=== PATIENT | female | born 1965 | race Caucasian/White ===

== ENCOUNTER → 2021-05-15 | Outpatient (CLI) | payer MEDICARE ==
[2021-05-15 07:41] LABS: Basophils # (A) 0.1 k/uL (0-0.2); Basophils % (A) 1 %; Eosinophils # (A) 0.2 k/uL (0-0.7); Eosinophils % (A) 2 %; HCT 41.3 % (34.0-46.0); HGB 14.1 gm/dL (11.4-16.0); Lymphocytes # (A) 2.1 k/uL (1.0-4.8); Lymphocytes % (A) 23 %; MCH 28.9 pg (25.0-35.0); MCHC 34.2 g/dL (31.0-37.0); MCV 84.3 fL (80.0-100.0); Mean Platelet Volume 7.5; Monocytes # (A) 0.5 k/uL (0-1.0); Monocytes % (A) 6 %; Neutrophils # (A) 6.2 k/uL (1.3-7.7); Neutrophils % (A) 67 %; Platelet Count 298 k/uL (150-450); RDW 13.7 % (11.5-15.5); WBC 9.3 k/uL (3.8-10.6)
[2021-05-15 08:02] LABS: Potassium 5.2 mmol/L (3.5-5.1)
== END | disposition home or self-care (01) ==
LOC: LABPAT 07:06
PROVIDERS: ATTEND Surgery
DX: Z01.812 Encounter for preprocedural laboratory examination (principal); I74.3 Embolism and thrombosis of arteries of the lower extremities
CPT/HCPCS: 36415; 80051; 82565; 84520; 85025

== ENCOUNTER 2021-05-20 12:28 | Day surgery (SDC) | payer MEDICARE ==
[2021-05-19 09:32] VITALS: BMI 33.8
[~2021-05-20 12:28] MED LIST: ALPRAZolam 0.25 MG TAB PO PRN; ASPIRIN 325 MG TAB PO PRN; SODIUM CHLORIDE 0.9% 1,000 ML in EMPTY BAG 1 BAG IV ONE
[2021-05-20] MEDS ORDERED: SODIUM CHLORIDE 0.9% 1,000 ML IV ONE (12:58)
[2021-05-20 13:20] LABS: Glucose,Whole Blood 224 mg/dL (75-99)
[2021-05-20] MEDS: INSULIN ASPART (NovoLOG) 100 UNIT/ML VIAL SQ SCH ×3 (13:22→21:33)
[2021-05-20 13:56] LABS: Glucose,Whole Blood 246 mg/dL (75-99)
[2021-05-20] MEDS ORDERED: HEPARIN SODIUM,PORCINE 30 ML 30 ML ONE (14:12)
[2021-05-20] MEDS ORDERED: LIDOCAINE 1% INJ 10MG/ML (20 ML MDV) ONE (14:12)
[2021-05-20] MEDS ORDERED: fentaNYL (PF) 50 MCG/ML 2 ML AMP ONE (14:20)
[2021-05-20] MEDS ORDERED: MIDAZOLAM 2 MG/2 ML VIAL IVP ONE (14:21)
[2021-05-20] MEDS ORDERED: fentaNYL (PF) 50 MCG/ML 2 ML AMP IVP ONE (14:22)
[2021-05-20] MEDS ORDERED: LIDOCAINE 1% INJ 10MG/ML (20 ML MDV) SQ ONE (14:28)
[2021-05-20] MEDS ORDERED: IOPAMIDOL-250 100ML BTL INTRAARTER ONE (14:41)
[2021-05-20] MEDS ORDERED: SODIUM CHLORIDE 0.9% 1,000 ML IV SCH (15:15)
--- NOTE | 2021-05-20 15:54 | IR ---
EXAMINATION TYPE: IR angio abdominal w runoff DATE OF EXAM: 05/20/2021 COMPARISON: NONE HISTORY: Fluoroscopy time. Fluoroscopy was provided to the referring clinician.
[2021-05-20 17:29] LABS: Glucose,Whole Blood 189 mg/dL (75-99)
[2021-05-20 17:53] VITALS: PULSE 82
[2021-05-20 20:09] VITALS: BP 158/69; RESP 20; TEMP 98
[2021-05-20 20:56] LABS: Glucose,Whole Blood 316 mg/dL (75-99)
--- NOTE | 2021-06-04 15:33 | P.OP ---
Date of Procedure: 05/20/21 Description of Procedure: Preoperative diagnosis: Dann 3 peripheral arterial disease, previous right lower extremity intervention Postoperative diagnosis: Same Procedure: [#1 ultrasound guided right common femoral artery access #2 aortogram with runoffs #3 20 minutes moderate sedation] Surgeon: Kimberlyn Asif D.O. EBL: []Less than 10 mL IV fluids: [See records] Urine output: [None] Drains: [None] Complications: [None immediately apparent] Condition: [Stable to recovery] Operative indication and findings: [The patient is a 56 field female who has [place] 3 peripheral arterial disease and pain with ambulation after a few blocks. In the past she has undergone a right common femoral endarterectomy with patch angioplasty and was sounds like a right lower extremity atherectomy. She states that she still has occasional pain in her right lower extremity but at this point the pain in her left lower extremity is what is worse. She presents today for an angiogram for lower extremities with runoff.] Procedure in detail: [Patient was taken to the operative suite and placed in supine position. The bilateral groins are prepped and draped in usual sterile fashion. A preprocedure timeout was performed all parties were in agreement the ultrasound was utilized and the right common femoral artery was identified. The skin overlying was anesthetized and using ultrasound guidance artery was cannulated on first attempt. Seldinger technique was used and a 5-Wolof sheath was placed. Catheters and wires were placed up into the aorta and aortogram was performed. The catheter was then brought back down to the level of the bifurcation and bilateral lower extremity runoffs were obtained. Catheters and wires were removed. The sheath was removed and pressure was held until hemostasis was adequate. Angiographic findings the aorta appears normal course and caliber with multiple visualized lumbar arteries. The bilateral renal arteries appear patent without evidence of disease. On the right the common, internal and external iliac arteries appear patent without significant disease. The common femoral artery appears patent with evidence of previous patch angioplasty. The profunda and superficial femoral artery appear patent without significant disease. In the superficial femoral artery at the level of the mid thigh and abductor canal there is some significant calcific disease with high-grade stenosis. At the level of the P2 popliteal artery segment there is calcification with significant disease, possibly an area of total occlusion. The P3 below-knee popliteal artery appears patent without significant disease anterior tibial artery is robust without disease. It is difficult to visualize the peroneal or posterior tibial arteries due to contrast flow. On the left the common internal and external iliac arteries appear patent without evidence of significant disease, the common femoral artery has some degree of calcified disease. The profunda and superficial femoral artery appear patent at the takeoff. At the mid thigh there is a proximally and are approximately a 10 cm occlusion with reconstitution via collateral vessels. There is also some heavy calcific disease in the abductor canal as well as through the popliteal artery. Anterior tibial artery appears widely patent. The tibial peroneal trunk appears patent again there is difficult visualization of the peroneal and posterior tibial arteries to low flow contrast. We will plan to bring the patient back for intervention of the left lower extremity with atherectomy and possible balloon angioplasty.] Plan - Discharge Summary Discharge Rx Participant: No New Discharge Prescriptions: No Action Gabapentin [Neurontin] 600 mg PO TID Atorvastatin [Lipitor] 40 mg PO DAILY Omeprazole [PriLOSEC] 20 mg PO -[facility] Clopidogrel [Plavix] 75 mg PO DAILY Anastrozole [Arimidex] 1 mg PO DAILY Albuterol Inhaler [Ventolin Hfa Inhaler] 2 puff INHALATION RT-QID PRN PRN Reason: Shortness Of Breath metFORMIN HCL [Glucophage] 1,000 mg PO BID INSULIN ASPART (NovoLOG) [NovoLOG (formulary)] 6 unit SQ ACHS lisinopriL [Zestril] 40 mg PO DAILY Insulin Glargine,Hum.rec.anlog [Basaglar Kwikpen U-100] 30 unit SQ BID Discharge Medication List Albuterol Inhaler [Ventolin Hfa Inhaler] 2 puff INHALATION RT-QID PRN 05/19/21 [History] Anastrozole [Arimidex] 1 mg PO DAILY 05/19/21 [History] Atorvastatin [Lipitor] 40 mg PO DAILY 05/19/21 [History] Clopidogrel [Plavix] 75 mg PO DAILY 05/19/21 [History] Gabapentin [Neurontin] 600 mg PO TID 05/19/21 [History] INSULIN ASPART (NovoLOG) [NovoLOG (formulary)] 6 unit SQ ACHS 05/19/21 [History] Insulin Glargine,Hum.rec.anlog [Basaglar Kwikpen U-100] 30 unit SQ BID 05/19/21 [History] Omeprazole [PriLOSEC] 20 mg PO AC-BRKFST 05/19/21 [History] lisinopriL [Zestril] 40 mg PO DAILY 05/19/21 [History] metFORMIN HCL [Glucophage] 1,000 mg PO BID 05/19/21 [History]
== END 2021-05-20 23:02 | disposition home or self-care (01) ==
LOC: CATHCVL 12:28 → 6NMEDSUR 14:43 → CATHCVL 23:02
PROVIDERS: ATTEND Surgery
DX: I70.213 Atherosclerosis of native arteries of extremities with intermittent claudication, bilateral legs (principal); I65.29 Occlusion and stenosis of unspecified carotid artery; Z98.51 Tubal ligation status; Z98.1 Arthrodesis status; Z98.890 Other specified postprocedural states; Z20.822 Contact with and (suspected) exposure to COVID-19; Z89.429 Acquired absence of other toe(s), unspecified side; Z80.9 Family history of malignant neoplasm, unspecified; Z87.891 Personal history of nicotine dependence; Z79.84 Long term (current) use of oral hypoglycemic drugs; Z79.02 Long term (current) use of antithrombotics/antiplatelets; Z79.82 Long term (current) use of aspirin; Z79.899 Other long term (current) drug therapy; Z88.1 Allergy status to other antibiotic agents; Z88.8 Allergy status to other drugs, medicaments and biological substances; I10 Essential (primary) hypertension; E11.9 Type 2 diabetes mellitus without complications
CPT/HCPCS: 36200; 75625; 75716; 76937; 87635; C1769 ×4; C1894; J2250; J2001; J3010; Q9966

== ENCOUNTER → 2021-06-13 | Outpatient (CLI) | payer MEDICARE ==
[2021-06-13 11:26] LABS: Basophils # (A) 0.1 k/uL (0-0.2); Basophils % (A) 1 %; Eosinophils # (A) 0.2 k/uL (0-0.7); Eosinophils % (A) 2 %; HCT 41.6 % (34.0-46.0); HGB 13.8 gm/dL (11.4-16.0); Lymphocytes # (A) 1.7 k/uL (1.0-4.8); Lymphocytes % (A) 24 %; MCH 28.8 pg (25.0-35.0); MCHC 33.1 g/dL (31.0-37.0); MCV 87.1 fL (80.0-100.0); Mean Platelet Volume 7.9; Monocytes # (A) 0.4 k/uL (0-1.0); Monocytes % (A) 5 %; Neutrophils # (A) 4.9 k/uL (1.3-7.7); Neutrophils % (A) 67 %; Platelet Count 271 k/uL (150-450); RBC 4.78 m/uL (3.80-5.40); RDW 13.5 % (11.5-15.5); WBC 7.4 k/uL (3.8-10.6)
[2021-06-13 11:36] LABS: Potassium 5.4 mmol/L (3.5-5.1)
== END | disposition home or self-care (01) ==
LOC: LABPAT 11:00
PROVIDERS: ATTEND Surgery
DX: Z01.812 Encounter for preprocedural laboratory examination (principal); I70.213 Atherosclerosis of native arteries of extremities with intermittent claudication, bilateral legs
CPT/HCPCS: 36415; 80051; 82565; 84520; 85025

== ENCOUNTER 2022-10-08 08:38 | Inpatient (IN) | payer MEDICARE ==
--- NOTE | 2022-10-08 09:25 | ED ---
Extremity Problem HPI - General Source: patient, RN notes reviewed Mode of arrival: ambulatory <Vaishnavi Kelly - Last Filed: 10/08/22 14:07> <Marizol Galicia - Last Filed: 10/10/22 23:01> - General Chief complaint: Extremity Problem,Nontraumatic Stated complaint: left leg pain Time Seen by Provider: 10/08/22 09:04 - History of Present Illness Initial comments: Patient is a 57-year-old female presenting to the emergency room with complaints of pain and numbness in her left lower extremity. She reports that she has pain from the calf to her toes in her left lower extremity and numbness from lower calf to toes. She reports that symptoms began approximately 4 days ago and 3 days ago the foot became cooler to the touch. She states that she stopped all her primary care provider earlier in the week who advised the emergency room however she chose to wait at home. She reports that symptoms are essentially unchanged since onset of symptoms. She is concerned as she has a stent in her left lower extremity. She was previously following with vascular but due to changes of her insurance is not currently following with vascular but does have an appointment scheduled with a provider next month. In addition to peripheral artery disease she has a past medical history significant for COPD, diabetes, hyperlipidemia, hypertension, GERD, breast cancer with surgery, chemo and radiation along with lower extremity neuropathy. (Vaishnavi Kelly) - Related Data Home Medications Medication Instructions Recorded Confirmed Atorvastatin [Lipitor] 40 mg PO QAM 05/19/21 10/08/22 Clopidogrel [Plavix] 75 mg PO DAILY 05/19/21 10/08/22 Gabapentin [Neurontin] 600 mg PO TID 05/19/21 10/08/22 INSULIN ASPART (NovoLOG) [NovoLOG See Protocol SQ AC-TID PRN 05/19/21 10/08/22 (formulary)] Insulin Glargine,Hum.rec.anlog 30 unit SQ BID 05/19/21 10/08/22 [Basaglar Kwikpen U-100] Omeprazole [PriLOSEC] 20 mg PO AC-BRKFST 05/19/21 10/08/22 lisinopriL [Zestril] 40 mg PO QAM 05/19/21 10/08/22 metFORMIN HCL [Glucophage] 1,000 mg PO BID 05/19/21 10/08/22 Anastrozole 1 mg PO DAILY 10/08/22 10/08/22 Cyclobenzaprine [Flexeril] 10 mg PO TID PRN 10/08/22 10/08/22 amLODIPine [Norvasc] 5 mg PO DAILY 10/08/22 10/08/22 Allergies Allergy/AdvReac Type Severity Reaction Status Date / Time protamine Allergy BP Verified 10/08/22 10:55 dropped, heart rate elevated tetracycline [Tetracycline] Allergy Rash/Hives Verified 10/08/22 10:55 Review of Systems ROS Other: All systems not noted in ROS Statement are negative. <Vaishnavi Kelly - Last Filed: 10/08/22 14:07> ROS Other: All systems not noted in ROS Statement are negative. <Marizol Galicia - Last Filed: 10/10/22 23:01> ROS Statement: Those systems with pertinent positive or pertinent negative responses have been documented in the HPI. Past Medical History Past Medical History: Cancer, COPD, Diabetes Mellitus, GERD/Reflux, Hyperlipidemia, Hypertension, Osteoarthritis (OA), Seizure Disorder, Vascular Disorder Additional Past Medical History / Comment(s): hx. heart murmur, breast cancer 5 yrs. ago-had surgery & chemo & radiation, one time seizure 3 yrs ago-testing done & never found anything, lower extremity neuropathy, left charcot foot History of Any Multi-Drug Resistant Organisms: None Reported Past Surgical History: Breast Surgery, Orthopedic Surgery, Tubal Ligation Additional Past Surgical History / Comment(s): right breast lumpectomy & lymph nodes removed, angioplasty, vasc. surg lower extremities, right 2nd toe removed Past Anesthesia/Blood Transfusion Reactions: No Reported Reaction Past Psychological History: No Psychological Hx Reported Smoking Status: Former smoker Past Alcohol Use History: Occasional Past Drug Use History: None Reported <Vaishnavi Kelly - Last Filed: 10/08/22 14:07> General Exam General appearance: alert, in no apparent distress Head exam: Present: atraumatic, normocephalic, normal inspection Eye exam: Present: normal appearance, PERRL, EOMI. Absent: scleral icterus, conjunctival injection, periorbital swelling ENT exam: Present: normal exam, mucous membranes moist Neck exam: Present: normal inspection, full ROM Respiratory exam: Present: normal lung sounds bilaterally. Absent: respiratory distress, wheezes, rales, rhonchi, stridor Cardiovascular Exam: Present: regular rate, normal rhythm, normal heart sounds. Absent: systolic murmur, diastolic murmur, rubs, gallop, clicks GI/Abdominal exam: Present: soft, normal bowel sounds. Absent: distended, tenderness, guarding, rebound, rigid Extremities exam: Present: calf tenderness, other (Varicosities with blanchable erythema units to left toes. Left foot cooler than right foot.) Left Foot/Toe exam: Present: full ROM, tenderness, swelling, ecchymosis (Small area of ecchymosis dorsal aspect of foot proximal to great toe.) Gait: observed and limited by pain Back exam: Present: normal inspection Neurological exam: Present: alert, oriented X3, CN II-XII intact Psychiatric exam: Present: normal affect, normal mood Skin exam: Present: abrasion (Right julien healing), other (Discoloration to left foot as noted above.) <Vaishnavi Kelly - Last Filed: 10/08/22 14:07> Course - Consultations Time: 13:06 Time: 13:22 <Vaishnavi Kelly - Last Filed: 10/08/22 14:07> Vital Signs 10/08/22 10/08/22 10/08/22 08:39 09:44 10:57 Temperature 97.1 F L Pulse Rate 93 89 93 Respiratory 18 18 18 Rate Blood Pressure 196/85 167/84 160/88 O2 Sat by Pulse 98 98 96 Oximetry 10/08/22 10/08/22 10/08/22 12:00 14:25 15:20 Temperature 99.3 F 98.8 F Pulse Rate 91 99 Respiratory 18 18 18 Rate Blood Pressure 160/80 122/74 O2 Sat by Pulse 96 96 Oximetry - Consultations Consultation #1: Dr. Crystal on-call for vascular called regarding CT angiogram findings demonstrating focal occlusion at the level left common femoral artery distally as well as left SFA focally just proximal to patient stent patient's left S after a stent is completely occluded. High-grade stenosis of PSYCHIATRY TEACHER as well greater than 70% proximal SFA limited runoff below the knee. Dr[facility] to contact his PA Mando Reagan, myla placed. (Vaishnavi Kelly) Consultation #2: Case discussed with Romario Reagan with vascular. Dr. Quiles available for evaluation to come to the bedside to evaluate patient. (Vaishnavi Kelly) Medical Decision Making - Lab Data Result diagrams: 10/08/22 09:12 10/08/22 09:12 - Radiology Data Radiology results: report reviewed, image reviewed <Vaishnavi Kelly - Last Filed: 10/08/22 14:07> - Lab Data Result diagrams: 10/10/22 11:26 10/10/22 11:26 <Marizol Galicia - Last Filed: 10/10/22 23:01> - Medical Decision Making 57-year-old female presented to the emergency room with lower extremity pain numbness and cold to the touch. History of PAD and PPD along with diabetes hypertension hyperlipidemia. Will obtain ultrasound Doppler rule out DVT if negative will proceed with CT angiography lower extremity giving symptomatology. Will obtain CBC BMP and PT/INR for baseline labs. Will monitor closely. CBC BMP PT and INR all stable. Ultrasound venous Doppler lower extremity with no evidence of DVT incidental finding of lack of wall to wall color filling within the left femoral artery color defect noted will proceed with CT angiogram of left lower extremity in the absence of DVT and presenting symptomatology. Patient complaining of increased pain will give morphine for pain and monitor. CT reveals arterial occlusive disease. Will keep nothing by mouth and discuss presentations and findings discussed with vascular, patient to be admitted for vascular intervention to medicine with vascular consult. Spoke with Dr. akers reservations agent for patient's primary care provider accepting of admission, orders placed. Patient to go to the OR this afternoon. Case discussed with Dr. Galicia. (Vaishnavi Kelly) - Lab Data Lab Results 10/08/22 10/08/22 10/08/22 Range/Units 09:12 09:12 09:12 WBC 8.0 (3.8-10.6) k/uL RBC 4.81 (3.80-5.40) m/uL Hgb 13.9 (11.4-16.0) gm/dL Hct 40.9 (34.0-46.0) % MCV 84.9 (80.0-100.0) fL MCH 28.8 (25.0-35.0) pg MCHC 33.9 (31.0-37.0) g/dL RDW 13.5 (11.5-15.5) % Plt Count 300 (150-450) k/uL MPV 8.1 Neutrophils % 70 % Lymphocytes % 21 % Monocytes % 5 % Eosinophils % 2 % Basophils % 1 % Neutrophils # 5.6 (1.3-7.7) k/uL Lymphocytes # 1.7 (1.0-4.8) k/uL Monocytes # 0.4 (0-1.0) k/uL Eosinophils # 0.2 (0-0.7) k/uL Basophils # 0.1 (0-0.2) k/uL PT 10.1 (9.0-12.0) sec INR 0.9 (<1.2) Sodium 134 L (137-145) mmol/L Potassium 5.1 (3.5-5.1) mmol/L Chloride 100 (98-107) mmol/L Carbon Dioxide 27 (22-30) mmol/L Anion Gap 7 mmol/L BUN 22 H (7-17) mg/dL Creatinine 0.90 (0.52-1.04) mg/dL Est GFR (CKD-EPI)AfAm 83 (>60 ml/min/1.73 sqM) Est GFR (CKD-EPI)NonAf 72 (>60 ml/min/1.73 sqM) Glucose 185 H (74-99) mg/dL Estimated Ave Glu mg/dL Hemoglobin A1c (0.0-6.0) % Calcium 9.1 (8.4-10.2) mg/dL 10/08/22 Range/Units 09:12 WBC (3.8-10.6) k/uL RBC (3.80-5.40) m/uL Hgb (11.4-16.0) gm/dL Hct (34.0-46.0) % MCV (80.0-100.0) fL MCH (25.0-35.0) pg MCHC (31.0-37.0) g/dL RDW (11.5-15.5) % Plt Count (150-450) k/uL MPV Neutrophils % % Lymphocytes % % Monocytes % % Eosinophils % % Basophils % % Neutrophils # (1.3-7.7) k/uL Lymphocytes # (1.0-4.8) k/uL Monocytes # (0-1.0) k/uL Eosinophils # (0-0.7) k/uL Basophils # (0-0.2) k/uL PT (9.0-12.0) sec INR (<1.2) Sodium (137-145) mmol/L Potassium (3.5-5.1) mmol/L Chloride (98-107) mmol/L Carbon Dioxide (22-30) mmol/L Anion Gap mmol/L BUN (7-17) mg/dL Creatinine (0.52-1.04) mg/dL Est GFR (CKD-EPI)AfAm (>60 ml/min/1.73 sqM) Est GFR (CKD-EPI)NonAf (>60 ml/min/1.73 sqM) Glucose (74-99) mg/dL Estimated Ave Glu mg/dL 197 Hemoglobin A1c 8.5 H (0.0-6.0) % Calcium (8.4-10.2) mg/dL - Radiology Data Ultrasound venous Doppler duplex left lower extremity impression by radiologist no evidence of DVT at this time. Compression deferred due to nearby stent. Incidental finding of lack of [id number] color filling with and left femoral artery, color defect noted. CT and she'll lower left extremity impression by radiologist left lower extremity demonstrates focal occlusion at level of the left common femoral arterial distally as well as the left SFA focally just proximal to the patient stent. The patient's left SFA stent is completely occluded. Suspect disease at the popliteal artery. Limited evaluation below the knees. Conventional angiography recommended. High-grade stenosis of right PSYCHIATRY TEACHER as well as greater than 70% stenosed SFA. Suspect popliteal disease greater than 50%. Limited runoff evaluation below the knees. Conventional angiography recommended. (Vaishnavi Henning) Critical Care Time Critical Care Time: Yes <Marizol Galicia - Last Filed: 10/10/22 23:01> Critical Care Time: 35 minutes (Marizol Galicai) Disposition Is patient prescribed a controlled substance at d/c from ED?: No Time of Disposition: 14:12 <Vaishnavi Kelly - Last Filed: 10/08/22 14:07> <Marizol Galicia - Last Filed: 10/10/22 23:01> Clinical Impression: PAD (peripheral artery disease) Disposition: ADMITTED IP TO THIS HOSP Condition: Stable
[2022-10-08 09:37] LABS: Basophils # (A) 0.1 k/uL (0-0.2); Basophils % (A) 1 %; Eosinophils # (A) 0.2 k/uL (0-0.7); Eosinophils % (A) 2 %; HCT 40.9 % (34.0-46.0); HGB 13.9 gm/dL (11.4-16.0); Lymphocytes # (A) 1.7 k/uL (1.0-4.8); Lymphocytes % (A) 21 %; MCH 28.8 pg (25.0-35.0); MCHC 33.9 g/dL (31.0-37.0); MCV 84.9 fL (80.0-100.0); Mean Platelet Volume 8.1; Monocytes # (A) 0.4 k/uL (0-1.0); Monocytes % (A) 5 %; Neutrophils # (A) 5.6 k/uL (1.3-7.7); Neutrophils % (A) 70 %; Platelet Count 300 k/uL (150-450); RBC 4.81 m/uL (3.80-5.40); RDW 13.5 % (11.5-15.5)
[2022-10-08 09:47] LABS: INR 0.9 (<1.2); Prothrombin Time 10.1 sec (9.0-12.0)
[2022-10-08 09:51] LABS: Calcium 9.1 mg/dL (8.4-10.2); Potassium 5.1 mmol/L (3.5-5.1)
[2022-10-08] MEDS ORDERED: MORPHINE SULFATE 4 MG/ML SYRINGE IVP STA (10:29)
--- NOTE | 2022-10-08 10:39 | US ---
EXAMINATION TYPE: US venous doppler duplex LE LT DATE OF EXAM: 10/08/2022 10:26 AM COMPARISON: NONE CLINICAL HISTORY: pain numbness. Pain and numbness within left leg. Patient has stent in left leg. No hx of DVT. SIDE PERFORMED: Left TECHNIQUE: The lower extremity deep venous system is examined utilizing real time linear array sonog paulino with graded compression, doppler sonography and color-flow sonography. VESSELS IMAGED: Common Femoral Vein Deep Femoral Vein Greater Saphenous Vein * Femoral Vein Popliteal Vein Small Saphenous Vein * Proximal Calf Veins (* superficial vessels) Left Leg: No evidence of DVT at this time. Compressions deferred due to nearby stent. Incidental finding of lack of wall to wall color filling within left femoral artery, color defect not ed. IMPRESSION: No evidence of deep vein thrombosis of the left lower extremity.
[2022-10-08] MEDS ORDERED: RX INFO: IV CONTRAST WAS GIVEN 1 EACH MISC MISCELLANE PRN (10:46)
--- NOTE | 2022-10-08 12:44 | CT ---
EXAMINATION TYPE: CT angio lower extremity LT DATE OF EXAM: 10/08/2022 COMPARISON: None HISTORY: Left leg pain, numbness, and cold feeling CT DLP: 3410.5 mGycm CONTRAST: CTA thoracic and abdominal aorta with 3-D reconstruction is performed and without and with IV Contras t, patient injected with 100 mL of Isovue 370. Contrast CTA of the abdominal aorta with runoff of the lower extremity arterial system was performed from the lung bases through the ankles and feet. 3-D reconstruction imaging obtained at a separate wo rkstation. ABDOMINAL AORTA: No evidence for abdominal aortic aneurysm. The Renal arteries, SMA, celiac artery an d SHANTELL are patent. Renal artery calcifications noted. Iliac vessels: Common iliac arteries are patent bilaterally. There is diffuse plaque formation noted bilaterally of the bilateral common iliac arteries without greater than 50% stenosis. Femoral arteries: Extensive calcific plaque left common femoral artery with occlusion noted distally distal to the inguinal region. There is a high-grade stenosis right common femoral artery estimated a t greater than 85% (see axial image 159). Profunda femoris is patent bilaterally. There is occlusion of the distal left SFA just proximal to the stent. The stent which extends from the mid thigh is enti rely occluded. The right superficial femoral artery demonstrates scattered atheromatous change with p roximal 70% stenosis difficult to exclude. The remainder of the right SFA appears to be free of steno sis greater than 50%. Popliteal arteries: Limited opacification of the bilateral popliteal arteries although I do suspect s tenosis of greater than 70% bilaterally. Below the knee arteries: Limited evaluation below the knees. LIVER/GB- No significant abnormality is seen. PANCREAS- No significant abnormality is seen. SPLEEN- No significant abnormality is seen. ADRENALS- No significant abnormality is seen. KIDNEYS/BLADDER- No significant abnormality is seen. BOWEL- No Significant abnormality GENITAL ORGANS: No gross abnormality seen. LYMPH NODES- No greater than 1cm abdominal or pelvic lymph nodes are appreciated. OSSEOUS STRUCTURES- No significant abnormality is seen. OTHER- No significant abnormality is seen. IMPRESSION- 1. Left lower extremity demonstrates focal occlusion at the level of the left common femoral artery d istally as well as the left SFA focally just proximal to the patient's stent. The patient's left SFA stent is completely occluded. Suspect disease at the popliteal artery. Limited evaluation below the k nees. Conventional angiography recommended. 2. High-grade stenosis right OPERATIONS SUPPORT MANAGER as well as a greater than 70% stenosis proximal SFA. Suspect poplite al disease greater than 50%. Limited runoff evaluation below the knees. Conventional angiography soraida mmended.
[2022-10-08] MEDS ORDERED: NALOXONE 0.4 MG/ML 1 ML VIAL IV PRN (13:54)
[2022-10-08] MEDS: MORPHINE SULFATE 4 MG/ML SYRINGE IV PRN ×3 (14:30→22:14)
--- NOTE | 2022-10-08 14:59 | P.GSCN ---
History of Present Illness Consult date: 10/08/22 Reason for Consult: left lower extremity painmight arterial occlusion Requesting physician: Vaishnavi Kelly History of present illness: This is a 57-year-old pleasant female with a past medical history includingbreast cancer, COPD, diabetes mellitus, GERD, hyperlipidemia, hypertension, seizure disorder and peripheral arterial disorder who is known to Dr. Asif.patient states she started having pain in her left lower extremity with numbness and tingling that began 4 days ago. She has an appointment with Dr. Blue on 10/18/2022 and thought she could wait however the pain worsened. Patient underwent in May 2021 angioplasty of the SFA, popliteal artery and stenting of the SFA. on admission she had nonpalpable pulses and CT angiogram of the lower extremities was obtainedwith occlusion of the left common femoral artery and left SFA proximal to the patient's stent. There is also high-grade stenosis of the right HOSPITAL SCIENTIST as well as greater than 70% stenosis proximal SFA suspect popliteal disease greater than 50%. Patient denies any shortness of breath or chest pain, denies any fevers chills, abdominal pain, nausea or vomiting.she's been afebrile. Review of Systems A 14 point review systems was completed all pertinent positives and negatives as stated in the HPI. Past Medical History Past Medical History: Cancer, COPD, Diabetes Mellitus, GERD/Reflux, Hyperlipidemia, Hypertension, Osteoarthritis (OA), Seizure Disorder, Vascular Disorder Additional Past Medical History / Comment(s): hx. heart murmur, breast cancer 5 yrs. ago-had surgery & chemo & radiation, one time seizure 3 yrs ago-testing done & never found anything, lower extremity neuropathy, left charcot foot History of Any Multi-Drug Resistant Organisms: None Reported Past Surgical History: Breast Surgery, Orthopedic Surgery, Tubal Ligation Additional Past Surgical History / Comment(s): right breast lumpectomy & lymph nodes removed, angioplasty, vasc. surg lower extremities, right 2nd toe removed Past Anesthesia/Blood Transfusion Reactions: No Reported Reaction Past Psychological History: No Psychological Hx Reported Smoking Status: Former smoker Past Alcohol Use History: Occasional Past Drug Use History: None Reported Medications and Allergies Home Medications Medication Instructions Recorded Confirmed Type Atorvastatin [Lipitor] 40 mg PO QAM 05/19/21 10/08/22 History Clopidogrel [Plavix] 75 mg PO DAILY 05/19/21 10/08/22 History Gabapentin [Neurontin] 600 mg PO TID 05/19/21 10/08/22 History INSULIN ASPART (NovoLOG) [NovoLOG See Protocol SQ AC-TID PRN 05/19/21 10/08/22 History (formulary)] Insulin Glargine,Hum.rec.anlog 30 unit SQ BID 05/19/21 10/08/22 History [Basaglar Kwikpen U-100] Omeprazole [PriLOSEC] 20 mg PO AC-BRKFST 05/19/21 10/08/22 History lisinopriL [Zestril] 40 mg PO QAM 05/19/21 10/08/22 History metFORMIN HCL [Glucophage] 1,000 mg PO BID 05/19/21 10/08/22 History Anastrozole 1 mg PO DAILY 10/08/22 10/08/22 History Cyclobenzaprine [Flexeril] 10 mg PO TID PRN 10/08/22 10/08/22 History amLODIPine [Norvasc] 5 mg PO DAILY 10/08/22 10/08/22 History Allergies Allergy/AdvReac Type Severity Reaction Status Date / Time protamine Allergy BP Verified 10/08/22 10:55 dropped, heart rate elevated tetracycline [Tetracycline] Allergy Rash/Hives Verified 10/08/22 10:55 Surgical - Exam Vital Signs Temp Pulse Resp BP Pulse Ox 97.1 F L 93 18 196/85 98 10/08/22 08:39 10/08/22 08:39 10/08/22 08:39 10/08/22 08:39 10/08/22 08:39 General appearance: The patient is alert, oriented, appears in no acute distress. HET: Head is normocephalic and atraumatic. Pupils are equal and reactive. Neck: Supple without lymphadenopathy. Trachea midline. Heart: Regular. Lungs: Equal expansion, normal respiratory effort. Abdomen: Soft, nontender, nondistended. Extremities: Normal skin color and turgor. No cyanosis, rash, ulceration, clubbing, or edema. left foot and leg painful to palpation, toes are cool to the touch. Nonpalpable DP or PT pulses. Patient is able to move her foot and wiggle her toes bilaterally. Neurological: No focal deficits. Strength and sensation are grossly intact. Results - Labs 10/08/22 09:12 10/08/22 09:12 Abnormal Lab Results - Last 24 Hours (Table) 10/08/22 Range/Units 09:12 Sodium 134 L (137-145) mmol/L BUN 22 H (7-17) mg/dL Glucose 185 H (74-99) mg/dL Diabetes panel 10/08/22 Range/Units 09:12 Sodium 134 L (137-145) mmol/L Potassium 5.1 (3.5-5.1) mmol/L Chloride 100 (98-107) mmol/L Carbon Dioxide 27 (22-30) mmol/L BUN 22 H (7-17) mg/dL Creatinine 0.90 (0.52-1.04) mg/dL Glucose 185 H (74-99) mg/dL Calcium 9.1 (8.4-10.2) mg/dL Calcium panel 10/08/22 Range/Units 09:12 Calcium 9.1 (8.4-10.2) mg/dL Pituitary panel 10/08/22 Range/Units 09:12 Sodium 134 L (137-145) mmol/L Potassium 5.1 (3.5-5.1) mmol/L Chloride 100 (98-107) mmol/L Carbon Dioxide 27 (22-30) mmol/L BUN 22 H (7-17) mg/dL Creatinine 0.90 (0.52-1.04) mg/dL Glucose 185 H (74-99) mg/dL Calcium 9.1 (8.4-10.2) mg/dL Adrenal panel 10/08/22 Range/Units 09:12 Sodium 134 L (137-145) mmol/L Potassium 5.1 (3.5-5.1) mmol/L Chloride 100 (98-107) mmol/L Carbon Dioxide 27 (22-30) mmol/L BUN 22 H (7-17) mg/dL Creatinine 0.90 (0.52-1.04) mg/dL Glucose 185 H (74-99) mg/dL Calcium 9.1 (8.4-10.2) mg/dL Assessment and Plan Assessment: 1. left lower extremity SFA occlusion 2. left lower extremity pain 3. History of peripheral arterial occlusive disease with previous SFA occlusion and popliteal artery occlusive disease status post angioplasty and stent 4. Diabetes mellitus Plan: 1. Keep nothing by mouth 2. Patient scheduled to undergo left lower extremity angiogram with possible thrombolytics 3. Further recommendations forthcoming per vascular surgeon Thank you for this consultation, we will continue to follow. The impression and plan of care has been dictated as directed. Dr. Barrett I performed a history and examination of this patient, discussed the same with the dictator. I agree with the dictator's note ,documented as a scribe. Any additional findings or plans will be noted. Reviewed CTA with patient in full detail- occlusion of the left SFA and in stent noted. Discussed options including attempting to get across the thrombosis and placing thrombolytic catheter which patient is in agreement. All risks including bleeding was discussed and she is in agreement. Will take today for a ngiogram and intervention.
[2022-10-08 15:26] LABS: Glucose,Whole Blood 53 mg/dL (70-110)
[2022-10-08] MEDS ORDERED: DEXTROSE 50% SYRINGE 50 ML IVP STA (15:28)
[2022-10-08 15:48] LABS: Glucose,Whole Blood 185 mg/dL (70-110)
[2022-10-08] MEDS ORDERED: CYCLOBENZAPRINE 10 MG TAB PO PRN (16:20)
[2022-10-08] MEDS ORDERED: DEXTROSE 50% SYRINGE 50 ML IVP PRN ×2 (16:21)
[2022-10-08] MEDS ORDERED: fentaNYL (PF) 50 MCG/ML 2 ML AMP ONE (16:23)
--- NOTE | 2022-10-08 16:24 | P.HPIM ---
History of Present Illness this is a pleasant 57 years old female with past medical history of medical problems presents because of left foot pain started yesterday about 9/10 in severity. She denies any other specific complaints no chest pain, no urinary symptoms no vomiting or diarrhea, no headache or weakness or numbness in other places. No dizziness. She denies smoking or illicit drugs, occasional drinking alcohol vitals are stable She has unremarkable CBC, INR, BMP. Lower extremity CTA showing high grade stenosis on the right CIG[employer] HEAD STRINGER as well as greater than 70% stenosis proximal SFA.suspect popliteal disease greater than 50%. Suspect lower extremity focal occlusion of the level of the left camera femoral artery distally as well as the left SFA focally just proximal to the patient stent. The patient left SFA stent is completely occluded Review of Systems Review of systems CONSTITUTIONAL: No fever, no malaise, no fatigue. HEENT: No recent visual problems or hearing problems. Denied any sore throat. CARDIOVASCULAR: No orthopnea, PND, no palpitations, no syncope. PULMONARY: No shortness of breath, no cough, no hemoptysis. GASTROINTESTINAL: No diarrhea, no nausea, no vomiting, no abdominal pain. Normoactive bowel sounds. NEUROLOGICAL: No headaches, no weakness, no numbness. HEMATOLOGICAL: Denies any bleeding or petechiae. GENITOURINARY: Denies any burning micturition, frequency, or urgency. MUSCULOSKELETAL/RHEUMATOLOGICAL: Denies any joint pain, swelling, or any muscle pain. except what is mentioned above ENDOCRINE: Denies any polyuria or polydipsia. Past Medical History Past Medical History: Cancer, COPD, Diabetes Mellitus, GERD/Reflux, Hyperlipidemia, Hypertension, Osteoarthritis (OA), Seizure Disorder, Vascular Disorder Additional Past Medical History / Comment(s): hx. heart murmur, breast cancer 5 yrs. ago-had surgery & chemo & radiation, one time seizure 3 yrs ago-testing done & never found anything, lower extremity neuropathy, left charcot foot History of Any Multi-Drug Resistant Organisms: None Reported Past Surgical History: Breast Surgery, Orthopedic Surgery, Tubal Ligation Additional Past Surgical History / Comment(s): right breast lumpectomy & lymph nodes removed, angioplasty, vasc. surg lower extremities, right 2nd toe removed Past Anesthesia/Blood Transfusion Reactions: No Reported Reaction Past Psychological History: No Psychological Hx Reported Smoking Status: Former smoker Past Alcohol Use History: Occasional Past Drug Use History: None Reported Medications and Allergies Home Medications Medication Instructions Recorded Confirmed Type Atorvastatin [Lipitor] 40 mg PO QAM 05/19/21 10/08/22 History Clopidogrel [Plavix] 75 mg PO DAILY 05/19/21 10/08/22 History Gabapentin [Neurontin] 600 mg PO TID 05/19/21 10/08/22 History INSULIN ASPART (NovoLOG) [NovoLOG See Protocol SQ AC-TID PRN 05/19/21 10/08/22 History (formulary)] Insulin Glargine,Hum.rec.anlog 30 unit SQ BID 05/19/21 10/08/22 History [Basaglar Kwikpen U-100] Omeprazole [PriLOSEC] 20 mg PO AC-BRKFST 05/19/21 10/08/22 History lisinopriL [Zestril] 40 mg PO QAM 05/19/21 10/08/22 History metFORMIN HCL [Glucophage] 1,000 mg PO BID 05/19/21 10/08/22 History Anastrozole 1 mg PO DAILY 10/08/22 10/08/22 History Cyclobenzaprine [Flexeril] 10 mg PO TID PRN 10/08/22 10/08/22 History amLODIPine [Norvasc] 5 mg PO DAILY 10/08/22 10/08/22 History Allergies Allergy/AdvReac Type Severity Reaction Status Date / Time protamine Allergy BP Verified 10/08/22 10:55 dropped, heart rate elevated tetracycline [Tetracycline] Allergy Rash/Hives Verified 10/08/22 10:55 Physical Exam Vitals: Vital Signs Temp Pulse Resp BP Pulse Ox 10/08/22 15:20 18 10/08/22 14:25 98.8 F 99 18 122/74 96 10/08/22 12:00 99.3 F 91 18 160/80 96 10/08/22 10:57 93 18 160/88 96 10/08/22 09:44 89 18 167/84 98 10/08/22 08:39 97.1 F L 93 18 196/85 98 Intake and Output 10/08/22 10/08/22 10/08/22 06:59 14:59 22:59 Other: Weight 102.512 kg GENERAL: The patient is alert and oriented x3, not in any acute distress. Well developed, well nourished. HEENT: Pupils are round and equally reacting to light. EOMI. No scleral icterus. No conjunctival pallor. Normocephalic, atraumatic. No pharyngeal erythema. No thyromegaly. CARDIOVASCULAR: S1 and S2 present. No murmurs, rubs, or gallops. PULMONARY: Chest is clear to auscultation, no wheezing or crackles. ABDOMEN: Soft, nontender, nondistended, normoactive bowel sounds. No palpable organomegaly. MUSCULOSKELETAL: No joint swelling or deformity. -EXTREMITIES: No cyanosis, clubbing, or pedal edema. left forefoot is cold and numb with decreased sensation to touch NEUROLOGICAL: Gross neurological examination did not reveal any focal deficits. SKIN: No rashes. no petechiae. Results CBC & Chem 7: 10/08/22 09:12 10/08/22 09:12 Labs: Abnormal Lab Results - Last 24 Hours (Table) 10/08/22 10/08/22 10/08/22 Range/Units 09:12 15:25 15:47 Sodium 134 L (137-145) mmol/L BUN 22 H (7-17) mg/dL Glucose 185 H (74-99) mg/dL POC Glucose (mg/dL) 53 L 185 H (70-110) mg/dL Assessment and Plan Assessment: -Acute left foot ischemic injury with cta of the left lower exteremity showing left SFA stent is completely occluded and high grade stenosis on the right C[employer]AR HEAD STRINGER as well as greater than 70% stenosis proximal SFA diabetes mellitus Hypertension Hyperlipidemia history of GERD History of osteoarthritis History of seizure disorder Plan: Patient bulb lactic by vascular surgery team and patient is going to be taken to urgent surgical revascularization. Probably patient will be transferred to the ICU after that. Labs and medication were reviewed.. Continue same treatment. Continue with symptomatic treatment. Resume home medication. Monitor labs and vitals. DVT and GI prophylaxis. Further recommendations as per clinical course of the patient DVT prophylaxis:differed to surgery team GI Prophylaxis: Pepcid Prognosis is guarded
[2022-10-08] MEDS: MIDAZOLAM 2 MG/2 ML VIAL IVP ONE ×2 (16:25→16:30)
[2022-10-08] MEDS ORDERED: fentaNYL (PF) 50 MCG/ML 2 ML AMP IVP ONE (16:25)
[2022-10-08] MEDS ORDERED: LIDOCAINE 1% INJ 10MG/ML (30 ML VIAL-PF) SQ ONE (16:26)
[2022-10-08] MEDS ORDERED: SODIUM CHLORIDE 0.9% 1,000 ML IV ONE (16:32)
[2022-10-08] MEDS ORDERED: ALTEPLASE 10 MG in SODIUM CHLORIDE 0.9% 90 ML IV ONE (16:46)
[2022-10-08] MEDS ORDERED: HEPARIN SOD,PORK IN 0.45% NACL 25,000 UNIT in 0.45% NACL 1 250ML.BAG IV SCH (17:00)
[2022-10-08] MEDS: SODIUM CHLORIDE 0.9% 1,000 ML IV SCH (17:06)
--- NOTE | 2022-10-08 17:33 | P.OP ---
Date of Procedure: 10/08/22 Preoperative Diagnosis: Acute left lower extremity critical limb ischemia with left femoral, SFA thrombosis History of left SFA stenting Postoperative Diagnosis: Same Procedure(s) Performed: Ultrasound guided right common femoral artery access Selective left lower extremity Iliofemoral, femoral-tibial angiogram 3rd order Placement of thrombolytic catheter and initiation of thrombolysis Conscious sedation x 27 minutes Anesthesia: local Surgeon: Cecil Barrett Estimated Blood Loss (ml): 5 Pathology: none sent Condition: stable Disposition: ICU Indications for Procedure: 57 year old female with history of left lower extremity SFA atherectomy and stenting presents to the hospital due to acute increase of pain in the left lower extremity and foot. She states unable to walk and had workup in the ER with CTA which demonstrated occlusion of the left SFA and in stents. After discussion patient agreeable to angiogram and attempt at thrombolysis of the lesion to open the stents. Description of Procedure: After written informed consent was obtained the patient all risks benefits competitions were described the patient is brought to the Industrial Ecology Technician and laid in a supine position. The area of the right groin was prepped and draped in the usual sterile fashion. Local anesthesia with moderate sedation was performed with continuous pulse ox monitoring and EKG monitoring. Utilizing ultrasound the right common femoral artery was visualized and shown to be patent without any significant plaque. Utilizing a multipurpose needle under ultrasound guidance the artery was accessed. Guidewire was placed followed by 5-[place]jiboutian sheath. 035 Glidewire was then placed into the aorta followed by a RBI catheter and the left lower extremity was accessed into the common iliac artery. Angiogram was then obtained of the left lower extremity. Calcific disease, occlusion at the common femoral artery extending into the superficial femoral artery was noted. Guidewire was then attempted to be placed across this area which was difficult but utilizing the RBI catheter for support the area was traversed. Angiogram was then obtained in the superficial femoral artery which demonstrated another abrupt occlusion. Utilizing the 035 Glidewire advantage an d a quick cross catheter the lesion was crossed easily likely due to thrombus. Previous angiogram distally demonstrated reconstitution of the popliteal artery below the stents. Guidewire was placed through the stents utilizing the quick cross catheter across into the popliteal artery. Once in the popliteal artery distal selective angiogram was obtained demonstrating good intraluminal access with three-vessel takeoff. 5-[place]ib[place]ian sheath was then replaced with a 6-[place]ib[place]ian 55 cm Up & Over sheath which was placed just above the femoral artery. A 50 cm EKOS catheter was then placed across the lesion and the stents and thrombolytic infusion was initiated. Sheath and catheter were sutured in place. The area was cleansed and dressings were placed. Patient will be treated with thrombolytic therapy overnight with reevaluation tomorrow morning. She tolerated the procedure well and was sent to ICU for recovery.
[2022-10-08 17:45] LABS: Glucose,Whole Blood 75 mg/dL (70-110)
[2022-10-08] MEDS: INSULIN ASPART (NovoLOG) 100 UNIT/ML VIAL SQ SCH ×2 (17:51→23:26)
[2022-10-08 18:16] LABS: Basophils # (A) 0.1 k/uL (0-0.2); Basophils % (A) 1 %; Eosinophils # (A) 0.1 k/uL (0-0.7); Eosinophils % (A) 2 %; HCT 39.1 % (34.0-46.0); HGB 13.3 gm/dL (11.4-16.0); Lymphocytes # (A) 2.2 k/uL (1.0-4.8); Lymphocytes % (A) 25 %; MCH 28.8 pg (25.0-35.0); MCHC 33.9 g/dL (31.0-37.0); Mean Platelet Volume 7.9; Monocytes # (A) 0.4 k/uL (0-1.0); Monocytes % (A) 5 %; Neutrophils # (A) 5.9 k/uL (1.3-7.7); Neutrophils % (A) 67 %; Platelet Count 277 k/uL (150-450); RDW 13.6 % (11.5-15.5); WBC 8.8 k/uL (3.8-10.6)
[2022-10-08 18:25] LABS: INR 0.9 (<1.2); Partial Thromboplastin Time 23.5 sec (22.0-30.0); Prothrombin Time 9.9 sec (9.0-12.0)
[2022-10-08 18:26] LABS: African American GFR (CKD) >90 (>60 ml/min/1.73 sqM); Anion Gap 4 mmol/L; Blood Urea Nitrogen 19 mg/dL (7-17); Carbon Dioxide 28 mmol/L (22-30); Chloride 104 mmol/L (98-107); Glucose 65 mg/dL (74-99); Non-African American GFR(CKD) 81 (>60 ml/min/1.73 sqM); Potassium 4.2 mmol/L (3.5-5.1); Sodium 136 mmol/L (137-145)
[2022-10-08] MEDS: HYDROmorphone 1 MG/ML 1 ML SYRINGE IVP PRN ×2 (18:38→20:38)
[2022-10-08] MEDS: FAMOTIDINE 20 MG/2 ML VIAL IV SCH (20:39)
[2022-10-08] MEDS: HYDROcodone/APAP 5-325MG 1 EACH TAB PO PRN (20:39)
[2022-10-08 21:25] LABS: Glucose,Whole Blood 136 mg/dL (70-110)
[2022-10-09] MEDS: HYDROmorphone 1 MG/ML 1 ML SYRINGE IVP PRN ×5 (00:06→23:51)
[2022-10-09] MEDS: HYDROcodone/APAP 5-325MG 1 EACH TAB PO PRN ×2 (00:30→07:12)
[2022-10-09 00:46] LABS: Basophils % (A) 0 %; Eosinophils # (A) 0.1 k/uL (0-0.7); Eosinophils % (A) 0 %; HCT 37.8 % (34.0-46.0); Lymphocytes # (A) 1.1 k/uL (1.0-4.8); Lymphocytes % (A) 8 %; MCH 29.6 pg (25.0-35.0); MCHC 34.3 g/dL (31.0-37.0); MCV 86.4 fL (80.0-100.0); Mean Platelet Volume 8.3; Monocytes # (A) 0.4 k/uL (0-1.0); Monocytes % (A) 3 %; Neutrophils # (A) 11.1 k/uL (1.3-7.7); Neutrophils % (A) 87 %; Platelet Count 224 k/uL (150-450); RBC 4.37 m/uL (3.80-5.40); RDW 13.7 % (11.5-15.5); WBC 12.8 k/uL (3.8-10.6)
[2022-10-09] MEDS: MORPHINE SULFATE 4 MG/ML SYRINGE IV PRN ×2 (04:16→13:14)
[2022-10-09] MEDS ORDERED: ONDANSETRON 4 MG/2 ML VIAL IVP PRN (05:21)
[2022-10-09 06:54] LABS: Glucose,Whole Blood 316 mg/dL (70-110)
[2022-10-09] MEDS: INSULIN ASPART (NovoLOG) 100 UNIT/ML VIAL SQ SCH ×4 (07:13→20:45)
[2022-10-09 07:16] LABS: Basophils % (A) 0 %; Eosinophils % (A) 0 %; HCT 37.4 % (34.0-46.0); HGB 12.3 gm/dL (11.4-16.0); Lymphocytes # (A) 0.9 k/uL (1.0-4.8); Lymphocytes % (A) 9 %; MCH 29.1 pg (25.0-35.0); MCHC 32.9 g/dL (31.0-37.0); MCV 88.3 fL (80.0-100.0); Mean Platelet Volume 8.6; Monocytes # (A) 0.3 k/uL (0-1.0); Monocytes % (A) 3 %; Neutrophils # (A) 7.9 k/uL (1.3-7.7); Neutrophils % (A) 86 %; Platelet Count 216 k/uL (150-450); RBC 4.24 m/uL (3.80-5.40); RDW 14.2 % (11.5-15.5); WBC 9.2 k/uL (3.8-10.6)
[2022-10-09 07:29] LABS: Calcium 8.1 mg/dL (8.4-10.2); Potassium 5.5 mmol/L (3.5-5.1)
[2022-10-09] MEDS: FAMOTIDINE 20 MG/2 ML VIAL IV SCH (08:11)
[2022-10-09] MEDS: CLOPIDOGREL 75 MG TAB PO SCH (08:12)
[2022-10-09] MEDS: ATORVASTATIN 40 MG TAB PO SCH (08:12)
[2022-10-09] MEDS: ANASTROZOLE 1 MG TAB PO SCH (08:12)
[2022-10-09] MEDS: amLODIPine 5 MG TAB PO SCH (08:12)
[2022-10-09] MEDS: SODIUM CHLORIDE 0.9% 1,000 ML IV SCH (09:37)
[2022-10-09] MEDS ORDERED: MIDAZOLAM 2 MG/2 ML VIAL IV ONE (09:39)
[2022-10-09] MEDS ORDERED: SODIUM CHLORIDE 0.9% 1,000 ML IV ONE (09:45)
[2022-10-09] MEDS ORDERED: IOPAMIDOL-250 100ML BTL INTRAARTER ONE (09:45)
[2022-10-09] MEDS ORDERED: LIDOCAINE 1% INJ 10MG/ML (30 ML VIAL-PF) SQ ONE (09:45)
[2022-10-09] MEDS ORDERED: ONDANSETRON 4 MG/2 ML VIAL ONE (10:04)
--- NOTE | 2022-10-09 10:05 | P.OP ---
Date of Procedure: 10/09/22 Preoperative Diagnosis: Acute left lower extremity limb ischemia s/p EKOS thrombolysis Postoperative Diagnosis: same Procedure(s) Performed: Left lower extremity angiogram via existing sheath Conscious sedation x 11 minutes Anesthesia: local Surgeon: Cecil Barrett Estimated Blood Loss (ml): 2 Pathology: none sent Condition: stable Disposition: ICU Indications for Procedure: 57-year-old female currently being treated for left lower extremity acute limb ischemia with thrombolysis via EKOS catheter presents to the Ruffling Machine Operator for recheck. She states she is doing much better since the treatment and her foot feels warm. She denies any fevers, chills, chest pain, headaches or shortness of breath. Operative Findings: Distal common femoral plaque with 90% stenosis. Stents are patent with one- vessel runoff to the foot Description of Procedure: After written and informed consent was obtained the patient in all risks, benefits and competitions were discussed the patient was brought to the Ruffling Machine Operator and laid in a supine position. The area of the previous existing catheter and sheath were prepped and draped in usual sterile fashion. Timeout was performed in normal fashion with all parties in agreement. 035 Glidewire was then placed into the EKOS catheter and the catheter was removed. Selective angiograms via the existing sheath was then performed demonstrating brisk flow to the common femoral and profundus femoris artery as well as to the SFA with patent stents noted and one-vessel runoff via the anterior tibial artery to the ankle. There was some small areas of stenosis and calcific plaque noted throughout the SFA and popliteal artery but not significant enough for any intervention at this time. There is roughly 90% stenosis due to significant distal common femoral plaque extending into the profundus slightly and SFA. She will require endarterectomy in the future. No further intervention was required and all guidewires and catheters were then removed the sheath was replaced with a short 6-Niuean sheath and closure device with a Vascade device. Patient tolerated the procedure well and had a multiphasic DP signal with good capillary refill.
[2022-10-09] MEDS ORDERED: ONDANSETRON 4 MG/2 ML VIAL IVP ONE (10:06)
[2022-10-09 11:25] LABS: Glucose,Whole Blood 313 mg/dL (70-110)
--- NOTE | 2022-10-09 13:03 | P.CNPUL ---
History of Present Illness Consult date: 10/09/22 Requesting physician: Cecil Barrett Reason for consult: other (Critical care management) Chief complaint: Pain and numbness of the left lower extremity History of present illness: This is a pleasant 57-year-old female patient with a known history of hyperlipidemia, diabetes mellitus, hypertension, seizure disorder, breast cancer with previous surgery and chemoradiation, lower extremity neuropathy and left Charcot foot, former smoker, she also has a history of peripheral arterial disease with prior stenting of the left lower extremity.. She had presented to the emergency room yesterday with complaints of pain and numbness of her left lower extremity. She was having pain from her calf to her toes. Venous Doppler revealed no evidence of DVT. CT angiogram revealed focal occlusion at the level of the left common femoral artery distally as well as a left SFA focally just proximal to the patient's stent. The patient's last SFA stent is completely occluded. Suspect disease at the popliteal artery. 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 She was taking to the CVL and had undergone via the right common femoral artery a marivel ctive left lower extremity iliofemoral, femoral tibial angiogram with placement of thrombolytic catheter and initiation of thrombolysis. She is seen today in consultation in the intensive care unit. She is just returning back from the CVL for recheck and was found to have 90% stenosis due to significant distal common femoral plaque extending into the profunda slightly and SFA. The plan will be for future endarterectomy. Catheters were removed and closure device with a Vascade device. She is somewhat nauseated. She is maintaining good O2 saturations in the 90s on room air. Afebrile. Hemodynamically stable. White count 9.2. Hemoglobin 12.9. Fibrinogen 235. Sodium 134. Potassium 5.5. Bicarb 20. BUN 19. Creatinine 0.85. Glucose 317. She is continued on Plavix. Review of Systems REVIEW OF SYSTEMS: CONSTITUTIONAL: Denies any recent significant weight loss or weight gain. EYES: Denies change in vision. EARS, NOSE, MOUTH, THROAT: Denies headaches, denies sore throat. CARDIOVASCULAR: Denies chest pain, palpitations or syncopal episodes. RESPIRATORY: Denies shortness of breath, cough, congestion or hemoptysis. GASTROINTESTINAL: Denies change in appetite, denies abdominal pain GENITOURINARY: Denies hematuria, denies infections. MUSKULOSKELETAL: Positive for left lower extremity pain. INTEGUMENTARY: Denies rash, denies eczema. NEUROLOGICAL: Denies recent memory loss, no recent seizure activity. PSYCHIATRIC: Denies anxiety, denies depression. HEMATOLOGIC/LYMPHATIC: Denies anemia, denies enlarged lymph nodes. Past Medical History Past Medical History: Cancer, COPD, Diabetes Mellitus, GERD/Reflux, Hy perlipidemia, Hypertension, Osteoarthritis (OA), Seizure Disorder, Vascular Disorder Additional Past Medical History / Comment(s): hx. heart murmur, breast cancer 5 yrs. ago-had surgery & chemo & radiation, one time seizure 3 yrs ago-testing done & never found anything, lower extremity neuropathy, left charcot foot History of Any Multi-Drug Resistant Organisms: None Reported Past Surgical History: Breast Surgery, Orthopedic Surgery, Tubal Ligation Additional Past Surgical History / Comment(s): right breast lumpectomy & lymph nodes removed, angioplasty, vasc. surg lower extremities, right 2nd toe removed Past Anesthesia/Blood Transfusion Reactions: No Reported Reaction Smoking Status: Former smoker Medications and Allergies Home Medications Medication Instructions Recorded Confirmed Type Atorvastatin [Lipitor] 40 mg PO QAM 05/19/21 10/08/22 History Clopidogrel [Plavix] 75 mg PO DAILY 05/19/21 10/08/22 History Gabapentin [Neurontin] 600 mg PO TID 05/19/21 10/08/22 History INSULIN ASPART (NovoLOG) [NovoLOG See Protocol SQ AC-TID PRN 05/19/21 10/08/22 History (formulary)] Insulin Glargine,Hum.rec.anlog 30 unit SQ BID 05/19/21 10/08/22 History [Basaglar Kwikpen U-100] Omeprazole [PriLOSEC] 20 mg PO AC-BRKFST 05/19/21 10/08/22 History lisinopriL [Zestril] 40 mg PO QAM 05/19/21 10/08/22 History metFORMIN HCL [Glucophage] 1,000 mg PO BID 05/19/21 10/08/22 History Anastrozole 1 mg PO DAILY 10/08/22 10/08/22 History Cyclobenzaprine [Flexeril] 10 mg PO TID PRN 10/08/22 10/08/22 History amLODIPine [Norvasc] 5 mg PO DAILY 10/08/22 10/08/22 History Allergies Allergy/AdvReac Type Severity Reaction Status Date / Time protamine Allergy BP Verified 10/08/22 10:55 dropped, heart rate elevated tetracycline [Tetracycline] Allergy Rash/Hives Verified 10/08/22 10:55 Physical Exam Vitals: Vital Signs Temp Pulse Resp BP Pulse Ox 10/09/22 12:00 97.5 F L 101 H 10 L 93/51 97 10/09/22 11:51 11 L 98 10/09/22 11:30 97 10 L 96/50 97 10/09/22 11:00 99 11 L 97/62 98 10/09/22 10:45 101 H 17 113/61 98 10/09/22 10:30 92 5 L 122/63 97 10/09/22 10:15 132/66 10/09/22 09:45 132/66 10/09/22 09:00 90 13 139/65 92 L 10/09/22 08:00 98.5 F 93 27 H 147/70 95 10/09/22 07:00 96 21 129/58 95 10/09/22 06:00 96 14 135/69 86 L 10/09/22 05:00 96 13 125/65 94 L 10/09/22 04:00 98 F 95 12 134/60 95 10/09/22 03:00 93 19 115/60 93 L 10/09/22 02:00 94 12 119/68 95 10/09/22 01:00 90 12 119/60 93 L 10/09/22 00:30 97.7 F 93 12 133/68 87 L 10/09/22 00:21 90 12 133/68 92 L 10/09/22 00:15 93 13 133/68 95 10/09/22 00:00 90 12 121/59 97 10/08/22 23:45 92 13 121/59 91 L 10/08/22 23:30 89 12 117/62 90 L 10/08/22 23:15 88 12 117/62 90 L 10/08/22 23:00 93 12 113/57 92 L 10/08/22 22:45 90 10 L 113/57 91 L 10/08/22 22:30 94 6 L 122/58 91 L 10/08/22 22:15 96 10 L 122/58 93 L 10/08/22 22:00 96 18 113/60 89 L 10/08/22 21:45 92 6 L 113/60 94 L 10/08/22 21:30 96 12 158/66 87 L 10/08/22 21:15 101 H 13 158/66 91 L 10/08/22 21:00 97.7 F 109 H 12 140/81 94 L 10/08/22 20:45 99 12 140/81 94 L 10/08/22 20:30 109 H 12 121/57 94 L 10/08/22 20:15 12 121/57 94 L 10/08/22 20:00 96 126/101 89 L 10/08/22 19:45 105 H 126/101 92 L 10/08/22 19:30 95 27 H 114/70 92 L 10/08/22 19:15 98 16 114/70 93 L 10/08/22 19:00 96 14 147/88 94 L 10/08/22 18:45 97 16 155/87 94 L 10/08/22 18:30 93 16 139/62 93 L 10/08/22 18:15 87 20 131/73 93 L 10/08/22 18:00 82 17 148/82 94 L 10/08/22 17:42 97.8 F 81 16 148/82 93 L 10/08/22 15:20 18 10/08/22 14:25 98.8 F 99 18 122/74 96 Intake and Output 10/08/22 10/09/22 10/09/22 22:59 06:59 14:59 Intake Total 415.25 560 460 Output Total 275 400 475 Balance 140.25 160 -15 Intake: IV 415.25 560 260 .9 NACL 175 280 105 coolant port 175 280 105 Oral 200 Output: Urine 275 400 475 Other: Voiding Method Indwelling Catheter Indwelling Catheter Indwelling Catheter Weight 102.512 kg 108.1 kg GENERAL EXAM: Alert, active, comfortable in no apparent distress. HEAD: Normocephalic. EYES: Normal reaction of pupils, equal size. NOSE: Clear with pink turbinates. THROAT: No erythema or exudates. NECK: No masses, no JVD. CHEST: No chest wall deformity. LUNGS: Equal air entry with no crackles, wheeze, rhonchi or dullness. CVS: S1 and S2 normal with no audible murmur, regular rhythm. ABDOMEN: No hepatosplenomegaly, normal bowel sounds, no guarding or rigidity. SPINE: No scoliosis or deformity SKIN: No rashes CENTRAL NERVOUS SYSTEM: No focal deficits, tone is normal in all 4 extremities. EXTREMITIES: There is no peripheral edema. No clubbing, no cyanosis. Peripheral pulses are intact. Results - Laboratory Findings CBC and BMP: 10/09/22 06:46 10/09/22 06:46 PT/INR, D-dimer PT 9.9 sec (9.0-12.0) 10/08/22 17:46 INR 0.9 (<1.2) 10/08/22 17:46 Abnormal lab findings: Abnormal Labs 10/08/22 10/08/22 10/08/22 09:12 09:12 15:25 WBC Neutrophils # Lymphocytes # Sodium 134 L Potassium Carbon Dioxide BUN 22 H Glucose 185 H POC Glucose (mg/dL) 53 L Hemoglobin A1c 8.5 H Calcium 10/08/22 10/08/22 10/08/22 15:47 17:46 21:24 WBC Neutrophils # Lymphocytes # Sodium 136 L Potassium Carbon Dioxide BUN 19 H Glucose 65 L POC Glucose (mg/dL) 185 H 136 H Hemoglobin A1c Calcium 10/09/22 10/09/22 10/09/22 00:09 06:46 06:46 WBC 12.8 H Neutrophils # 11.1 H 7.9 H Lymphocytes # 0.9 L Sodium 134 L Potassium 5.5 H Carbon Dioxide 20 L BUN 19 H Glucose 317 H POC Glucose (mg/dL) Hemoglobin A1c Calcium 8.1 L 10/09/22 10/09/22 06:53 11:23 WBC Neutrophils # Lymphocytes # Sodium Potassium Carbon Dioxide BUN Glucose POC Glucose (mg/dL) 316 H 313 H Hemoglobin A1c Calcium Assessment and Plan Assessment: Acute left lower extremity pain with tingling and numbness. Status post thrombolytic catheter placement and initiation of thrombolysis on 10/08/2022. Return to the CVL with findings of distal common femoral plaque with 90% stenosis. Stents are patent. Catheters were removed and ask a device placed to the right groin. Will likely require endarterectomy in the future Peripheral arterial occlusive disease with previous stents to the left lower extremity Former smoker History of chronic obstructive pulmonary disease Diabetes mellitus Hypertension Hyperlipidemia Seizure disorder History of breast cancer with previous surgery and chemo/radiation Left Charcot foot History of right second toe amputation Plan: The patient was seen and evaluated Currently stable from the critical care standpoint Catheters have been removed, groin stable Remains on Plavix Transfer out of the ICU once cleared by vascular services We will continue to follow and make further recommendations based on her clinical status I have personally seen and examined the patient, performed the documentation and the assessment and plan as written. Number of minutes spent on the visit: 20.
[2022-10-09] MEDS ORDERED: METOCLOPRAMIDE 5 MG/ML 2 ML VIAL IVP PRN (13:20)
--- NOTE | 2022-10-09 13:52 | P.PN ---
Progress Note - Text Progress Note Date: 10/09/22 discussed with patient results of angiogram which demonstrates significant plaque at the common femoral artery which will require open endarterectomy. If not done then the stents will likely thrombose again. She is agreeable and we will schedule Tuesday afternoon with Dr. Asif.
[2022-10-09 17:19] LABS: Glucose,Whole Blood 417 mg/dL (70-110)
[2022-10-09 20:36] LABS: Glucose,Whole Blood 366 mg/dL (70-110)
[2022-10-09] MEDS: INSULIN DETEMIR (LEVEMIR) 100 UNIT/ML SYR SQ SCH (20:45)
[2022-10-09] MEDS: FAMOTIDINE 20 MG TAB PO SCH (20:46)
[2022-10-10] MEDS: HYDROmorphone 1 MG/ML 1 ML SYRINGE IVP PRN ×5 (03:22→20:46)
--- NOTE | 2022-10-10 03:51 | PN ---
PROGRESS NOTE DATE OF SERVICE: 10/09/2022 SUBJECTIVE: This 57-year-old woman was admitted with acute foot pain and ischemic injury, had left SFA stent completely blocked. The patient was monitored in ICU. Angiogram showed significant plaque which will require an open endarterectomy. The surgery is being planned on Tuesday by Dr. Asif. PAST MEDICAL HISTORY: Reviewed. REVIEW OF SYSTEMS: 14-point review is negative as mentioned earlier. CURRENT MEDICATIONS: Reviewed include Arimidex. Dose and rest of medication noted. PHYSICAL EXAM: VITAL SIGNS: Pulse is 107, blood pressure 130/60, respiration 9. HEENT: Conjunctivae normal. NECK: No carotid. RESPIRATIONS: Diminished at the bases, few scattered rhonchi. ABDOMEN: Soft. LEGS: No edema. No swelling. NERVOUS SYSTEM: No focal deficits. LABORATORY DATA: Reviewed. Potassium 5.5. Glucose noted. ASSESSMENT: 1. Peripheral vascular disease with SFA occlusion with occluded stent possibly. 2. Diabetes mellitus, type 2. 3. Hypertension. 4. Hyperlipidemia. 5. Gastroesophageal reflux disease. 6. Multiple medical issues. RECOMMENDATIONS: Recommend to continue current symptomatic treatment. The patient's blood sugars are fluctuating, initially it was hypoglycemic, but currently the patient is hyperglycemic. I would recommend initiate the patient's regular dose of insulin and continue to monitor otherwise. We will also order repeat labs. Follow closely with multiple consultants. Patient is being followed up in the ICU for continued monitoring at this time. Prognosis guarded. MMODL / SHONAN: [id number] /
[2022-10-10 06:01] LABS: Glucose,Whole Blood 287 mg/dL (70-110)
[2022-10-10] MEDS: PANTOPRAZOLE 40 MG TABLET PO SCH (06:51)
[2022-10-10] MEDS: INSULIN ASPART (NovoLOG) 100 UNIT/ML VIAL SQ SCH ×4 (06:51→20:46)
[2022-10-10] MEDS: INSULIN DETEMIR (LEVEMIR) 100 UNIT/ML SYR SQ SCH ×2 (09:13→21:56)
[2022-10-10] MEDS: ATORVASTATIN 40 MG TAB PO SCH (09:14)
[2022-10-10] MEDS: ANASTROZOLE 1 MG TAB PO SCH (09:14)
[2022-10-10] MEDS: FAMOTIDINE 20 MG TAB PO SCH (09:14)
[2022-10-10] MEDS: amLODIPine 5 MG TAB PO SCH (09:14)
[2022-10-10] MEDS: CLOPIDOGREL 75 MG TAB PO SCH (09:14)
--- NOTE | 2022-10-10 10:42 | P.PN ---
Subjective Progress Note Date: 10/10/22 Patient is without new complaints. I discussed the proposed procedure. All questions were answered to patient's satisfaction. She understands this procedure will be performed by Dr. Asif tomorrow, most likely in the afternoon hours. Orders have been written. Objective - Vital Signs Vital signs: Vital Signs Temp 98.1 F 10/10/22 03:49 Pulse 109 H 10/10/22 03:49 Resp 18 10/10/22 03:49 BP 122/62 10/10/22 03:49 Pulse Ox 96 10/10/22 03:49 FiO2 Intake & Output 10/09/22 10/10/22 10/10/22 18:59 06:59 18:59 Intake Total 640 Output Total 575 Balance 65 Intake: IV 340 .9 NACL 185 coolant port 105 Oral 300 Output: Urine 575 Other: Voiding Method Indwelling Catheter # Voids 1 2 - Labs CBC & Chem 7: 10/09/22 06:46 10/09/22 06:46 Labs: Abnormal Lab Results - Last 24 Hours (Table) 10/09/22 10/09/22 10/09/22 Range/Units 11:23 17:17 20:34 POC Glucose (mg/dL) 313 H 417 H 366 H (70-110) mg/dL 10/10/22 Range/Units 06:00 POC Glucose (mg/dL) 287 H (70-110) mg/dL Assessment and Plan Plan: To or tomorrow for a femoral endarterectomy per Time with Patient: Less than 30
[2022-10-10 11:45] LABS: Basophils % (A) 0 %; Eosinophils % (A) 0 %; HCT 27.2 % (34.0-46.0); Hypochromasia Slight; Lymphocytes # (A) 1.3 k/uL (1.0-4.8); Lymphocytes % (A) 11 %; MCH 28.9 pg (25.0-35.0); MCHC 32.2 g/dL (31.0-37.0); MCV 89.6 fL (80.0-100.0); Mean Platelet Volume 8.6; Monocytes # (A) 0.5 k/uL (0-1.0); Monocytes % (A) 4 %; Neutrophils # (A) 10.4 k/uL (1.3-7.7); Neutrophils % (A) 84 %; Platelet Count 203 k/uL (150-450); RBC 3.04 m/uL (3.80-5.40); RDW 13.8 % (11.5-15.5); WBC 12.4 k/uL (3.8-10.6)
[2022-10-10 11:57] LABS: Glucose,Whole Blood 372 mg/dL (70-110)
[2022-10-10 11:57] LABS: HGB 8.8 gm/dL (11.4-16.0)
[2022-10-10 12:05] LABS: Albumin 3.7 g/dL (3.5-5.0); Calcium 8.5 mg/dL (8.4-10.2); Potassium 4.8 mmol/L (3.5-5.1); Total Bilirubin 0.4 mg/dL (0.2-1.3); Total Protein 5.9 g/dL (6.3-8.2)
[2022-10-10] MEDS: GABAPENTIN 300 MG CAP PO SCH ×3 (12:29→23:15)
--- NOTE | 2022-10-10 13:56 | P.PN ---
Subjective Progress Note Date: 10/10/22 Principal diagnosis: Arterial occlusion. This is a pleasant 57-year-old female patient with a known history of hyperlipidemia, diabetes mellitus, hypertension, seizure disorder, breast cancer with previous surgery and chemoradiation, lower extremity neuropathy and left Charcot foot, former smoker, she also has a history of peripheral arterial disease with prior stenting of the left lower extremity.. She had presented to the emergency room yesterday with complaints of pain and numbness of her left lower extremity. She was having pain from her calf to her toes. Venous Doppler revealed no evidence of DVT. CT angiogram revealed focal occlusion at the level of the left common femoral artery distally as well as a left SFA focally just proximal to the patient's stent. The patient's last SFA stent is completely occluded. Suspect disease at the popliteal artery. Also high-grade stenosis of the right [employer] as well as a greater than 70% stenosis proximal SFA. She was ta [place] to the CV and had undergone via the right common femoral artery a selective left lower extremity iliofemoral, femoral tibial angiogram with placement of thrombolytic catheter and initiation of thrombolysis. She is seen today in consultation in the intensive care unit. She is just returning back from the CVL for recheck and was found to have 90% stenosis due to significant distal common femoral plaque extending into the profunda slightly and SFA. The plan will be for future endarterectomy. Catheters were removed and closure device with a Vascade device. She is somewhat nauseated. She is maintaining good O2 saturations in the 90s on room air. Afebrile. Hemodynamically stable. White count 9.2. Hemoglobin 12.9. Fibrinogen 235. Sodium 134. Potassium 5.5. Bicarb 20. BUN 19. Creatinine 0.85. Glucose 317. She is continued on Plavix. Progress note dated 10/10/2022. The patient is seen in room 352. The patient apparently is going to the operating room tomorrow, for some additional surgery on her left leg. She is currently on room air. She's not receiving any IV fluids. She is not having any pain. She underwent thrombolytic therapy, on 10/08/2022. Current labs include a white count of 12.4, hemoglobin 8.8, hematocrit 27.2, and a platelet count 203,000. Sodium 1:30, potassium 4.8, chlorides 101, CO2 19, BUN 40, creatinine 2.33. Objective - Vital Signs Vital signs: Vital Signs Temp 98.4 F 10/10/22 08:00 Pulse 113 H 10/10/22 12:00 Resp 18 10/10/22 08:00 BP 159/59 10/10/22 12:00 Pulse Ox 95 10/10/22 12:00 FiO2 Intake & Output 10/09/22 10/10/22 10/10/22 18:59 06:59 18:59 Intake Total 640 Output Total 575 Balance 65 Weight 104.2 kg Intake: IV 340 .9 NACL 185 coolant port 105 Oral 300 Output: Urine 575 Other: Voiding Method Indwelling Catheter # Voids 1 2 2 - Exam No acute distress, oriented 3. Currently on room air. HEENT examination is grossly unremarkable. Neck supple. Full range of motion. No adenopathy thyromegaly or neck vein distention. Cardiovascular examination reveals regular rhythm rate. S1-S2 normal. No S3 or S4. No discernible murmur noted. Heart rate 77 bpm. Lungs reveal clear breath sounds. Breath sounds are equal bilaterally. No adventitious lung sounds including wheezes rhonchi or crackles. Abdomen soft bowel sounds are heard. No masses or tenderness. Extremities are intact. No cyanosis clubbing or edema. Skin is without rash or lesion. Neurologic examination is brief but nonfocal. - Labs CBC & Chem 7: 10/10/22 11:26 10/10/22 11:26 Labs: Abnormal Lab Results - Last 24 Hours (Table) 10/09/22 10/09/22 10/10/22 Range/Units 17:17 20:34 06:00 WBC (3.8-10.6) k/uL RBC (3.80-5.40) m/uL Hgb (11.4-16.0) gm/dL Hct (34.0-46.0) % Neutrophils # (1.3-7.7) k/uL Sodium (137-145) mmol/L Carbon Dioxide (22-30) mmol/L BUN (7-17) mg/dL Creatinine (0.52-1.04) mg/dL Glucose (74-99) mg/dL POC Glucose (mg/dL) 417 H 366 H 287 H (70-110) mg/dL Total Protein (6.3-8.2) g/dL 10/10/22 10/10/22 10/10/22 Range/Units 11:26 11:26 11:55 WBC 12.4 H (3.8-10.6) k/uL RBC 3.04 L (3.80-5.40) m/uL Hgb 8.8 L D (11.4-16.0) gm/dL Hct 27.2 L (34.0-46.0) % Neutrophils # 10.4 H (1.3-7.7) k/uL Sodium 130 L (137-145) mmol/L Carbon Dioxide 19 L (22-30) mmol/L BUN 40 H (7-17) mg/dL Creatinine 2.33 H (0.52-1.04) mg/dL Glucose 354 H (74-99) mg/dL POC Glucose (mg/dL) 372 H (70-110) mg/dL Total Protein 5.9 L (6.3-8.2) g/dL Assessment and Plan Assessment: Acute left lower extremity pain with tingling and numbness. Status post thrombolytic catheter placement and initiation of thrombolysis on 10/08/2022. Return to the CVL with findings of distal common femoral plaque with 90% stenosis. Stents are patent. Catheters were removed and ask a device placed to the right groin. Will likely require endarterectomy in the future. Peripheral arterial occlusive disease with previous stents to the left lower extremity. Former smoker. History of chronic obstructive pulmonary disease. Diabetes mellitus. Hypertension. Hyperlipidemia. Seizure disorder. History of breast cancer with previous surgery and chemo/radiation. Left Charcot foot. History of right second toe amputation. Plan: Plan dated 10/10/2022. The patient apparently is going back to the operating room tomorrow, for some additional surgery, on the left lower extremity. Currently, she stable. Labs, x-rays, and medications are reviewed. The patient's on room air. She's not receiving any IV fluids. We will continue to follow, as she may end up back in the intensive care unit, tomorrow, after surgery. Time with Patient: Less than 30
--- NOTE | 2022-10-10 15:56 | XR ---
EXAMINATION TYPE: XR chest 1V portable DATE OF EXAM: 10/10/2022 COMPARISON: NONE HISTORY: Chest pain TECHNIQUE: Single view FINDINGS: There is no heart failure nor confluent pneumonic infiltrate. There is cervical spine fusio n surgery. Thoracic aorta is atheromatous. No pleural effusion. There are chest leads. IMPRESSION: No active cardiopulmonary disease. Normal heart.
[2022-10-10 16:41] LABS: Glucose,Whole Blood 360 mg/dL (70-110)
[2022-10-10] MEDS: MORPHINE SULFATE 4 MG/ML SYRINGE IV PRN (17:43)
[2022-10-10] MEDS: HYDROcodone/APAP 5-325MG 1 EACH TAB PO PRN (17:47)
[2022-10-10 20:25] LABS: Glucose,Whole Blood 162 mg/dL (70-110)
[2022-10-10] MEDS ORDERED: metFORMIN 500 MG TAB PO SCH (21:00)
[2022-10-11] MEDS: HYDROmorphone 1 MG/ML 1 ML SYRINGE IVP PRN ×5 (01:40→23:42)
--- NOTE | 2022-10-11 01:53 | PN ---
PROGRESS NOTE DATE OF SERVICE: 10/10/2022 SUBJECTIVE: This is a 57-year-old woman who was admitted with peripheral vascular disease and possibly SFA occlusion, femoral endarterectomy is planned by Dr. Asif tomorrow after no chest pain, no palpitation. PHYSICAL EXAMINATION: VITAL SIGNS: Pulse is 113, blood pressure 115/59, respiration 18. HEENT: Conjunctivae normal. CARDIOVASCULAR: S1, S2. RESPIRATIONS: Diminished at the bases. No rhonchi, no crackles. ABDOMEN: Soft. NERVOUS SYSTEM: Nonfocal. LABS: Creatinine 2.33. ASSESSMENT: 1. Peripheral vascular disease and SFA occlusion with possible occluded stent for possible endarterectomy. 2. Diabetes mellitus, type 2. 3. Chronic kidney disease. 4. Hypertension. 5. Hyperlipidemia. 6. Gastroesophageal reflux disease. 7. Multiple medical issues. RECOMMENDATIONS: Recommended to continue current medications, symptomatic treatment. Otherwise at this time, I would recommend to follow the patient closely and I would also recommend a nephrology consultation as well. Guarded prognosis. Further recommendations to follow. Repeat labs in the morning. MMODL / IJN: [id number] /
[2022-10-11 06:00] LABS: Glucose,Whole Blood 210 mg/dL (70-110)
[2022-10-11] MEDS: ATORVASTATIN 40 MG TAB PO SCH (06:36)
[2022-10-11] MEDS: FAMOTIDINE 20 MG TAB PO SCH (06:36)
[2022-10-11] MEDS: PANTOPRAZOLE 40 MG TABLET PO SCH (06:36)
[2022-10-11] MEDS: amLODIPine 5 MG TAB PO SCH (06:36)
[2022-10-11] MEDS: GABAPENTIN 300 MG CAP PO SCH ×3 (06:36→22:21)
[2022-10-11] MEDS: CLOPIDOGREL 75 MG TAB PO SCH (06:37)
[2022-10-11] MEDS: INSULIN ASPART (NovoLOG) 100 UNIT/ML VIAL SQ SCH ×3 (06:38→16:38)
[2022-10-11] MEDS: ANASTROZOLE 1 MG TAB PO SCH (06:42)
--- NOTE | 2022-10-11 08:05 | IR ---
EXAMINATION TYPE: IR angio lower extremity LT DATE OF EXAM: 10/09/2022 COMPARISON: NONE HISTORY: Fluoroscopy time. Fluoroscopy was provided to the referring clinician.
--- NOTE | 2022-10-11 08:07 | IR ---
EXAMINATION TYPE: IR transcath embolizat therapy DATE OF EXAM: 10/08/2022 COMPARISON: NONE HISTORY: Fluoroscopy time. Fluoroscopy was provided to the referring clinician.
[2022-10-11 08:33] LABS: Calcium 8.7 mg/dL (8.4-10.2); Potassium 4.8 mmol/L (3.5-5.1)
--- NOTE | 2022-10-11 09:18 | P.NPCON ---
History of Present Illness - Reason for Consult acute renal failure - History of Present Illness Reason for consultation: Acute kidney injury History of present illness: Patient is a 57-year-old female seen in consultation for acute kidney injury. Patient baseline creatinine is near 0.8-0.9 and was high at 2.33 yesterday. It is improved to 1.5 today. Patient presented to the hospital with pain and nu mbness in her left lower external day. Patient states her lower extremity was cool to touch. Patient underwent left lower extremity CT angiogram on 10/08/2022 that showed focal occlusion at the level of left common femoral artery as well as left SFA focally. The left SFA stent was completely occluded. She underwent thrombolysis on October 08 and is scheduled to undergo endarterectomy today. She has been voiding. Denies hematuria or dysuria. No vomiting or diarrhea. No chest pain or shortness of breath. Patient states she was diagnosed with diabetes over 40 years ago. Denies regular use of nonsteroidals. Denies family history of renal disease. No history of coronary artery disease. Vital signs are stable. General: Awake. No acute distress. HEENT: Head exam is unremarkable. LUNGS: Breath sounds decreased. HEART: Rate and Rhythm are regular. ABDOMEN: Soft, no distention. EXTREMITITES: No edema. Past Medical History Past Medical History: Cancer, COPD, Diabetes Mellitus, GERD/Reflux, Hyperlipidemia, Hypertension, Osteoarthritis (OA), Seizure Disorder, Vascular Disorder Additional Past Medical History / Comment(s): hx. heart murmur, breast cancer 5 yrs. ago-had surgery & chemo & radiation, one time seizure 3 yrs ago-testing done & never found anything, lower extremity neuropathy, left charcot foot History of Any Multi-Drug Resistant Organisms: None Reported Past Surgical History: Breast Surgery, Orthopedic Surgery, Tubal Ligation Additional Past Surgical History / Comment(s): right breast lumpectomy & lymph nodes removed, angioplasty, vasc. surg lower extremities, right 2nd toe removed Past Anesthesia/Blood Transfusion Reactions: No Reported Reaction Smoking Status: Former smoker Medications and Allergies Home Medications Medication Instructions Recorded Confirmed Type Atorvastatin [Lipitor] 40 mg PO QAM 05/19/21 10/08/22 History Clopidogrel [Plavix] 75 mg PO DAILY 05/19/21 10/08/22 History Gabapentin [Neurontin] 600 mg PO TID 05/19/21 10/08/22 History INSULIN ASPART (NovoLOG) [NovoLOG See Protocol SQ AC-TID PRN 05/19/21 10/08/22 History (formulary)] Insulin Glargine,Hum.rec.anlog 30 unit SQ BID 05/19/21 10/08/22 History [Basaglar Kwikpen U-100] Omeprazole [PriLOSEC] 20 mg PO AC-BRKFST 05/19/21 10/08/22 History lisinopriL [Zestril] 40 mg PO QAM 05/19/21 10/08/22 History metFORMIN HCL [Glucophage] 1,000 mg PO BID 05/19/21 10/08/22 History Anastrozole 1 mg PO DAILY 10/08/22 10/08/22 History Cyclobenzaprine [Flexeril] 10 mg PO TID PRN 10/08/22 10/08/22 History amLODIPine [Norvasc] 5 mg PO DAILY 10/08/22 10/08/22 History Allergies Allergy/AdvReac Type Severity Reaction Status Date / Time protamine Allergy BP Verified 10/08/22 10:55 dropped, heart rate elevated tetracycline [Tetracycline] Allergy Rash/Hives Verified 10/08/22 10:55 Physical Exam Vitals: Vital Signs Temp Pulse Resp BP Pulse Ox 10/11/22 06:35 111 H 18 137/63 93 L 10/11/22 04:52 99.0 F 103 H 18 121/68 94 L 10/10/22 23:13 97.9 F 108 H 20 143/75 95 10/10/22 19:47 98.3 F 111 H 18 148/75 97 10/10/22 16:00 106 H 135/64 94 L 10/10/22 14:00 113 H 18 10/10/22 12:00 113 H 159/59 95 Intake and Output 10/10/22 10/11/22 10/11/22 22:59 06:59 14:59 Other: # Voids 2 2 Results - Lab Results Most recent lab results Calcium 8.7 mg/dL (8.4-10.2) 10/11/22 06:53 10/10/22 11:26 10/11/22 06:53 Assessment and Plan Plan: Assessment: 1. Acute kidney injury secondary to ATN secondary to contrast-induced acute kidney injury. Baseline creatinine near 0.8 and peaked at 2.3 yesterday. It is down to 1.5 today. Patient received IV contrast for angiogram on October 08 as well as October 09. No evidence of renal artery stenosis was noted on the angiogram. 2. Peripheral arterial disease with left lower extremity acute limb ischemia status post thrombin lysis and scheduled for endarterectomy today. 3. Diabetes mellitus. 4. Hyponatremia secondary to acute kidney injury. 5. Acute blood loss anemia. 6. Metabolic acidosis secondary to acute kidney injury. 7. Benign hypertension. Stable. Plan: Start normal saline at 75 mL an hour. Check UA. Check renal artery duplex ultrasound. Add oral bicarb. Check iron studies. Avoid nephrotoxins. Continue to monitor renal function and urine output. Thank you for the consultation. I will continue to follow the patient with you during her hospital stay.
[2022-10-11 09:47] LABS: Basophils # (A) 0.1 k/uL (0-0.2); Basophils % (A) 1 %; Eosinophils # (A) 0.2 k/uL (0-0.7); Eosinophils % (A) 2 %; HCT 25.4 % (34.0-46.0); HGB 8.3 gm/dL (11.4-16.0); Hypochromasia Slight; Lymphocytes # (A) 1.4 k/uL (1.0-4.8); Lymphocytes % (A) 13 %; MCH 29.5 pg (25.0-35.0); MCHC 32.6 g/dL (31.0-37.0); MCV 90.6 fL (80.0-100.0); Mean Platelet Volume 9.1; Monocytes # (A) 0.6 k/uL (0-1.0); Monocytes % (A) 5 %; Neutrophils # (A) 8.2 k/uL (1.3-7.7); Neutrophils % (A) 78 %; Platelet Count 199 k/uL (150-450); RBC 2.81 m/uL (3.80-5.40); RDW 13.9 % (11.5-15.5); WBC 10.6 k/uL (3.8-10.6)
[2022-10-11] MEDS: SODIUM CHLORIDE 0.9% 1,000 ML IV SCH ×2 (10:09→23:59)
[2022-10-11] MEDS: SODIUM BICARBONATE TAB 650 MG TAB PO SCH ×2 (10:09→22:22)
[2022-10-11] MEDS ORDERED: bisacodyL 5 MG TABLET.DR PO STA (10:26)
--- NOTE | 2022-10-11 10:30 | US ---
EXAMINATION TYPE: US kidneys/renal and bladder DATE OF EXAM: 10/11/2022 COMPARISON: NONE CLINICAL HISTORY: gold. EXAM MEASUREMENTS: Right Kidney: 10.1 x 5.0 x 4.3 cm Left Kidney: 9.3 x 4.4 x 4.9 cm Patient of large body habitus with extensive overlying bowel gas. Technically difficult, limited stud y. Right Kidney: No hydronephrosis or masses seen, however limited views obtained Left Kidney: No hydronephrosis or masses seen, however limited views obtained Bladder: not seen There is no evidence for hydronephrosis at this point in time. No nephrolithiasis is seen. No maryann s are identified. IMPRESSION: No evidence of obstructive uropathy.
[2022-10-11] MEDS: INSULIN DETEMIR (LEVEMIR) 100 UNIT/ML SYR SQ SCH ×2 (11:19→22:22)
[2022-10-11 11:42] LABS: Glucose,Whole Blood 225 mg/dL (70-110)
--- NOTE | 2022-10-11 12:03 | P.PN ---
Progress Note - Text Progress Note Date: 10/11/22 (late entry, seen 0900) Patient was seen and examined. She is scheduled to undergo left lower extremity femoral endarterectomy in this afternoon with Dr. Asif. Patient states she is having still significant amount of pain in the left lower extremity. Not much improvement from when she came in. Patient also had a drop in her hemoglobin to 8.3 status post thromboliysis. Patient with positive popliteal and femoral Doppler signal. Patient has not had any heparin running. She is nothing by mouth for surgery. No IV fluids were running, IV fluids initiated per nephrology who are following patient for acute kidney injury. Patient discussed with Dr. Asif. Will transfuse 1 unit PRBC. Keep nothing by mouth. The impression and plan of care has been dictated as directed. Dr. Asif I performed a history and examination of this patient, discussed the same with the dictator. I agree with the dictator's note ,documented as a scribe. Any additional findings or plans will be noted.
[2022-10-11 14:33] LABS: Appearance,Urine Clear (Clear); Bilirubin,Urine Negative (Negative); Blood,Urine Negative (Negative); Color,Urine Light Yellow; Glucose,Urine (UA) 3+ (Negative); Ketones,Urine 1+ (Negative); Leukocyte Esterase,Urine Negative (Negative); Nitrite,Urine Negative (Negative); PH, Urine 5.5 (5.0-8.0); Protein,Urine Negative (Negative); Urobilinogen,Urine <2.0 mg/dL (<2.0)
[2022-10-11] MEDS: HYDROcodone/APAP 5-325MG 1 EACH TAB PO PRN (16:01)
[2022-10-11 16:22] LABS: Glucose,Whole Blood 203 mg/dL (70-110)
[2022-10-11] MEDS ORDERED: LACTATED RINGERS 1,000 ML IV ONE ×4 (16:38→19:01)
[2022-10-11] MEDS ORDERED: ONDANSETRON 4 MG/2 ML VIAL IVP ONE (16:43)
[2022-10-11] MEDS ORDERED: DEXAMETHASONE SOD PHOSPHATE 4 MG/ML 1 ML VIAL IVP ONE (16:43)
[2022-10-11 17:17] LABS: % Iron Saturation 9.59 (12.00-45.00); Ferritin 93.7 ng/mL (10.0-291.0)
[2022-10-11] MEDS ORDERED: GLYCOPYRROLATE 0.2 MG/ML 2 ML VIAL ONE (17:37)
[2022-10-11] MEDS ORDERED: HEPARIN SODIUM,PORCINE 10,000 UNIT/ML 1 ML VIAL ONE (17:37)
[2022-10-11] MEDS ORDERED: LIDOCAINE 2% INJ 20 MG/ML (2 ML VIAL) ONE (17:37)
[2022-10-11] MEDS ORDERED: fentaNYL (PF) 50 MCG/ML 2 ML AMP ONE (17:37)
[2022-10-11] MEDS ORDERED: PROPOFOL 10 MG/ML 20 ML VIAL IV ONE (17:37)
[2022-10-11] MEDS ORDERED: NEOSTIGMINE 1 MG/ML 10 ML VIAL ONE (17:37)
[2022-10-11] MEDS ORDERED: SUCCINYLCHOLINE CHLORIDE 200 MG/10 ML VIAL IV ONE (17:37)
[2022-10-11] MEDS ORDERED: ROCURONIUM 10 MG/ML (5 ML VIAL) IV ONE (17:37)
[2022-10-11] MEDS ORDERED: ceFAZolin 2,000 MG in SODIUM CHLORIDE 0.9% 500 ML IRRIGATION ONE (18:13)
[2022-10-11] MEDS ORDERED: HEPARIN SODIUM,PORCINE 10,000 UNIT in SODIUM CHLORIDE 0.9% 1,000 ML IRRIGATION ONE (18:13)
--- NOTE | 2022-10-11 18:17 | P.PN ---
Subjective Progress Note Date: 10/11/22 On 10/11/2022, condition is stable. The patient is scheduled to undergo a left lower extremity femoral endarterectomy and this was done by vascular surgery. The patient's hemoglobin dropped down to 8.3 following thrombolytics. The patient is currently nothing by mouth. No new complaints otherwise for now. The rest of the blood work shows a WBC count of 10.6, BUN of 41 and a creatinine of 1.5. The patient sustained an acute kidney injury and the renal function continues to improve. This could've been an underlying contrast nephropathy. Objective - Vital Signs Vital signs: Vital Signs Temp 98.6 F 10/11/22 12:15 Pulse 98 10/11/22 12:15 Resp 16 10/11/22 12:15 BP 117/63 10/11/22 12:15 Pulse Ox 94 L 10/11/22 12:15 FiO2 Intake & Output 10/10/22 10/11/22 10/11/22 18:59 06:59 18:59 Intake Total 0 Balance 0 Weight 104.2 kg Intake: Blood Product 0 Rc As-1 Unit 0 [id number] Other: Voiding Method Toilet # Voids 2 2 - Exam No acute distress, oriented 3. Currently on room air. The patient is resting comfortably in bed HEENT examination is grossly unremarkable. Neck supple. Full range of motion. No adenopathy thyromegaly or neck vein distention. Cardiovascular examination reveals regular rhythm rate. S1-S2 normal. No S3 or S4. No discernible murmur noted. Lungs reveal clear breath sounds. Breath sounds are equal bilaterally. No adventitious lung sounds including wheezes rhonchi or crackles. Abdomen soft bowel sounds are heard. No masses or tenderness. Extremities are intact. No cyanosis clubbing or edema. Skin is without rash or lesion. Neurologic examination is brief but nonfocal. - Labs CBC & Chem 7: 10/11/22 06:53 10/11/22 06:53 Labs: Abnormal Lab Results - Last 24 Hours (Table) 10/10/22 10/10/22 10/10/22 Range/Units 11:26 16:39 20:24 RBC (3.80-5.40) m/uL Hgb (11.4-16.0) gm/dL Hct (34.0-46.0) % Neutrophils # (1.3-7.7) k/uL Sodium (137-145) mmol/L Carbon Dioxide (22-30) mmol/L BUN (7-17) mg/dL Creatinine (0.52-1.04) mg/dL Glucose (74-99) mg/dL POC Glucose (mg/dL) 360 H 162 H (70-110) mg/dL Crossmatch See Detail 10/11/22 10/11/22 10/11/22 Range/Units 05:59 06:53 06:53 RBC 2.81 L (3.80-5.40) m/uL Hgb 8.3 L (11.4-16.0) gm/dL Hct 25.4 L (34.0-46.0) % Neutrophils # 8.2 H (1.3-7.7) k/uL Sodium 132 L (137-145) mmol/L Carbon Dioxide 19 L (22-30) mmol/L BUN 41 H (7-17) mg/dL Creatinine 1.50 H (0.52-1.04) mg/dL Glucose 190 H (74-99) mg/dL POC Glucose (mg/dL) 210 H (70-110) mg/dL Crossmatch 10/11/22 Range/Units 11:41 RBC (3.80-5.40) m/uL Hgb (11.4-16.0) gm/dL Hct (34.0-46.0) % Neutrophils # (1.3-7.7) k/uL Sodium (137-145) mmol/L Carbon Dioxide (22-30) mmol/L BUN (7-17) mg/dL Creatinine (0.52-1.04) mg/dL Glucose (74-99) mg/dL POC Glucose (mg/dL) 225 H (70-110) mg/dL Crossmatch Assessment and Plan Plan: Acute left lower extremity pain with tingling and numbness. Status post thrombolytic catheter placement and initiation of thrombolysis on 10/08/2022. Return to the CVL with findings of distal common femoral plaque with 90% stenosis. Stents are patent. Catheters were removed and ask a device placed to the right groin. Will likely require endarterectomy in the future. Acute on chronic anemia, receiving activity transfusion 1 Acute kidney injury, improving Peripheral arterial occlusive disease with previous stents to the left lower extremity. Former smoker. History of chronic obstructive pulmonary disease. Diabetes mellitus. Hypertension. Hyperlipidemia. Seizure disorder. History of breast cancer with previous surgery and chemo/radiation. Left Charcot foot. History of right second toe amputation. Plan Monitor renal function Monitor hemoglobin Proceed with left lower extremity femoral endarterectomy Possible ICU transfer following the procedure Patient was transiently units of packed RBC We'll function is improving
[2022-10-11] MEDS ORDERED: THROMBIN (BOVINE) 5,000 UNIT VIAL TOPICAL ONE ×2 (18:18)
[2022-10-11] MEDS ORDERED: GELATIN SPONGE,ABSORB (LARGE) 1 EACH SPONGE TOPICAL ONE (18:19)
--- NOTE | 2022-10-11 19:49 | P.PN ---
Progress Note - Text Progress Note Date: 10/11/22 Presenting complaint: Left leg pain Hospital course: I assumed the care of patient today from [facility] hospitalists. Patient presented with severe left foot pain of one-day duration. Lower extremity CTA showing high grade stenosis on the right [employer] as well as greater than 70% stenosis proximal SFA.suspect popliteal disease greater than 50%. Suspect lower extremity focal occlusion of the level of the left camera femoral artery distally as well as the left SFA focally just proximal to the patient stent. The patient left SFA stent is completely occluded. Left leg venous Doppler was negative. For DVT. On October 08 Dr. Barrett because of acute left lower extremity critical limb ischemia noted localized thrombolysis. On October 09 repeat angiogram was carried out.:Selective angiograms via the existing sheath was then performed demonstrating brisk flow to the common femoral and profundus femoris artery as well as to the SFA with patent stents noted and one-vessel runoff via the anterior tibial artery to the ankle. There was some small areas of stenosis and calcific plaque noted throughout the SFA and popliteal artery but not significant enough for any intervention at this time. There is roughly 90% stenosis due to significant distal common femoral plaque extending into the profundus slightly and SFA. She will require endarterectomy in the future. October 11: Resting in bed. Nothing by mouth. Awaiting intervention this afternoon by vascular. Left lower leg-Pain present. Active Medications Hydrocodone Bitart/Acetaminophen (Hydrocodone/Apap 5-325mg 1 Each Tab) 1 each PO Q4HR PRN PRN Reason: Mild Breakthrough Pain (1-3) Last Admin: 10/10/22 17:47 Dose: 1 each Amlodipine Besylate (Amlodipine 5 Mg Tab) 5 mg PO DAILY [facility] Last Admin: 10/11/22 06:36 Dose: 5 mg Anastrozole (Anastrozole 1 Mg Tab) 1 mg PO DAILY [facility] Last Admin: 10/11/22 06:42 Dose: 1 mg Atorvastatin Calcium (Atorvastatin 40 Mg Tab) 40 mg PO QAM [facility] Last Admin: 10/11/22 06:36 Dose: 40 mg Clopidogrel Bisulfate (Clopidogrel 75 Mg Tab) 75 mg PO DAILY [facility] Last Admin: 10/11/22 06:37 Dose: 75 mg Cyclobenzaprine HCl (Cyclobenzaprine 10 Mg Tab) 10 mg PO TID PRN PRN Reason: Muscle Spasm Last Admin: 10/08/22 21:20 Dose: 10 mg Dextrose/Water (Dextrose 50% Syringe 50 Ml) 25 ml IVP PER PROTOCOL PRN; Protocol PRN Reason: Hypoglycemia Dextrose/Water (Dextrose 50% Syringe 50 Ml) 50 ml IVP PER PROTOCOL PRN; Protocol PRN Reason: Hypoglycemia Famotidine (Famotidine 20 Mg Tab) 20 mg PO DAILY [facility] Last Admin: 10/11/22 06:36 Dose: 20 mg Gabapentin (Gabapentin 300 Mg Cap) 600 mg PO TID [facility] Last Admin: 10/11/22 06:36 Dose: 600 mg Hydromorphone HCl (Hydromorphone 1 Mg/Ml 1 Ml Syringe) 1 mg IVP Q2HR PRN PRN Reason: Moderate Pain (Scale 4 to 6) Last Admin: 10/11/22 10:21 Dose: 1 mg Sodium Chloride (Saline 0.9%) 1,000 mls @ 75 mls/hr IV .[id number] [facility] Last Admin: 10/11/22 10:09 Dose: 75 mls/hr Insulin Aspart (Insulin Aspart (Novolog) 100 Unit/Ml Vial) 0 unit SQ ACHS [facility]; Protocol Last Admin: 10/11/22 06:38 Dose: 8 unit Insulin Detemir (Insulin Detemir (Levemir) 100 Unit/Ml Syr) 30 unit SQ BID [facility] Last Admin: 10/10/22 21:56 Dose: Not Given Metoclopramide HCl (Metoclopramide 5 Mg/Ml 2 Ml Vial) 10 mg IVP Q6HR PRN PRN Reason: Constipation Last Admin: 10/09/22 13:32 Dose: 10 mg Morphine Sulfate (Morphine Sulfate 4 Mg/Ml Syringe) 4 mg IV Q4HR PRN PRN Reason: Severe Pain (Scale 7 to 10) Last Admin: 10/10/22 17:43 Dose: 4 mg Naloxone HCl (Naloxone 0.4 Mg/Ml 1 Ml Vial) 0.2 mg IV Q2M PRN PRN Reason: Opioid Reversal Ondansetron HCl (Ondansetron 4 Mg/2 Ml Vial) 4 mg IVP Q6HR PRN PRN Reason: Nausea And Vomiting Last Admin: 10/09/22 05:28 Dose: 4 mg Pantoprazole Sodium (Pantoprazole 40 Mg Tablet) 40 mg PO AC-BRKFST [facility] Last Admin: 10/11/22 06:36 Dose: 40 mg Sodium Bicarbonate (Sodium Bicarbonate Tab 650 Mg Tab) 650 mg PO BID [facility] Last Admin: 10/11/22 10:09 Dose: 650 mg On examination: VITAL SIGNS: [98.7, 100, 16, 143/74, 95% room air] GENERAL APPEARANCE: Laying in bed, awake, not in distress. HEENT: Normal external appearance of nose and ear. Oral cavity normal EYES: Pupils equal. Conjunctiva normal. NECK: JVD not raised. Mass not palpable. RESPIRATORY: Respiratory effort normal. Lungs clear to auscultation. CARDIOVASCULAR: First and second sounds normal. No edema. ABDOMEN: Soft. Liver and spleen not palpable. No tenderness. No mass palpable. PSYCHIATRY: Alert and oriented x3. Mood and affect normal. Extremities: Some tenderness in the left lower foot. INVESTIGATIONS, reviewed in the clinical context: 10/11/2022: White count 10.6 hemoglobin 8.3 platelets 199 potassium 4.8 BUN 41 crit and 1.50 Admission labs: Creatinine 0.90 Assessment and plan -Acute on chronic PAD,roughly 90% stenosis due to significant distal common femoral plaque extending into the profundus slightly and SFA.: Pain present Status post thrombolysis. Persistent pain. Pending intervention today -Acute kidney injury, possibly ATN, could be contrast nephropathy IV fluids. Hold TIFFANI inhibitor. Follow labs -COPD, an ex-smoker Albuterol when necessary -Diabetes mellitus type 2, chronically on insulin Follow Accu-Cheks and sliding scale -Metabolic acidosis from acute kidney injury Sodium bicarbonate -GERD PPI -Hyperlipidemia Lipitor -Essential hypertension Norvasc -Obesity BMI 33.0 Weight loss measures Follow renal function. Pending intervention today. By vascular surgery. Discussed with patient. Follow Accu-Cheks. In view of renal function cutback dose of Neurontin.
--- NOTE | 2022-10-11 20:36 | P.OP ---
Date of Procedure: 10/11/22 Description of Procedure: Preoperative diagnosis: Left femoral artery occlusive disease Postoperative diagnosis: Same Procedure: Left iliofemoral endarterectomy with patch angioplasty Surgeon: Kimberlyn Asif D.O. Anesthesia: GET EBL: 150cc IV fluids: see records Urine output: see records Drains: None Complications: None Condition: Stable Operative indication and findings: Pt is a 57 year old female who has gisela stents for PAD. She came in emergently after 4-5 days of numb and cold left lower extremity. On presentation she was found to have thrombosis of the femoral artery stents. She underwent TPA thrombolysis with improvement of the out flow. She was found to have signifcant plaquing in her common femoral artery therefore she was offered a femoral endarterectomy. Risks and benefits were discussed, she seemingly understood and was willing to proceed. She still had motor and sensory function of her foot. Procedure in detail: The patient was taken to the operative suite and placed in supine position. Bilateral groins prepped and draped in usual sterile fashion. A preprocedure timeout was performed and all parties are in agreement. A vertical incision was made in the [left] groin with the scalpel. It was deepened through subcutaneous tissues with electrocautery. The encountered lymphatics were ligated and divided. The femoral sheath was opened sharply. The common femoral artery was dissected free circumferentially. The dissection was extended proximally to the level of the inguinal ligament the inguinal ligiment was divided to get to the portion of pulsation. and distally to include the superficial femoral and profunda femoris arteries. They were encircled w ith vessel loops. ACTs were monitored and the patient was heparinized. Once heparinization was adequate, flow was occluded through the vessel. An 11 blade was utilized and arteriotomy is made the Barragan-Peterson scissors was utilized to enlarge the arteriotomy. An endarterectomy was performed with an eversion endarterectomy at the profunda femoris. The endarterectomized surface was cleared of all debris. Posterior wall plaque was tacked down with 6-0 prolene. A bovine pericardial patch was utilized and anastomosis was created utilizing 5-0 Prolene. The anastomosis was flushed and flow was reinstituted. Hemostasis was achieved with interrupted sutures of 6-0 Prolene and thrombin and Gelfoam. A Doppler was used and revealed multiphasic flow distal to the anastomosis. At that point, the wound was copiously irrigated with antibiotic solution. The inguinal ligament was reapproximated with 2-0 vicryl. The femoral sheath was reapproximated with sutures of 3-0 Vicryl. The subcuticular tissue was reapproximated with 3-0 Vicryl. The skin was reprepped with running sutures of 4-0 Monocryl. Dressing was placed. The patient was awakened from surgery, extubated and transferred to PACU in stable condition and tolerated the procedure well.
[2022-10-11] MEDS ORDERED: HYDROmorphone 0.5 MG/0.5 ML SYRINGE IVP ONE ×2 (21:17→21:33)
[2022-10-11 22:01] LABS: Glucose,Whole Blood 315 mg/dL (70-110)
[2022-10-11 22:47] LABS: HCT 28.6 % (34.0-46.0); HGB 9.5 gm/dL (11.4-16.0); MCH 29.3 pg (25.0-35.0); MCHC 33.3 g/dL (31.0-37.0); Mean Platelet Volume 8.3; Platelet Count 200 k/uL (150-450); RBC 3.25 m/uL (3.80-5.40); RDW 14.1 % (11.5-15.5); WBC 9.9 k/uL (3.8-10.6)
[2022-10-11] MEDS ORDERED: HEPARIN SOD,PORK IN 0.45% NACL 25,000 UNIT in 0.45% NACL 1 250ML.BAG IV SCH (23:00)
[2022-10-12] MEDS: INSULIN ASPART (NovoLOG) 100 UNIT/ML VIAL SQ SCH ×4 (02:03→11:47)
[2022-10-12] MEDS: HYDROmorphone 1 MG/ML 1 ML SYRINGE IVP PRN ×3 (02:04→06:13)
[2022-10-12 03:08] LABS: Glucose,Whole Blood 353 mg/dL (70-110)
[2022-10-12 05:55] LABS: Glucose,Whole Blood 329 mg/dL (70-110)
[2022-10-12] MEDS: PANTOPRAZOLE 40 MG TABLET PO SCH (06:09)
[2022-10-12 07:57] LABS: HCT 26.8 % (34.0-46.0); MCH 29.2 pg (25.0-35.0); MCHC 33.7 g/dL (31.0-37.0); MCV 86.7 fL (80.0-100.0); Mean Platelet Volume 8.5; Platelet Count 223 k/uL (150-450); RBC 3.09 m/uL (3.80-5.40); RDW 14.2 % (11.5-15.5); WBC 10.9 k/uL (3.8-10.6)
[2022-10-12 08:12] LABS: Calcium 8.6 mg/dL (8.4-10.2); Magnesium 1.6 mg/dL (1.6-2.3); Potassium 4.7 mmol/L (3.5-5.1)
[2022-10-12] MEDS: FAMOTIDINE 20 MG TAB PO SCH (08:25)
[2022-10-12] MEDS: GABAPENTIN 300 MG CAP PO SCH (08:25)
[2022-10-12] MEDS: amLODIPine 5 MG TAB PO SCH (08:25)
[2022-10-12] MEDS: CLOPIDOGREL 75 MG TAB PO SCH (08:25)
[2022-10-12] MEDS: SODIUM BICARBONATE TAB 650 MG TAB PO SCH (08:25)
[2022-10-12] MEDS: ATORVASTATIN 40 MG TAB PO SCH (08:25)
[2022-10-12] MEDS: HYDROcodone/APAP 5-325MG 1 EACH TAB PO PRN ×2 (08:26→12:32)
[2022-10-12] MEDS: ANASTROZOLE 1 MG TAB PO SCH (08:26)
[2022-10-12] MEDS: INSULIN DETEMIR (LEVEMIR) 100 UNIT/ML SYR SQ SCH (08:27)
[2022-10-12] MEDS ORDERED: APIXABAN 5 MG TAB PO SCH (09:00)
--- NOTE | 2022-10-12 09:47 | P.PN ---
Subjective Progress Note Date: 10/12/22 Principal diagnosis: Left leg pain, SFA thrombosis The patient is seen and examined today as a follow-up. Yesterday she underwent left femoral endarterectomy. States pain in her leg has improved some. Still has pain with moving and flexing at her ankle and a little numbness and tingling however she states it is improved from prior to procedure. She currently has a heparin drip running. Repeat hemoglobin yesterday evening was 9.5, this morning is 9.0. She has prevena dressing in place at the left groin. Objective - Vital Signs Vital signs: Vital Signs Temp 98.4 F 10/12/22 03:08 Pulse 110 H 10/12/22 03:08 Resp 16 10/12/22 03:08 BP 163/72 10/12/22 03:08 Pulse Ox 95 10/12/22 03:08 FiO2 Intake & Output 10/11/22 10/12/22 10/12/22 18:59 06:59 18:59 Intake Total 1362 2050 Output Total 200 1250 Balance 1162 800 Intake: IV 1052 150 Intake, IV Titration 900 Amount Sodium Chloride 0.9% 1, 900 000 ml @ 75 mls/hr IV . [id number] [facility] Rx#:[id number] Oral 1000 Blood Product 310 Rc As-1 Unit 310 [id number] Output: Urine 200 1150 Estimated Blood Loss 100 Other: Voiding Method Toilet Indwelling Catheter # Voids 3 - Exam General appearance: The patient is alert, oriented, appears in no acute distress. HET: Head is normocephalic and atraumatic. Pupils are equal and reactive. Neck: Supple. Heart: Regular. Lungs: Equal expansion, normal respiratory effort. Abdomen: Soft, nontender, nondistended. Extremities: Normal skin color and turgor. Left lower extremity warm to the touch, multiphasic DP and popliteal Doppler signals. Patient is able to move left lower extremity including flexing at the ankle and wiggling her toes. Left groin with Prevena dressing intact. Right lower extremity with PT and DP multiphasic signals. Neurological: No focal deficits. Strength and sensation are grossly intact. - Labs CBC & Chem 7: 10/12/22 07:16 10/12/22 07:16 Labs: Abnormal Lab Results - Last 24 Hours (Table) 10/10/22 10/11/22 10/11/22 Range/Units 11:26 06:53 06:53 WBC (3.8-10.6) k/uL RBC 2.81 L (3.80-5.40) m/uL Hgb 8.3 L (11.4-16.0) gm/dL Hct 25.4 L (34.0-46.0) % Neutrophils # 8.2 H (1.3-7.7) k/uL Sodium 132 L (137-145) mmol/L Carbon Dioxide 19 L (22-30) mmol/L BUN 41 H (7-17) mg/dL Creatinine 1.50 H (0.52-1.04) mg/dL Glucose 190 H (74-99) mg/dL POC Glucose (mg/dL) (70-110) mg/dL Iron (50-170) ug/dL % Saturation (12.00-45.00) Urine Glucose (UA) (Negative) Urine Ketones (Negative) Crossmatch See Detail 10/11/22 10/11/22 10/11/22 Range/Units 06:53 11:41 12:40 WBC (3.8-10.6) k/uL RBC (3.80-5.40) m/uL Hgb (11.4-16.0) gm/dL Hct (34.0-46.0) % Neutrophils # (1.3-7.7) k/uL Sodium (137-145) mmol/L Carbon Dioxide (22-30) mmol/L BUN (7-17) mg/dL Creatinine (0.52-1.04) mg/dL Glucose (74-99) mg/dL POC Glucose (mg/dL) 225 H (70-110) mg/dL Iron 33 L (50-170) ug/dL % Saturation 9.59 L (12.00-45.00) Urine Glucose (UA) 3+ H (Negative) Urine Ketones 1+ H (Negative) Crossmatch 10/11/22 10/11/22 10/11/22 Range/Units 16:20 22:00 22:31 WBC (3.8-10.6) k/uL RBC 3.25 L (3.80-5.40) m/uL Hgb 9.5 L (11.4-16.0) gm/dL Hct 28.6 L (34.0-46.0) % Neutrophils # (1.3-7.7) k/uL Sodium (137-145) mmol/L Carbon Dioxide (22-30) mmol/L BUN (7-17) mg/dL Creatinine (0.52-1.04) mg/dL Glucose (74-99) mg/dL POC Glucose (mg/dL) 203 H 315 H (70-110) mg/dL Iron (50-170) ug/dL % Saturation (12.00-45.00) Urine Glucose (UA) (Negative) Urine Ketones (Negative) Crossmatch 10/12/22 10/12/22 10/12/22 Range/Units 03:07 05:53 07:16 WBC (3.8-10.6) k/uL RBC (3.80-5.40) m/uL Hgb (11.4-16.0) gm/dL Hct (34.0-46.0) % Neutrophils # (1.3-7.7) k/uL Sodium 132 L (137-145) mmol/L Carbon Dioxide 20 L (22-30) mmol/L BUN 28 H (7-17) mg/dL Creatinine (0.52-1.04) mg/dL Glucose 193 H (74-99) mg/dL POC Glucose (mg/dL) 353 H 329 H (70-110) mg/dL Iron (50-170) ug/dL % Saturation (12.00-45.00) Urine Glucose (UA) (Negative) Urine Ketones (Negative) Crossmatch 10/12/22 Range/Units 07:16 WBC 10.9 H (3.8-10.6) k/uL RBC 3.09 L (3.80-5.40) m/uL Hgb 9.0 L (11.4-16.0) gm/dL Hct 26.8 L (34.0-46.0) % Neutrophils # (1.3-7.7) k/uL Sodium (137-145) mmol/L Carbon Dioxide (22-30) mmol/L BUN (7-17) mg/dL Creatinine (0.52-1.04) mg/dL Glucose (74-99) mg/dL POC Glucose (mg/dL) (70-110) mg/dL Iron (50-170) ug/dL % Saturation (12.00-45.00) Urine Glucose (UA) (Negative) Urine Ketones (Negative) Crossmatch Assessment and Plan Assessment: 1. Acute left lower extremity critical limb ischemia with left femoral and left lower extremity SFA occlusion status post thrombolysis, left ileal femoral endarterectomy with patch angioplasty 2. left lower extremity pain 3. History of peripheral arterial occlusive disease with previous SFA occlusion and popliteal artery occlusive disease status post angioplasty and stent 4. Diabetes mellitus Plan: 1. Consistent carbohydrate diet 2. Stop heparin drip and start Eliquis 10 mg twice a day 3. Eliquis starter pack sent to pharmacy 4. Encourage ambulation 5. Encourage by mouth pain medication 6. Patient is clear from vascular surgery for discharge 7. Outpatient follow-up with Dr. Asif Thank you for this consultation, we will continue to follow. The impression and plan of care has been dictated as directed. Dr. Barrett I performed a history and examination of this patient, discussed the same with the dictator. I agree with the dictator's note ,documented as a scribe. Any additional findings or plans will be noted.
[2022-10-12 10:15] VITALS: PULSE 105; TEMP 98.7
--- NOTE | 2022-10-12 10:26 | P.PN ---
Subjective Patient is seen in follow for acute kidney injury. Renal function improved. Oral intake is good. Urine output also improved. No active complaints. Vital signs are stable. General: Awake. No acute distress. HEENT: Head exam is unremarkable. LUNGS: Breath sounds decreased. HEART: Rate and Rhythm are regular. ABDOMEN: Soft, no distention. EXTREMITITES: No edema. Objective - Vital Signs Vital signs: Vital Signs Temp 98.7 F 10/12/22 08:00 Pulse 105 H 10/12/22 08:00 Resp 16 10/12/22 08:00 BP 132/73 10/12/22 08:00 Pulse Ox 94 L 10/12/22 08:00 FiO2 Intake & Output 10/11/22 10/12/22 10/12/22 18:59 06:59 18:59 Intake Total 1362 2050 0 Output Total 200 1250 Balance 1162 800 0 Intake: IV 1052 150 Intake, IV Titration 900 Amount Sodium Chloride 0.9% 1, 900 000 ml @ 75 mls/hr IV . [id number] [facility] Rx#:[id number] Oral 1000 0 Blood Product 310 Rc As-1 Unit 310 [id number] Output: Urine 200 1150 Estimated Blood Loss 100 Other: Voiding Method Toilet Indwelling Catheter Toilet # Voids 3 - Labs CBC & Chem 7: 10/12/22 07:16 10/12/22 07:16 Labs: Abnormal Lab Results - Last 24 Hours (Table) 10/10/22 10/11/22 10/11/22 Range/Units 11:26 06:53 11:41 WBC (3.8-10.6) k/uL RBC (3.80-5.40) m/uL Hgb (11.4-16.0) gm/dL Hct (34.0-46.0) % Sodium (137-145) mmol/L Carbon Dioxide (22-30) mmol/L BUN (7-17) mg/dL Glucose (74-99) mg/dL POC Glucose (mg/dL) 225 H (70-110) mg/dL Iron 33 L (50-170) ug/dL % Saturation 9.59 L (12.00-45.00) Urine Glucose (UA) (Negative) Urine Ketones (Negative) Crossmatch See Detail 10/11/22 10/11/22 10/11/22 Range/Units 12:40 16:20 22:00 WBC (3.8-10.6) k/uL RBC (3.80-5.40) m/uL Hgb (11.4-16.0) gm/dL Hct (34.0-46.0) % Sodium (137-145) mmol/L Carbon Dioxide (22-30) mmol/L BUN (7-17) mg/dL Glucose (74-99) mg/dL POC Glucose (mg/dL) 203 H 315 H (70-110) mg/dL Iron (50-170) ug/dL % Saturation (12.00-45.00) Urine Glucose (UA) 3+ H (Negative) Urine Ketones 1+ H (Negative) Crossmatch 10/11/22 10/12/22 10/12/22 Range/Units 22:31 03:07 05:53 WBC (3.8-10.6) k/uL RBC 3.25 L (3.80-5.40) m/uL Hgb 9.5 L (11.4-16.0) gm/dL Hct 28.6 L (34.0-46.0) % Sodium (137-145) mmol/L Carbon Dioxide (22-30) mmol/L BUN (7-17) mg/dL Glucose (74-99) mg/dL POC Glucose (mg/dL) 353 H 329 H (70-110) mg/dL Iron (50-170) ug/dL % Saturation (12.00-45.00) Urine Glucose (UA) (Negative) Urine Ketones (Negative) Crossmatch 10/12/22 10/12/22 Range/Units 07:16 07:16 WBC 10.9 H (3.8-10.6) k/uL RBC 3.09 L (3.80-5.40) m/uL Hgb 9.0 L (11.4-16.0) gm/dL Hct 26.8 L (34.0-46.0) % Sodium 132 L (137-145) mmol/L Carbon Dioxide 20 L (22-30) mmol/L BUN 28 H (7-17) mg/dL Glucose 193 H (74-99) mg/dL POC Glucose (mg/dL) (70-110) mg/dL Iron (50-170) ug/dL % Saturation (12.00-45.00) Urine Glucose (UA) (Negative) Urine Ketones (Negative) Crossmatch Assessment and Plan Plan: Assessment: 1. Acute kidney injury secondary to ATN secondary to contrast-induced acute kidney injury. Baseline creatinine near 0.8 and peaked at 2.3 this admission - 0.89 today. Patient received IV contrast for angiogram on October 08 as well as October 09. No evidence of renal artery stenosis was noted on the angiogram. No hydronephrosis noted. No proteinuria on UA. 2. Peripheral arterial disease with left lower extremity acute limb ischemia status post thrombolysis and endarterectomy this admission. 3. Diabetes mellitus. 4. Hyponatremia secondary to hypertonicity from hyperglycemia. 5. Acute blood loss anemia. Iron deficiency noted. 6. Metabolic acidosis secondary to acute kidney injury and IV fluids. On oral bicarb. Better. 7. Benign hypertension. Stable. Plan: Decrease rate of normal saline to 50 mL an hour - Hep-Lock this evening. Add IV iron. Replace magnesium. Avoid nephrotoxins. Continue to monitor renal function and urine output.
[2022-10-12] MEDS ORDERED: SODIUM FERRIC GLUCONAT-SUCROSE 125 MG in SODIUM CHLORIDE 0.9% 100 ML IVPB SCH (10:30)
--- NOTE | 2022-10-12 10:46 | CDI ---
Documentation Clarification Form Date: 10/12/2022 10:18:43 AM From: Manuela Swann RN, CCDS Admit Date: 10/08/2022 02:19:00 PM Patient Name: Kendal Villeda Visit Number: [id number] Discharge Date: ATTENTION: The Clinical Documentation Specialists (CDI) and [facility] Coding Staff appreciate your assistance in clarifying documentation. Please respond to the clarification below the line at the bottom and electronically sign. The CDI & [facility] Coding staff will review the response and follow-up if needed. Please note: Queries are made part of the Legal Health Record. If you have any questions, please contact the author of this message via ITS. Dr. Cecil Barrett Acute blood loss anemia is documented in the Nephrology progress notes on 10/11/2022. Patient had placement of thrombolytic catheter and initiation of thrombolysis on 10/08/22. Additional clarification is requested regarding the relationship, if any, that exists between the diagnosis and the procedure. Patients Admitting Diagnosis: Acute left lower extremity critical arcos ischemia with left femoral, SFA thrombosis Post-Operative Diagnosis: Same Procedure performed: Ultrasound guided right common femoral artery access Selective left lower extremity Iliofemoral, femoral-tibial angiogram 3rd order Placement of thrombolytic catheter and initiation of thrombolysis History/Risk Factors: Clinical Indicators: 57-year-old female with history o left lower extremity SFA atherectomy and stenting present to hospital due to acute increase of pain in the left lower extremity and foot. ER with CT demonstrated occlusion of the left SFA and in stents. 10/08 HGB 13.9, HCT 40.9 10/09 HGB 12.3 HCT 37.4 10/10 HGB 8.7 HCT 27.2 10/11 HGB 8.3 HCT 25.4 Treatment: ICU/Telemetry monitoring 10/11 Transfuse 1-unit PRBC Monitor CBC Daily Consults: What relationship, if any, exists between the diagnosis of acute blood loss anemia and the procedure? [ ] Acute blood loss anemia is a complication of surgical procedure [ ] Acute blood loss anemia is an expected outcome of the surgical procedure [ ] Acute blood loss anemia is related to patients co-morbid condition(s) of [insert co-morbid dxs] & not a complication of the procedure [ ] Other please specify ____ [ x] Unable to determine (Template Last Revised: January 2021) MTDD
[2022-10-12] MEDS: MAGNESIUM SULFATE-D5W PMX 1 GM in DEXTROSE/WATER 1 100ML.BAG IVPB SCH ×3 (11:26→15:28)
[2022-10-12 11:38] LABS: Glucose,Whole Blood 188 mg/dL (70-110)
[2022-10-12 12:24] VITALS: BP 155/60; RESP 18
[2022-10-12] MEDS: SODIUM CHLORIDE 0.9% 1,000 ML IV SCH (15:19)
--- NOTE | 2022-10-12 15:30 | P.PN ---
Subjective Progress Note Date: 10/12/22 On 10/12/2022, the patient is doing well. The patient is no specific complaints. The patient underwent a left femoral artery endarterectomy with patch angioplasty. Estimated blood loss was 150s. Postop, the patient was sent back to her telemetry unit. She is doing well for now. No specific complaints. No leg pain. Blood work from today shows a hemoglobin of 9 with a white cell count of 10.9 and a platelet count of 223. Electrodes are stable with a BUN of 28 and a creatinine of 0.8. The patient has no other complaints otherwise for now. She is doing well. She has a Prevena applied to her surgical wound site over the left groin and there is no hematoma formation. Objective - Vital Signs Vital signs: Vital Signs Temp 98.7 F 10/12/22 08:00 Pulse 105 H 10/12/22 08:00 Resp 16 10/12/22 08:00 BP 132/73 10/12/22 08:00 Pulse Ox 94 L 10/12/22 08:00 FiO2 Intake & Output 10/11/22 10/12/22 10/12/22 18:59 06:59 18:59 Intake Total 1362 2050 0 Output Total 200 1250 Balance 1162 800 0 Intake: IV 1052 150 Intake, IV Titration 900 Amount Sodium Chloride 0.9% 1, 900 000 ml @ 75 mls/hr IV . [id number] [facility] Rx#:[id number] Oral 1000 0 Blood Product 310 Rc As-1 Unit 310 [id number] Output: Urine 200 1150 Estimated Blood Loss 100 Other: Voiding Method Toilet Indwelling Catheter Toilet # Voids 3 - Exam No acute distress, oriented 3. Currently on room air. The patient is resting comfortably in bed HEENT examination is grossly unremarkable. Neck supple. Full range of motion. No adenopathy thyromegaly or neck vein distention. Cardiovascular examination reveals regular rhythm rate. S1-S2 normal. No S3 or S4. No discernible murmur noted. Lungs reveal clear breath sounds. Breath sounds are equal bilaterally. No adventitious lung sounds including wheezes rhonchi or crackles. Abdomen soft bowel sounds are heard. No masses or tenderness. Extremities are intact. No cyanosis clubbing or edema. The patient has a clear surgical one-sided over the left groin area. The patient is able to move the left lower extremity without any major difficulties. No active soaking of the dressing. Pulses are diminished at the present. Right lower oximetry is within normal limits. Skin is without rash or lesion. Neurologic examination is brief but nonfocal. - Labs CBC & Chem 7: 10/12/22 07:16 10/12/22 07:16 Labs: Abnormal Lab Results - Last 24 Hours (Table) 10/10/22 10/11/22 10/11/22 Range/Units 11:26 06:53 11:41 WBC (3.8-10.6) k/uL RBC (3.80-5.40) m/uL Hgb (11.4-16.0) gm/dL Hct (34.0-46.0) % Sodium (137-145) mmol/L Carbon Dioxide (22-30) mmol/L BUN (7-17) mg/dL Glucose (74-99) mg/dL POC Glucose (mg/dL) 225 H (70-110) mg/dL Iron 33 L (50-170) ug/dL % Saturation 9.59 L (12.00-45.00) Urine Glucose (UA) (Negative) Urine Ketones (Negative) Crossmatch See Detail 10/11/22 10/11/22 10/11/22 Range/Units 12:40 16:20 22:00 WBC (3.8-10.6) k/uL RBC (3.80-5.40) m/uL Hgb (11.4-16.0) gm/dL Hct (34.0-46.0) % Sodium (137-145) mmol/L Carbon Dioxide (22-30) mmol/L BUN (7-17) mg/dL Glucose (74-99) mg/dL POC Glucose (mg/dL) 203 H 315 H (70-110) mg/dL Iron (50-170) ug/dL % Saturation (12.00-45.00) Urine Glucose (UA) 3+ H (Negative) Urine Ketones 1+ H (Negative) Crossmatch 10/11/22 10/12/22 10/12/22 Range/Units 22:31 03:07 05:53 WBC (3.8-10.6) k/uL RBC 3.25 L (3.80-5.40) m/uL Hgb 9.5 L (11.4-16.0) gm/dL Hct 28.6 L (34.0-46.0) % Sodium (137-145) mmol/L Carbon Dioxide (22-30) mmol/L BUN (7-17) mg/dL Glucose (74-99) mg/dL POC Glucose (mg/dL) 353 H 329 H (70-110) mg/dL Iron (50-170) ug/dL % Saturation (12.00-45.00) Urine Glucose (UA) (Negative) Urine Ketones (Negative) Crossmatch 10/12/22 10/12/22 Range/Units 07:16 07:16 WBC 10.9 H (3.8-10.6) k/uL RBC 3.09 L (3.80-5.40) m/uL Hgb 9.0 L (11.4-16.0) gm/dL Hct 26.8 L (34.0-46.0) % Sodium 132 L (137-145) mmol/L Carbon Dioxide 20 L (22-30) mmol/L BUN 28 H (7-17) mg/dL Glucose 193 H (74-99) mg/dL POC Glucose (mg/dL) (70-110) mg/dL Iron (50-170) ug/dL % Saturation (12.00-45.00) Urine Glucose (UA) (Negative) Urine Ketones (Negative) Crossmatch Assessment and Plan Plan: Acute left lower extremity pain with tingling and numbness. Status post thrombolytic catheter placement and initiation of thrombolysis on 10/08/2022. Return to the CVL with findings of distal common femoral plaque with 90% stenosis. Stents are patent. Catheters were removed and ask a device placed to the right groin. The patient is also post endarterectomy with patch angioplasty. The patient underwent the procedure on 10/11/2022 and the patient is postop day #1. Clinically improved and the patient not having any major symptoms at this point in time. Acute on chronic anemia, receiving activity transfusion 1, hemoglobin is stable Acute kidney injury, improving, recovered and the creatinine is normalized down to 0.89 Peripheral arterial occlusive disease with previous stents to the left lower extremity. Former smoker. History of chronic obstructive pulmonary disease. Diabetes mellitus. Hypertension. Hyperlipidemia. Seizure disorder. History of breast cancer with previous surgery and chemo/radiation. Left Charcot foot. History of right second toe amputation. Plan Monitor renal function, the levels have normalized Monitor hemoglobin, hemoglobin is stable Successful left femoral endarterectomy Clinically stable and the pulmonary and critical care services will sign off the case
--- NOTE | 2022-10-12 16:59 | P.DS ---
Providers Date of admission: 10/08/22 14:19 Expected date of discharge: 10/12/22 Attending physician: Bertin Baum Consults: 10/08/22 13:54 Consult Physician Stat Consulting Provider: Cecil Barrett Consult Reason/Comments: arterial occlusion Do you want consulting provider notified?: Already Contacted 10/08/22 17:35 Consult Physician Routine Consulting Provider: Osorio Cannon Consult Reason/Comments: icu care Do you want consulting provider notified?: Yes 10/10/22 15:25 Consult Physician Routine Consulting Provider: Dennis Murcia Consult Reason/Comments: crf Do you want consulting provider notified?: Yes Primary care physician: Tatianna Mason [facility] Hospital Course: Presenting complaint: Left leg pain Hospital course: I assumed the care of patient today from [facility]. Patient presented with severe left foot pain of one-day duration. Lower extremity CTA showing high grade stenosis on the right SPUD GRADER as well as greater than 70% stenosis proximal SFA.suspect popliteal disease greater than 50%. Suspect lower extremity focal occlusion of the level of the left camera femoral artery distally as well as the left SFA focally just proximal to the patient stent. The patient left SFA stent is completely occluded. Left leg venous Doppler was negative. For DVT. On October 08 Dr. Barrett because of acute left lower extremity critical limb ischemia noted localized thrombolysis. On October 09 repeat angiogram was carried out.:Selective angiograms via the existing sheath was then performed demonstrating brisk flow to the common femoral and profundus femoris artery as well as to the SFA with patent stents noted and one-vessel runoff via the anterior tibial artery to the ankle. There was some small areas of stenosis and calcific plaque noted throughout the SFA and popliteal artery but not significant enough for any intervention at this time. There is roughly 90% stenosis due to significant distal common femoral plaque extending into the profundus slightly and SFA. She will require endarterectomy in the future. October 11: Resting in bed. Nothing by mouth. Awaiting intervention this afternoon by vascular. Left lower leg-Pain present. 10/12/2022: Left leg pain much better. Underwent yesterday left iliofemoral endarterectomy, with patch angioplasty. Started on eliquis. IV heparin is being discontinued. Cleared by vascular. Renal function improved. Discussed with the patient. Discussion and discharge planning more than 35 minutes On examination: VITAL SIGNS: 98.7, 105, 18, 155/60, 94% room air GENERAL APPEARANCE: Laying in bed, comfortable HEENT: Normal external appearance of nose and ear. Oral cavity normal EYES: Pupils equal. Conjunctiva normal. NECK: JVD not raised. Mass not palpable. RESPIRATORY: Respiratory effort normal. Lungs clear to auscultation. CARDIOVASCULAR: First and second sounds normal. No edema. ABDOMEN: Soft. Liver and spleen not palpable. No tenderness. No mass palpable. PSYCHIATRY: Alert and oriented x3. Mood and affect normal. Extremities: Left foot warm. INVESTIGATIONS, reviewed in the clinical context: 10/12/2022: WBC 10.9 hemoglobin 9 potassium 4.7 creatinine 0.89 10/11/2022: White count 10.6 hemoglobin 8.3 platelets 199 potassium 4.8 BUN 41 crit and 1.50 Admission labs: Creatinine 0.90 Assessment and plan -Acute on chronic PAD,roughly 90% stenosis due to significant distal common femoral plaque extending into the profundus slightly and SFA.: Pain present Status post thrombolysis. left iliofemoral endarterectomy, with patch angioplasty-by Dr. So Asif. Eliquis. Plavix.. -Acute kidney injury, possibly ATN, could be contrast nephropathy: Corrected IV fluids. Resume TIFFANI inhibitor. Follow labs -COPD, an ex-smoker Albuterol when necessary -Diabetes mellitus type 2, chronically on insulin Follow Accu-Cheks and sliding scale -Metabolic acidosis from acute kidney injury Sodium bicarbonate -GERD PPI -Hyperlipidemia Lipitor -Essential hypertension Norvasc -Obesity BMI 33.0 Weight loss measures Disposition: Home Patient Condition at Discharge: Stable Plan - Discharge Summary Discharge Rx Participant: Yes New Discharge Prescriptions: New HYDROcodone/APAP 5-325MG [Kerman 5-325] 1 each PO Q4HR PRN 3 Days #18 tab PRN Reason: Mild Breakthrough Pain (1-3) Sodium Bicarbonate Tab 650 mg PO BID #30 tab Apixaban [Eliquis Starter Pack (for VTE)] 5 - 10 mg PO DIRECTED 30 Days #1 each Famotidine [Pepcid] 20 mg PO DAILY #30 tab Continue Gabapentin [Neurontin] 600 mg PO TID Atorvastatin [Lipitor] 40 mg PO QAM Omeprazole [PriLOSEC] 20 mg PO AC-BRKFST Clopidogrel [Plavix] 75 mg PO DAILY Anastrozole 1 mg PO DAILY Cyclobenzaprine [Flexeril] 10 mg PO TID PRN PRN Reason: Muscle Spasm metFORMIN HCL [Glucophage] 1,000 mg PO BID INSULIN ASPART (NovoLOG) [NovoLOG (formulary)] See Protocol SQ AC-TID PRN PRN Reason: Blood Sugar - High Insulin Glargine,Hum.rec.anlog [Basaglar Kwikpen U-100] 30 unit SQ BID amLODIPine [Norvasc] 5 mg PO DAILY Changed lisinopriL [Zestril] 40 mg PO HS #0 Discharge Medication List Atorvastatin [Lipitor] 40 mg PO QAM 05/19/21 [History] Clopidogrel [Plavix] 75 mg PO DAILY 05/19/21 [History] Gabapentin [Neurontin] 600 mg PO TID 05/19/21 [History] INSULIN ASPART (NovoLOG) [NovoLOG (formulary)] See Protocol SQ AC-TID PRN 05/19/21 [History] Insulin Glargine,Hum.rec.anlog [Basaglar Kwikpen U-100] 30 unit SQ BID 05/19/21 [History] Omeprazole [PriLOSEC] 20 mg PO AC-BRKFST 05/19/21 [History] metFORMIN HCL [Glucophage] 1,000 mg PO BID 05/19/21 [History] Anastrozole 1 mg PO DAILY 10/08/22 [History] Cyclobenzaprine [Flexeril] 10 mg PO TID PRN 10/08/22 [History] amLODIPine [Norvasc] 5 mg PO DAILY 10/08/22 [History] Apixaban [Eliquis Starter Pack (for VTE)] 5 - 10 mg PO DIRECTED 30 Days #1 each 10/12/22 [Rx] Famotidine [Pepcid] 20 mg PO DAILY #30 tab 10/12/22 [Rx] HYDROcodone/APAP 5-325MG [Kerman 5-325] 1 each PO Q4HR PRN 3 Days #18 tab 10/12/22 [Rx] Sodium Bicarbonate Tab 650 mg PO BID #30 tab 10/12/22 [Rx] lisinopriL [Zestril] 40 mg PO HS #0 10/12/22 [Rx] Follow up Appointment(s)/Referral(s): Kimberlyn Asif DO [STAFF PHYSICIAN] - 10 Days (Office closed) Tatianna Mason MD [Primary Care Provider] - 1-2 days (Office will call patient to schedule) Patient Instructions/Handouts: Apixaban (By mouth) Activity/Diet/Wound Care/Special Instructions: No driving for two days. Avoid heavy lifting greater than 10 lbs , pushing, pulling, straining, flights of stairs for three days. Sponge bath only until dressing removed, then shower no tub baths or soaking, no pools, soaking in tubs for three days to avoid risk of infection. signs of infection ie: fever, rash, drainage from puncture site, swelling contact doctor or return to ER immediately. Heavy bleeding from incision site apply firm direct pressure and return to ER. Do not attempt to drive self. Consistent carbohydrate, heart healthy diet Keep Prevena dressing in place for 6 days, then remove and discard. Zestril is a home medication not a new medication. Discharge Disposition: HOME SELF-CARE
== END 2022-10-12 16:27 | disposition home or self-care (01) | DRG 270 ==
LOC: EC 08:38 → 2SICU 14:19 → 3SCARD 10-09 15:12
PROVIDERS: ADMIT Hospitalist; ATTEND Hospitalist
PROC: B41G1ZZ Fluoroscopy of Left Lower Extremity Arteries using Low Osmolar Contrast (ICD-10-PCS; 2022-10-08)
PROC: 3E05317 Introduction of Other Thrombolytic into Peripheral Artery, Percutaneous Approach (ICD-10-PCS; 2022-10-08)
PROC: 04HN33Z Insertion of Infusion Device into Left Popliteal Artery, Percutaneous Approach (ICD-10-PCS; 2022-10-08)
PROC: 04FL3Z0 Fragmentation of Left Femoral Artery, Percutaneous Approach, Ultrasonic (ICD-10-PCS; 2022-10-08 15:00)
PROC: 04F Lower Arteries, Fragmentation (ICD-10-PCS; 2022-10-08 15:00)
PROC: 04FD3Z0 Fragmentation of Left Common Iliac Artery, Percutaneous Approach, Ultrasonic (ICD-10-PCS; 2022-10-08 15:00)
PROC: 06PY33Z Removal of Infusion Device from Lower Vein, Percutaneous Approach (ICD-10-PCS; 2022-10-09)
PROC: 30233N1 Transfusion of Nonautologous Red Blood Cells into Peripheral Vein, Percutaneous Approach (ICD-10-PCS; 2022-10-11)
PROC: 04CL3ZZ Extirpation of Matter from Left Femoral Artery, Percutaneous Approach (ICD-10-PCS; principal; 2022-10-11 10:30)
DX: T82.868A Thrombosis due to vascular prosthetic devices, implants and grafts, initial encounter (principal); N17.0 Acute kidney failure with tubular necrosis; I74.3 Embolism and thrombosis of arteries of the lower extremities; E87.20 Acidosis, unspecified; D62 Acute posthemorrhagic anemia; E87.1 Hypo-osmolality and hyponatremia; E11.610 Type 2 diabetes mellitus with diabetic neuropathic arthropathy; E11.649 Type 2 diabetes mellitus with hypoglycemia without coma; E11.42 Type 2 diabetes mellitus with diabetic polyneuropathy; E11.51 Type 2 diabetes mellitus with diabetic peripheral angiopathy without gangrene; I70.222 Atherosclerosis of native arteries of extremities with rest pain, left leg; E11.22 Type 2 diabetes mellitus with diabetic chronic kidney disease; I12.9 Hypertensive chronic kidney disease with stage 1 through stage 4 chronic kidney disease, or unspecified chronic kidney disease; N18.9 Chronic kidney disease, unspecified; J44.9 Chronic obstructive pulmonary disease, unspecified; G40.909 Epilepsy, unspecified, not intractable, without status epilepticus; E66.9 Obesity, unspecified; Z95.820 Peripheral vascular angioplasty status with implants and grafts; Z68.33 Body mass index [BMI] 33.0-33.9, adult; E11.65 Type 2 diabetes mellitus with hyperglycemia; I70.201 Unspecified atherosclerosis of native arteries of extremities, right leg; N14.11 Contrast-induced nephropathy; E61.1 Iron deficiency; D53.9 Nutritional anemia, unspecified; M19.90 Unspecified osteoarthritis, unspecified site; E78.5 Hyperlipidemia, unspecified; Y71.1 Therapeutic (nonsurgical) and rehabilitative cardiovascular devices associated with adverse incidents; K21.9 Gastro-esophageal reflux disease without esophagitis; T50.8X5A Adverse effect of diagnostic agents, initial encounter; Z89.421 Acquired absence of other right toe(s); Z87.891 Personal history of nicotine dependence; Z86.79 Personal history of other diseases of the circulatory system; Z85.3 Personal history of malignant neoplasm of breast; Z92.21 Personal history of antineoplastic chemotherapy; Z92.3 Personal history of irradiation; Z79.899 Other long term (current) drug therapy; Z79.84 Long term (current) use of oral hypoglycemic drugs; Z79.811 Long term (current) use of aromatase inhibitors; Z79.4 Long term (current) use of insulin; Z79.02 Long term (current) use of antithrombotics/antiplatelets; Z88.1 Allergy status to other antibiotic agents; Z88.8 Allergy status to other drugs, medicaments and biological substances
CPT/HCPCS: 36246; 36415; 37211; 37214; 71045; 75710; 76770; 76937; 80048; 80053; 81003; 82728; 83036; 83540; 83550; 83735; 85025; 85027; 85384; 85610; 85730; 86850; 86900; 86901; 86920; 88304; 88311; 96374; 96375; 96376; 99291

== ENCOUNTER 2023-02-03 08:28 | Emergency (ER) | payer MEDICARE ==
--- NOTE | 2023-02-03 09:43 | XR ---
EXAMINATION TYPE: XR foot complete LT DATE OF EXAM: 02/03/2023 CLINICAL HISTORY: Pain and swelling after recent fall injury. TECHNIQUE: Frontal, lateral, and oblique images of the left foot are obtained. COMPARISON: Left foot x-ray December 28, 2022 FINDINGS: There is acute oblique slightly displaced intra-articular fracture through the medial base of the fourth proximal phalanx. Persistent moderate to severe narrowing and spurring at mid foot lev el involving the cuneiforms and navicular bone. Persistent pes planus. Overlying soft tissue is unrem arkable. IMPRESSION: There is acute oblique minimally displaced intra-articular fracture through the medial base of the fourth proximal phalanx.
--- NOTE | 2023-02-03 10:17 | ED ---
Lower Extremity Injury HPI - General Chief Complaint: Extremity Injury, Lower Stated Complaint: left broken foot Time Seen by Provider: 02/03/23 08:45 Source: patient, RN notes reviewed Mode of arrival: ambulatory Limitations: no limitations - History of Present Illness Initial Comments: 57-year-old female presents emergency Department with chief complaint left foot injury. Patient states she tripped over a baby gait. Patient states that she has bruising by her fourth and fifth digit she has pain over this area. She has had a chronic wound of her foot and which she is followed by wound center. She states with the swelling she feels as though more red than usual. Denies any pain over her first digit. Patient denies any other associated symptoms. - Related Data Home Medications Medication Instructions Recorded Confirmed Atorvastatin [Lipitor] 40 mg PO QAM 05/19/21 12/22/22 Clopidogrel [Plavix] 75 mg PO DAILY 05/19/21 12/22/22 Gabapentin [Neurontin] 800 mg PO TID 05/19/21 12/22/22 INSULIN ASPART (NovoLOG) [NovoLOG See Protocol SQ AC-TID PRN 05/19/21 12/22/22 (formulary)] Insulin Glargine,Hum.rec.anlog 30 unit SQ BID 05/19/21 12/22/22 [Basaglar Kwikpen U-100] Omeprazole [PriLOSEC] 20 mg PO AC-BRKFST 05/19/21 12/22/22 metFORMIN HCL [Glucophage] 1,000 mg PO BID 05/19/21 12/22/22 Anastrozole 1 mg PO DAILY 10/08/22 12/22/22 Cyclobenzaprine [Flexeril] 10 mg PO TID PRN 10/08/22 12/22/22 amLODIPine [Norvasc] 5 mg PO DAILY 10/08/22 12/22/22 atenoloL 25 mg PO DAILY 12/17/22 12/22/22 Previous Rx's Medication Instructions Recorded Famotidine [Pepcid] 20 mg PO DAILY #30 tab 10/12/22 lisinopriL [Zestril] 40 mg PO HS #0 10/12/22 Cephalexin [Keflex] 500 mg PO Q6HR #40 cap 02/03/23 Allergies Allergy/AdvReac Type Severity Reaction Status Date / Time protamine Allergy BP Verified 02/03/23 08:42 dropped, heart rate elevated tetracycline [Tetracycline] Allergy Rash/Hives Verified 02/03/23 08:42 Review of Systems ROS Statement: Those systems with pertinent positive or pertinent negative responses have been documented in the HPI. ROS Other: All systems not noted in ROS Statement are negative. Past Medical History Past Medical History: Cancer, COPD, Diabetes Mellitus, Deep Vein Thrombosis (DVT), GERD/Reflux, Hyperlipidemia, Hypertension, Osteoarthritis (OA), Seizure Disorder, Vascular Disorder Additional Past Medical History / Comment(s): hx. heart murmur, breast cancer 5 yrs. ago-had surgery & chemo & radiation, one time seizure 3 yrs ago-testing done & never found anything, lower extremity neuropathy, left charcot foot History of Any Multi-Drug Resistant Organisms: None Reported Past Surgical History: Breast Surgery, Orthopedic Surgery, Tubal Ligation Additional Past Surgical History / Comment(s): right breast lumpectomy & lymph nodes removed, angioplasty, vasc. surg lower extremities, right 2nd toe removed Past Anesthesia/Blood Transfusion Reactions: No Reported Reaction Past Psychological History: No Psychological Hx Reported Smoking Status: Former smoker Past Alcohol Use History: None Reported Past Drug Use History: None Reported General Exam Limitations: no limitations General appearance: alert, in no apparent distress Head exam: Present: atraumatic, normocephalic, normal inspection Eye exam: Present: normal appearance, PERRL, EOMI. Absent: scleral icterus, conjunctival injection, periorbital swelling Neck exam: Present: normal inspection, full ROM. Absent: tenderness, meningismus, lymphadenopathy Respiratory exam: Present: normal lung sounds bilaterally. Absent: respiratory distress, wheezes, rales, rhonchi, stridor Cardiovascular Exam: Present: regular rate, normal rhythm, normal heart sounds. Absent: systolic murmur, diastolic murmur, rubs, gallop, clicks Extremities exam: Present: other (Left foot there is ecchymosis of the fourth and fifth digit there is tenderness at the eighth of the fourth digit neurovascular intact there is a chronic sore noted on the first digit there is some edema in the foot) Course Vital Signs 02/03/23 08:39 Temperature 99.2 F Pulse Rate 84 Respiratory 18 Rate Blood Pressure 186/84 O2 Sat by Pulse 95 Oximetry Medical Decision Making - Medical Decision Making Was pt. sent in by a medical professional or institution ([facility], STRANDING SUPERVISOR, urgent care, hospital, or residential...) When possible be specific @ -No Did you speak to anyone other than the patient for history (EMS, parent, family, police, friend...)? What history was obtained from this source @ -No Did you review nursing and triage notes (agree or disagree)? Why? @ -I reviewed and agree with nursing and triage notes Were old charts reviewed (outside hosp., previous admission, EMS record, old EKG, old radiological studies, urgent care reports/EKG's, residential records)? Report findings @ -No old charts were reviewed Differential Diagnosis (chest pain, altered mental status, abdominal pain women, abdominal pain men, vaginal bleeding, weakness, fever, dyspnea, syncope, headache, dizziness, GI bleed, back pain, seizure, CVA, palpatations, mental health, musculoskeletal)? @ -No fracture, foot fracture, foot infection EKG interpreted by me (3pts min.). @ -None X-rays interpreted by me (1pt min.). @ -[X-rays of the left foot shows fracture at the base of the fourth digit no other acute abnormality. CT interpreted by me (1pt min.). @ -None done U/S interpreted by me (1pt. min.). @ -None done What testing was considered but not performed or refused? (CT, X-rays, U/S, labs)? Why? @ -None What meds were considered but not given or refused? Why? @ -None Did you discuss the management of the patient with other professionals (professionals i.e. [facility] Tabor, STRANDING SUPERVISOR, lab, RT, psych nurse, social work lecturer, gas appliance installer, teacher, fiscal officer, counter caser)? Give summary @ -No Was smoking cessation discussed for >3mins.? @ -No Was critical care preformed (if so, how long)? @ -No Were there social determinants of health that impacted care today? How? (Homelessness, low income, unemployed, alcoholism, drug addiction, transportation, low edu. Level, literacy, decrease access to med. care, correction, rehab)? @ -No Was there de-escalation of care discussed even if they declined (Discuss DNR or withdrawal of care, Hospice)? DNR status @ -No What co-morbidities impacted this encounter? (DM, HTN, Smoking, COPD, CAD, Cancer, CVA, ARF, Chemo, Hep., AIDS, mental health diagnosis, sleep apnea, morbid obesity)? @ -[Chronic wounds, peripheral vascular disease Was patient admitted / discharged? Hospital course, mention meds given and route, prescriptions, significant lab abnormalities, going to OR and other pertinent info. @ -Discharge patient has a fracture of her fourth toe there is no metatarsal fracture she does have chronic wound on her first digit there is some erythema associated with the swelling a leave most likely causing the swelling though patient's concerned about early infection with her history she was placed on antibiotics she will have recheck in 24-48 hours return parameters discussed. Undiagnosed new problem with uncertain prognosis? @ -No Drug Therapy requiring intensive monitoring for toxicity (Heparin, Nitro, Insulin, Cardizem)? @ -No Were any procedures done? @ -No Diagnosis/symptom? @ -Left foot toe fracture Acute, or Chronic, or Acute on Chronic? @ -Acute Uncomplicated (without systemic symptoms) or Complicated (systemic symptoms)? @ -Uncomplicated Side effects of treatment? @ -No Exacerbation, Progression, or Severe Exacerbation? @ -No Poses a threat to life or bodily function? How? (Chest pain, [place], [place], pneumonia, PE, COPD, DKA, ARF, appy, cholecystitis, CVA, Diverticulitis, Homicidal, Suicidal, threat to staff... and all critical care pts) @ -No Disposition Clinical Impression: Toe fracture, left, Foot ulcer Disposition: HOME SELF-CARE Condition: Stable Instructions (If sedation given, give patient instructions): Toe Fracture (ED) Additional Instructions: Please return to the Emergency Department if symptoms worsen or any other concerns. Prescriptions: Cephalexin [Keflex] 500 mg PO Q6HR #40 cap Is patient prescribed a controlled substance at d/c from ED?: No Referrals: Tatianna Mason MD [Primary Care Provider] - 1-2 days Time of Disposition: 10:16
[2023-02-03 10:46] VITALS: BP 157/94; PULSE 82; RESP 16; TEMP 97.6
== END 2023-02-03 10:46 | disposition home or self-care (01) ==
LOC: EC 08:28
DX: S92.912A Unspecified fracture of left toe(s), initial encounter for closed fracture (principal); J44.9 Chronic obstructive pulmonary disease, unspecified; E11.9 Type 2 diabetes mellitus without complications; K21.9 Gastro-esophageal reflux disease without esophagitis; E78.5 Hyperlipidemia, unspecified; I10 Essential (primary) hypertension; Z87.891 Personal history of nicotine dependence; Z79.4 Long term (current) use of insulin; Z79.84 Long term (current) use of oral hypoglycemic drugs; Z79.899 Other long term (current) drug therapy; Z88.1 Allergy status to other antibiotic agents; W18.40XA Slipping, tripping and stumbling without falling, unspecified, initial encounter
CPT/HCPCS: 99283

== ENCOUNTER 2023-03-03 08:45 | Day surgery (SDC) | payer MEDICARE, OTHER ==
[2023-03-03 09:24] VITALS: RESP 16; TEMP 98.6
[2023-03-03 09:29] LABS: Glucose,Whole Blood 163 mg/dL (70-110)
[2023-03-03] MEDS ORDERED: fentaNYL (PF) 50 MCG/ML 2 ML AMP ONE ×2 (09:42→10:45)
[2023-03-03] MEDS ORDERED: LIDOCAINE 1% INJ 10MG/ML (20 ML MDV) ONE (09:43)
[2023-03-03 09:45] LABS: Calcium 9.3 mg/dL (8.4-10.2); Potassium 5.2 mmol/L (3.5-5.1)
[2023-03-03] MEDS: MIDAZOLAM 2 MG/2 ML VIAL IV ONE ×2 (09:55→10:31)
[2023-03-03] MEDS: fentaNYL (PF) 50 MCG/ML 2 ML AMP IV ONE ×2 (09:55→10:31)
[2023-03-03 09:58] LABS: Basophils % (A) 1 %; Eosinophils # (A) 0.2 k/uL (0-0.7); Eosinophils % (A) 2 %; HCT 40.8 % (34.0-46.0); Lymphocytes % (A) 25 %; MCH 27.6 pg (25.0-35.0); MCHC 34.2 g/dL (31.0-37.0); MCV 80.7 fL (80.0-100.0); Mean Platelet Volume 7.8; Monocytes # (A) 0.4 k/uL (0-1.0); Monocytes % (A) 5 %; Neutrophils # (A) 5.1 k/uL (1.3-7.7); Neutrophils % (A) 66 %; Platelet Count 297 k/uL (150-450); RBC 5.06 m/uL (3.80-5.40); RDW 14.9 % (11.5-15.5); WBC 7.8 k/uL (3.8-10.6)
[2023-03-03] MEDS ORDERED: LIDOCAINE 1% INJ 10MG/ML (20 ML MDV) SQ ONE (09:58)
[2023-03-03] MEDS: HEPARIN SODIUM 1,000 UN/ML (10ML VL) IV ONE ×2 (10:07→10:31)
[2023-03-03] MEDS: fentaNYL (PF) 50 MCG/1 ML VIAL IV ONE ×2 (10:46→10:56)
[2023-03-03] MEDS ORDERED: IOPAMIDOL-250 100ML BTL INTRAARTER ONE (11:21)
--- NOTE | 2023-03-03 11:55 | IR ---
EXAMINATION TYPE: IR stent intravas non coronary DATE OF EXAM: 03/03/2023 COMPARISON: NONE HISTORY: Fluoroscopy time. Fluoroscopy was provided to the referring clinician.
[2023-03-03] MEDS ORDERED: CLOPIDOGREL 75 MG TAB PO STA (12:21)
[2023-03-03] MEDS ORDERED: HYDROcodone/APAP 5-325MG 1 EACH TAB PO STA (12:21)
[2023-03-03] MEDS ORDERED: CLOPIDOGREL 75 MG TAB ONE (12:23)
[2023-03-03] MEDS ORDERED: HYDROcodone/APAP 5-325MG 1 EACH TAB ONE (12:24)
[2023-03-03] MEDS ORDERED: INSULIN DETEMIR (LEVEMIR) 100 UNIT/ML SYR SQ ONE (13:30)
[2023-03-03 14:22] VITALS: PULSE 78
[2023-03-03 15:59] VITALS: BP 144/65
--- NOTE | 2023-03-04 22:30 | P.OP ---
Date of Procedure: 03/03/23 Description of Procedure: Preoperative diagnosis: Dann 5 left lower extremity peripheral arterial disease, left superficial femoral artery occlusion, previously placed stent Postoperative diagnosis: Same Procedure: #1 ultrasound-guided right common femoral artery access #2 left lower extremity angiogram third order to below-knee popliteal artery #3 intravascular ultrasound left common femoral artery #4 intravascular ultrasound left superficial femoral artery #5 intravascular ultrasound left popliteal artery #6 percutaneous transluminal balloon angioplasty 4 x 40 of the superficial femoral artery #7 mechanical thrombectomy and atherectomy with Rotorex of the left superficial femoral artery #8 percutaneous transluminal balloon angioplastied drug-coated balloon left superficial femoral artery, 6 x 300 #9 percutaneous transluminal balloon expandable noncovered stent placement of the proximal superficial femoral artery, 6x 27 #10 moderate conscious sedation 81 minutes, personally monitored certified RN administration with personal monitoring of hemodynamics Surgeon: Kimberlyn Asif D.O. EBL: Less than 20 mL IV fluids: See records Urine output: Not measured Drains: None Complications: None immediately apparent Condition: Stable to recovery Operative indication and findings: Patient is a 57-year-old female with previous multiple interventions on her lower extremities, most recently she had occlusive disease that was felt to be more acute therefore she went through TPA thrombolysis of her left lower extremity with improvement of the thrombus burden. She also at that time underwent a iliofemoral endarterectomy and patch angioplasty. She was doing well upon discharge but subsequently had worsening lower extremity pain and gangrene of her great toe at the distal tip. Given this repeat imaging an angiogram was performed revealing patent common femoral, profundus and a portion of the proximal superficial femoral artery with an abrupt occlusion and subsequent occlusion to the previously placed stents with reconstitution of the popliteal artery. Plan to go forward with an endovascular intervention was discussed. She seemingly understood and was willing to proceed. Procedure in detail: Patient was taken to the special suite and placed in supine position. The bilateral groins are prepped and draped in usual sterile fashion. A preprocedure timeout was performed, all parties were in agreement. Using ultrasound, the right common femoral artery was identified. It was found be patent without evidence of significant calcific disease. Permanent images stored. Using a micro-puncture needle, access was gained with ultrasound guidance. Seldinger technique was used to place a 6-English sheath. The patient was heparinized. A right iliofemoral angiogram was performed and catheters and wires then used to access the left femoral system. Wire was exchanged for a gu idewire advantage and a long 6 Aguilar was placed up and over. Catheters and wires were then used to traverse the area of occlusion. A confirmatory angiogram was performed via the distal popliteal artery to prove luminal gain. The wire was then exchanged for an 014 wire and intravascular ultrasound was performed in order to assure no evidence of dissection. The wire and catheters remain luminal the hallway without any evidence of dissection or perforation therefore at that time the wire was exchanged via catheter for an 018 wire. The proximal inflow segment of [place] vessel was balloon angioplastied with a 4 x 40 and the rotorex device was utilized for multiple passes. Repeat imaging showed a patent vessel and stents. A drug-coated balloon, 6 x 300 was then applied into the area. The previous area of more proximal disease was significantly improved. There was no evidence of flow limitation. Anterior tibial and peroneal arteries appear patent. At that point the attention was turned towards the far proximal superficial femoral artery. Repeat images were performed and there was felt to be significant narrowing as confirmed previously with AQUILINO therefore a balloon expandable 6 x 27 stent was placed at the takeoff of the superficial femoral artery. Repeat angiogram was performed with excellent results and no evidence of further stenosis. The contrast washed quickly with brisk flow. Catheters and wires were then withdrawn, the sheath was withdrawn back over the bifurcation and exchanged for a short 6-English sheath. The sheath was dressed in place and the patient was transferred to recovery for removal of the sheath under appropriate parameters. Plan - Discharge Summary Discharge Rx Participant: No New Discharge Prescriptions: No Action Gabapentin [Neurontin] 800 mg PO TID Atorvastatin [Lipitor] 40 mg PO QAM Omeprazole [PriLOSEC] 20 mg PO AC-BRKFST Clopidogrel [Plavix] 75 mg PO QAM Anastrozole 1 mg PO QAM Cyclobenzaprine [Flexeril] 10 mg PO TID PRN PRN Reason: Muscle Spasm lisinopriL [Zestril] 40 mg PO QAM Metoprolol Succinate [Toprol XL] 50 mg PO QAM Aspirin [Adult Low Dose Aspirin EC] 81 mg PO QAM metFORMIN HCL [Glucophage] 1,000 mg PO BID INSULIN ASPART (NovoLOG) [NovoLOG (formulary)] See Protocol SQ AC-TID PRN PRN Reason: Blood Sugar - High Insulin Glargine,Hum.rec.anlog [Basaglar Kwikpen U-100] 30 unit SQ BID amLODIPine [Norvasc] 5 mg PO QAM Discharge Medication List Atorvastatin [Lipitor] 40 mg PO QAM 05/19/21 [History] Clopidogrel [Plavix] 75 mg PO QAM 05/19/21 [History] Gabapentin [Neurontin] 800 mg PO TID 05/19/21 [History] INSULIN ASPART (NovoLOG) [NovoLOG (formulary)] See Protocol SQ AC-TID PRN 05/19/21 [History] Insulin Glargine,Hum.rec.anlog [Basaglar Kwikpen U-100] 30 unit SQ BID 05/19/21 [History] Omeprazole [PriLOSEC] 20 mg PO AC-BRKFST 05/19/21 [History] metFORMIN HCL [Glucophage] 1,000 mg PO BID 05/19/21 [History] Anastrozole 1 mg PO QAM 10/08/22 [History] Cyclobenzaprine [Flexeril] 10 mg PO TID PRN 10/08/22 [History] amLODIPine [Norvasc] 5 mg PO QAM 10/08/22 [History] Aspirin [Adult Low Dose Aspirin EC] 81 mg PO QAM 02/25/23 [History] Metoprolol Succinate [Toprol XL] 50 mg PO QAM 02/25/23 [History] lisinopriL [Zestril] 40 mg PO QAM 02/25/23 [History] Follow up Appointment(s)/Referral(s): Kimberlyn Asif DO [STAFF PHYSICIAN] - 1 Week Patient Instructions/Handouts: Peripheral Artery Disease (ED), Moderate Sedation (DC), Peripheral Vascular Stent Placement (DC) Activity/Diet/Wound Care/Special Instructions: *NO LIFTING, PUSHING, OR PULLING ANYTHING OVER 5 POUNDS FOR 5 DAYS *NO DRIVING FOR 3 DAYS *YOU CAN REMOVE YOUR DRESSING TOMORROW AND SHOWER BUT DO NOT SUBMERSE YOUR PUNCTURE SITE IN WATER FOR A FEW DAYS TO PREVENT INFECTION - SO NO TUB BATHS, POOLS, HOT TUBS, DISHES...ETC *ANY SIGNS OF BLEEDING (HARDNESS, SWELLING, OR EXCESSIVE BRUISING) HOLD DIRECT PRESSURE ON YOUR PUNCTURE SITE AND COME TO THE NEAREST EMERGENCY ROOM TO GET YOUR PUNCTURE SITE LOOKED AT - DO NOT DRIVE YOURSELF! EITHER CALL EMS OR HAVE SOMEONE DRIVE YOU! HOLD METFORMIN FOR 48 HRS. RESTART PLAVIX TOMORROW. Discharge Disposition: HOME SELF-CARE
== END 2023-03-03 16:36 | disposition home or self-care (01) ==
LOC: CATHCVL 08:45
PROVIDERS: ATTEND Surgery
DX: I70.263 Atherosclerosis of native arteries of extremities with gangrene, bilateral legs (principal); I65.29 Occlusion and stenosis of unspecified carotid artery; I10 Essential (primary) hypertension; E11.52 Type 2 diabetes mellitus with diabetic peripheral angiopathy with gangrene; Z95.820 Peripheral vascular angioplasty status with implants and grafts; Z79.4 Long term (current) use of insulin; Z79.84 Long term (current) use of oral hypoglycemic drugs; Z79.82 Long term (current) use of aspirin; Z79.899 Other long term (current) drug therapy; Z79.01 Long term (current) use of anticoagulants; Z79.52 Long term (current) use of systemic steroids; Z88.1 Allergy status to other antibiotic agents; Z88.8 Allergy status to other drugs, medicaments and biological substances; Z98.890 Other specified postprocedural states; Z98.1 Arthrodesis status; Z87.891 Personal history of nicotine dependence
CPT/HCPCS: 37227; 37252; 80048; 85025; 99152; 99153 ×4; C1769 ×6; C1894 ×2; C1725; C1753; C2628; C2623; J2250; J2001; J3010 ×2; J1644; Q9966

== ENCOUNTER 2024-08-02 10:11 | Day surgery (SDC) | payer OTHER ==
[~2024-08-02 10:11] MED LIST changes: +HEPARIN SODIUM,PORCINE (1 ML) 2,500 UNIT in SODIUM CHLORIDE 0.9% 250 ML IRRIGATION PRN; +HEPARIN SODIUM,PORCINE 10,000 UNIT in SODIUM CHLORIDE 0.9% 1,000 ML IRRIGATION PRN; -SODIUM CHLORIDE 0.9% 1,000 ML in EMPTY BAG 1 BAG IV ONE; +ZOLPIDEM 5 MG TAB PO PRN
[2024-08-02 10:30] VITALS: RESP 18; TEMP 98
[2024-08-02 10:31] LABS: Glucose,Whole Blood 124 mg/dL (70-110)
[2024-08-02] MEDS: EMPTY BAG 1 BAG with SODIUM CHLORIDE 0.9% 1,000 ML IV SCH (10:31)
[2024-08-02] MEDS: IV FLUID CONTINUATION 1,000 ML IV ONE ×2 (10:31→13:00)
[2024-08-02 10:35] LABS: Basophils # (A) 0.1 k/uL (0-0.2); Basophils % (A) 1 %; Eosinophils # (A) 0.2 k/uL (0-0.7); Eosinophils % (A) 3 %; HCT 43.4 % (34.0-46.0); Lymphocytes # (A) 2.3 k/uL (1.0-4.8); Lymphocytes % (A) 28 %; MCH 29.2 pg (25.0-35.0); MCHC 32.2 g/dL (31.0-37.0); MCV 90.8 fL (80.0-100.0); Mean Platelet Volume 7.8; Monocytes # (A) 0.6 k/uL (0-1.0); Monocytes % (A) 7 %; Neutrophils # (A) 5.1 k/uL (1.3-7.7); Neutrophils % (A) 60 %; Platelet Count 300 k/uL (150-450); RBC 4.78 m/uL (3.80-5.40); WBC 8.5 k/uL (3.8-10.6)
[2024-08-02 10:43] LABS: African American GFR (CKD) 75 (>60 ml/min/1.73 sqM); Anion Gap 8 mmol/L; Blood Urea Nitrogen 25 mg/dL (7-17); Calcium 9.6 mg/dL (8.4-10.2); Carbon Dioxide 27 mmol/L (22-30); Chloride 102 mmol/L (98-107); Glucose 128 mg/dL (74-99); Non-African American GFR(CKD) 65 (>60 ml/min/1.73 sqM); Potassium 4.9 mmol/L (3.5-5.1); Sodium 137 mmol/L (137-145)
[2024-08-02] MEDS: MIDAZOLAM 2 MG/2 ML VIAL IVP ONE (12:30)
[2024-08-02] MEDS: fentaNYL (PF) 50 MCG/ML 2 ML AMP IVP ONE (12:31)
[2024-08-02] MEDS: LIDOCAINE 1% INJ 10MG/ML (20 ML MDV) SQ ONE (12:32)
[2024-08-02] MEDS: VERAPAMIL SYRINGE (5 MG/10 ML) INTRAARTER ONE (12:33)
--- NOTE | 2024-08-02 13:16 | P.OP ---
Date of Procedure: 08/02/24 Description of Procedure: preoperative diagnosis: Dann 3 peripheral arterial disease right lower extremity, previous femoral endarterectomy and patch angioplasty Postoperative diagnosis: Same Procedure: Ultrasound-guided left radial artery access Placement of catheter in infrarenal abdominal aorta, selective second order, from radial approach Aortogram with bilateral lower extremity runoffs Moderate conscious sedation with personal monitoring certified RN administration and personal hemodynamic monitoring for 19 minutes Surgeon: Kimberlyn Asif D.O. EBL: Less than 5 cc IV fluids: See records Urine output: Not measured Drains: None Complications: None immediately apparent Condition: Stable to recovery Operative indication and findings: Patient is 59 a-year-old with peripheral vascular disease. On workup and evaluation was found to have abnormal ABIs prompting recommendations for an angiogram. Risks and benefits including but not limited to bleeding, infection, injury to the vessel, cardiopulmonary risks and ischemic changes to the extremities were discussed. They seemingly understood this willing to proceed. Procedure in detail: Patient was taken to the special suite and placed in supine position. The left upper extremity was prepped and draped in usual sterile fashion. A preprocedural timeout was performed, all parties were in agreement. Using the ultrasound, the radial artery was identified. The skin overlying was anesthetized with 1% lidocaine plain. The artery was patent without significant calcific disease and a permanent image was stored. Under direct visualization, the artery was accessed and Seldinger technique was used to place a 5 slender sheath. Catheters and wires were then used to selectively place a catheter across the subclavian, into the aortic arch and then selectively in the descending thoracic aorta and down into the abdominal aorta. Aortogram was performed. Catheter was then advanced to the level of the iliac bifurcation. A bilateral lower extremity step-off was performed. After satisfactory images, catheters and wires were removed. The sheath was removed and a TR band was placed. Angiographic interpretation: The aorta appeared normal in course and caliber. Visualized portions of the renal, superior mesenteric and celiac arteries appeared normal without significant disease. Multiple visualized lumbar arteries. The common iliac arteries bilaterally appeared patent without significant disease. The internal and external iliac arteries appeared patent with relatively minimal disease. Evidence of bilateral femoral endarterectomies. On the right, the profound appears patent without significant disease. At the takeoff of the superficial femoral artery there is a short segment high-grade stenosis versus short occlusion with quick reconstitution. The abductor canal has significant severe disease for a moderate segment with reconstitution. Below the knee the anterior tibial artery appears patent without significant disease. The tibioperoneal trunk is patent. There is difficult visualization of the posterior tibial vessel as it is diminutive. The peroneal vessel is patent. Anterior tibial artery is patent at the ankle on the right. On the left, previously placed stents appear patent without significant disease in the superficial femoral artery. The profunda appears patent without significant disease. Multiple stents again through the superficial femoral artery appearing patent. The popliteal artery appears patent with mild stenosis proximally. The anterior tibial artery is robust and patent to the foot. Tibioperoneal trunk is patent without significant disease. The posterior tibial artery is patent but shortly occludes after takeoff. The peroneal artery is patent at the mid calf. Plan - Discharge Summary Discharge Rx Participant: No New Discharge Prescriptions: No Action Gabapentin [Neurontin] 800 mg PO TID Atorvastatin [Lipitor] 40 mg PO QAM Omeprazole [PriLOSEC] 20 mg PO AC-BRKFST Clopidogrel [Plavix] 75 mg PO QAM Anastrozole 1 mg PO QAM Cyclobenzaprine [Flexeril] 10 mg PO TID PRN PRN Reason: Muscle Spasm lisinopriL [Zestril] 40 mg PO QAM Metoprolol Succinate [Toprol XL] 50 mg PO QAM Aspirin [Adult Low Dose Aspirin EC] 81 mg PO QAM metFORMIN HCL [Glucophage] 1,000 mg PO BID INSULIN ASPART (NovoLOG) [NovoLOG (formulary)] See Protocol SQ AC-TID PRN PRN Reason: Blood Sugar - High Insulin Glargine,Hum.rec.anlog [Basaglar Kwikpen U-100] 30 unit SQ BID amLODIPine [Norvasc] 5 mg PO QAM Discharge Medication List Atorvastatin [Lipitor] 40 mg PO QAM 05/19/21 [History] Clopidogrel [Plavix] 75 mg PO QAM 05/19/21 [History] Gabapentin [Neurontin] 800 mg PO TID 05/19/21 [History] INSULIN ASPART (NovoLOG) [NovoLOG (formulary)] See Protocol SQ AC-TID PRN 05/19/21 [History] Insulin Glargine,Hum.rec.anlog [Basaglar Kwikpen U-100] 30 unit SQ BID 05/19/21 [History] Omeprazole [PriLOSEC] 20 mg PO AC-BRKFST 05/19/21 [History] metFORMIN HCL [Glucophage] 1,000 mg PO BID 05/19/21 [History] Anastrozole 1 mg PO QAM 10/08/22 [History] Cyclobenzaprine [Flexeril] 10 mg PO TID PRN 10/08/22 [History] amLODIPine [Norvasc] 5 mg PO QAM 10/08/22 [History] Aspirin [Adult Low Dose Aspirin EC] 81 mg PO QAM 02/25/23 [History] Metoprolol Succinate [Toprol XL] 50 mg PO QAM 02/25/23 [History] lisinopriL [Zestril] 40 mg PO QAM 02/25/23 [History] Follow up Appointment(s)/Referral(s): Kimberlyn Asif DO [STAFF PHYSICIAN] - 08/15/24 10:00 am Patient Instructions/Handouts: Peripheral Artery Disease (ED), Moderate Sedation (DC), After Radial Heart Catheterization (GEN) Activity/Diet/Wound Care/Special Instructions: *NO LIFTING, PUSHING, OR PULLING ANYTHING OVER 5 POUNDS FOR 5 DAYS *NO DRIVING FOR 24 HOURS *YOU CAN REMOVE YOUR DRESSING TOMORROW BUT DO NOT SUBMERSE YOUR PUNCTURE SITE IN WATER FOR A FEW DAYS TO PREVENT INFECTION - SO NO TUB BATHS, POOLS, HOT TUBS, DISHES...ETC *ANY SIGNS OF BLEEDING (HARDNESS, SWELLING, OR EXCESSIVE BRUISING) HOLD DIRECT PRESSURE ON YOUR PUNCTURE SITE AND COME TO THE NEAREST EMERGENCY ROOM TO GET YOUR PUNCTURE SITE LOOKED AT - DO NOT DRIVE YOURSELF! EITHER CALL EMS OR HAVE SOMEONE DRIVE YOU! Discharge Disposition: HOME SELF-CARE
[2024-08-02 15:03] VITALS: BP 108/46; PULSE 74
--- NOTE | 2024-08-22 22:39 | IR ---
EXAMINATION TYPE: IR angio abdominal w runoff DATE OF EXAM: 08/02/2024 1:11 PM COMPARISON: Pre Operative Images if available both CT/MRI or plain film CLINICAL INDICATION: Female, 59 years old with history of right leg pain, 1.8min fluoro, 34.4Gycm2; TECHNIQUE: IR angio abdominal w runoff, multiple fluoroscopic images provided for procedure. Total fluoroscopy time: 1.7 min Total submitted images to PACS: [id number] DAP: 2.4 mGym2 Gycm2 uGym2 cGycm2 or equivalent. IMPRESSION: 1. No evidence for intraoperative complication. 2. Please see the operative/procedural note for further details. [facility], , 08/22/2024 10:37 PM
== END 2024-08-02 16:05 | disposition home or self-care (01) ==
LOC: CATHCVL 10:11
PROVIDERS: ATTEND Surgery
DX: I70.713 Atherosclerosis of other type of bypass graft(s) of the extremities with intermittent claudication, bilateral legs (principal); Z79.02 Long term (current) use of antithrombotics/antiplatelets; Z79.811 Long term (current) use of aromatase inhibitors; Z79.82 Long term (current) use of aspirin; Z79.84 Long term (current) use of oral hypoglycemic drugs
CPT/HCPCS: 36200; 75625; 75716; 80048; 85025; C1769 ×2; C1894; J2250; J2001; J3010

== ENCOUNTER 2024-08-23 11:10 | Day surgery (SDC) | payer MEDICARE, OTHER ==
[2024-08-23] MEDS: IV FLUID CONTINUATION 1,000 ML IV ONE (11:21)
[2024-08-23 12:30] LABS: Basophils % (A) 0 %; Eosinophils # (A) 0.2 k/uL (0-0.7); Eosinophils % (A) 2 %; HCT 41.4 % (34.0-46.0); Lymphocytes % (A) 25 %; MCH 29.9 pg (25.0-35.0); MCHC 33.8 g/dL (31.0-37.0); MCV 88.3 fL (80.0-100.0); Mean Platelet Volume 8.2; Monocytes # (A) 0.5 k/uL (0-1.0); Monocytes % (A) 6 %; Neutrophils # (A) 5.3 k/uL (1.3-7.7); Neutrophils % (A) 65 %; Platelet Count 298 k/uL (150-450); RBC 4.69 m/uL (3.80-5.40); RDW 14.6 % (11.5-15.5); WBC 8.2 k/uL (3.8-10.6)
[2024-08-23 12:32] LABS: African American GFR (CKD) 79 (>60 ml/min/1.73 sqM); Anion Gap 4 mmol/L; Blood Urea Nitrogen 20 mg/dL (7-17); Carbon Dioxide 27 mmol/L (22-30); Chloride 104 mmol/L (98-107); Glucose 165 mg/dL (74-99); Non-African American GFR(CKD) 69 (>60 ml/min/1.73 sqM); Potassium 4.9 mmol/L (3.5-5.1); Sodium 135 mmol/L (137-145)
[2024-08-23] MEDS: fentaNYL (PF) 50 MCG/ML 2 ML AMP IVP ONE (12:55)
[2024-08-23] MEDS: MIDAZOLAM 2 MG/2 ML VIAL IVP ONE (12:56)
[2024-08-23] MEDS: LIDOCAINE 1% INJ 10MG/ML (20 ML MDV) SQ ONE (13:00)
[2024-08-23] MEDS: HEPARIN SODIUM 1,000 UN/ML (10ML VL) IVP ONE (13:25)
[2024-08-23] MEDS: IOPAMIDOL-250 100ML BTL INTRAARTER ONE (14:28)
[2024-08-23] MEDS ORDERED: NALOXONE 0.4 MG/ML 1 ML VIAL IVP PRN (15:21)
[2024-08-23] MEDS: HYDROcodone/APAP 5-325MG 1 EACH TAB PO PRN (15:30)
--- NOTE | 2024-08-23 15:43 | IR ---
EXAMINATION TYPE: IR angio lower extremity RT DATE OF EXAM: 08/23/2024 2:53 PM COMPARISON: Pre Operative Images if available both CT/MRI or plain film CLINICAL INDICATION: Female, 59 years old with history of RLE ANGIOGRAM, 24.7 MINS FLT, 0.339GY; TECHNIQUE: IR angio lower extremity RT, multiple fluoroscopic images provided for procedure. Total fluoroscopy time: 24.7 minutes Total submitted images to PACS: [id number] DAP: 101 mGym2 Gycm2 uGym2 cGycm2 or equivalent. IMPRESSION: 1. Report was generated for administrative purposes only. 2. Please see the operative/procedural note for further details. [facility], , 08/23/2024 3:40 PM
--- NOTE | 2024-08-23 15:58 | P.OP ---
Date of Procedure: 08/23/24 Description of Procedure: Preoperative diagnosis: [place] 3 peripheral arterial disease right lower extremity, SFA occlusive disease, previous femoral endarterectomy Postoperative diagnosis: Same Procedure: #1 ultrasound-guided left common femoral artery access 2. Left iliofemoral angiogram 3. Selective right lower extremity angiogram to the distal popliteal artery 4. Percutaneous transluminal balloon angioplasty right superficial femoral artery, 5 x 100, 6 x 60; DCB 6 x 250 5. Percutaneous transluminal atherectomy with Hawk M right SFA 6. Percutaneous transluminal stenting noncovered self-expanding 6 x 120, 6 x 80 distal SFA; noncovered balloon expandable proximal SFA 6 x 27 7. Moderate conscious sedation x 97 minutes with personal monitoring certified RN administration and hemodynamic monitoring Surgeon: Kimberlyn Asif D.O. EBL: Less than 10 cc IV fluids: See records Urine output: Not measured Drains: None Complications: None immediately apparent Condition: Stable to recovery Operative indication and findings: Patient is a 59-year-old female with significant and increasing right lower extremity pain. She is found to have abnormal ABIs and a previous diagnostic angiogram was performed showing evidence of short segment occlusion of the proximal SFA as well as a moderate segment occlusion of the distal SFA with reconstitution. For this she was offered angiogram with atherectomy and potential angioplasty versus stenting. Risks and benefits have previously been discussed. She was willing to proceed and presents here today for this. Procedure in detail: Patient was taken the operative suite and placed in supine position. The bilateral groins were prepped and draped in usual sterile fashion. A preprocedural timeout was performed, all parties were in agreement. Using the ultrasound, the left common femoral artery was identified. The skin overlying was anesthetized with 1% lidocaine plain. The vessel was found to be patent and compressible free of visualized significant calcific disease. Using a micro access the artery was accessed and Seldinger technique was used to place a 6 Kazakh sheath. A left iliofemoral angiogram was performed showing no significant iliac pathology. Catheters and wires were then used to access the contralateral iliac. The angiogram was performed showing a widely patent common, external and internal iliac artery. The common femoral artery appeared patent with evidence of previous revascularization. The deep femoral artery appeared patent without significant disease. There is a short segment of occlusion of the proximal superficial femoral artery with immediate reconstitution. Further down there was an area at the adductor canal of large exophytic appearing calcific disease with occlusion of the superficial femoral artery, short segment of reconstitution followed by recurrent occlusion and disease of the proximal popliteal artery. The popliteal artery appeared patent without significant disease. The anterior tibial, tibioperoneal trunk, posterior tibial and peroneal appear patent to the level of the mid calf, the posterior tibial is diminutive at this level. At that point the sheath was exchanged for an up and over 6 Rabi sheath. Then catheters and wires were then used to traverse these areas of the lesions. An angiogram was performed in the distal popliteal artery confirming luminal gain. The wire was then exchanged for a 6 spider distal embolic protection device. Due to the difficulty in passa ge, a 5 x 100 balloon was used to predilate the distal vessel. This was performed without significant issue. The atherectomy device was then passed multiple times with return of modest calcific disease. The patient had been previously heparinized. After adequate passing of the atherectomy device, a repeat image was taken and a balloon angioplasty with drug-coated balloon, 6 x 250 was utilized and held for 3 minutes. Repeat images did show areas of continued narrowing that potentially are flow-limiting with some haziness therefore the decision was made to place stents. First a 6 x 120 stent was placed followed by a 6 x 80 noncovered self-expanding stent. Balloon angioplasty was performed with significant improvement of the area of stenosis. Attention was then turned towards the proximal superficial femoral artery. Appropriate angiograph he was performed and a 6 x 27 balloon expanding noncovered stent was placed in standard fashion. Repeat angiogram showed brisk flow through the superficial femoral artery with washing of contrast. Flow through the distal outflow was brisk. Catheters and wires were then removed. The sheath was drawn back and repeat image was performed showing again no evidence of significant iliac disease. The sheath was exchanged for a 6 Kazakh short sheath and the patient was transported to [facility] for pulling of manual sheath once appropriate ACT's. At the conclusion of the procedure, DP signal is multiphasic, PT is present and improved from previous but still more monophasic in nature. Not currently palpable at this time.
[2024-08-23] MEDS: hydrALAZINE HCL 25 MG TAB PO STA (16:32)
[2024-08-23] MEDS: GABAPENTIN 400 MG CAP PO SCH (16:38)
[2024-08-23] MEDS: SODIUM CHLORIDE 0.9% 500 ML 500 ML IV ONE (17:33)
[2024-08-23 17:50] LABS: Glucose,Whole Blood 59 mg/dL (70-110)
[2024-08-23 18:19] LABS: Glucose,Whole Blood 100 mg/dL (70-110)
[2024-08-23] MEDS: EMPTY BAG 1 BAG with SODIUM CHLORIDE 0.9% 1,000 ML IV SCH (18:21)
[2024-08-23] MEDS: PRAVASTATIN SODIUM 40 MG TAB PO SCH (19:49)
[2024-08-23 19:58] LABS: Glucose,Whole Blood 308 mg/dL (70-110)
[2024-08-24 05:25] LABS: Glucose,Whole Blood 182 mg/dL (70-110)
[2024-08-24 06:59] LABS: Glucose,Whole Blood 163 mg/dL (70-110)
[2024-08-24 07:26] LABS: African American GFR (CKD) >90 (>60 ml/min/1.73 sqM); Non-African American GFR(CKD) >90 (>60 ml/min/1.73 sqM)
[2024-08-24 07:41] VITALS: BP 134/65; RESP 16; TEMP 98.3
[2024-08-24] MEDS: ASPIRIN 81 MG PO SCH (08:10)
[2024-08-24] MEDS: amLODIPine 5 MG TAB PO SCH (08:10)
[2024-08-24] MEDS: METOPROLOL SUCCINATE (ER) 50 MG TAB.ER.24H PO SCH (08:10)
[2024-08-24] MEDS: CLOPIDOGREL 75 MG TAB PO SCH (08:11)
[2024-08-24] MEDS: lisinopriL 20 MG TAB PO SCH (08:11)
[2024-08-24] MEDS ORDERED: DEXTROSE 50% SYRINGE 50 ML IVP PRN ×2 (08:25)
[2024-08-24] MEDS ORDERED: INSULIN ASPART (NovoLOG) 100 UNIT/ML VIAL SQ SCH (08:25)
[2024-08-24] MEDS ORDERED: INSULIN DETEMIR (LEVEMIR) 100 UNIT/ML SYR SQ SCH (09:00)
[2024-08-24] MEDS ORDERED: metFORMIN 500 MG TAB PO SCH (09:00)
[2024-08-24 09:25] VITALS: PULSE 78
--- NOTE | 2024-08-24 09:59 | P.DS ---
Providers Expected date of discharge: 08/24/24 Attending physician: Kimberlyn Asif DO Primary care physician: [facility] Course: 59-year-old female with right lower extremity peripheral arterial disease with SFA occlusive disease with previous femoral endarterectomy who had presented for scheduled outpatient angiogram with percutaneous revascularization of the right lower extremity. Was kept overnight for observation, she is postop day #1. Today she states pain prior to revascularization improved. She does have some discomfort down the leg likely secondary to the revascularization and increased blood flow. She has been up and ambulating. Tolerating a regular diet and voiding without difficulty. Pain has been well-controlled. Sensorimotor intact. No complaints of bleeding or hematoma at left groin access site. Exam General appearance: The patient is alert, oriented, appears in no acute distress. HET: Head is normocephalic and atraumatic. Neck: Supple. Heart: Regular. Lungs: Equal expansion, normal respiratory effort. Abdomen: Soft, nontender, nondistended. Extremities: Normal skin color and turgor. Bilateral palpable femoral pulses. Left groin access site with minimal ecchymosis, no hematoma or bleeding noted. Right foot with monophasic PT signal and multiphasic DP signal. Foot is warm to the touch, sensorimotor intact. Neurological: No focal deficits. Strength and sensation are grossly intact. Assessment [place] 3 peripheral arterial disease right lower extremity, SFA occlusive disease, previous femoral endarterectomy Postop day #1 percutaneous revascularization of right lower extremity Plan 1. Resume home medications 2. Encourage ambulation 3. Discharge instructions reviewed with patient 4. Plan for discharge today with follow-up in [address] Asif The impression and plan of care has been dictated as directed. Dr. Asif I performed a history and examination of this patient, discussed the same with the dictator. I agree with the dictator's note ,documented as a scribe. Any a dditional findings or plans will be noted. Procedures: Procedure: #1 ultrasound-guided left common femoral artery access 2. Left iliofemoral angiogram 3. Selective right lower extremity angiogram to the distal popliteal artery 4. Percutaneous transluminal balloon angioplasty right superficial femoral artery, 5 x 100, 6 x 60; DCB 6 x 250 5. Percutaneous transluminal atherectomy with Hawk M right SFA 6. Percutaneous transluminal stenting noncovered self-expanding 6 x 120, 6 x 80 distal SFA; noncovered balloon expandable proximal SFA 6 x 27 7. Moderate conscious sedation x 97 minutes with personal monitoring certified RN administration and hemodynamic monitoring Patient Condition at Discharge: Stable Plan - Discharge Summary Discharge Rx Participant: No New Discharge Prescriptions: Continue Gabapentin [Neurontin] 800 mg PO TID Atorvastatin [Lipitor] 40 mg PO QAM Omeprazole [PriLOSEC] 20 mg PO AC-BRKFST Clopidogrel [Plavix] 75 mg PO QAM Anastrozole 1 mg PO QAM Cyclobenzaprine [Flexeril] 10 mg PO TID PRN PRN Reason: Muscle Spasm lisinopriL [Zestril] 40 mg PO QAM Metoprolol Succinate [Toprol XL] 50 mg PO QAM Aspirin [Adult Low Dose Aspirin EC] 81 mg PO QAM metFORMIN HCL [Glucophage] 1,000 mg PO BID INSULIN ASPART (NovoLOG) [NovoLOG (formulary)] See Protocol SQ AC-TID PRN PRN Reason: Blood Sugar - High Insulin Glargine,Hum.rec.anlog [Basaglar Kwikpen U-100] 30 unit SQ BID amLODIPine [Norvasc] 5 mg PO QAM Discharge Medication List Atorvastatin [Lipitor] 40 mg PO QAM 05/19/21 [History] Clopidogrel [Plavix] 75 mg PO QAM 05/19/21 [History] Gabapentin [Neurontin] 800 mg PO TID 05/19/21 [History] INSULIN ASPART (NovoLOG) [NovoLOG (formulary)] See Protocol SQ AC-TID PRN 05/19/21 [History] Insulin Glargine,Hum.rec.anlog [Basaglar Kwikpen U-100] 30 unit SQ BID 05/19/21 [History] Omeprazole [PriLOSEC] 20 mg PO AC-BRKFST 05/19/21 [History] metFORMIN HCL [Glucophage] 1,000 mg PO BID 05/19/21 [History] Anastrozole 1 mg PO QAM 10/08/22 [History] Cyclobenzaprine [Flexeril] 10 mg PO TID PRN 10/08/22 [History] amLODIPine [Norvasc] 5 mg PO QAM 10/08/22 [History] Aspirin [Adult Low Dose Aspirin EC] 81 mg PO QAM 02/25/23 [History] Metoprolol Succinate [Toprol XL] 50 mg PO QAM 02/25/23 [History] lisinopriL [Zestril] 40 mg PO QAM 02/25/23 [History] Follow up Appointment(s)/Referral(s): Kimberlyn Asif DO [STAFF PHYSICIAN] - 09/05/24 1:00 pm (FOLLOW UP APPOINTMENT IS MADE. ) Patient Instructions/Handouts: Peripheral Artery Disease (DC), Peripheral Vascular Angioplasty (GEN), Peripheral Vascular Stent Placement (DC) Activity/Diet/Wound Care/Special Instructions: No driving for two days. Avoid heavy lifting greater than 10 lbs , pushing, pulling, straining, flights of stairs for three days. ok to shower tomorrow but no baths, pools, soaking in tubs for three days to avoid risk of infection. signs of infection ie: fever, rash, drainage from puncture site, swelling contact doctor or return to ER immediately. Heavy bleeding from puncture site apply firm direct pressure and return to ER. Do not attempt to drive self. low sodium/low fat diet Discharge Disposition: HOME SELF-CARE
== END 2024-08-24 09:38 | disposition home or self-care (01) ==
LOC: CATHCVL 11:10 → 6NMEDSUR 16:12 → CATHCVL 08-24 09:38
PROVIDERS: ATTEND Surgery
DX: I70.213 Atherosclerosis of native arteries of extremities with intermittent claudication, bilateral legs
CPT/HCPCS: 37227; 76937; 80048; 82565; 85025

== ENCOUNTER 2024-08-30 09:23 | Inpatient (IN) | payer MEDICARE ==
[2024-08-30] MEDS ORDERED: RX INFO: IV CONTRAST WAS GIVEN 1 EACH MISC MISCELLANE PRN (10:07)
[2024-08-30 10:28] LABS: Basophils % (A) 0 %; Eosinophils # (A) 0.2 k/uL (0-0.7); Eosinophils % (A) 2 %; HCT 43.1 % (34.0-46.0); HGB 13.8 gm/dL (11.4-16.0); Lymphocytes # (A) 1.4 k/uL (1.0-4.8); Lymphocytes % (A) 19 %; MCH 28.9 pg (25.0-35.0); MCV 90.3 fL (80.0-100.0); Mean Platelet Volume 7.7; Monocytes # (A) 0.4 k/uL (0-1.0); Monocytes % (A) 5 %; Neutrophils # (A) 5.3 k/uL (1.3-7.7); Neutrophils % (A) 71 %; Platelet Count 274 k/uL (150-450); RBC 4.77 m/uL (3.80-5.40); RDW 14.2 % (11.5-15.5); WBC 7.4 k/uL (3.8-10.6)
[2024-08-30 10:35] LABS: INR 0.9 (<1.2); Partial Thromboplastin Time 23.9 sec (22.0-30.0); Prothrombin Time 10.1 sec (10.0-12.5)
[2024-08-30 10:36] LABS: ALT 19 U/L (4-34); AST 30 U/L (14-36); African American GFR (CKD) 77 (>60 ml/min/1.73 sqM); Albumin 4.4 g/dL (3.5-5.0); Alkaline Phosphatase 98 U/L (38-126); Anion Gap 6 mmol/L; Blood Urea Nitrogen 17 mg/dL (7-17); Calcium 9.7 mg/dL (8.4-10.2); Carbon Dioxide 24 mmol/L (22-30); Chloride 102 mmol/L (98-107); Glucose 177 mg/dL (74-99); Non-African American GFR(CKD) 67 (>60 ml/min/1.73 sqM); Potassium 5.3 mmol/L (3.5-5.1); Sodium 132 mmol/L (137-145); Total Bilirubin 1.1 mg/dL (0.2-1.3); Total Protein 7.2 g/dL (6.3-8.2)
--- NOTE | 2024-08-30 11:12 | P.GSHP ---
History of Present Illness H&P Date: 08/30/24 Chief Complaint: Right lower extremity pain This is a pleasant 59-year-old female presenting to the emergency department with complaints of right lower extremity pain. She is well-known to vascular surgery and just recently underwent angiogram of the right lower extremity on 08/23/[address] Asif. Past medical history includes peripheral arterial disease, peripheral neuropathy, diabetes mellitus, carotid stenosis, and previous right toe amputation. She states starting this past Tuesday she started getting cramping in her calf and has progressively gotten worse and her foot was starting to feel cool so she came in for further evaluation. She had abnormal ABIs and evidence of short segment occlusion of the proximal SFA with moderate segment occlusion of the distal SFA occlusion with reconstitution she was scheduled for outpatient angiogram with atherectomy with possible intervention. On 08/23/2024 she underwent left iliofemoral angiogram with right lower extremity angiogram with percutaneous transluminal balloon angioplasty of the right SFA, atherectomy and percutaneous transluminal stenting of the distal SFA and proximal SFA. She has been on aspirin 81 mg and Plavix 75 mg daily and states she has been taking it as ordered. She denies any other symptoms such as shortness of breath, chest pain, abdominal pain, nausea or vomiting. No bleeding from her access sites. - Review of Systems Comment: A 14 point review systems was completed all pertinent positives and negatives as stated in the HPI. Past Medical History Past Medical History: Cancer, COPD, Diabetes Mellitus, Deep Vein Thrombosis (DVT), GERD/Reflux, Hyperlipidemia, Hypertension, Osteoarthritis (OA), Seizure Disorder, Skin Disorder, Vascular Disorder Additional Past Medical History / Comment(s): healed L great toe ulcer/nonhealing, current L foot fracture/boot worn, heart murmur, 2016 R breast cancer -had surgery & chemo & radiation, IDDM type II, neuropathy L charcot foot, bilateral legs/feet, 09/2022 DVT L leg, one time seizure 5 or more years ago-testing done & never found anything, chronic pain mostly in feet and neck/back. 3 stents to right lower extremity on 08/23/24. History of Any Multi-Drug Resistant Organisms: None Reported Past Surgical History: Breast Surgery, Orthopedic Surgery, Tubal Ligation Additional Past Surgical History / Comment(s): right breast lumpectomy & lymph nodes removed, port for chemo/since removed, peripheral angioplasties/atherectomies, and removed blood clot from L leg, stents, right 2nd toe amputation d/t diabetic ulcer, bilateral carpal tunnel releases, cervical fusion, aortogram 08/02/24 Past Anesthesia/Blood Transfusion Reactions: No Reported Reaction Additional Past Anesthesia/Blood Transfusion Reaction / Comment(s): Pt received blood transfusion r/t blood loss with surgery. Past Psychological History: Anxiety, Depression Smoking Status: Former smoker Past Alcohol Use History: Rare Past Drug Use History: None Reported - Past Family History Mother Family Medical History: Cancer Additional Family Medical History / Comment(s): Lung cancer, former smoker. Medications and Allergies Home Medications Medication Instructions Recorded Confirmed Type Atorvastatin [Lipitor] 40 mg PO DAILY 05/19/21 08/30/24 History Clopidogrel [Plavix] 75 mg PO DAILY 05/19/21 08/30/24 History INSULIN ASPART (NovoLOG) [NovoLOG 5 unit SQ AC-BID PRN 05/19/21 08/30/24 History (formulary)] Insulin Glargine,Hum.rec.anlog 30 unit SQ DAILY 05/19/21 08/30/24 History [Basaglar Kwikpen U-100] Omeprazole [PriLOSEC] 20 mg PO DAILY 05/19/21 08/30/24 History metFORMIN HCL [Glucophage] 1,000 mg PO BID 05/19/21 08/30/24 History Anastrozole 1 mg PO DAILY 10/08/22 08/30/24 History lisinopriL [Zestril] 40 mg PO DAILY 02/25/23 08/30/24 History Gabapentin [Neurontin] 800 mg PO TID 08/30/24 08/30/24 History Insulin Glargine,Hum.rec.anlog 20 unit SQ HS 08/30/24 08/30/24 History [Basaglar Kwikpen U-100] Metoprolol Succinate (ER) [Toprol 25 mg PO DAILY 08/30/24 08/30/24 History Xl] amLODIPine [Norvasc] 10 mg PO DAILY 08/30/24 08/30/24 History busPIRone HCL 5 mg PO BID PRN 08/30/24 08/30/24 History Allergies Allergy/AdvReac Type Severity Reaction Status Date / Time protamine Allergy BP Verified 08/30/24 12:03 dropped, heart rate elevated tetracycline [Tetracycline] Allergy Rash/Hives Verified 08/30/24 12:03 Surgical - Exam Vital Signs Temp Pulse Resp BP Pulse Ox 99.1 F 97 18 172/89 96 08/30/24 09:32 08/30/24 09:32 08/30/24 09:32 08/30/24 09:32 08/30/24 09:32 General appearance: The patient is alert, oriented, appears in no acute distress. HET: Head is normocephalic and atraumatic. Pupils are equal and reactive. Neck: Supple. Heart: Regular. Lungs: Equal expansion, normal respiratory effort. Abdomen: Soft, nontender, nondistended. Extremities: Normal skin color and turgor. Right foot cool to the touch. Third toe amputation, sensorimotor intact. Patient has movement of her ankle and toes. Palpable femoral pulses, right lower extremity with multiphasic popliteal DP signal, nonpalpable PT and DP pulse, no Doppler signal present PT or DP. Neurological: No focal deficits. Strength and sensation are grossly intact. Results - Labs 08/30/24 10:15 08/30/24 10:15 Abnormal Lab Results - Last 24 Hours (Table) 08/30/24 Range/Units 10:15 Sodium 132 L (137-145) mmol/L Potassium 5.3 H (3.5-5.1) mmol/L Glucose 177 H (74-99) mg/dL Diabetes panel 08/30/24 Range/Units 10:15 Sodium 132 L (137-145) mmol/L Potassium 5.3 H (3.5-5.1) mmol/L Chloride 102 (98-107) mmol/L Carbon Dioxide 24 (22-30) mmol/L BUN 17 (7-17) mg/dL Creatinine 0.94 (0.52-1.04) mg/dL Glucose 177 H (74-99) mg/dL Calcium 9.7 (8.4-10.2) mg/dL AST 30 (14-36) U/L ALT 19 (4-34) U/L Alkaline Phosphatase 98 (38-126) U/L Total Protein 7.2 (6.3-8.2) g/dL Albumin 4.4 (3.5-5.0) g/dL Calcium panel 08/30/24 Range/Units 10:15 Calcium 9.7 (8.4-10.2) mg/dL Albumin 4.4 (3.5-5.0) g/dL Pituitary panel 08/30/24 Range/Units 10:15 Sodium 132 L (137-145) mmol/L Potassium 5.3 H (3.5-5.1) mmol/L Chloride 102 (98-107) mmol/L Carbon Dioxide 24 (22-30) mmol/L BUN 17 (7-17) mg/dL Creatinine 0.94 (0.52-1.04) mg/dL Glucose 177 H (74-99) mg/dL Calcium 9.7 (8.4-10.2) mg/dL Adrenal panel 08/30/24 Range/Units 10:15 Sodium 132 L (137-145) mmol/L Potassium 5.3 H (3.5-5.1) mmol/L Chloride 102 (98-107) mmol/L Carbon Dioxide 24 (22-30) mmol/L BUN 17 (7-17) mg/dL Creatinine 0.94 (0.52-1.04) mg/dL Glucose 177 H (74-99) mg/dL Calcium 9.7 (8.4-10.2) mg/dL Total Bilirubin 1.1 (0.2-1.3) mg/dL AST 30 (14-36) U/L ALT 19 (4-34) U/L Alkaline Phosphatase 98 (38-126) U/L Total Protein 7.2 (6.3-8.2) g/dL Albumin 4.4 (3.5-5.0) g/dL Assessment and Plan Assessment: 1. Right lower extremity critical ischemia 2. Peripheral arterial disease with recent right lower extremity SFA revascularization 3. Diabetes mellitus 4. Peripheral neuropathy 5. Hyperkalemia, labs reviewed patient has history of elevated potassium 6. Hyponatremia Plan: 1. Stat CTA aorta abdomen pelvis with runoff ordered 2. Will admit patient for lower extremity angiogram with possible intervention 3. Type and screen 4. NPO 5. Consult to medicine for medical management 6. EKG ordered 7. Further recommendations forthcoming based on clinical course The impression and plan of care has been dictated as directed. I performed a history and examination of this patient, discussed the same with the dictator. I agree with the dictator's note ,documented as a scribe. Any additional findings or plans will be noted.
--- NOTE | 2024-08-30 11:27 | CT ---
CTA abdomen with runoff. HISTORY: Cold right leg COMPARISON: 10/08/2022 and IR angiogram with runoff dated 08/02/2024. TECHNIQUE: Multiple axial images were obtained through the abdomen pelvis and lower extremities follo wing the uneventful administration nonionic IV contrast material. The exam was performed according to the CTA department protocol. FINDINGS: The visualized lung bases are clear. Inflow CTA: There is scattered calcification of the distal aorta and common iliac arteries but no significant inf low stenosis or aneurysm. Outflow CTA: On the right, there is a stent within the proximal right superficial femoral artery which is markedly stenotic. There are scattered calcifications in the mid and distal right superficial femoral artery but no significant stenosis. There our stents in the distal right superficial artery and popliteal ar millicent which appear nearly occluded with thrombus. On the left, there are stents in the proximal left superficial femoral artery and distal femoral odalis ry and popliteal artery. The left proximal superficial femoral artery is markedly stenotic. The remai nder of the superficial femoral artery including the distal stents and popliteal artery are patent. Runoff CTA: On the right, there is diminished flow in the runoff vessels due to the significant outflow disease. There appears to be two-vessel runoff via the anterior and posterior tibial arteries at the posterior tibial artery being dominant into the foot. The peroneal artery occludes in the distal third of the calf. On the left, there is two-vessel runoff via the anterior and posterior tibial arteries and the scarf and anneal operator ior tibial artery is dominant. The peroneal artery occludes in the distal third of the calf. Nonvascular findings: Malleable solid visceral organs within the upper abdomen. The gallbladder is unremarkable. There is no renal calcification or hydronephrosis. The bowel loops are normal in caliber and there is no acute inflammation within the abdomen or pelvis . There is no pelvic mass or adenopathy. The osseous structures are intact. IMPRESSION: 1. No significant inflow disease. 2. Severe outflow disease in the right with a severely stenotic proximal right superficial femoral ar millicent stent in what appears to be near occlusive clot in the distal right superficial femoral artery s tents and popliteal artery stents. 3. Moderate to severe left outflow secondary to severe stenosis of the proximal left superficial femo ral artery stent. 4. Two-vessel runoff bilaterally with diminished flow secondary to the significant outflow disease. T he posterior tibial arteries are the dominant runoff vessel bilaterally. [facility]: BRET, 08/30/2024 11:25 AM
[2024-08-30] MEDS ORDERED: HEPARIN SODIUM 1,000 UN/ML (10ML VL) IV PRN (11:39)
[2024-08-30] MEDS ORDERED: NALOXONE 0.4 MG/ML 1 ML VIAL IV PRN (11:39)
[2024-08-30] MEDS ORDERED: Potassium Replacement Protocol 1 EACH MISC MISCELLANE PRN (11:39)
[2024-08-30] MEDS ORDERED: Magnesium Replacement Protocol 1 EACH MISC MISCELLANE PRN (11:39)
--- NOTE | 2024-08-30 11:39 | ED ---
Extremity Problem HPI - General Chief complaint: Extremity Problem,Nontraumatic Stated complaint: R Leg Pain Time Seen by Provider: 08/30/24 09:35 Source: EMS Mode of arrival: ambulatory Limitations: no limitations - History of Present Illness Initial comments: 59-year-old female with past medical history of peripheral arterial disease who presents emergency department reporting coldness and pain in the right leg. Patient had surgery by Dr. Asif on the third for this. Afterwards the patient was reportedly having marked improvement in her symptoms. She states on Tuesday she was cleaning her house when she felt a pop in her leg and began having pain. She states the pain feels similar to when she had previous occlusions. She is on Plavix and has been taking it as directed. No missed doses. She denies any fevers. No other alleviating, precipitating or modifying factors - Related Data Home Medications Medication Instructions Recorded Confirmed Atorvastatin [Lipitor] 40 mg PO DAILY 05/19/21 08/30/24 Clopidogrel [Plavix] 75 mg PO DAILY 05/19/21 08/30/24 INSULIN ASPART (NovoLOG) [NovoLOG 5 unit SQ AC-BID PRN 05/19/21 08/30/24 (formulary)] Insulin Glargine,Hum.rec.anlog 30 unit SQ DAILY 05/19/21 08/30/24 [Basaglar Kwikpen U-100] Omeprazole [PriLOSEC] 20 mg PO DAILY 05/19/21 08/30/24 metFORMIN HCL [Glucophage] 1,000 mg PO BID 05/19/21 08/30/24 Anastrozole 1 mg PO DAILY 10/08/22 08/30/24 lisinopriL [Zestril] 40 mg PO DAILY 02/25/23 08/30/24 Gabapentin [Neurontin] 800 mg PO TID 08/30/24 08/30/24 Insulin Glargine,Hum.rec.anlog 20 unit SQ HS 08/30/24 08/30/24 [Basaglar Kwikpen U-100] Metoprolol Succinate (ER) [Toprol 25 mg PO DAILY 08/30/24 08/30/24 XL] amLODIPine [Norvasc] 10 mg PO DAILY 08/30/24 08/30/24 busPIRone HCL 5 mg PO BID PRN 08/30/24 08/30/24 Previous Rx's Medication Instructions Recorded Rivaroxaban [Xarelto] 2.5 mg PO BID #60 tab 08/31/24 Allergies Allergy/AdvReac Type Severity Reaction Status Date / Time protamine Allergy BP Verified 08/30/24 12:03 dropped, heart rate elevated tetracycline [Tetracycline] Allergy Rash/Hives Verified 08/30/24 12:03 Review of Systems ROS Statement: Those systems with pertinent positive or pertinent negative responses have been documented in the HPI. ROS Other: All systems not noted in ROS Statement are negative. Past Medical History Past Medical History: Cancer, COPD, Diabetes Mellitus, Deep Vein Thrombosis (DVT), GERD/Reflux, Hyperlipidemia, Hypertension, Osteoarthritis (OA), Seizure Disorder, Skin Disorder, Vascular Disorder Additional Past Medical History / Comment(s): healed L great toe ulcer/nonhealing, current L foot fracture/boot worn, heart murmur, 2015 R breast cancer -had surgery & chemo & radiation, IDDM type II, neuropathy L jewell cot foot, bilateral legs/feet, 09/2022 DVT L leg, one time seizure 5 or more years ago-testing done & never found anything, chronic pain mostly in feet and neck/back. 3 stents to right lower extremity on 08/23/24. History of Any Multi-Drug Resistant Organisms: None Reported Past Surgical History: Breast Surgery, Orthopedic Surgery, Tubal Ligation Additional Past Surgical History / Comment(s): right breast lumpectomy & lymph nodes removed, port for chemo/since removed, peripheral angioplasties/atherectomies, and removed blood clot from L leg, stents, right 2nd toe amputation d/t diabetic ulcer, bilateral carpal tunnel releases, cervical fusion, aortogram 08/02/24 Past Anesthesia/Blood Transfusion Reactions: No Reported Reaction Additional Past Anesthesia/Blood Transfusion Reaction / Comment(s): Pt received blood transfusion r/t blood loss with surgery. Past Psychological History: Anxiety, Depression Smoking Status: Former smoker Past Alcohol Use History: Rare Past Drug Use History: None Reported - Past Family History Mother Family Medical History: Cancer Additional Family Medical History / Comment(s): Lung cancer, former smoker. General Exam Limitations: no limitations General appearance: alert, in no apparent distress Head exam: Present: atraumatic, normocephalic, normal inspection Eye exam: Present: normal appearance, PERRL, EOMI. Absent: scleral icterus, conjunctival injection, periorbital swelling ENT exam: Present: normal exam, mucous membranes moist Neck exam: Present: normal inspection. Absent: tenderness, meningismus, lymphadenopathy Respiratory exam: Present: normal lung sounds bilaterally. Absent: respiratory distress, wheezes, rales, rhonchi, stridor Cardiovascular Exam: Present: regular rate, normal rhythm, normal heart sounds. Absent: systolic murmur, diastolic murmur, rubs, gallop, clicks GI/Abdominal exam: Present: soft, normal bowel sounds. Absent: distended, tenderness, guarding, rebound, rigid Extremities exam: Present: full ROM, other (No palpable pulses in the right ankle. No Doppler pulses in the right ankle.). Absent: tenderness, pedal edema, joint swelling, calf tenderness Back exam: Present: normal inspection Neurological exam: Present: alert, oriented X3, CN II-XII intact Psychiatric exam: Present: normal affect, normal mood Skin exam: Present: warm, dry, intact, normal color. Absent: rash Course Vital Signs 08/30/24 08/30/24 09:32 10:53 Temperature 99.1 F Pulse Rate 97 87 Respiratory 18 16 Rate Blood Pressure 172/89 145/72 O2 Sat by Pulse 96 97 Oximetry Medical Decision Making - Medical Decision Making Was pt. sent in by a medical professional or institution (, PA, SERVICE VEHICLE OPERATOR, urgent care, hospital, or group home...) When possible be specific @ -No Did you speak to anyone other than the patient for history (EMS, parent, family, police, friend...)? What history was obtained from this source @ -No Did you review nursing and triage notes (agree or disagree)? Why? @ -I reviewed and agree with nursing and triage notes Were old charts reviewed (outside hosp., previous admission, EMS record, old EKG, old radiological studies, urgent care reports/EKG's, group home records)? Report findings @ -I reviewed the patient's recent operative report from Dr. Asif from August 23 Differential Diagnosis (chest pain, altered mental status, abdominal pain women, abdominal pain men, vaginal bleeding, weakness, fever, dyspnea, syncope, headache, dizziness, GI bleed, back pain, seizure, CVA, palpatations, mental health, musculoskeletal)? @ -Arterial occlusion, DVT, dissection EKG interpreted by me (3pts min.). @ -Not done X-rays interpreted by me (1pt min.). @ -None done CT interpreted by me (1pt min.). @ -Yes and demonstrates arterial occlusion U/S interpreted by me (1pt. min.). @ -None done What testing was considered but not performed or refused? (CT, X-rays, U/S, labs)? Why? @ -None What meds were considered but not given or refused? Why? @ -None Did you discuss the management of the patient with other professionals (professionals i.e. Dr., PA, SERVICE VEHICLE OPERATOR, lab, RT, psych nurse, delinquency prevention social worker, supervisor tumblers, teacher, human resources officer, hospice case manager)? Give summary @ -Spoke with Dr. Asif who does request CTA. She will have someone from her team come evaluate the patient. Also spoke with Dr. Awad and ICU dianeticist Was smoking cessation discussed for >3mins.? @ -No Was critical care preformed (if so, how long)? @ -Yes, 35 minutes for critical limb ischemia Were there social determinants of health that impacted care today? How? (Homelessness, low income, unemployed, alcoholism, drug addiction, transportation, low edu. Level, literacy, decrease access to med. care, alf, rehab)? @ -No Was there de-escalation of care discussed even if they declined (Discuss DNR or withdrawal of care, Hospice)? DNR status @ -No What co-morbidities impacted this encounter? (DM, HTN, Smoking, COPD, CAD, Cancer, CVA, ARF, Chemo, Hep., AIDS, mental health diagnosis, sleep apnea, morbid obesity)? @ -Peripheral vascular disease, nicotine abuse Was patient admitted / discharged? Hospital course, mention meds given and rou te, prescriptions, significant lab abnormalities, going to OR and other pertinent info. @ -Upon arrival patient seen and evaluated in room 25. Thorough history and physical exam was performed. I do not feel palpable pulses on physical exam. I called and spoke with Dr. Asif. Requested CTA. Patient will be placed on heparin and remain NPO. CT does return and demonstrates occlusion. Patient does require intervention at this time. Patient admitted to Dr. awad. Undiagnosed new problem with uncertain prognosis? @ -No Drug Therapy requiring intensive monitoring for toxicity (Heparin, Nitro, Insulin, Cardizem)? @ -Heparin Were any procedures done? @ -No Diagnosis/symptom? @ -Acute arterial occlusion right leg, history of peripheral vascular disease, nicotine abuse Acute, or Chronic, or Acute on Chronic? @ -Acute, recurrent Uncomplicated (without systemic symptoms) or Complicated (systemic symptoms)? @ -Complicated Side effects of treatment? @ -No Exacerbation, Progression, or Severe Exacerbation? @ -No Poses a threat to life or bodily function? How? (Chest pain, [place], [place], pneumonia, PE, COPD, DKA, ARF, appy, cholecystitis, CVA, Diverticulitis, Homicidal, Suicidal, threat to staff... and all critical care pts) @ -Yes as patient has critical limb ischemia - Lab Data Result diagrams: 08/31/24 08:29 08/31/24 04:09 Lab Results 08/30/24 08/30/24 08/30/24 Range/Units 10:15 10:15 10:15 WBC 7.4 (3.8-10.6) k/uL RBC 4.77 (3.80-5.40) m/uL Hgb 13.8 (11.4-16.0) gm/dL Hct 43.1 (34.0-46.0) % MCV 90.3 (80.0-100.0) fL MCH 28.9 (25.0-35.0) pg MCHC 32.0 (31.0-37.0) g/dL RDW 14.2 (11.5-15.5) % Plt Count 274 (150-450) k/uL MPV 7.7 Neutrophils % 71 % Lymphocytes % 19 % Monocytes % 5 % Eosinophils % 2 % Basophils % 0 % Neutrophils # 5.3 (1.3-7.7) k/uL Lymphocytes # 1.4 (1.0-4.8) k/uL Monocytes # 0.4 (0-1.0) k/uL Eosinophils # 0.2 (0-0.7) k/uL Basophils # 0.0 (0-0.2) k/uL PT 10.1 (10.0-12.5) sec INR 0.9 (<1.2) APTT 23.9 (22.0-30.0) sec Sodium 132 L (137-145) mmol/L Potassium 5.3 H (3.5-5.1) mmol/L Chloride 102 (98-107) mmol/L Carbon Dioxide 24 (22-30) mmol/L Anion Gap 6 mmol/L BUN 17 (7-17) mg/dL Creatinine 0.94 (0.52-1.04) mg/dL Est GFR (CKD-EPI)AfAm 77 (>60 ml/min/1.73 sqM) Est GFR (CKD-EPI)NonAf 67 (>60 ml/min/1.73 sqM) Glucose 177 H (74-99) mg/dL Plasma Lactic Acid Harvey (0.7-2.0) mmol/L Calcium 9.7 (8.4-10.2) mg/dL Total Bilirubin 1.1 (0.2-1.3) mg/dL AST 30 (14-36) U/L ALT 19 (4-34) U/L Alkaline Phosphatase 98 (38-126) U/L Total Protein 7.2 (6.3-8.2) g/dL Albumin 4.4 (3.5-5.0) g/dL 08/30/24 Range/Units 10:15 WBC (3.8-10.6) k/uL RBC (3.80-5.40) m/uL Hgb (11.4-16.0) gm/dL Hct (34.0-46.0) % MCV (80.0-100.0) fL MCH (25.0-35.0) pg MCHC (31.0-37.0) g/dL RDW (11.5-15.5) % Plt Count (150-450) k/uL MPV Neutrophils % % Lymphocytes % % Monocytes % % Eosinophils % % Basophils % % Neutrophils # (1.3-7.7) k/uL Lymphocytes # (1.0-4.8) k/uL Monocytes # (0-1.0) k/uL Eosinophils # (0-0.7) k/uL Basophils # (0-0.2) k/uL PT (10.0-12.5) sec INR (<1.2) APTT (22.0-30.0) sec Sodium (137-145) mmol/L Potassium (3.5-5.1) mmol/L Chloride (98-107) mmol/L Carbon Dioxide (22-30) mmol/L Anion Gap mmol/L BUN (7-17) mg/dL Creatinine (0.52-1.04) mg/dL Est GFR (CKD-EPI)AfAm (>60 ml/min/1.73 sqM) Est GFR (CKD-EPI)NonAf (>60 ml/min/1.73 sqM) Glucose (74-99) mg/dL Plasma Lactic Acid Harvey 1.0 (0.7-2.0) mmol/L Calcium (8.4-10.2) mg/dL Total Bilirubin (0.2-1.3) mg/dL AST (14-36) U/L ALT (4-34) U/L Alkaline Phosphatase (38-126) U/L Total Protein (6.3-8.2) g/dL Albumin (3.5-5.0) g/dL Disposition Clinical Impression: PAD (peripheral artery disease), Acute occlusion of artery of lower extremity Disposition[facility] Condition: Serious Is patient prescribed a controlled substance at d/c from ED?: No Time of Disposition: 11:38 Decision to Admit Reason: Admit from EC Decision Date: 08/30/24 Decision Time: 11:38
[2024-08-30] MEDS: HEPARIN SOD,PORK IN 0.45% NACL 25,000 UNIT in 0.45% NACL 1 250ML.BAG IV SCH ×2 (12:13→14:47)
[2024-08-30] MEDS: LIDOCAINE 1% INJ 10MG/ML (20 ML MDV) SQ ONE (13:24)
[2024-08-30] MEDS: fentaNYL (PF) 50 MCG/ML 2 ML AMP IVP ONE (13:24)
[2024-08-30] MEDS: MIDAZOLAM 2 MG/2 ML VIAL IVP ONE (13:24)
[2024-08-30] MEDS: SODIUM CHLORIDE 0.9% 1,000 ML IV ONE (13:30)
[2024-08-30] MEDS: HEPARIN SODIUM,PORCINE 10,000 UNIT in SODIUM CHLORIDE 0.9% 1,000 ML IRRIGATION ONE (13:30)
[2024-08-30] MEDS: IOPAMIDOL-370 100ML BTL INJ ONE (14:18)
[2024-08-30] MEDS: ALTEPLASE 10 MG in SODIUM CHLORIDE 0.9% 90 ML IA ONE (14:46)
[2024-08-30 14:47] LABS: Glucose,Whole Blood 71 mg/dL (70-110)
--- NOTE | 2024-08-30 14:50 | P.OP ---
Date of Procedure: 08/30/24 Preoperative Diagnosis: 1: Right femoral occlusion with secondary decreased arterial perfusion of the right lower extremity. 2: Recent atherectomy and balloon dilation and stenting of the right superficial femoral artery. Postoperative Diagnosis: 1: Same plus high-grade stenosis of the distal superficial femoral artery just distal to the stented segment. 2: Thrombosis of the distal two thirds of the right superficial femoral artery. 3: Stenosis of the right superficial femoral artery located between the first and second stented segments of the right superficial femoral artery. Procedure(s) Performed: 1: Ultrasound-guided cannulation left femoral artery. 2: Selective catheterization right common femoral artery. 3: Right femoral angiogram. 4: Balloon dilation distal segment of the nondistended superficial femoral artery with drug-eluting balloon. 5: Balloon dilation and stent placement upper third of the right superficial femoral artery. 6: Placement of tPA infusion catheter with initiation of alteplase infusion. Anesthesia: local (1% Xylocaine with 1 mg of Versed and 50 mcg of fentanyl administered intravenously.) Surgeon: Gregorio Nelson Estimated Blood Loss (ml): 5 Pathology: none sent Condition: stable Disposition: no change Indications for Procedure: Patient is a 59-year-old female who recently underwent a right superficial femoral artery atherectomy and balloon dilation with stent placement. She was placed on dual anticoagulant therapy however presented earlier today with complaints of decree sensation and movement of her right foot. Physical examination revealed a femoral pulse to be intact with a popliteal and pedal pulses were absent. Patient did have essentially all motor function although there was some decrease sensation at the foot level. She did undergo CT angiogram which demonstrated occlusion of the right superficial femoral artery. Patient is now offered catheter directed angiogram with anticipation of initiation of alteplase thrombolytic therapy. The procedure, risk and benefits were discussed with the patient. All questions were answered to patient's satisfaction. Consent form was signed. Description of Procedure: Patient was brought to the cardiac catheterization laboratory. Both the left and right groins were sterilely prepped and draped in usual manner. The patient did receive 50 mcg of fentanyl and 1 mg of Versed administered intravenously for moderate conscious sedation purposes. Utilizing ultrasound the left femoral artery was identified. 1% Xylocaine was utilized for local anesthesia of the tissue overlying this area. Through this anesthetized area with the aid of ult rasound a multipurpose needle was utilized to cannulate the artery. Once cannulated soft tipped guidewire was advanced without resistance. The needle was withdrawn and a 5 Albanian sheath was placed. Pigtail catheter and guidewire advanced from the left and utilized to select the right common iliac artery. Guidewire and catheter were advanced down to the level of the common femoral artery. The guidewire was exchanged for a glide advantage guidewire which was easily advanced into the superficial femoral artery. The pigtail catheter was withdrawn and a 6 Albanian up and over catheter was advanced over the guidewire. Via the sideport of the catheter right femoral angiogram was performed. This demonstrated the proximal segment of the superficial femoral artery to be patent. The most proximal stented segment was widely patent. The mid and distal superficial femoral arterial segments were occluded including the entire length of the previously stented segment as well as just proximal to the stented segment. This demonstrated a high-grade distal femoral artery stenosis just past the distal end of the stented segment. Guidewire was advanced past the stenosis into the popliteal artery. Angiography of the popliteal and tibial vessels demonstrated the popliteal artery to be patent. The anterior tibial artery was patent. Tibioperoneal trunk demonstrated delayed fill. The peroneal and proximal visualized portion of the posterior tibial artery segments were patent. A 4 mm x 40 mm drug-eluting balloon catheter was then utilized to balloon dilate the stenotic distal SFA/proximal popliteal arterial segment. The proximal segment of the SFA was quite narrowed on angiogram and the 4 mm balloon angioplasty catheter was utilized to balloon dilate this segment. Completion angiogram demonstrated complete thrombosis of this area and it was felt due to arterial vasospasm although most likely some degree of dissection. To treat this area a 6 mm x 80 mm drug-eluting stent was selected and deployed in this area. Post stent balloon dilation was performed which allowed for increased diameter of the tejon vessel. Completion angiogram demonstrated the segment to be patent and residual thrombus within the previously stented SFA. To address the residual thrombus a tPA catheter with 20 cm of infusion length was selected and advanced into the thrombosed segment. 2 mg of tPA were directly instilled and this is to be followed by a continuous infusion of 1 mg of tPA per hour via the tPA infusion catheter. The sheath was secured to the skin with permanent suture. Plan is for continuous overnight infusion of both tPA and 500 units of heparin per hour. Patient is scheduled to return to the [facility] on August 31 for follow-up imaging. Patient tolerated procedure well.
--- NOTE | 2024-08-30 14:54 | P.OP ---
Date of Procedure: 08/30/24 Description of Procedure: Please add to procedure: Moderate conscious sedation time of 53 minutes. Total fluoroscopy time 8.3 minutes. Total contrast volume utilized 30 mL of Isovue.
[2024-08-30 15:08] LABS: Basophils % (A) 0 %; Eosinophils # (A) 0.1 k/uL (0-0.7); Eosinophils % (A) 1 %; HCT 41.2 % (34.0-46.0); HGB 13.5 gm/dL (11.4-16.0); Lymphocytes # (A) 1.7 k/uL (1.0-4.8); Lymphocytes % (A) 20 %; MCH 29.1 pg (25.0-35.0); MCHC 32.7 g/dL (31.0-37.0); MCV 88.9 fL (80.0-100.0); Mean Platelet Volume 7.6; Monocytes # (A) 0.3 k/uL (0-1.0); Monocytes % (A) 4 %; Neutrophils # (A) 6.3 k/uL (1.3-7.7); Neutrophils % (A) 72 %; Platelet Count 266 k/uL (150-450); RBC 4.63 m/uL (3.80-5.40); RDW 14.2 % (11.5-15.5); WBC 8.6 k/uL (3.8-10.6)
[2024-08-30 15:17] LABS: INR 0.9 (<1.2); Prothrombin Time 10.4 sec (10.0-12.5)
[2024-08-30 15:30] LABS: African American GFR (CKD) 86 (>60 ml/min/1.73 sqM); Blood Urea Nitrogen 15 mg/dL (7-17); Non-African American GFR(CKD) 75 (>60 ml/min/1.73 sqM)
[2024-08-30] MEDS: HYDROmorphone 1 MG/ML 1 ML SYRINGE IVP PRN (15:34)
[2024-08-30 16:35] LABS: Glucose,Whole Blood 110 mg/dL (70-110)
--- NOTE | 2024-08-30 16:44 | IR ---
EXAMINATION TYPE: IR stent intravas non coronary DATE OF EXAM: 08/30/2024 FLUOROSCOPY RLE ANGIOGRAM, 8.3 MIN FLT, 0.038GY. 134 images submitted. [facility], , 08/30/2024 4:42 PM
[2024-08-30] MEDS: GABAPENTIN 400 MG CAP PO SCH (17:24)
[2024-08-30] MEDS: HYDROcodone/APAP 5-325MG 1 EACH TAB PO PRN (17:24)
[2024-08-30] MEDS ORDERED: busPIRone HCl 5 MG TAB PO PRN (18:06)
[2024-08-30] MEDS ORDERED: DEXTROSE 50% SYRINGE 50 ML IVP PRN ×2 (18:08)
[2024-08-30] MEDS: INSULIN ASPART (NovoLOG) 100 UNIT/ML VIAL SQ SCH (18:55)
[2024-08-30 20:00] LABS: Glucose,Whole Blood 213 mg/dL (70-110)
[2024-08-30] MEDS: INSULIN DETEMIR (LEVEMIR) 100 UNIT/ML SYR SQ SCH (20:04)
[2024-08-30 20:33] LABS: Basophils % (A) 0 %; Eosinophils # (A) 0.1 k/uL (0-0.7); Eosinophils % (A) 2 %; HCT 38.4 % (34.0-46.0); HGB 12.5 gm/dL (11.4-16.0); Lymphocytes # (A) 1.7 k/uL (1.0-4.8); Lymphocytes % (A) 20 %; MCH 29.4 pg (25.0-35.0); MCHC 32.6 g/dL (31.0-37.0); MCV 90.1 fL (80.0-100.0); Monocytes # (A) 0.4 k/uL (0-1.0); Monocytes % (A) 5 %; Neutrophils # (A) 5.9 k/uL (1.3-7.7); Neutrophils % (A) 71 %; Platelet Count 224 k/uL (150-450); RBC 4.26 m/uL (3.80-5.40); RDW 14.4 % (11.5-15.5); WBC 8.3 k/uL (3.8-10.6)
[2024-08-30 20:50] LABS: Prothrombin Time 10.6 sec (10.0-12.5)
[2024-08-31 00:24] LABS: Glucose,Whole Blood 246 mg/dL (70-110)
[2024-08-31 00:26] LABS: Basophils % (A) 0 %; Eosinophils # (A) 0.1 k/uL (0-0.7); Eosinophils % (A) 1 %; HCT 38.2 % (34.0-46.0); HGB 12.6 gm/dL (11.4-16.0); Lymphocytes # (A) 0.8 k/uL (1.0-4.8); Lymphocytes % (A) 8 %; MCH 29.8 pg (25.0-35.0); MCV 90.5 fL (80.0-100.0); Mean Platelet Volume 7.7; Monocytes # (A) 0.3 k/uL (0-1.0); Monocytes % (A) 3 %; Neutrophils # (A) 8.3 k/uL (1.3-7.7); Neutrophils % (A) 86 %; Platelet Count 212 k/uL (150-450); RBC 4.22 m/uL (3.80-5.40); RDW 14.2 % (11.5-15.5); WBC 9.7 k/uL (3.8-10.6)
[2024-08-31 01:03] LABS: INR 0.9 (<1.2); Prothrombin Time 10.4 sec (10.0-12.5)
[2024-08-31 04:34] LABS: Basophils % (A) 0 %; Eosinophils # (A) 0.1 k/uL (0-0.7); Eosinophils % (A) 1 %; HCT 37.5 % (34.0-46.0); HGB 12.2 gm/dL (11.4-16.0); Lymphocytes # (A) 1.3 k/uL (1.0-4.8); Lymphocytes % (A) 16 %; MCH 29.6 pg (25.0-35.0); MCHC 32.4 g/dL (31.0-37.0); MCV 91.2 fL (80.0-100.0); Mean Platelet Volume 7.8; Monocytes # (A) 0.4 k/uL (0-1.0); Monocytes % (A) 5 %; Neutrophils % (A) 76 %; Platelet Count 215 k/uL (150-450); RBC 4.12 m/uL (3.80-5.40); RDW 14.3 % (11.5-15.5); WBC 7.9 k/uL (3.8-10.6)
[2024-08-31 04:41] LABS: INR 0.9 (<1.2); Prothrombin Time 10.4 sec (10.0-12.5)
[2024-08-31 05:56] LABS: Glucose,Whole Blood 247 mg/dL (70-110)
[2024-08-31] MEDS: ALTEPLASE 10 MG in SODIUM CHLORIDE 0.9% 90 ML IV ONE (06:12)
[2024-08-31 06:34] LABS: ALT 17 U/L (4-34); AST 26 U/L (14-36); African American GFR (CKD) 70 (>60 ml/min/1.73 sqM); Albumin 3.4 g/dL (3.5-5.0); Alkaline Phosphatase 80 U/L (38-126); Anion Gap 2 mmol/L; Blood Urea Nitrogen 15 mg/dL (7-17); Calcium 8.9 mg/dL (8.4-10.2); Carbon Dioxide 26 mmol/L (22-30); Chloride 103 mmol/L (98-107); Glucose 238 mg/dL (74-99); Non-African American GFR(CKD) 61 (>60 ml/min/1.73 sqM); Potassium 5.1 mmol/L (3.5-5.1); Sodium 131 mmol/L (137-145); Total Bilirubin 0.7 mg/dL (0.2-1.3); Total Protein 5.9 g/dL (6.3-8.2)
[2024-08-31] MEDS: IV FLUID CONTINUATION 150 ML IV ONE (07:25)
[2024-08-31] MEDS: LIDOCAINE 1% INJ 10MG/ML (20 ML MDV) SQ ONE (07:42)
[2024-08-31] MEDS: IOPAMIDOL-370 100ML BTL INJ ONE (07:45)
--- NOTE | 2024-08-31 08:06 | P.OP ---
Date of Procedure: 08/31/24 Preoperative Diagnosis: 1: Right femoral occlusion with current thrombolysis 2: Recent atherectomy and balloon dilation and stenting of the right superficial femoral artery. 3: High-grade stenosis of the distal superficial femoral artery just distal to the stented segment. Postoperative Diagnosis: Same Resolved thrombosis of the right lower extremity Procedure(s) Performed: Selective right lower extremity angiogram via existing catheter Left Iliac and femoral angiogram Percutaneous closure of the left femoral artery access with Vascade device Anesthesia: local Surgeon: Cecil Barrett Estimated Blood Loss (ml): 5 Pathology: none sent Condition: stable Disposition: ICU Indications for Procedure: 59 year old female with history of right lower extremity atherectomy who is currently being treated with thrombolysis after acute occlusion presents back to the wheelabrator operator for re-imaging. She states she is feeling better and her foot pain is resolved. Description of Procedure: After written informed consent was obtained the patient all risks benefits competitions were described the patient is brought to the [facility] and laid in a supine position. The area of the existing sheath on the left was prepped and draped in the usual sterile fashion. Using existing catheter angiogram was performed with improved flow and complete resolution of thrombus noted within the popliteal artery, SFA and in stents. Three vessel takeoff noted with AT and peroneal runoff to the foot. Sheath was then removed and replaced with a short sheath, iliac and femoral angiogram of the left was performed without any issues at the access site noted. All guidewires and catheters were then removed and a Vascade closure device was used for hemostasis. Patient tolerated procedure well, had a palpable DP pulse on the right and was sent to ICU for recovery
[2024-08-31 08:14] LABS: Glucose,Whole Blood 227 mg/dL (70-110)
[2024-08-31 08:58] LABS: Basophils % (A) 1 %; Eosinophils # (A) 0.2 k/uL (0-0.7); Eosinophils % (A) 2 %; HCT 39.7 % (34.0-46.0); HGB 12.8 gm/dL (11.4-16.0); Lymphocytes # (A) 1.5 k/uL (1.0-4.8); Lymphocytes % (A) 19 %; MCH 29.6 pg (25.0-35.0); MCHC 32.2 g/dL (31.0-37.0); MCV 92.1 fL (80.0-100.0); Mean Platelet Volume 7.5; Monocytes # (A) 0.4 k/uL (0-1.0); Monocytes % (A) 5 %; Neutrophils # (A) 5.8 k/uL (1.3-7.7); Neutrophils % (A) 72 %; Platelet Count 231 k/uL (150-450); RBC 4.31 m/uL (3.80-5.40); RDW 14.2 % (11.5-15.5)
--- NOTE | 2024-08-31 09:04 | IR ---
EXAMINATION TYPE: IR angio lower extremity RT DATE OF EXAM: 08/31/2024 FLUOROSCOPY TPA re-check, 1.7min fluoro, 20.6Gycm2. 145 images provided. [facility], , 08/31/2024 9:02 AM
[2024-08-31 09:08] LABS: INR 0.9 (<1.2); Prothrombin Time 10.3 sec (10.0-12.5)
[2024-08-31] MEDS: CLOPIDOGREL 75 MG TAB PO SCH (10:00)
[2024-08-31] MEDS: lisinopriL 20 MG TAB PO SCH (10:01)
[2024-08-31] MEDS: METOPROLOL SUCCINATE (ER) 25 MG TAB.ER.24H PO SCH (10:01)
[2024-08-31] MEDS: PANTOPRAZOLE 40 MG TABLET PO SCH (10:01)
[2024-08-31] MEDS: amLODIPine 10 MG TAB PO SCH (10:01)
[2024-08-31] MEDS: RIVAROXABAN 2.5 MG TABLET PO SCH (10:02)
[2024-08-31] MEDS: ATORVASTATIN 40 MG TAB PO SCH (10:02)
[2024-08-31] MEDS: ANASTROZOLE 1 MG TAB PO SCH (10:02)
[2024-08-31 11:30] LABS: Glucose,Whole Blood 303 mg/dL (70-110)
[2024-08-31] MEDS: INSULIN DETEMIR (LEVEMIR) 100 UNIT/ML SYR SQ SCH (11:30)
--- NOTE | 2024-08-31 12:54 | P.PN ---
Progress Note - Text Progress Note Date: 08/31/24 Patient was seen and examined post thrombolysis recheck. She states pain in her right lower extremity is improved. She is eating a regular diet. Heparin drip has been discontinued and she is started on Xarelto 2.5 mg twice daily. Discussed with patient she will continue her Plavix however will not take aspirin. She may get up and ambulate at 2 PM and if she has no signs of bleeding and no pain she may be discharged home. This was discussed with her nurse as well as medical team. Discharge instructions reviewed with patient and . She verbalized understanding. Exam General appearance: The patient is alert, oriented, appears in no acute distress. HET: Head is normocephalic and atraumatic. Pupils are equal and reactive. Neck: Supple. Heart: Regular. Lungs: Equal expansion, normal respiratory effort. Abdomen: Soft, nontender, nondistended. Extremities: Normal skin color and turgor. Left groin access site with dressing clean dry and intact. No bleeding or hematoma noted. No ecchymosis. Right lower extremity warm to the touch, sensorimotor intact. Multiphasic DP signal, PT monophasic signal. Neurological: No focal deficits. Strength and sensation are grossly intact. The impression and plan of care has been dictated as directed. Dr. Barrett I performed a history and examination of this patient, discussed the same with the dictator. I agree with the dictator's note ,documented as a scribe. Any additional findings or plans will be noted.
[2024-08-31 12:57] VITALS: TEMP 97.4
--- NOTE | 2024-08-31 13:38 | P.HPIM ---
History of Present Illness H&P Date: 08/31/24 Chief Complaint: Right lower extremity 59-year-old female, history of hypertension, hyperlipidemia, diabetes mellitus, COPD, peripheral vascular disease, seizure disorder, presenting to the emergency department with complaints of right lower extremity pain. She is well-known to vascular surgery and just recently underwent angiogram of the right lower extremity on 08/23/[address] Asif. Past medical history includes peripheral arterial disease, peripheral neuropathy, diabetes mellitus, carotid stenosis, and previous right toe amputation. She states starting this past Tuesday she started getting cramping in her calf and has progressively gotten worse and her foot was starting to feel cool so she came in for further evaluation. She had abnormal ABIs and evidence of short segment occlusion of the proximal SFA with moderate segment occlusion of the distal SFA occlusion with reconstitution she was scheduled for outpatient angiogram with atherectomy with possible intervention. On 08/23/2024 she underwent left iliofemoral angiogram with right lower extremity angiogram with percutaneous transluminal balloon angioplasty of the right SFA, atherectomy and percutaneous transluminal stenting of the distal SFA and proximal SFA. She has been on aspirin 81 mg and Plavix 75 mg daily and states she has been taking it as ordered. She denies any other symptoms such as shortness of breath, chest pain, abdominal pain, nausea or vomiting. Review of Systems REVIEW OF SYSTEMS: CONSTITUTIONAL: No fever, no malaise, no fatigue. HEENT: No recent visual problems or hearing problems. Denied any sore throat. CARDIOVASCULAR: No chest pain, orthopnea, PND, no palpitations, no syncope. PULMONARY: No shortness of breath, no cough, no hemoptysis. GASTROINTESTINAL: No diarrhea, no nausea, no vomiting, no abdominal pain. NEUROLOGICAL: No headaches, no weakness, no numbness. HEMATOLOGICAL: Denies any bleeding or petechiae. GENITOURINARY: Denies any burning micturition, frequency, or urgency. MUSCULOSKELETAL/RHEUMATOLOGICAL: Denies any joint pain, swelling, or any muscle pain. ENDOCRINE: Denies any polyuria or polydipsia. The rest of the 14-point review of systems is negative. Past Medical History Past Medical History: Cancer, COPD, Diabetes Mellitus, Deep Vein Thrombosis (DVT), GERD/Reflux, Hyperlipidemia, Hypertension, Osteoarthritis (OA), Seizure Disorder, Skin Disorder, Vascular Disorder Additional Past Medical History / Comment(s): healed L great toe ulcer/nonhealing, current L foot fracture/boot worn, heart murmur, 2016 R breast cancer -had surgery & chemo & radiation, IDDM type II, neuropathy L charcot foot, bilateral legs/feet, 09/2022 DVT L leg, one time seizure 5 or more years ago-testing done & never found anything, chronic pain mostly in feet and neck/back. 3 stents to right lower extremity on 08/23/24. History of Any Multi-Drug Resistant Organisms: None Reported Past Surgical History: Breast Surgery, Orthopedic Surgery, Tubal Ligation Additional Past Surgical History / Comment(s): right breast lumpectomy & lymph nodes removed, port for chemo/since removed, peripheral angioplasties/atherectomies, and removed blood clot from L leg, stents, right 2nd toe amputation d/t diabetic ulcer, bilateral carpal tunnel releases, cervical fusion, aortogram 08/02/24 Past Anesthesia/Blood Transfusion Reactions: No Reported Reaction Additional Past Anesthesia/Blood Transfusion Reaction / Comment(s): Pt received blood transfusion r/t blood loss with surgery. Past Psychological History: Anxiety, Depression Smoking Status: Former smoker Past Alcohol Use History: Rare Past Drug Use History: None Reported - Past Family History Mother Family Medical History: Cancer Additional Family Medical History / Comment(s): Lung cancer, former smoker. Medications and Allergies Home Medications Medication Instructions Recorded Confirmed Type Atorvastatin [Lipitor] 40 mg PO DAILY 05/19/21 08/30/24 History Clopidogrel [Plavix] 75 mg PO DAILY 05/19/21 08/30/24 History INSULIN ASPART (NovoLOG) [NovoLOG 5 unit SQ AC-BID PRN 05/19/21 08/30/24 History (formulary)] Insulin Glargine,Hum.rec.anlog 30 unit SQ DAILY 05/19/21 08/30/24 History [Basaglar Kwikpen U-100] Omeprazole [PriLOSEC] 20 mg PO DAILY 05/19/21 08/30/24 History metFORMIN HCL [Glucophage] 1,000 mg PO BID 05/19/21 08/30/24 History Anastrozole 1 mg PO DAILY 10/08/22 08/30/24 History lisinopriL [Zestril] 40 mg PO DAILY 02/25/23 08/30/24 History Gabapentin [Neurontin] 800 mg PO TID 08/30/24 08/30/24 History Insulin Glargine,Hum.rec.anlog 20 unit SQ HS 08/30/24 08/30/24 History [Basaglar Yanelyikpen U-100] Metoprolol Succinate (ER) [Toprol 25 mg PO DAILY 08/30/24 08/30/24 History Xl] amLODIPine [Norvasc] 10 mg PO DAILY 08/30/24 08/30/24 History busPIRone HCL 5 mg PO BID PRN 08/30/24 08/30/24 History Rivaroxaban [Xarelto] 2.5 mg PO BID #60 tab 08/31/24 Rx Allergies Allergy/AdvReac Type Severity Reaction Status Date / Time protamine Allergy BP Verified 08/30/24 12:03 dropped, heart rate elevated tetracycline [Tetracycline] Allergy Rash/Hives Verified 08/30/24 12:03 Physical Exam Vitals: Vital Signs Temp Pulse Pulse Resp BP BP Pulse Ox 08/31/24 10:00 109 H 12 125/63 94 L 08/31/24 09:00 97.5 F L 112 H 12 153/87 94 L 08/31/24 07:00 91 16 144/64 98 08/31/24 06:00 98.4 F 92 20 122/54 98 08/31/24 05:00 88 11 L 120/67 95 08/31/24 04:00 85 18 129/65 96 08/31/24 03:00 89 16 126/61 95 08/31/24 02:00 91 22 111/78 92 L 08/31/24 01:00 98.6 F 92 24 118/63 94 L 08/31/24 00:00 92 16 143/65 95 08/30/24 23:00 92 16 145/71 97 08/30/24 22:00 85 19 142/70 95 08/30/24 21:00 85 24 151/69 92 L 08/30/24 20:00 98.5 F 88 18 137/76 95 08/30/24 19:00 87 16 121/92 94 L 08/30/24 18:00 88 16 150/72 92 L 08/30/24 17:00 101 H 16 150/72 93 L 08/30/24 16:30 96 16 145/100 93 L 08/30/24 16:00 98.3 F 93 16 144/71 93 L 08/30/24 15:30 94 16 151/80 93 L 08/30/24 15:15 89 16 156/81 93 L 08/30/24 15:00 86 16 174/82 94 L 08/30/24 14:45 88 16 175/87 94 L 08/30/24 14:41 98.3 F 89 16 160/99 93 L Intake and Output 08/30/24 08/31/24 08/31/24 22:59 06:59 14:59 Intake Total 380 140 490.833 Output Total 890 410 180 Balance -510 -270 310.833 Intake: IV 140 140 35 Alteplase 10 mg In Sodium 80 80 10 Chloride 0.9% 90 ml @ 1 MG/HR 10 mls/hr IA .Q10H [facility] Rx#:[id number] Heparin Sod,Pork in 0.45% 40 40 15 NaCl 25,000 unit In 0.45 % NaCl 1 250ml.bag @ 5 mls/hr IV .Q24H [facility] Rx#: [id number] Invasive Line 2 20 20 10 Intake, IV Titration 215.833 Amount Alteplase 10 mg In Sodium 100 Chloride 0.9% 90 ml @ 1 MG/HR 10 mls/hr IA .Q10H [facility] Rx#:[id number] Alteplase 10 mg In Sodium 18.833 Chloride 0.9% 90 ml @ 1 MG/HR 10 mls/hr IV .Q10H [facility] Rx#:[id number] Heparin Sod,Pork in 0.45% 97 NaCl 25,000 unit In 0.45 % NaCl 1 250ml.bag @ 5 mls/hr IV .Q24H [facility] Rx#: [id number] Oral 240 240 Output: Urine 890 410 180 Other: Voiding Method Indwelling Catheter Indwelling Catheter Indwelling Catheter # Bowel Movements 0 Weight 101.3 kg 102 kg Results CBC & Chem 7: 08/31/24 08:29 08/31/24 04:09 Labs: Abnormal Lab Results - Last 24 Hours (Table) 08/30/24 08/30/24 08/31/24 Range/Units 19:58 23:49 00:23 Neutrophils # 8.3 H (1.3-7.7) k/uL Lymphocytes # 0.8 L (1.0-4.8) k/uL Sodium (137-145) mmol/L Glucose (74-99) mg/dL POC Glucose (mg/dL) 213 H 246 H (70-110) mg/dL Total Protein (6.3-8.2) g/dL Albumin (3.5-5.0) g/dL 08/31/24 08/31/24 08/31/24 Range/Units 04:09 05:56 08:11 Neutrophils # (1.3-7.7) k/uL Lymphocytes # (1.0-4.8) k/uL Sodium 131 L (137-145) mmol/L Glucose 238 H (74-99) mg/dL POC Glucose (mg/dL) 247 H 227 H (70-110) mg/dL Total Protein 5.9 L (6.3-8.2) g/dL Albumin 3.4 L (3.5-5.0) g/dL Thrombosis Risk Factor Assmnt - Choose All That Apply Any of the Below Risk Factors Present?: Yes Each Factor Represents 1 point: Age 41-60 years, Medical pt on bed rest, Obesity (BMI >25) Other Risk Factors: Yes Each Risk Factor Represents 2 Points: Patient confined to bed Each Risk Factor Represents 3 Points: History of DVT/PE Other congenital or acquired thrombophilia - If yes, enter type in comment: No Thrombosis Risk Factor Assessment Total Risk Factor Score: 8 Thrombosis Risk Factor Assessment Level: High Risk Assessment and Plan Assessment: 1. Right lower extremity critical ischemia --Stat CTA aorta abdomen pelvis with runoff ordered which revealed severe outflow disease in right with severely stenosed proximal right superficial femoral artery stent appearing near occlusion with clot in the distal right superficial femoral artery stents and popliteal artery stents. Moderate to severe outflow secondary to severe stenosis of proximal left superficial femoral artery stent -- Patient was evaluated by vascular surgery and underwent thrombolysis and was maintained on IV heparin infusion -Patient is currently POD # 1; heparin has been transitioned to Xarelto 2. Peripheral arterial disease with recent right lower extremity SFA revascularization 3. Diabetes mellitus; patient takes insulin glargine along with sliding scale 4. Peripheral neuropathy 5. Hyperkalemia, labs reviewed patient has history of elevated potassium 6. Hyponatremia; sodium slightly lower at 132; will recommend monitoring of sodium levels post discharge 7. Hypertension; amlodipine 10 mg daily 8. Hyperlipidemia; Lipitor 40 mg daily DVT prophylaxis; SCDs/systemic anticoagulation CODE STATUS; full code
--- NOTE | 2024-08-31 13:43 | P.DS ---
Providers Date of admission: 08/30/24 10:29 Expected date of discharge: 08/31/24 Attending physician: Bertin Baum Consults: 08/30/24 11:43 Consult Physician Urgent Consulting Provider: Kimberlyn Asif Consult Reason/Comments: arterial occlusion right leg Do you want consulting provider notified?: Already Contacted Primary care physician: Tatianna Mason Hospital Course: 59-year-old female, history of hypertension, hyperlipidemia, diabetes mellitus, COPD, peripheral vascular disease, seizure disorder, presenting to the emergency department with complaints of right lower extremity pain. She is well-known to vascular surgery and just recently underwent angiogram of the right lower extremity on 08/23/[address] Asif. Past medical history includes peripheral arterial disease, peripheral neuropathy, diabetes mellitus, carotid stenosis, and previous right toe amputation. She states starting this past Tuesday she started getting cramping in her calf and has progressively gotten worse and her foot was starting to feel cool so she came in for further evaluation. She had abnormal ABIs and evidence of short segment occlusion of the proximal SFA with moderate segment occlusion of the distal SFA occlusion with reconstitution she was scheduled for outpatient angiogram with atherectomy with possible intervention. On 08/23/2024 she underwent left iliofemoral angiogram with right lower extremity angiogram with percutaneous transluminal balloon angioplasty of the right SFA, atherectomy and percutaneous transluminal stenting of the distal SFA and proximal SFA. She has been on aspirin 81 mg and Plavix 75 mg daily and states she has been taking it as ordered. She denies any other symptoms such as shortness of breath, chest pain, abdominal pain, nausea or vomiting. 1. Right lower extremity critical ischemia --Stat CTA aorta abdomen pelvis with runoff ordered which revealed severe outflow disease in right with severely stenosed proximal right superficial femoral artery stent appearing near occlusion with clot in the distal right superficial femoral artery stents and popliteal artery stents. Moderate to severe outflow secondary to severe stenosis of proximal left superficial femoral artery stent -- Patient was evaluated by vascular surgery and underwent thrombolysis and was maintained on IV heparin infusion -Patient is currently POD # 1; heparin has been transitioned to Xarelto 2. Peripheral arterial disease with recent right lower extremity SFA revascularization 3. Diabetes mellitus; patient takes insulin glargine along with sliding scale 4. Peripheral neuropathy 5. Hyperkalemia, labs reviewed patient has history of elevated potassium 6. Hyponatremia; sodium slightly lower at 132; will recommend monitoring of sodium levels post discharge 7. Hypertension; amlodipine 10 mg daily 8. Hyperlipidemia; Lipitor 40 mg daily DVT prophylaxis; SCDs/systemic anticoagulation CODE STATUS; full code Patient is status post thrombectomy and has been ambulating; cleared by vascular surgery for discharge Patient Condition at Discharge: Serious Plan - Discharge Summary Discharge Rx Participant: No New Discharge Prescriptions: New Rivaroxaban [Xarelto] 2.5 mg PO BID #60 tab Continue Atorvastatin [Lipitor] 40 mg PO DAILY Omeprazole [PriLOSEC] 20 mg PO DAILY Clopidogrel [Plavix] 75 mg PO DAILY Anastrozole 1 mg PO DAILY lisinopriL [Zestril] 40 mg PO DAILY amLODIPine [Norvasc] 10 mg PO DAILY metFORMIN HCL [Glucophage] 1,000 mg PO BID INSULIN ASPART (NovoLOG) [NovoLOG (formulary)] 5 unit SQ AC-BID PRN PRN Reason: Blood Sugar - High Insulin Glargine,Hum.rec.anlog [Basaglar Kwikpen U-100] 30 unit SQ DAILY Metoprolol Succinate (ER) [Toprol XL] 25 mg PO DAILY Gabapentin [Neurontin] 800 mg PO TID busPIRone HCL 5 mg PO BID PRN PRN Reason: Anxiety Insulin Glargine,Hum.rec.anlog [Basaglar Kwikpen U-100] 20 unit SQ HS Discharge Medication List Atorvastatin [Lipitor] 40 mg PO DAILY 05/19/21 [History] Clopidogrel [Plavix] 75 mg PO DAILY 05/19/21 [History] INSULIN ASPART (NovoLOG) [NovoLOG (formulary)] 5 unit SQ AC-BID PRN 05/19/21 [History] Insulin Glargine,Hum.rec.anlog [Basaglar Kwikpen U-100] 30 unit SQ DAILY 05/19/21 [History] Omeprazole [PriLOSEC] 20 mg PO DAILY 05/19/21 [History] metFORMIN HCL [Glucophage] 1,000 mg PO BID 05/19/21 [History] Anastrozole 1 mg PO DAILY 10/08/22 [History] lisinopriL [Zestril] 40 mg PO DAILY 02/25/23 [History] Gabapentin [Neurontin] 800 mg PO TID 08/30/24 [History] Insulin Glargine,Hum.rec.anlog [Basaglar Yanelyikpen U-100] 20 unit SQ HS 08/30/24 [History] Metoprolol Succinate (ER) [Toprol XL] 25 mg PO DAILY 08/30/24 [History] amLODIPine [Norvasc] 10 mg PO DAILY 08/30/24 [History] busPIRone HCL 5 mg PO BID PRN 08/30/24 [History] Rivaroxaban [Xarelto] 2.5 mg PO BID #60 tab 08/31/24 [Rx] Follow up Appointment(s)/Referral(s): Kimberlyn Asif DO [STAFF PHYSICIAN] - 1 Week (called: [id number]. was finally able to leave a 1332 with pt info and reqest for follow up appt.) Tatianna Mason MD [Primary Care Provider] - 1-2 days (spoke w/jeannie at dr office. info taken. office will call pt directly to set up the appt.) Patient Instructions/Handouts: Rivaroxaban (By mouth), Deep Vein Thrombosis (ED), Peripheral Artery Disease (ED), Blood Thinners (GEN) Activity/Diet/Wound Care/Special Instructions: No driving for three days. Avoid heavy lifting greater than 10 lbs , pushing, pulling, straining, flights of stairs for three days. ok to shower tomorrow but no baths, pools, soaking in tubs for three days to avoid risk of infection. signs of infection ie: fever, rash, drainage from puncture site, swelling contact doctor or return to ER immediately. Heavy bleeding from puncture site apply firm direct pressure and return to ER. Do not attempt to drive self. low sodium/low fat diet Discharge Disposition: HOME SELF-CARE
[2024-08-31 14:48] VITALS: BP 104/58; PULSE 96; RESP 10
== END 2024-08-31 16:21 | disposition home or self-care (01) | DRG 253 ==
LOC: EC 09:23 → 2SICU 10:29
PROVIDERS: ADMIT Hospitalist; ATTEND Hospitalist
PROC: 047K3DZ Dilation of Right Femoral Artery with Intraluminal Device, Percutaneous Approach (ICD-10-PCS; principal; 2024-08-30 08:30)
PROC: 3E04317 Introduction of Other Thrombolytic into Central Vein, Percutaneous Approach (ICD-10-PCS; 2024-08-30 08:30)
PROC: B41G1ZZ Fluoroscopy of Left Lower Extremity Arteries using Low Osmolar Contrast (ICD-10-PCS; 2024-08-31)
DX: E11.51 Type 2 diabetes mellitus with diabetic peripheral angiopathy without gangrene (principal); E87.1 Hypo-osmolality and hyponatremia; I70.221 Atherosclerosis of native arteries of extremities with rest pain, right leg; I74.3 Embolism and thrombosis of arteries of the lower extremities; J44.9 Chronic obstructive pulmonary disease, unspecified; I10 Essential (primary) hypertension; G40.909 Epilepsy, unspecified, not intractable, without status epilepticus; F41.9 Anxiety disorder, unspecified; F32.A Depression, unspecified; E11.42 Type 2 diabetes mellitus with diabetic polyneuropathy; E78.5 Hyperlipidemia, unspecified; E87.5 Hyperkalemia; Z79.01 Long term (current) use of anticoagulants; Z79.02 Long term (current) use of antithrombotics/antiplatelets; Z79.4 Long term (current) use of insulin; Z79.811 Long term (current) use of aromatase inhibitors; Z79.84 Long term (current) use of oral hypoglycemic drugs; Z79.899 Other long term (current) drug therapy; Z87.891 Personal history of nicotine dependence; Z89.421 Acquired absence of other right toe(s)
CPT/HCPCS: 36415; 37211; 37214; 37226; 75635; 75710; 76937; 80053; 82565; 83605; 84520; 85025; 85384; 85610; 85730; 86850; 86900; 86901; 93005; 96365; 99285

== ENCOUNTER 2024-12-25 05:48 | Day surgery (SDC) | payer MEDICARE ==
[~2024-12-25 05:48] MED LIST changes: +ALPRAZolam 0.5 MG TAB PO PRN
[2024-12-25 06:29] VITALS: RESP 16; TEMP 98.3
[2024-12-25] MEDS: IV FLUID CONTINUATION 1,000 ML IV ONE (06:30)
[2024-12-25] MEDS: SODIUM CHLORIDE 0.9% 1,000 ML in EMPTY BAG 1 BAG IV ONE (06:30)
[2024-12-25 07:08] LABS: Glucose,Whole Blood 174 mg/dL (70-110)
[2024-12-25 07:10] LABS: Basophils # (A) 0.1 k/uL (0-0.2); Basophils % (A) 1 %; Eosinophils # (A) 0.3 k/uL (0-0.7); Eosinophils % (A) 4 %; HCT 41.2 % (34.0-46.0); HGB 13.7 gm/dL (11.4-16.0); Lymphocytes # (A) 1.8 k/uL (1.0-4.8); Lymphocytes % (A) 24 %; MCH 29.6 pg (25.0-35.0); MCHC 33.2 g/dL (31.0-37.0); MCV 89.3 fL (80.0-100.0); Mean Platelet Volume 8.2; Monocytes # (A) 0.4 k/uL (0-1.0); Monocytes % (A) 5 %; Neutrophils # (A) 4.6 k/uL (1.3-7.7); Neutrophils % (A) 63 %; Platelet Count 318 k/uL (150-450); RBC 4.62 m/uL (3.80-5.40); RDW 13.7 % (11.5-15.5); WBC 7.3 k/uL (3.8-10.6)
[2024-12-25] MEDS: LIDOCAINE 1% INJ 10MG/ML (20 ML MDV) SQ ONE (07:38)
[2024-12-25] MEDS: MIDAZOLAM 2 MG/2 ML VIAL IVP ONE (07:38)
[2024-12-25] MEDS: fentaNYL (PF) 50 MCG/1 ML VIAL IVP ONE (07:38)
[2024-12-25 07:42] LABS: African American GFR (CKD) 86 (>60 ml/min/1.73 sqM); Anion Gap 7 mmol/L; Blood Urea Nitrogen 17 mg/dL (7-17); Carbon Dioxide 28 mmol/L (22-30); Chloride 100 mmol/L (98-107); Glucose 158 mg/dL (74-99); Non-African American GFR(CKD) 75 (>60 ml/min/1.73 sqM); Potassium 4.9 mmol/L (3.5-5.1); Sodium 135 mmol/L (137-145)
[2024-12-25] MEDS: IOPAMIDOL-370 100ML BTL INJ ONE (08:12)
[2024-12-25] MEDS: CLOPIDOGREL 75 MG TAB PO ONE (08:13)
--- NOTE | 2024-12-25 08:24 | P.OP ---
Date of Procedure: 12/25/24 Description of Procedure: Preoperative diagnosis: Lifestyle-limiting [place] 3 right lower extremity claudication, recurrent stenosis Postoperative diagnosis: Same, distal in-stent stenosis Procedure: #1 ultrasound-guided left common femoral artery access 2. Left iliofemoral angiogram 2. Selective third order angiogram right popliteal artery 3. Percutaneous transluminal balloon angioplasty and stent, 6 x 59 Vi[place]ahn with 7 x 40 post dilation of the distal superficial femoral/proximal popliteal artery above-knee 4. Moderate conscious sedation with certified RN administration and personal hemodynamic monitoring x 34 minutes Surgeon: Kimberlyn Asif D.O. EBL: Less than 5 cc IV fluids: See records Urine output: Not measured Drains: None Complications: None immediately apparent Condition: Stable to recovery Operative indication and findings: Patient is a 59-year-old female with multiple previous stents placed in her lower extremities. On recent imaging she was found to have worsening of her outflow with high-grade stenosis. Due to this she was recommended to undergo angiogram with intervention. Risks and benefits were previously discussed. She seemingly understood and was willing to proceed. Procedure in detail: Patient was taken to the special suite and placed in supine position. The bilateral groins were prepped and draped in usual sterile fashion. A preprocedural timeout was performed, all parties were in agreement. Using the ultrasound, the left common femoral artery was identified. The skin overlying was anesthetized 1% lidocaine plain. Using the ultrasound, the artery was accessed. Seldinger technique was used to place a 6 Austrian sheath. There was significant scar tissue and the vessel did need to be dilated with the inner cannula first. Catheters and wires were then used to access the right lower extremity. Serial angiograms were performed of the right lower extremity. The visualized portions of the common, external iliac appeared widely patent without significant disease. The common femoral, profunda and superficial femoral artery proximally appeared patent without significant disease. Previously placed superficial femoral artery stents appeared patent. At the very distal superficial femoral/proximal popliteal artery there was approximately a greater than 90% stenosis focally. This was in-stent. Catheters and wires were then positioned beyond this into the distal popliteal artery and an angiogram was performed showing three-vessel runoff to the ankle. At that point the decision was made to place an up and over Rabie sheath. Decision was ultimately made to place a stent in this location. A 6 x 59 balloon expandable covered stent was placed and postdilated to 7 mm. With a 740 balloon. Repeat angiogram of the lower extremity appeared continually patent vessels with improvement of flow and resolution of stenosis. Catheters and wires were then removed, the sheath was withdrawn to the left side and iliofemoral angiogram was performed revealing patent flow through the common femoral, profunda and superficial femoral artery with a proximal SFA stent. The sheath was removed and manual pressure was held till hemostasis adequate. The patient tolerated procedure well. Plan - Discharge Summary Discharge Rx Participant: No New Discharge Prescriptions: No Action Atorvastatin [Lipitor] 40 mg PO DAILY Omeprazole [PriLOSEC] 20 mg PO DAILY Clopidogrel [Plavix] 75 mg PO DAILY Anastrozole 1 mg PO DAILY lisinopriL [Zestril] 40 mg PO DAILY amLODIPine [Norvasc] 10 mg PO DAILY Aspirin EC [Ecotrin Low Dose] 81 mg PO DAILY Acetaminophen [Tylenol Extra Strength] 500 mg PO DIRECTED PRN PRN Reason: Pain metFORMIN HCL [Glucophage] 1,000 mg PO BID INSULIN ASPART (NovoLOG) [NovoLOG (formulary)] 5 unit SQ AC-BID PRN PRN Reason: Blood Sugar - High Insulin Glargine,Hum.rec.anlog [Basaglar Kwikpen U-100] 30 unit SQ DAILY Metoprolol Succinate (ER) [Toprol XL] 25 mg PO DAILY Gabapentin [Neurontin] 800 mg PO TID busPIRone HCL 5 mg PO BID PRN PRN Reason: Anxiety Insulin Glargine,Hum.rec.anlog [Basaglar Kwikpen U-100] 20 unit SQ HS Discharge Medication List Atorvastatin [Lipitor] 40 mg PO DAILY 05/19/21 [History] Clopidogrel [Plavix] 75 mg PO DAILY 05/19/21 [History] INSULIN ASPART (NovoLOG) [NovoLOG (formulary)] 5 unit SQ AC-BID PRN 05/19/21 [History] Insulin Glargine,Hum.rec.anlog [Basaglar Kwikpen U-100] 30 unit SQ DAILY 05/19/21 [History] Omeprazole [PriLOSEC] 20 mg PO DAILY 05/19/21 [History] metFORMIN HCL [Glucophage] 1,000 mg PO BID 05/19/21 [History] Anastrozole 1 mg PO DAILY 10/08/22 [History] lisinopriL [Zestril] 40 mg PO DAILY 02/25/23 [History] Gabapentin [Neurontin] 800 mg PO TID 08/30/24 [History] Insulin Glargine,Hum.rec.anlog [Basaglar Kwikpen U-100] 20 unit SQ HS 08/30/24 [History] Metoprolol Succinate (ER) [Toprol XL] 25 mg PO DAILY 08/30/24 [History] amLODIPine [Norvasc] 10 mg PO DAILY 08/30/24 [History] busPIRone HCL 5 mg PO BID PRN 08/30/24 [History] Acetaminophen [Tylenol Extra Strength] 500 mg PO DIRECTED PRN 12/03/24 [History] Aspirin EC [Ecotrin Low Dose] 81 mg PO DAILY 12/03/24 [History] Follow up Appointment(s)/Referral(s): Kimberlyn Jurado DO [STAFF PHYSICIAN] - 1 Week Activity/Diet/Wound Care/Special Instructions: May resume home medications, Plavix given today, continue home doses tomorrow. Continue aspirin, may resume essentially regular activity. No heavy lifting. May shower tomorrow Discharge Disposition: HOME SELF-CARE
[2024-12-25] MEDS: ACETAMINOPHEN TAB 500 MG TAB PO STA (11:04)
[2024-12-26 10:05] VITALS: BP 146/76; PULSE 95
== END 2024-12-25 15:40 | disposition home or self-care (01) ==
LOC: CATHCVL 05:48
PROVIDERS: ATTEND Surgery
DX: I70.213 Atherosclerosis of native arteries of extremities with intermittent claudication, bilateral legs (principal); T82.858A Stenosis of other vascular prosthetic devices, implants and grafts, initial encounter; E11.9 Type 2 diabetes mellitus without complications; I10 Essential (primary) hypertension; Z79.82 Long term (current) use of aspirin; Z79.84 Long term (current) use of oral hypoglycemic drugs; Z79.4 Long term (current) use of insulin; Z79.02 Long term (current) use of antithrombotics/antiplatelets
CPT/HCPCS: 36247; 37226; 80048; 85025; C1769 ×3; C1894 ×2; C1887; C1725; J2250; J2003; Q9967; J3010

== ENCOUNTER 2025-01-15 09:14 | Inpatient (IN) | payer MEDICARE ==
[2025-01-15] MEDS ORDERED: HEPARIN SODIUM 1,000 UN/ML (10ML VL) IV PRN (09:52)
[2025-01-15 09:55] LABS: Basophils % (A) 0 %; Eosinophils # (A) 0.2 k/uL (0-0.7); Eosinophils % (A) 2 %; HCT 38.2 % (34.0-46.0); HGB 12.1 gm/dL (11.4-16.0); Lymphocytes # (A) 1.5 k/uL (1.0-4.8); Lymphocytes % (A) 15 %; MCH 28.7 pg (25.0-35.0); MCHC 31.6 g/dL (31.0-37.0); MCV 90.8 fL (80.0-100.0); Mean Platelet Volume 7.5; Monocytes # (A) 0.5 k/uL (0-1.0); Monocytes % (A) 5 %; Neutrophils # (A) 7.6 k/uL (1.3-7.7); Neutrophils % (A) 76 %; Platelet Count 396 k/uL (150-450); RDW 13.5 % (11.5-15.5)
[2025-01-15 10:08] LABS: Partial Thromboplastin Time 40.8 sec (22.0-30.0); Prothrombin Time 30.2 sec (10.0-12.5)
[2025-01-15] MEDS: HEPARIN SODIUM 1,000 UN/ML (10ML VL) IV ONE (10:16)
[2025-01-15] MEDS: HEPARIN SOD,PORK IN 0.45% NACL 25,000 UNIT in 0.45% NACL 1 250ML.BAG IV SCH (10:24)
[2025-01-15 10:28] LABS: ALT 33 U/L (4-34); AST 29 U/L (14-36); African American GFR (CKD) 76 (>60 ml/min/1.73 sqM); Alkaline Phosphatase 91 U/L (38-126); Anion Gap 11 mmol/L; Blood Urea Nitrogen 31 mg/dL (7-17); Calcium 9.5 mg/dL (8.4-10.2); Carbon Dioxide 24 mmol/L (22-30); Chloride 97 mmol/L (98-107); Glucose 239 mg/dL (74-99); Non-African American GFR(CKD) 66 (>60 ml/min/1.73 sqM); Sodium 132 mmol/L (137-145); Total Bilirubin 0.7 mg/dL (0.2-1.3); Total Protein 6.9 g/dL (6.3-8.2)
[2025-01-15 10:32] LABS: Potassium 6.7 mmol/L (3.5-5.1)
--- NOTE | 2025-01-15 11:05 | US ---
EXAMINATION TYPE: US venous doppler duplex LE LT DATE OF EXAM: 01/15/2025 10:59 AM COMPARISON: NONE CLINICAL INDICATION: Female, 59 years old with history of LLE swelling and injury; Pt fell 10 days ag o, landing on left leg, pt having redness and pain to left leg, Pain TECHNIQUE: The lower extremity deep venous system is examined utilizing real time linear array sonog paulino with graded compression, color doppler sonography, and spectral doppler. SIDE PERFORMED: Left FINDINGS: VESSELS IMAGED: Common Femoral Vein Deep Femoral Vein Greater Saphenous Vein * Femoral Vein Popliteal Vein Small Saphenous Vein * Proximal Calf Veins (* superficial vessels) . Left Leg: Negative for DVT, Color Doppler imaging shows patency of the vessels. Spectral waveforms a re within normal limits. Compressions not obtained at Left distal femoral vein due to pain IMPRESSION: 1. Left lower extremity ultrasound negative for deep venous thrombosis. 2. Some limitation due to patient tolerance of compression. [facility], , 01/15/2025 11:03 AM
[2025-01-15] MEDS: HYDROmorphone 0.5 MG/0.5 ML SYRINGE IVP STA (11:33)
--- NOTE | 2025-01-15 11:34 | ED ---
Lower Extremity Injury HPI - General Chief Complaint: Extremity Injury, Lower Stated Complaint: poss DVT Time Seen by Provider: 01/15/25 09:21 Source: patient, RN notes reviewed Mode of arrival: ambulatory Limitations: no limitations - History of Present Illness Initial Comments: 59-year-old female presents emergency department chief complaint of right leg pain. Patient states that she has had multiple stents with reocclusions in the past she states she started developing pain noticed that her foot felt cold. She also complains of left leg pain after a fall she reports she had x-rays which were negative but is scheduled to see orthopedics. Patient states that she did contact her vascular surgeon Dr. Yefri cleveland come the emergency department. Patient is currently on Coumadin. - Related Data Home Medications Medication Instructions Recorded Confirmed Atorvastatin [Lipitor] 40 mg PO DAILY 05/19/21 12/26/24 INSULIN ASPART (NovoLOG) [NovoLOG 5 unit SQ AC-BID PRN 05/19/21 12/26/24 (formulary)] Insulin Glargine,Hum.rec.anlog 30 unit SQ DAILY 05/19/21 12/26/24 [Basaglar Kwikpen U-100] Omeprazole [PriLOSEC] 20 mg PO DAILY 05/19/21 12/26/24 metFORMIN HCL [Glucophage] 1,000 mg PO BID 05/19/21 12/26/24 Anastrozole 1 mg PO DAILY 10/08/22 12/26/24 Gabapentin [Neurontin] 800 mg PO TID 08/30/24 12/26/24 Insulin Glargine,Hum.rec.anlog 20 unit SQ HS 08/30/24 12/26/24 [Basaglar Kwikpen U-100] amLODIPine [Norvasc] 10 mg PO DAILY 08/30/24 12/26/24 Previous Rx's Medication Instructions Recorded Aspirin 81 mg PO DAILY #30 tab 12/28/24 Enoxaparin [Lovenox] 100 mg SQ Q12HR #14 each 12/28/24 Metoprolol Succinate (ER) [Toprol 50 mg PO Q12HR #60 tab 12/28/24 XL] Warfarin [Coumadin] 5 mg PO DAILY #120 tab 12/28/24 lisinopriL [Zestril] 20 mg PO DAILY #30 tab 12/28/24 Allergies Allergy/AdvReac Type Severity Reaction Status Date / Time protamine Allergy BP Verified 01/15/25 09:18 dropped, heart rate elevated tetracycline [Tetracycline] Allergy Rash/Hives Verified 01/15/25 09:18 Review of Systems ROS Statement: Those systems with pertinent positive or pertinent negative responses have been documented in the HPI. ROS Other: All systems not noted in ROS Statement are negative. Past Medical History Past Medical History: Cancer, COPD, Diabetes Mellitus, Deep Vein Thrombosis (DVT), GERD/Reflux, Hyperlipidemia, Hypertension, Osteoarthritis (OA), Seizure Disorder, Skin Disorder, Vascular Disorder Additional Past Medical History / Comment(s): heart murmur, 2016 R breast cancer -had surgery & chemo & radiation 7 yrs ago, IDDM type I, ? clarita. ft charcot neuropathy bilateral legs/feet, 09/2022 DVT L leg, one time seizure 10 or more years ago-testing done & never found anything, chronic pain mostly in feet and neck/back. 3 stents to right lower extremity on 08/23/24. History of Any Multi-Drug Resistant Organisms: None Reported Past Surgical History: Breast Surgery, Orthopedic Surgery, Tubal Ligation Additional Past Surgical History / Comment(s): right breast lumpectomy & lymph nodes removed, port for chemo/since removed, peripheral angioplasties/atherectomies, and removed blood clot from L leg, stents, right 2nd toe amputation d/t diabetic ulcer, bilateral carpal tunnel releases, cervical fusion, aortogram 08/02/24 Past Anesthesia/Blood Transfusion Reactions: No Reported Reaction Additional Past Anesthesia/Blood Transfusion Reaction / Comment(s): Pt received blood transfusion r/t blood loss with surgery. no issues Past Psychological History: Anxiety, Depression Smoking Status: Former smoker Past Alcohol Use History: Rare Past Drug Use History: None Reported - Past Family History Mother Family Medical History: Cancer Additional Family Medical History / Comment(s): Lung cancer, former smoker. General Exam Limitations: no limitations General appearance: alert, in no apparent distress Head exam: Present: atraumatic, normocephalic, normal inspection Eye exam: Present: normal appearance, PERRL, EOMI. Absent: scleral icterus, conjunctival injection, periorbital swelling ENT exam: Present: normal exam, mucous membranes moist Neck exam: Present: normal inspection, full ROM. Absent: tenderness, meningismus, lymphadenopathy Respiratory exam: Present: normal lung sounds bilaterally. Absent: respiratory distress, wheezes, rales, rhonchi, stridor Cardiovascular Exam: Present: regular rate, normal rhythm, normal heart sounds. Absent: systolic murmur, diastolic murmur, rubs, gallop, clicks Course Vital Signs 01/15/25 09:15 Temperature 98.3 F Pulse Rate 88 Respiratory 20 Rate Blood Pressure 168/73 O2 Sat by Pulse 97 Oximetry Medical Decision Making - Medical Decision Making Was pt. sent in by a medical professional or institution (KODY Tabor, AMMUNITION OFFICER, urgent care, hospital, or prison...) When possible be specific @ -Vascular surgery Did you speak to anyone other than the patient for history (EMS, parent, family, police, friend...)? What history was obtained from this source @ -No Did you review nursing and triage notes (agree or disagree)? Why? @ -I reviewed and agree with nursing and triage notes Were old charts reviewed (outside hosp., previous admission, EMS record, old EKG, old radiological studies, urgent care reports/EKG's, prison records)? Report findings @ -No old charts were reviewed Differential Diagnosis (chest pain, altered mental status, abdominal pain women, abdominal pain men, vaginal bleeding, weakness, fever, dyspnea, syncope, headache, dizziness, GI bleed, back pain, seizure, CVA, palpatations, mental health, musculoskeletal)? @ -Arterial occlusion, stent occlusion, DVT, leg pain EKG interpreted by me (3pts min.). @ -As above X-rays interpreted by me (1pt min.). @ -X-ray left knee showing soft tissue swelling CT interpreted by me (1pt min.). @ -None done U/S interpreted by me (1pt. min.). @ - venous Doppler leg negative for DVT What testing was considered but not performed or refused? (CT, X-rays, U/S, labs)? Why? @ -None What meds were considered but not given or refused? Why? @ -None Did you discuss the management of the patient with other professionals (professionals i.e. KODY Tabor, AMMUNITION OFFICER, lab, RT, psych nurse, elementary school social worker, chocolate maker, teacher, founder and chief technical officer, rn case manager hospice)? Give summary @ -Vascular surgery for evaluation, Dr. Bautista for admission Was smoking cessation discussed for >3mins.? @ -No Was critical care preformed (if so, how long)? @ -35 Were there social determinants of health that impacted care today? How? (Home lessness, low income, unemployed, alcoholism, drug addiction, transportation, low edu. Level, literacy, decrease access to med. care, fci, rehab)? @ -No Was there de-escalation of care discussed even if they declined (Discuss DNR or withdrawal of care, Hospice)? DNR status @ -No What co-morbidities impacted this encounter? (DM, HTN, Smoking, COPD, CAD, Cancer, CVA, ARF, Chemo, Hep., AIDS, mental health diagnosis, sleep apnea, morbid obesity)? @ -None Was patient admitted / discharged? Hospital course, mention meds given and route, prescriptions, significant lab abnormalities, going to OR and other pertinent info. @ -Admitted patient has reocclusion prior stent. Patient was placed on heparin as recommended by vascular surgery. Patient will be admitted to medicine with consult to orthopedics for her left knee patient will undergo procedure with vascular surgery. Undiagnosed new problem with uncertain prognosis? @ -No Drug Therapy requiring intensive monitoring for toxicity (Heparin, Nitro, Insulin, Cardizem)? @ -heparin Were any procedures done? @ -No Diagnosis/symptom? @ -Arterial stent occlusion, hyperkalemia, left knee effusion Acute, or Chronic, or Acute on Chronic? @ -Acute Uncomplicated (without systemic symptoms) or Complicated (systemic symptoms)? @ -Complicated Side effects of treatment? @ -No Exacerbation, Progression, or Severe Exacerbation? @ -No Poses a threat to life or bodily function? How? (Chest pain, USA, DC, pneumonia, PE, COPD, DKA, ARF, appy, cholecystitis, CVA, Diverticulitis, Homicidal, Suicidal, threat to staff... and all critical care pts) @ -Yes arterial occlusion - Lab Data Result diagrams: 01/15/25 09:38 01/15/25 10:45 Lab Results 01/15/25 01/15/25 01/15/25 Range/Units 09:38 09:38 09:38 WBC 10.0 (3.8-10.6) k/uL RBC 4.20 (3.80-5.40) m/uL Hgb 12.1 (11.4-16.0) gm/dL Hct 38.2 (34.0-46.0) % MCV 90.8 (80.0-100.0) fL MCH 28.7 (25.0-35.0) pg MCHC 31.6 (31.0-37.0) g/dL RDW 13.5 (11.5-15.5) % Plt Count 396 (150-450) k/uL MPV 7.5 Neutrophils % 76 % Lymphocytes % 15 % Monocytes % 5 % Eosinophils % 2 % Basophils % 0 % Neutrophils # 7.6 (1.3-7.7) k/uL Lymphocytes # 1.5 (1.0-4.8) k/uL Monocytes # 0.5 (0-1.0) k/uL Eosinophils # 0.2 (0-0.7) k/uL Basophils # 0.0 (0-0.2) k/uL PT 30.2 H (10.0-12.5) sec INR 3.0 H (<1.2) APTT 40.8 H (22.0-30.0) sec Sodium 132 L (137-145) mmol/L Potassium 6.7 H* (3.5-5.1) mmol/L Chloride 97 L (98-107) mmol/L Carbon Dioxide 24 (22-30) mmol/L Anion Gap 11 mmol/L BUN 31 H (7-17) mg/dL Creatinine 0.95 (0.52-1.04) mg/dL Est GFR (CKD-EPI)AfAm 76 (>60 ml/min/1.73 sqM) Est GFR (CKD-EPI)NonAf 66 (>60 ml/min/1.73 sqM) Glucose 239 H (74-99) mg/dL Calcium 9.5 (8.4-10.2) mg/dL Total Bilirubin 0.7 (0.2-1.3) mg/dL AST 29 (14-36) U/L ALT 33 (4-34) U/L Alkaline Phosphatase 91 (38-126) U/L Total Protein 6.9 (6.3-8.2) g/dL Albumin 4.0 (3.5-5.0) g/dL 01/15/25 Range/Units 10:45 WBC (3.8-10.6) k/uL RBC (3.80-5.40) m/uL Hgb (11.4-16.0) gm/dL Hct (34.0-46.0) % MCV (80.0-100.0) fL MCH (25.0-35.0) pg MCHC (31.0-37.0) g/dL RDW (11.5-15.5) % Plt Count (150-450) k/uL MPV Neutrophils % % Lymphocytes % % Monocytes % % Eosinophils % % Basophils % % Neutrophils # (1.3-7.7) k/uL Lymphocytes # (1.0-4.8) k/uL Monocytes # (0-1.0) k/uL Eosinophils # (0-0.7) k/uL Basophils # (0-0.2) k/uL PT (10.0-12.5) sec INR (<1.2) APTT (22.0-30.0) sec Sodium (137-145) mmol/L Potassium 6.0 H (3.5-5.1) mmol/L Chloride (98-107) mmol/L Carbon Dioxide (22-30) mmol/L Anion Gap mmol/L BUN (7-17) mg/dL Creatinine (0.52-1.04) mg/dL Est GFR (CKD-EPI)AfAm (>60 ml/min/1.73 sqM) Est GFR (CKD-EPI)NonAf (>60 ml/min/1.73 sqM) Glucose (74-99) mg/dL Calcium (8.4-10.2) mg/dL Total Bilirubin (0.2-1.3) mg/dL AST (14-36) U/L ALT (4-34) U/L Alkaline Phosphatase (38-126) U/L Total Protein (6.3-8.2) g/dL Albumin (3.5-5.0) g/dL Critical Care Time Critical Care Time: Yes Total Critical Care Time: 35 Disposition Clinical Impression: Acute occlusion of artery of lower extremity, Effusion, left knee, Hyperkalemia Disposition: ADMITTED IP TO THIS [facility] Condition: Fair Referrals: Tatianna Mason MD [Primary Care Provider] - 1-2 days Time of Disposition: 11:34
[2025-01-15] MEDS ORDERED: NALOXONE 0.4 MG/ML 1 ML VIAL IV PRN (12:01)
[2025-01-15] MEDS ORDERED: ONDANSETRON 4 MG/2 ML VIAL IVP PRN (12:01)
--- NOTE | 2025-01-15 12:06 | XR ---
EXAMINATION TYPE: XR knee 4V LT DATE OF EXAM: 01/15/2025 11:54 AM COMPARISON: None. CLINICAL INDICATION: Female, 59 years old with history of pain, pain TECHNIQUE: 4 view(s) obtained. FINDINGS: Soft tissue swelling is over the patella. No joint effusion is evident. No acute fracture or dislocat ion evident. Stent is within the distal superficial femoral artery vascular calcification is noted. No acute fractures or dislocations evident. Follow up exams can be performed as clinically indicated IMPRESSION: 1. Superficial soft tissue swelling over the patella [facility], , 01/15/2025 12:03 PM
[2025-01-15] MEDS: SODIUM CHLORIDE 0.9% 1,000 ML IV ONE (12:16)
[2025-01-15] MEDS: SODIUM ZIRCONIUM CYCLOSILICATE 10 GM PACKET PO ONE (12:16)
[2025-01-15] MEDS: SODIUM CHLORIDE 0.9% 1,000 ML IV SCH (12:16)
--- NOTE | 2025-01-15 12:32 | P.GSCN ---
History of Present Illness Consult date: 01/15/25 Reason for Consult: Right lower extremity pain, SFA occlusion Requesting physician: Favian Copeland History of present illness: 59-year-old female with a history of peripheral arterial disease well-known to vascular surgery and Dr. Aisf. Patient has lifestyle limiting Dann 3 right lower extremity claudication with recurrent stenosis. She had initially undergone percutaneous transluminal balloon angioplasty with stent placement of the distal SFA and proximal popliteal artery above the knee. She had returned back to the emergency department on 12/26/2024 with complaints of acute onset of pain and cold foot. She had undergone angiogram at that time with tPA which was successful. She states yesterday evening she started getting pain in her right foot again and it was cold. She was concern for occlusion came into the emergency department. Patient also recently had a fall and hit her left leg. She was seen at [facility] emergency room on 01/05/2025 and discharged home to follow-up with orthopedics. Patient had not followed up with orthopedics as they had to reschedule appointment. She has continued pain in her left lower extremity unable to walk on it with swelling in her knee and calf. She is currently on Coumadin 5 mg daily, she usually follows with Dr. Mason for her INR however she has not been in to see her recently secondary to her leg injury. She is able to move her right foot. She denies any shortness of breath or chest pain. Review of Systems A 14 point review systems was completed all pertinent positives and negatives as stated in the HPI. Past Medical History Past Medical History: Cancer, COPD, Diabetes Mellitus, Deep Vein Thrombosis (DVT), GERD/Reflux, Hyperlipidemia, Hypertension, Osteoarthritis (OA), Seizure Disorder, Skin Disorder, Vascular Disorder Additional Past Medical History / Comment(s): heart murmur, 2016 R breast cancer -had surgery & chemo & radiation 7 yrs ago, IDDM type I, ? clarita. ft charcot neuropathy bilateral legs/feet, 09/2022 DVT L leg, one time seizure 10 or more years ago-testing done & never found anything, chronic pain mostly in feet and neck/back. 3 stents to right lower extremity on 08/23/24. History of Any Multi-Drug Resistant Organisms: None Reported Past Surgical History: Breast Surgery, Orthopedic Surgery, Tubal Ligation Additional Past Surgical History / Comment(s): right breast lumpectomy & lymph nodes removed, port for chemo/since removed, peripheral angioplasties/atherectomies, and removed blood clot from L leg, stents, right 2nd toe amputation d/t diabetic ulcer, bilateral carpal tunnel releases, cervical fusion, aortogram 08/02/24 Past Anesthesia/Blood Transfusion Reactions: No Reported Reaction Additional Past Anesthesia/Blood Transfusion Reaction / Comm: Pt received blood transfusion r/t blood loss with surgery. no issues Past Psychological History: Anxiety, Depression Smoking Status: Former smoker Past Alcohol Use History: Rare Past Drug Use History: None Reported - Past Family History Mother Family Medical History: Cancer Additional Family Medical History / Comment(s): Lung cancer, former smoker. Medications and Allergies Home Medications Medication Instructions Recorded Confirmed Type Atorvastatin [Lipitor] 40 mg PO DAILY 05/19/21 12/26/24 History INSULIN ASPART (NovoLOG) [NovoLOG 5 unit SQ AC-BID PRN 05/19/21 12/26/24 History (formulary)] Insulin Glargine,Hum.rec.anlog 30 unit SQ DAILY 05/19/21 12/26/24 History [Basaglar Kwikpen U-100] Omeprazole [PriLOSEC] 20 mg PO DAILY 05/19/21 12/26/24 History metFORMIN HCL [Glucophage] 1,000 mg PO BID 05/19/21 12/26/24 History Anastrozole 1 mg PO DAILY 10/08/22 12/26/24 History Gabapentin [Neurontin] 800 mg PO TID 08/30/24 12/26/24 History Insulin Glargine,Hum.rec.anlog 20 unit SQ HS 08/30/24 12/26/24 History [Basaglar Kwikpen U-100] amLODIPine [Norvasc] 10 mg PO DAILY 08/30/24 12/26/24 History Aspirin 81 mg PO DAILY #30 tab 12/28/24 Rx Enoxaparin [Lovenox] 100 mg SQ Q12HR #14 each 12/28/24 Rx Metoprolol Succinate (ER) [Toprol 50 mg PO Q12HR #60 tab 12/28/24 Rx XL] Warfarin [Coumadin] 5 mg PO DAILY #120 tab 12/28/24 Rx lisinopriL [Zestril] 20 mg PO DAILY #30 tab 12/28/24 Rx Allergies Allergy/AdvReac Type Severity Reaction Status Date / Time protamine Allergy BP Verified 01/15/25 09:18 dropped, heart rate elevated tetracycline [Tetracycline] Allergy Rash/Hives Verified 01/15/25 09:18 Surgical - Exam Vital Signs Temp Pulse Resp BP Pulse Ox 98.3 F 88 20 168/73 97 01/15/25 09:15 01/15/25 09:15 01/15/25 09:15 01/15/25 09:15 01/15/25 09:15 General appearance: The patient is alert, oriented, appears in no acute distress. HET: Head is normocephalic and atraumatic. Pupils are equal and reactive. Neck: Supple. Heart: Regular. Lungs: Equal expansion, normal respiratory effort. Abdomen: Soft, nontender, nondistended. Extremities: Right lower extremity warm to the touch up to the ankle, foot is cool to the touch. Sensorimotor intact with full range of motion. Nonpalpable PT or DP pulse. Palpable bilateral radial pulses. Left knee swollen, red left calf and julien with swelling and bruising. Tender to palpation. Neurological: No focal deficits. Strength and sensation are grossly intact. Results - Labs 01/15/25 09:38 01/15/25 10:45 Abnormal Lab Results - Last 24 Hours (Table) 01/15/25 Range/Units 09:38 PT 30.2 H (10.0-12.5) sec INR 3.0 H (<1.2) APTT 40.8 H (22.0-30.0) sec - Imaging Comments: Left lower extremity venous duplex negative for DVT Assessment and Plan Assessment: 1. Acute limb ishemia, right lower extremity 2. Peripheral arterial disease with SFA occlusion status post recent joseph oplasty and stent as well as tPA infusion 3. Recurrent in stent stenosis 4. Clark 3 right lower extremity claudication 5. Hyperkalemia 6. Atrial fibrillation 7. Left lower extremity injury with swelling and ecchymosis secondary to recent fall Plan: 1. Keep n.p.o. 2. Will hold off on heparin infusion secondary to therapeutic INR 3. Pain meds as needed 4. Recommend consultation to orthopedics for left knee pain and swelling secondary to fall 5. Venous duplex of left lower extremity ordered 6. Medical management per primary medical team, treat hyperkalemia 7. Cardiology consult for cardiac clearance for possible right lower extremity femoral-pop bypass 8. Type and screen ordered 9. Further recommendations forthcoming based on clinical course Thank you for this consultation, we will continue to follow. The impression and plan of care has been dictated as directed. Dr. Barrett I performed a history and examination of this patient, discussed the same with the dictator. I agree with the dictator's note ,documented as a scribe. Any additional findings or plans will be noted.
--- NOTE | 2025-01-15 13:34 | P.HPIM ---
History of Present Illness This is a pleasant 59 years old female Who presents because of left knee swelling. Patient states that she tripped and fell about 2 weeks ago when her pajama get caught in the thing After that she started having experiencing pain in her left leg. She was referred to orthopedic team and she is supposed to have an appointment today but that was canceled because her orthopedic surgeon is sick so she decided to come to emergency room She denies chest pain or dyspnea or coughing. No specific GI/ symptoms. No headache dizziness weakness numbness She denies smoking alcohol or illicit drugs Patient states that she takes Coumadin because she has a history of 3 blood clots in her leg also she had a stent in her leg. Usually she follow-up with Dr. Araujo team for to check her INR, last week it was 2.3. Patient was recently discharged from the hospital about 2 weeks ago for her occlusion of the right leg vessel s/p angioplasty and stent placement to the right popliteal artery Review of Systems Review of systems CONSTITUTIONAL: No fever, no malaise, no fatigue. HEENT: No recent visual problems or hearing problems. Denied any sore throat. CARDIOVASCULAR: No orthopnea, PND, no palpitations, no syncope. PULMONARY: No shortness of breath, no cough, no hemoptysis. GASTROINTESTINAL: No diarrhea, no nausea, no vomiting, no abdominal pain. Normoactive bowel sounds. NEUROLOGICAL: No headaches, no weakness, no numbness. HEMATOLOGICAL: Denies any bleeding or petechiae. GENITOURINARY: Denies any burning micturition, frequency, or urgency. -MUSCULOSKELETAL/RHEUMATOLOGICAL: As above ENDOCRINE: Denies any polyuria or polydipsia. Past Medical History Past Medical History: Cancer, COPD, Diabetes Mellitus, Deep Vein Thrombosis (DVT), GERD/Reflux, Hyperlipidemia, Hypertension, Osteoarthritis (OA), Seizure Disorder, Skin Disorder, Vascular Disorder Additional Past Medical History / Comment(s): heart murmur, 2016 R breast cancer -had surgery & chemo & radiation 7 yrs ago, IDDM type I, ? clarita. ft charcot neuropathy bilateral legs/feet, 09/2022 DVT L leg, one time seizure 10 or more years ago-testing done & never found anything, chronic pain mostly in feet and neck/back. 3 stents to right lower extremity on 08/23/24. 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 no issues Past Psychological History: Anxiety, Depression Smoking Status: Former smoker Past Alcohol Use History: Rare Past Drug Use History: None Reported - Past Family History Mother Family Medical History: Cancer Additional Family Medical History / Comment(s): Lung cancer, former smoker. Medications and Allergies Home Medications Medication Instructions Recorded Confirmed Type Atorvastatin [Lipitor] 40 mg PO DAILY 05/19/21 12/26/24 History INSULIN ASPART (NovoLOG) [NovoLOG 5 unit SQ AC-BID PRN 05/19/21 12/26/24 History (formulary)] Insulin Glargine,Hum.rec.anlog 30 unit SQ DAILY 05/19/21 12/26/24 History [Basaglar Kwikpen U-100] Omeprazole [PriLOSEC] 20 mg PO DAILY 05/19/21 12/26/24 History metFORMIN HCL [Glucophage] 1,000 mg PO BID 05/19/21 12/26/24 History Anastrozole 1 mg PO DAILY 10/08/22 12/26/24 History Gabapentin [Neurontin] 800 mg PO TID 08/30/24 12/26/24 History Insulin Glargine,Hum.rec.anlog 20 unit SQ HS 08/30/24 12/26/24 History [Basaglar Kwikpen U-100] amLODIPine [Norvasc] 10 mg PO DAILY 08/30/24 12/26/24 History Aspirin 81 mg PO DAILY #30 tab 12/28/24 Rx Enoxaparin [Lovenox] 100 mg SQ Q12HR #14 each 12/28/24 Rx Metoprolol Succinate (ER) [Toprol 50 mg PO Q12HR #60 tab 12/28/24 Rx XL] Warfarin [Coumadin] 5 mg PO DAILY #120 tab 12/28/24 Rx lisinopriL [Zestril] 20 mg PO DAILY #30 tab 12/28/24 Rx Allergies Allergy/AdvReac Type Severity Reaction Status Date / Time protamine Allergy BP Verified 01/15/25 09:18 dropped, heart rate elevated tetracycline [Tetracycline] Allergy Rash/Hives Verified 01/15/25 09:18 Physical Exam Vitals: Vital Signs Temp Pulse Resp BP Pulse Ox 01/15/25 09:15 98.3 F 88 20 168/73 97 Intake and Output 01/14/25 01/15/25 01/15/25 22:59 06:59 14:59 Other: Weight 107.048 kg GENERAL: The patient is alert and oriented x3, not in any acute distress. Well developed, well nourished. HEENT: Pupils are round and equally reacting to light. EOMI. No scleral icterus. No conjunctival pallor. Normocephalic, atraumatic. No pharyngeal erythema. No thyromegaly. CARDIOVASCULAR: S1 and S2 present. No murmurs, rubs, or gallops. PULMONARY: Chest is clear to auscultation, no wheezing , no crackles. ABDOMEN: Soft, nontender, nondistended, normoactive bowel sounds. No palpable organomegaly. MUSCULOSKELETAL: No joint swelling or deformity. -EXTREMITIES: No cyanosis, clubbing, or pedal edema. Left lower extremity is swollen little warm and tender, there is tender, red and fluctuating cystic mass on the top of the patella of the left knee NEUROLOGICAL: Gross neurological examination did not reveal any focal deficits. SKIN: No rashes. no petechiae. Results CBC & Chem 7: 01/15/25 09:38 01/15/25 10:45 Labs: Abnormal Lab Results - Last 24 Hours (Table) 01/15/25 01/15/25 01/15/25 Range/Units 09:38 09:38 10:45 PT 30.2 H (10.0-12.5) sec INR 3.0 H (<1.2) APTT 40.8 H (22.0-30.0) sec Sodium 132 L (137-145) mmol/L Potassium 6.7 H* 6.0 H (3.5-5.1) mmol/L Chloride 97 L (98-107) mmol/L BUN 31 H (7-17) mg/dL Glucose 239 H (74-99) mg/dL Assessment and Plan Assessment: Remote falling more than 2 weeks earlier associated with left knee swelling on the top of the patella, highly suspicious for hematoma. Cellulitis cannot be excluded as there is associated with left lower extremity swelling and tenderness Preop evaluation Recent acute occlusion of the right leg SFA. S/p angioplasty and stent to the right popliteal artery Paroxysmal atrial fibrillation on Coumadin Hyperkalemia COPD with no acute exacerbation Diabetes mellitus Hypertension Hyperlipidemia History of GERD Obesity with BMI of 34.9. Plan: Check pro- Calcitonin. Check blood culture Start the patient empirically on cefazolin for possible cellulitis Continue with normal saline 75 mL/h Pain management Patient on some risk to proceed with surgery but there is no absolute contraindication Vascular surgery team consult plan to take the patient to the OR Hold Coumadin and monitor INR. Labs and medication were reviewed.. Continue same treatment. Continue with symptomatic treatment. Resume home medication. Monitor labs and vitals. DVT and GI prophylaxis. Further recommendations as per clinical course of the patient DVT prophylaxis: AC on hold GI Prophylaxis: Pepcid PT/OT: Pending Prognosis is guarded
[2025-01-15 16:13] LABS: Glucose,Whole Blood 172 mg/dL (70-110)
[2025-01-15] MEDS: HYDROmorphone 0.5 MG/0.5 ML SYRINGE IVP PRN (16:34)
[2025-01-15] MEDS: HYDROcodone/APAP 5-325MG 1 EACH TAB PO PRN (16:35)
[2025-01-15] MEDS ORDERED: DEXTROSE 50% SYRINGE 50 ML IVP PRN ×2 (18:53)
[2025-01-15] MEDS: FAMOTIDINE 20 MG/2 ML VIAL IV SCH (20:09)
[2025-01-15] MEDS: METOPROLOL SUCCINATE (ER) 50 MG TAB.ER.24H PO SCH (20:09)
[2025-01-15] MEDS: GABAPENTIN 400 MG CAP PO SCH (20:09)
[2025-01-15 20:27] LABS: Glucose,Whole Blood 288 mg/dL (70-110)
[2025-01-15] MEDS: INSULIN GLARGINE (LANTUS) 100 UNIT/ML SYR SQ SCH (20:52)
[2025-01-15] MEDS: INSULIN LISPRO (HumaLOG) 100 UNIT/ML 10 mL VL SQ SCH (20:52)
[2025-01-16 06:18] LABS: Glucose,Whole Blood 140 mg/dL (70-110)
[2025-01-16] MEDS: INSULIN GLARGINE (LANTUS) 100 UNIT/ML SYR SQ SCH (06:29)
[2025-01-16 07:59] LABS: Basophils % (A) 0 %; Eosinophils # (A) 0.2 k/uL (0-0.7); Eosinophils % (A) 4 %; HCT 32.4 % (34.0-46.0); HGB 10.1 gm/dL (11.4-16.0); Hypochromasia Slight; INR 2.8 (<1.2); Lymphocytes # (A) 1.4 k/uL (1.0-4.8); Lymphocytes % (A) 25 %; MCH 28.7 pg (25.0-35.0); MCHC 31.1 g/dL (31.0-37.0); MCV 92.4 fL (80.0-100.0); Mean Platelet Volume 7.5; Monocytes # (A) 0.5 k/uL (0-1.0); Monocytes % (A) 8 %; Neutrophils # (A) 3.4 k/uL (1.3-7.7); Neutrophils % (A) 61 %; Platelet Count 330 k/uL (150-450); Prothrombin Time 28.3 sec (10.0-12.5); RDW 13.5 % (11.5-15.5); WBC 5.5 k/uL (3.8-10.6)
[2025-01-16] MEDS: ATORVASTATIN 40 MG TAB PO SCH (08:03)
[2025-01-16] MEDS: ASPIRIN 81 MG PO SCH (08:03)
[2025-01-16] MEDS: ANASTROZOLE 1 MG TAB PO SCH (08:03)
[2025-01-16 08:12] LABS: African American GFR (CKD) >90 (>60 ml/min/1.73 sqM); Anion Gap 5 mmol/L; Blood Urea Nitrogen 15 mg/dL (7-17); Calcium 7.4 mg/dL (8.4-10.2); Carbon Dioxide 24 mmol/L (22-30); Chloride 106 mmol/L (98-107); Glucose 119 mg/dL (74-99); Non-African American GFR(CKD) >90 (>60 ml/min/1.73 sqM); Potassium 4.5 mmol/L (3.5-5.1); Sodium 135 mmol/L (137-145)
--- NOTE | 2025-01-16 10:11 | P.PN ---
Subjective This is a pleasant 59 years old female Who presents because of left knee swelling. Patient states that she tripped and fell about 2 weeks ago when her pajama get caught in the thing After that she started having experiencing pain in her left leg. She was referred to orthopedic team and she is supposed to have an appointment today but that was canceled because her orthopedic surgeon is sick so she decided to come to emergency room She denies chest pain or dyspnea or coughing. No specific GI/ symptoms. No headache dizziness weakness numbness She denies smoking alcohol or illicit drugs Patient states that she takes Coumadin because she has a history of 3 blood clots in her leg also she had a stent in her leg. Usually she follow-up with Dr. Araujo team for to check her INR, last week it was 2.3. Patient was recently discharged from the hospital about 2 weeks ago for her occlusion of the right leg vessel s/p angioplasty and stent placement to the right popliteal artery 01/16 Patient left leg swelling redness significantly improved compared to yesterday, however her left leg still pretty swollen. Even the fluid collection on the top of her left patella looks less tense and slightly less red. Patient feels improvement as well. Patient INR is 2.8, will going to put Coumadin pharmacy to dose. Vascular surgery and orthopedic team are following. As well as certified alcohol and drug counselor. Because of there is still suspicion of infection and patient showed improvement with antibiotics also there is no fever no leukocytosis and pro- Calcitonin is normal at 0.08. Will going to consult infectious disease team. Patient denies any other new complaints She might go for angiogram of the lower extremity Active Medications Generic Name Dose Route Start Last Admin Trade Name Freq PRN Reason Stop Dose Admin Hydrocodone Bitart/Acetaminophen 1 each 01/15/25 12:01 01/16/25 08:02 Hydrocodone/Apap 5-325mg 1 Each Tab PO 1 each Q4HR PRN Administration Moderate Pain (Scale 4 to 6) Hydrocodone Bitart/Acetaminophen 1 each 01/15/25 19:00 Hydrocodone/Apap 5-325mg 1 Each Tab PO Q6HR PRN Pain Anastrozole 1 mg 01/16/25 09:00 01/16/25 08:03 Anastrozole 1 Mg Tab PO 1 mg DAILY LINDA Administration Aspirin 81 mg 01/16/25 09:00 01/16/25 08:03 Aspirin 81 Mg PO 81 mg DAILY LINDA Administration Atorvastatin Calcium 40 mg 01/16/25 09:00 01/16/25 08:03 Atorvastatin 40 Mg Tab PO 40 mg DAILY LINDA Administration Dextrose/Water 25 ml 01/15/25 18:53 Dextrose 50% Syringe 50 Ml IVP PER PROTOCOL PRN Hypoglycemia Protocol Dextrose/Water 50 ml 01/15/25 18:53 Dextrose 50% Syringe 50 Ml IVP PER PROTOCOL PRN Hypoglycemia Protocol Famotidine 20 mg 01/15/25 21:00 01/16/25 08:04 Famotidine 20 Mg/2 Ml Vial IV 20 mg Q12HR LINDA Administration Gabapentin 800 mg 01/15/25 22:00 01/16/25 08:02 Gabapentin 400 Mg Cap PO 800 mg TID LINDA Administration Heparin Sodium (Porcine) 0 unit 01/15/25 09:52 Heparin Sodium 1,000 Un/Ml (10ml Vl) IV PER PROTOCOL PRN Low PTT Protocol Hydromorphone HCl 0.5 mg 01/15/25 12:01 01/16/25 01:31 Hydromorphone 0.5 Mg/0.5 Ml Syringe IVP 0.5 mg Q3HR PRN Administration Moderate Pain (Scale 4 to 6) Sodium Chloride 1,000 mls @ 75 mls/hr 01/15/25 12:15 01/16/25 01:31 Saline 0.9% IV 75 mls/hr .[id number] LINDA Administration Cefazolin Sodium 2 gm/ Sodium 50 mls @ 100 mls/hr 01/15/25 16:00 01/16/25 08:02 Chloride IVPB 100 mls/hr Q8HR LINDA Administration Protocol Insulin Glargine 15 unit 01/16/25 07:00 01/16/25 06:29 Insulin Glargine (Lantus) 100 Unit/Ml Syr SQ Not Given DAILY@0700 [facility] Insulin Glargine 10 unit 01/15/25 21:00 01/15/25 20:52 Insulin Glargine (Lantus) 100 Unit/Ml Syr SQ 10 unit HS LINDA Administration Insulin Human Lispro 0 unit 01/15/25 21:00 01/16/25 06:29 Insulin Lispro (Humalog) 100 Unit/Ml 10 Ml Vl SQ Not Given ACHS [facility] Protocol Metoprolol Succinate 50 mg 01/15/25 21:00 01/16/25 08:02 Metoprolol Succinate (Er) 50 Mg Tab.Er.24h PO 50 mg Q12HR LINDA Administration Miscellaneous Information 1 each 01/16/25 10:06 Warfarin Per Pharmacy MISCELLANE DIRECTED PRN Per Protocol Protocol Naloxone HCl 0.2 mg 01/15/25 12:01 Naloxone 0.4 Mg/Ml 1 Ml Vial IV Q2M PRN Opioid Reversal Ondansetron HCl 4 mg 01/15/25 12:01 Ondansetron 4 Mg/2 Ml Vial IVP Q8HR PRN Nausea And Vomiting Objective - Vital Signs Vital signs: Vital Signs Temp 98.8 F 01/16/25 07:58 Pulse 74 01/16/25 07:59 Resp 16 01/16/25 07:59 BP 128/70 01/16/25 07:58 Pulse Ox 96 01/16/25 07:58 FiO2 Intake & Output 01/15/25 01/16/25 01/16/25 18:59 06:59 18:59 Intake Total 180 Balance 180 Weight 107.048 kg 104.1 kg Intake: Oral 180 Other: Voiding Method Toilet Toilet # Voids 0 1 - Exam GENERAL: The patient is alert and oriented x3, not in any acute distress. Well developed, well nourished. HEENT: Pupils are round and equally reacting to light. EOMI. No scleral icterus. No conjunctival pallor. Normocephalic, atraumatic. No pharyngeal erythema. No thyromegaly. CARDIOVASCULAR: S1 and S2 present. No murmurs, rubs, or gallops. PULMONARY: Chest is clear to auscultation, no wheezing , no crackles. ABDOMEN: Soft, nontender, nondistended, normoactive bowel sounds. No palpable organomegaly. MUSCULOSKELETAL: No joint swelling or deformity. -EXTREMITIES: No cyanosis, clubbing, or pedal edema. Left lower extremity is swollen little warm and tender, there is tender, red and fluctuating cystic mass on the top of the patella of the left knee, improving NEUROLOGICAL: Gross neurological examination did not reveal any focal deficits. SKIN: No rashes. no petechiae. - Labs CBC & Chem 7: 01/16/25 07:05 01/16/25 07:05 Labs: Abnormal Lab Results - Last 24 Hours (Table) 01/15/25 01/15/25 01/15/25 Range/Units 09:38 09:38 10:45 RBC (3.80-5.40) m/uL Hgb (11.4-16.0) gm/dL Hct (34.0-46.0) % PT 30.2 H (10.0-12.5) sec INR 3.0 H (<1.2) APTT 40.8 H (22.0-30.0) sec Sodium 132 L (137-145) mmol/L Potassium 6.7 H* 6.0 H (3.5-5.1) mmol/L Chloride 97 L (98-107) mmol/L BUN 31 H (7-17) mg/dL Glucose 239 H (74-99) mg/dL POC Glucose (mg/dL) (70-110) mg/dL Calcium (8.4-10.2) mg/dL 01/15/25 01/15/25 01/16/25 Range/Units 16:12 20:25 06:16 RBC (3.80-5.40) m/uL Hgb (11.4-16.0) gm/dL Hct (34.0-46.0) % PT (10.0-12.5) sec INR (<1.2) APTT (22.0-30.0) sec Sodium (137-145) mmol/L Potassium (3.5-5.1) mmol/L Chloride (98-107) mmol/L BUN (7-17) mg/dL Glucose (74-99) mg/dL POC Glucose (mg/dL) 172 H 288 H 140 H (70-110) mg/dL Calcium (8.4-10.2) mg/dL 01/16/25 01/16/25 01/16/25 Range/Units 07:05 07:05 07:05 RBC 3.50 L (3.80-5.40) m/uL Hgb 10.1 L (11.4-16.0) gm/dL Hct 32.4 L (34.0-46.0) % PT 28.3 H (10.0-12.5) sec INR 2.8 H (<1.2) APTT (22.0-30.0) sec Sodium 135 L (137-145) mmol/L Potassium (3.5-5.1) mmol/L Chloride (98-107) mmol/L BUN (7-17) mg/dL Glucose 119 H (74-99) mg/dL POC Glucose (mg/dL) (70-110) mg/dL Calcium 7.4 L (8.4-10.2) mg/dL Assessment and Plan Assessment: Remote falling more than 2 weeks earlier associated with left knee swelling on the top of the patella, highly suspicious for hematoma. Cellulitis cannot be excluded as there is associated with left lower extremity swelling and tenderness Preop evaluation Recent acute occlusion of the right leg SFA. S/p angioplasty and stent to the right popliteal artery Paroxysmal atrial fibrillation on Coumadin Hyperkalemia COPD with no acute exacerbation Diabetes mellitus Hypertension Hyperlipidemia History of GERD Obesity with BMI of 34.9. Plan: Follow-up blood culture Start the patient empirically on cefazolin for possible cellulitis. Infection disease consult Continue with normal saline 75 mL/h Pain management Patient on some risk to proceed with surgery but there is no absolute contraindication Vascular surgery team consult plan to take the patient to the OR Cardiology consult Resume Coumadin and monitor INR. Labs and medication were reviewed.. Continue same treatment. Continue with symptomatic treatment. Resume home medication. Monitor labs and vitals. DVT and GI prophylaxis. Further recommendations as per clinical course of the patient DVT prophylaxis: AC on hold GI Prophylaxis: Pepcid PT/OT: Pending Prognosis is guarded
[2025-01-16 11:41] LABS: Glucose,Whole Blood 200 mg/dL (70-110)
--- NOTE | 2025-01-16 11:49 | P.CRDCN ---
History of Present Illness Consult date: 01/16/25 Reason for Consult (text): Cardiac clearance for right lower extremity femoropopliteal bypass surgery History of present illness: This is a 59-year-old female with diabetes mellitus type 2 for 40 years, peripheral artery disease with chronic right lower extremity claudication and recurrent stenosis with previous percutaneous transluminal balloon angioplasty and stent placement the distal SFA and proximal popliteal artery above the knee, history of DVTs, hypertension, hyperlipidemia, paroxysmal atrial fibrillation, obesity, GERD, history of breast cancer. We have been asked to evaluate patient for cardiac clearance for right lower extremity femoropopliteal bypass surgery. Patient is scheduled for angiogram this afternoon and tentatively scheduled for femoropopliteal bypass on Tuesday. Patient states she does not follow with a geodetic advisor. Patient was recently hospitalized in December at that time was seen by cardiology for new diagnosis of paroxysmal atrial fibrillation was continued on Coumadin. Patient states the only time she had chest pain was when she had the atrial fibrillation several weeks ago. She states she does not usually walk very much. She does have shortness of breath occasionally. Blood pressure 128/74, heart rate 75, pulse ox 95% on room air. -Left lower extremity ultrasound duplex revealed negative for DVT. -Laboratory studies: WBC 5.5, hemoglobin 10.1, INR 2.8. Sodium 135, potassium 4.5, BUN 15 creatinine 0.72. A1c 9.1. -Home cardiac medications: Amlodipine 10 mg daily, aspirin 81 mg daily, atorvastatin 40 mg daily, lisinopril 40 mg daily, metoprolol succinate 50 mg every 12 hours, Coumadin 5 mg daily. -Echocardiogram from 12/27/2024 reveals normal LV function. Review Of Systems: At the time of my exam: CONSTITUTIONAL: Denies fever or chills. HEENT: Denies blurred vision, vision changes, or eye pain. Denies hemoptysis CARDIOVASCULAR: Denies chest pain. Denies orthopnea. Denies PND. Denies palpitations RESPIRATORY: Denies shortness of breath. GASTROINTESTINAL: Denies abdominal pain. Denies nausea or vomiting. HEMATOLOGIC: Denies bleeding disorders. GENITOURINARY: Denies any blood in urine. SKIN: Denies puritis. Denies rash. Physical examination: Gen: This is a 59-year-old female in no acute distress VS: reviewed HEENT: Head is atraumatic, normocephalic. Pupils equal, round. Sclerae is anicteric. NECK: Supple. No JVD. LUNGS: Clear to auscultation. No wheezes or rhonchi. No intercostal retractions. HEART: Regular rate and rhythm. ABDOMEN: Soft No tenderness. EXTREMITIES: No pedal edema. No calf tenderness. NEUROLOGICAL: Patient is awake, alert and oriented x3. Assessment: Acute right lower extremity limb ischemia Peripheral arterial disease with SFA occlusion status post recent angioplasty and stent as well as tPA infusion Diabetes mellitus type 1, uncontrolled with A1c of 9.1 Paroxysmal atrial fibrillation currently in a sinus rhythm Hypertension Hyperlipidemia Obesity with BMI of 33 GERD Plan: Continue patient's home cardiac medications Schedule patient for Lexiscan stress test tomorrow N.p.o. after midnight No need to repeat echocardiogram Further recommendations to follow based upon clinical course Thank you kindly for this consultation. Nurse practitioner note has been reviewed, I agree with documented findings and plan of care. Patient was seen and examined. Past Medical History Past Medical History: Cancer, COPD, Diabetes Mellitus, Deep Vein Thrombosis (DVT), GERD/Reflux, Hyperlipidemia, Hypertension, Osteoarthritis (OA), Seizure Disorder, Skin Disorder, Vascular Disorder Additional Past Medical History / Comment(s): heart murmur, 2016 R breast cancer -had surgery & chemo & radiation 7 yrs ago, IDDM type I, ? clarita. ft charcot neuropathy bilateral legs/feet, 09/2022 DVT L leg, one time seizure 10 or more years ago-testing done & never found anything, chronic pain mostly in feet and neck/back. 3 stents to right lower extremity on 08/23/24. History of Any Multi-Drug Resistant Organisms: None Reported Past Surgical History: Breast Surgery, Orthopedic Surgery, Tubal Ligation Additional Past Surgical History / Comment(s): right breast lumpectomy & lymph nodes removed, port for chemo/since removed, peripheral angioplasties/atherectomies, and removed blood clot from L leg, stents, right 2nd toe amputation d/t diabetic ulcer, bilateral carpal tunnel releases, cervical fusion, aortogram 08/02/24 Past Anesthesia/Blood Transfusion Reactions: No Reported Reaction Additional Past Anesthesia/Blood Transfusion Reaction / Comment(s): Pt received blood transfusion r/t blood loss with surgery. no issues Past Psychological History: Anxiety, Depression Additional Psychological History / Comment(s): Pt resides with spouse. Smoking Status: Former smoker Past Alcohol Use History: Rare Additional Past Alcohol Use History / Comment(s): Started smoking 1980 and quit in 2019. Past Drug Use History: None Reported - Past Family History Mother Family Medical History: Cancer Additional Family Medical History / Comment(s): Lung cancer, former smoker. Medications and Allergies Home Medications Medication Instructions Recorded Confirmed Type Atorvastatin [Lipitor] 40 mg PO DAILY 05/19/21 01/15/25 History INSULIN ASPART (NovoLOG) [NovoLOG 5 unit SQ AC-BID PRN 05/19/21 01/15/25 History (formulary)] Insulin Glargine,Hum.rec.anlog 30 unit SQ DAILY 05/19/21 01/15/25 History [Basaglar Kwikpen U-100] Omeprazole [PriLOSEC] 20 mg PO DAILY 05/19/21 01/15/25 History metFORMIN HCL [Glucophage] 1,000 mg PO BID 05/19/21 01/15/25 History Anastrozole 1 mg PO DAILY 10/08/22 01/15/25 History Gabapentin [Neurontin] 800 mg PO TID 08/30/24 01/15/25 History Insulin Glargine,Hum.rec.anlog 20 unit SQ HS 08/30/24 01/15/25 History [Basaglar Kwikpen U-100] amLODIPine [Norvasc] 10 mg PO DAILY 08/30/24 01/15/25 History Aspirin 81 mg PO DAILY #30 tab 12/28/24 01/15/25 Rx Metoprolol Succinate (ER) [Toprol 50 mg PO Q12HR #60 tab 12/28/24 01/15/25 Rx XL] HYDROcodone/APAP 5-325MG [[place] 1 tab PO Q6HR PRN 01/15/25 01/15/25 History 5-325] Warfarin [Coumadin] 5 mg PO DAILY 01/15/25 01/15/25 History lisinopriL [Zestril] 40 mg PO DAILY 01/15/25 01/15/25 History Allergies Allergy/AdvReac Type Severity Reaction Status Date / Time protamine Allergy BP Verified 01/15/25 13:33 dropped, heart rate elevated tetracycline [Tetracycline] Allergy Rash/Hives Verified 01/15/25 13:33 Physical Exam Vitals: Vital Signs Temp Pulse Pulse Resp BP BP Pulse Ox 01/16/25 11:00 99.4 F 75 16 128/74 95 01/16/25 07:59 74 16 01/16/25 07:58 98.8 F 74 16 128/70 96 01/16/25 04:00 98.5 F 77 16 123/69 95 01/16/25 02:00 82 16 01/16/25 00:00 98.7 F 85 16 139/68 98 01/15/25 20:00 98.4 F 86 16 137/70 97 01/15/25 15:19 98.6 F 77 16 128/73 97 01/15/25 15:00 98.6 F 77 16 128/73 97 01/15/25 14:36 98.4 F 83 18 140/85 96 01/15/25 13:00 98.4 F 80 22 137/66 95 Intake and Output 01/15/25 01/16/25 01/16/25 22:59 06:59 14:59 Intake Total 180 Balance 180 Intake: Oral 180 Other: Voiding Method Toilet Toilet Toilet # Voids 1 6 Weight 107.048 kg 104.1 kg Results 01/16/25 07:05 01/16/25 07:05 Cardiac Enzymes 01/15/25 01/15/25 01/15/25 Range/Units 09:38 09:38 09:38 WBC 10.0 (3.8-10.6) k/uL RBC 4.20 (3.80-5.40) m/uL Hgb 12.1 (11.4-16.0) gm/dL Hct 38.2 (34.0-46.0) % MCV 90.8 (80.0-100.0) fL MCH 28.7 (25.0-35.0) pg MCHC 31.6 (31.0-37.0) g/dL RDW 13.5 (11.5-15.5) % Plt Count 396 (150-450) k/uL MPV 7.5 Neutrophils % 76 % Lymphocytes % 15 % Monocytes % 5 % Eosinophils % 2 % Basophils % 0 % Neutrophils # 7.6 (1.3-7.7) k/uL Lymphocytes # 1.5 (1.0-4.8) k/uL Monocytes # 0.5 (0-1.0) k/uL Eosinophils # 0.2 (0-0.7) k/uL Basophils # 0.0 (0-0.2) k/uL Hypochromasia PT 30.2 H (10.0-12.5) sec INR 3.0 H (<1.2) APTT 40.8 H (22.0-30.0) sec Sodium 132 L (137-145) mmol/L Potassium 6.7 H* (3.5-5.1) mmol/L Chloride 97 L (98-107) mmol/L Carbon Dioxide 24 (22-30) mmol/L Anion Gap 11 mmol/L BUN 31 H (7-17) mg/dL Creatinine 0.95 (0.52-1.04) mg/dL Est GFR (CKD-EPI)AfAm 76 (>60 ml/min/1.73 sqM) Est GFR (CKD-EPI)NonAf 66 (>60 ml/min/1.73 sqM) Glucose 239 H (74-99) mg/dL POC Glucose (mg/dL) (70-110) mg/dL POC Glu Commercial Director ID Estimated Ave Glu mg/dL mg/dL Hemoglobin A1c (<=6.0) % Calcium 9.5 (8.4-10.2) mg/dL Total Bilirubin 0.7 (0.2-1.3) mg/dL ALT 33 (4-34) U/L Alkaline Phosphatase 91 (38-126) U/L Total Protein 6.9 (6.3-8.2) g/dL Albumin 4.0 (3.5-5.0) g/dL Procalcitonin (0.02-0.50) ng/mL 01/15/25 01/15/25 01/15/25 Range/Units 10:45 10:45 15:56 WBC (3.8-10.6) k/uL RBC (3.80-5.40) m/uL Hgb (11.4-16.0) gm/dL Hct (34.0-46.0) % MCV (80.0-100.0) fL MCH (25.0-35.0) pg MCHC (31.0-37.0) g/dL RDW (11.5-15.5) % Plt Count (150-450) k/uL MPV Neutrophils % % Lymphocytes % % Monocytes % % Eosinophils % % Basophils % % Neutrophils # (1.3-7.7) k/uL Lymphocytes # (1.0-4.8) k/uL Monocytes # (0-1.0) k/uL Eosinophils # (0-0.7) k/uL Basophils # (0-0.2) k/uL Hypochromasia PT (10.0-12.5) sec INR (<1.2) APTT (22.0-30.0) sec Sodium (137-145) mmol/L Potassium 6.0 H 5.1 (3.5-5.1) mmol/L Chloride (98-107) mmol/L Carbon Dioxide (22-30) mmol/L Anion Gap mmol/L BUN (7-17) mg/dL Creatinine (0.52-1.04) mg/dL Est GFR (CKD-EPI)AfAm (>60 ml/min/1.73 sqM) Est GFR (CKD-EPI)NonAf (>60 ml/min/1.73 sqM) Glucose (74-99) mg/dL POC Glucose (mg/dL) (70-110) mg/dL POC Glu Commercial Director ID Estimated Ave Glu mg/dL mg/dL Hemoglobin A1c (<=6.0) % Calcium (8.4-10.2) mg/dL Total Bilirubin (0.2-1.3) mg/dL ALT (4-34) U/L Alkaline Phosphatase (38-126) U/L Total Protein (6.3-8.2) g/dL Albumin (3.5-5.0) g/dL Procalcitonin 0.08 (0.02-0.50) ng/mL 01/15/25 01/15/25 01/16/25 Range/Units 16:12 20:25 06:16 WBC (3.8-10.6) k/uL RBC (3.80-5.40) m/uL Hgb (11.4-16.0) gm/dL Hct (34.0-46.0) % MCV (80.0-100.0) fL MCH (25.0-35.0) pg MCHC (31.0-37.0) g/dL RDW (11.5-15.5) % Plt Count (150-450) k/uL MPV Neutrophils % % Lymphocytes % % Monocytes % % Eosinophils % % Basophils % % Neutrophils # (1.3-7.7) k/uL Lymphocytes # (1.0-4.8) k/uL Monocytes # (0-1.0) k/uL Eosinophils # (0-0.7) k/uL Basophils # (0-0.2) k/uL Hypochromasia PT (10.0-12.5) sec INR (<1.2) APTT (22.0-30.0) sec Sodium (137-145) mmol/L Potassium (3.5-5.1) mmol/L Chloride (98-107) mmol/L Carbon Dioxide (22-30) mmol/L Anion Gap mmol/L BUN (7-17) mg/dL Creatinine (0.52-1.04) mg/dL Est GFR (CKD-EPI)AfAm (>60 ml/min/1.73 sqM) Est GFR (CKD-EPI)NonAf (>60 ml/min/1.73 sqM) Glucose (74-99) mg/dL POC Glucose (mg/dL) 172 H 288 H 140 H (70-110) mg/dL POC Glu Commercial Director ID Denis Hernandez Estimated [address] Glu mg/dL mg/dL Hemoglobin A1c (<=6.0) % Calcium (8.4-10.2) mg/dL Total Bilirubin (0.2-1.3) mg/dL ALT (4-34) U/L Alkaline Phosphatase (38-126) U/L Total Protein (6.3-8.2) g/dL Albumin (3.5-5.0) g/dL Procalcitonin (0.02-0.50) ng/mL 01/16/25 01/16/25 01/16/25 Range/Units 07:05 07:05 07:05 WBC 5.5 (3.8-10.6) k/uL RBC 3.50 L (3.80-5.40) m/uL Hgb 10.1 L (11.4-16.0) gm/dL Hct 32.4 L (34.0-46.0) % MCV 92.4 (80.0-100.0) fL MCH 28.7 (25.0-35.0) pg MCHC 31.1 (31.0-37.0) g/dL RDW 13.5 (11.5-15.5) % Plt Count 330 (150-450) k/uL MPV 7.5 Neutrophils % 61 % Lymphocytes % 25 % Monocytes % 8 % Eosinophils % 4 % Basophils % 0 % Neutrophils # 3.4 (1.3-7.7) k/uL Lymphocytes # 1.4 (1.0-4.8) k/uL Monocytes # 0.5 (0-1.0) k/uL Eosinophils # 0.2 (0-0.7) k/uL Basophils # 0.0 (0-0.2) k/uL Hypochromasia Slight PT 28.3 H (10.0-12.5) sec INR 2.8 H (<1.2) APTT (22.0-30.0) sec Sodium (137-145) mmol/L Potassium (3.5-5.1) mmol/L Chloride (98-107) mmol/L Carbon Dioxide (22-30) mmol/L Anion Gap mmol/L BUN (7-17) mg/dL Creatinine (0.52-1.04) mg/dL Est GFR (CKD-EPI)AfAm (>60 ml/min/1.73 sqM) Est GFR (CKD-EPI)NonAf (>60 ml/min/1.73 sqM) Glucose (74-99) mg/dL POC Glucose (mg/dL) (70-110) mg/dL POC Glu Commercial Director ID Estimated Ave Glu mg/dL 214 mg/dL Hemoglobin A1c 9.1 H (<=6.0) % Calcium (8.4-10.2) mg/dL Total Bilirubin (0.2-1.3) mg/dL ALT (4-34) U/L Alkaline Phosphatase (38-126) U/L Total Protein (6.3-8.2) g/dL Albumin (3.5-5.0) g/dL Procalcitonin (0.02-0.50) ng/mL 01/16/25 Range/Units 07:05 WBC (3.8-10.6) k/uL RBC (3.80-5.40) m/uL Hgb (11.4-16.0) gm/dL Hct (34.0-46.0) % MCV (80.0-100.0) fL MCH (25.0-35.0) pg MCHC (31.0-37.0) g/dL RDW (11.5-15.5) % Plt Count (150-450) k/uL MPV Neutrophils % % Lymphocytes % % Monocytes % % Eosinophils % % Basophils % % Neutrophils # (1.3-7.7) k/uL Lymphocytes # (1.0-4.8) k/uL Monocytes # (0-1.0) k/uL Eosinophils # (0-0.7) k/uL Basophils # (0-0.2) k/uL Hypochromasia PT (10.0-12.5) sec INR (<1.2) APTT (22.0-30.0) sec Sodium 135 L (137-145) mmol/L Potassium 4.5 (3.5-5.1) mmol/L Chloride 106 (98-107) mmol/L Carbon Dioxide 24 (22-30) mmol/L Anion Gap 5 mmol/L BUN 15 (7-17) mg/dL Creatinine 0.72 (0.52-1.04) mg/dL Est GFR (CKD-EPI)AfAm >90 (>60 ml/min/1.73 sqM) Est GFR (CKD-EPI)NonAf >90 (>60 ml/min/1.73 sqM) Glucose 119 H (74-99) mg/dL POC Glucose (mg/dL) (70-110) mg/dL POC Glu Commercial Director ID Estimated Ave Glu mg/dL mg/dL Hemoglobin A1c (<=6.0) % Calcium 7.4 L (8.4-10.2) mg/dL Total Bilirubin (0.2-1.3) mg/dL ALT (4-34) U/L Alkaline Phosphatase (38-126) U/L Total Protein (6.3-8.2) g/dL Albumin (3.5-5.0) g/dL Procalcitonin (0.02-0.50) ng/mL Coagulation 01/16/25 Range/Units 07:05 PT 28.3 H (10.0-12.5) sec CBC 01/16/25 Range/Units 07:05 WBC 5.5 (3.8-10.6) k/uL RBC 3.50 L (3.80-5.40) m/uL Hgb 10.1 L (11.4-16.0) gm/dL Hct 32.4 L (34.0-46.0) % Plt Count 330 (150-450) k/uL Comprehensive Metabolic Panel 01/15/25 01/15/25 01/16/25 Range/Units 10:45 15:56 07:05 Sodium 135 L (137-145) mmol/L Potassium 6.0 H 5.1 4.5 (3.5-5.1) mmol/L Chloride 106 (98-107) mmol/L Carbon Dioxide 24 (22-30) mmol/L BUN 15 (7-17) mg/dL Creatinine 0.72 (0.52-1.04) mg/dL Glucose 119 H (74-99) mg/dL Calcium 7.4 L (8.4-10.2) mg/dL Current Medications Generic Name Dose Route Start Last Admin Trade Name Freq PRN Reason Stop Dose Admin Hydrocodone Bitart/Acetaminophen 1 each 01/15/25 12:01 01/16/25 08:02 Hydrocodone/Apap 5-325mg 1 Each Tab PO 1 each Q4HR PRN Administration Moderate Pain (Scale 4 to 6) Hydrocodone Bitart/Acetaminophen 1 each 01/15/25 19:00 Hydrocodone/Apap 5-325mg 1 Each Tab PO Q6HR PRN Pain Anastrozole 1 mg 01/16/25 09:00 01/16/25 08:03 Anastrozole 1 Mg Tab PO 1 mg DAILY LINDA Administration Aspirin 81 mg 01/16/25 09:00 01/16/25 08:03 Aspirin 81 Mg PO 81 mg DAILY LINDA Administration Atorvastatin Calcium 40 mg 01/16/25 09:00 01/16/25 08:03 Atorvastatin 40 Mg Tab PO 40 mg DAILY LINDA Administration Dextrose/Water 25 ml 01/15/25 18:53 Dextrose 50% Syringe 50 Ml IVP PER PROTOCOL PRN Hypoglycemia Protocol Dextrose/Water 50 ml 01/15/25 18:53 Dextrose 50% Syringe 50 Ml IVP PER PROTOCOL PRN Hypoglycemia Protocol Famotidine 20 mg 01/15/25 21:00 01/16/25 08:04 Famotidine 20 Mg/2 Ml Vial IV 20 mg Q12HR LINDA Administration Gabapentin 800 mg 01/15/25 22:00 01/16/25 08:02 Gabapentin 400 Mg Cap PO 800 mg TID LINDA Administration Hydromorphone HCl 0.5 mg 01/15/25 12:01 01/16/25 01:31 Hydromorphone 0.5 Mg/0.5 Ml Syringe IVP 0.5 mg Q3HR PRN Administration Moderate Pain (Scale 4 to 6) Sodium Chloride 1,000 mls @ 75 mls/hr 01/15/25 12:15 01/16/25 11:01 Saline 0.9% IV 75 mls/hr .[id number] LINDA Administration Cefazolin Sodium 2 gm/ Sodium 50 mls @ 100 mls/hr 01/15/25 16:00 01/16/25 08:02 Chloride IVPB 100 mls/hr Q8HR [facility] Administration Protocol Insulin Glargine 15 unit 01/16/25 07:00 01/16/25 06:29 Insulin Glargine (Lantus) 100 Unit/Ml Syr SQ Not Given DAILY@0700 [facility] Insulin Glargine 10 unit 01/15/25 21:00 01/15/25 20:52 Insulin Glargine (Lantus) 100 Unit/Ml Syr SQ 10 unit HS [facility] Administration Insulin Human Lispro 0 unit 01/15/25 21:00 01/16/25 06:29 Insulin Lispro (Humalog) 100 Unit/Ml 10 Ml Vl SQ Not Given ACHS [facility] Protocol Metoprolol Succinate 50 mg 01/15/25 21:00 01/16/25 08:02 Metoprolol Succinate (Er) 50 Mg Tab.Er.24h PO 50 mg Q12HR LINDA Administration Miscellaneous Information 1 each 01/16/25 10:06 Warfarin Per Pharmacy MISCELLANE DIRECTED PRN Per Protocol Protocol Naloxone HCl 0.2 mg 01/15/25 12:01 Naloxone 0.4 Mg/Ml 1 Ml Vial IV Q2M PRN Opioid Reversal Ondansetron HCl 4 mg 01/15/25 12:01 Ondansetron 4 Mg/2 Ml Vial IVP Q8HR PRN Nausea And Vomiting Warfarin Sodium 5 mg 01/16/25 18:00 Warfarin 5 Mg Tab PO 01/16/25 18:01 ONCE@1800 ONE Intake and Output 01/15/25 01/16/25 01/16/25 22:59 06:59 14:59 Intake Total 180 Balance 180 Intake: Oral 180 Other: Voiding Method Toilet Toilet Toilet # Voids 1 6 Weight 107.048 kg 104.1 kg 01/16/25 07:05 01/16/25 07:05
[2025-01-16 13:10] LABS: Glucose,Whole Blood 163 mg/dL (70-110)
[2025-01-16] MEDS: IV FLUID CONTINUATION 1,000 ML IV ONE (15:15)
[2025-01-16] MEDS: HEPARIN SODIUM,PORCINE 10,000 UNIT in SODIUM CHLORIDE 0.9% 1,000 ML IRRIGATION ONE (15:15)
[2025-01-16] MEDS: LIDOCAINE 1% INJ 10MG/ML (20 ML MDV) SQ ONE (15:18)
--- NOTE | 2025-01-16 15:19 | P.CNOR ---
History of Present Illness - [facility] Consult date: 01/16/25 Consult reason: joint pain History of present illness: Patient seen at bedside today in consultation for left knee pain/swelling. She states she fell a week or so ago on her left knee after tripping over a baby gat e. She developed pain and swelling. She states her leg felt warm for a week. It is improved today. She is on an anticoagulant for arterial occlusions. She is pending a procedure for her right lower extremity. She denies numbness, calf pain, fever or chills. Review of Systems All systems: negative Constitutional: Denies chills, Denies fever Eyes: denies blurred vision, denies pain Ears, nose, mouth and throat: Denies headache, Denies sore throat Cardiovascular: Denies chest pain, Denies shortness of breath Respiratory: Denies cough Gastrointestinal: Denies abdominal pain, Denies diarrhea, Denies nausea, Denies vomiting Genitourinary: Denies dysuria, Denies hematuria Musculoskeletal: Denies myalgias Integumentary: Denies pruritus, Denies rash Neurological: Denies numbness, Denies weakness Psychiatric: Denies anxiety, Denies depression Endocrine: Denies fatigue, Denies weight change Past Medical History Past Medical History: Cancer, COPD, Diabetes Mellitus, Deep Vein Thrombosis (DVT), GERD/Reflux, Hyperlipidemia, Hypertension, Osteoarthritis (OA), Seizure Disorder, Skin Disorder, Vascular Disorder Additional Past Medical History / Comment(s): heart murmur, 2016 R breast cancer -had surgery & chemo & radiation 7 yrs ago, IDDM type I, ? clarita. ft charcot neuropathy bilateral legs/feet, 09/2022 DVT L leg, one time seizure 10 or more years ago-testing done & never found anything, chronic pain mostly in feet and neck/back. 3 stents to right lower extremity on 08/23/24. History of Any Multi-Drug Resistant Organisms: None Reported Past Surgical History: Breast Surgery, Orthopedic Surgery, Tubal Ligation Additional Past Surgical History / Comment(s): right breast lumpectomy & lymph nodes removed, port for chemo/since removed, peripheral angioplasties/atherectomies, and removed blood clot from L leg, stents, right 2nd toe amputation d/t diabetic ulcer, bilateral carpal tunnel releases, cervical fusion, aortogram 08/02/24 Past Anesthesia/Blood Transfusion Reactions: No Reported Reaction Additional Past Anesthesia/Blood Transfusion Reaction / Comm: Pt received blood transfusion r/t blood loss with surgery. no issues Past Psychological History: Anxiety, Depression Additional Psychological History / Comment(s): Pt resides with spouse. Smoking Status: Former smoker Past Alcohol Use History: Rare Additional Past Alcohol Use History / Comment(s): Started smoking 1980 and quit in 2019. Past Drug Use History: None Reported - Past Family History Mother Family Medical History: Cancer Additional Family Medical History / Comment(s): Lung cancer, former smoker. Medications and Allergies Home Medications Medication Instructions Recorded Confirmed Type Atorvastatin [Lipitor] 40 mg PO DAILY 05/19/21 01/15/25 History INSULIN ASPART (NovoLOG) [NovoLOG 5 unit SQ AC-BID PRN 05/19/21 01/15/25 History (formulary)] Insulin Glargine,Hum.rec.anlog 30 unit SQ DAILY 05/19/21 01/15/25 History [Basaglar Kwikpen U-100] Omeprazole [PriLOSEC] 20 mg PO DAILY 05/19/21 01/15/25 History metFORMIN HCL [Glucophage] 1,000 mg PO BID 05/19/21 01/15/25 History Anastrozole 1 mg PO DAILY 10/08/22 01/15/25 History Gabapentin [Neurontin] 800 mg PO TID 08/30/24 01/15/25 History Insulin Glargine,Hum.rec.anlog 20 unit SQ HS 08/30/24 01/15/25 History [Basaglar Kwikpen U-100] amLODIPine [Norvasc] 10 mg PO DAILY 08/30/24 01/15/25 History Aspirin 81 mg PO DAILY #30 tab 12/28/24 01/15/25 Rx Metoprolol Succinate (ER) [Toprol 50 mg PO Q12HR #60 tab 12/28/24 01/15/25 Rx XL] HYDROcodone/APAP 5-325MG [[place] 1 tab PO Q6HR PRN 01/15/25 01/15/25 History 5-325] Warfarin [Coumadin] 5 mg PO DAILY 01/15/25 01/15/25 History lisinopriL [Zestril] 40 mg PO DAILY 01/15/25 01/15/25 History Allergies Allergy/AdvReac Type Severity Reaction Status Date / Time protamine Allergy BP Verified 01/15/25 13:33 dropped, heart rate elevated tetracycline [Tetracycline] Allergy Rash/Hives Verified 01/15/25 13:33 Physical Examination Inspection of left lower extremity shows swelling at left prepatellar and suprapatella bursa. There is edema and echymoses at left distal lower extremity. No erythema.There is tenderness at the patella. It is not overly hot. Pain at the left patella with flexion and extension of the knee. Quad is intact. Calf is SNT. NVI with motor and sensation throughout left lower extremity. 1+ DP and PT pulse. less than 2 sec cap refill present Results - Labs Labs: Abnormal Lab Results - Last 24 Hours (Table) 01/15/25 01/15/25 01/16/25 Range/Units 16:12 20:25 06:16 RBC (3.80-5.40) m/uL Hgb (11.4-16.0) gm/dL Hct (34.0-46.0) % PT (10.0-12.5) sec INR (<1.2) Sodium (137-145) mmol/L Glucose (74-99) mg/dL POC Glucose (mg/dL) 172 H 288 H 140 H (70-110) mg/dL Hemoglobin A1c (<=6.0) % Calcium (8.4-10.2) mg/dL 01/16/25 01/16/25 01/16/25 Range/Units 07:05 07:05 07:05 RBC 3.50 L (3.80-5.40) m/uL Hgb 10.1 L (11.4-16.0) gm/dL Hct 32.4 L (34.0-46.0) % PT 28.3 H (10.0-12.5) sec INR 2.8 H (<1.2) Sodium (137-145) mmol/L Glucose (74-99) mg/dL POC Glucose (mg/dL) (70-110) mg/dL Hemoglobin A1c 9.1 H (<=6.0) % Calcium (8.4-10.2) mg/dL 01/16/25 01/16/25 01/16/25 Range/Units 07:05 11:39 13:09 RBC (3.80-5.40) m/uL Hgb (11.4-16.0) gm/dL Hct (34.0-46.0) % PT (10.0-12.5) sec INR (<1.2) Sodium 135 L (137-145) mmol/L Glucose 119 H (74-99) mg/dL POC Glucose (mg/dL) 200 H 163 H (70-110) mg/dL Hemoglobin A1c (<=6.0) % Calcium 7.4 L (8.4-10.2) mg/dL H & H 01/15/25 01/16/25 Range/Units 09:38 07:05 Hgb 12.1 10.1 L (11.4-16.0) gm/dL Hct 38.2 32.4 L (34.0-46.0) % Coagulation 01/15/25 01/16/25 Range/Units 09:38 07:05 INR 3.0 H 2.8 H (<1.2) Result Diagrams: 01/16/25 07:05 01/16/25 07:05 - Diagnostic results Knee x-ray: report reviewed, image reviewed (Negative for fracture) Assessment and Plan (1) Prepatellar bursitis Narrative/Plan: Recommend continue IV antibiotics, ice, elevation, compression to left knee. Will monitor closely. May consider further testing including MRI if does not show continued improvement. Patient discussed with Dr. Corey. Current Visit: Yes Status: Acute Priority: Medium Code(s): M70.40 - PREPATELLAR BURSITIS, UNSPECIFIED KNEE SNOMED Code(s): 20879772 (2) Contusion of left knee Current Visit: Yes Status: Acute Priority: Medium Code(s): S80.02XA - CONTUSION OF LEFT KNEE, INITIAL ENCOUNTER SNOMED Code(s): [id number]
[2025-01-16] MEDS: fentaNYL (PF) 50 MCG/ML 2 ML AMP IVP ONE (15:21)
[2025-01-16] MEDS: MIDAZOLAM 2 MG/2 ML VIAL IVP ONE (15:21)
[2025-01-16] MEDS: VERAPAMIL SYRINGE (5 MG/10 ML) INTRAARTER ONE (15:23)
[2025-01-16] MEDS: IOPAMIDOL-250 100ML BTL INTRAARTER ONE (15:38)
[2025-01-16 16:12] LABS: Glucose,Whole Blood 116 mg/dL (70-110)
--- NOTE | 2025-01-16 16:12 | P.OP ---
Date of Procedure: 01/16/25 Description of Procedure: Preoperative diagnosis: Right lower extremity occlusive disease, acute on chronic Postoperative diagnosis: Same Procedure: Ultrasound-guided right radial artery access Placement of catheter in infrarenal abdominal aorta to the right iliac artery, selective third order, from radial approach Selective right lower extremity angiogram Moderate conscious sedation with personal monitoring certified RN administration and personal hemodynamic monitoring for 20 minutes Surgeon: Kimberlyn Asif D.O. EBL: Less than 5 cc IV fluids: See records Urine output: Not measured Drains: None Complications: None immediately apparent Condition: Stable to recovery Operative indication and findings: Patient is 59 a-year-old with peripheral vascular disease. She has had previous multiple concerns of her right lower extremity with previous denting. She has had multiple issues with acute arterial occlusion of this area. Given the fact that this is her third acute occlusion and just over 2 months, the plan set forth is likely to go forward with bypass as the current maneuvers are not lasting. Today she is brought to the suite for a angiogram to evaluate distal outflow options for bypass target. Risks and benefits including but not limited to bleeding, infection, injury to the vessel, stroke, cardiopulmonary risks and ischemic changes to the extremities were discussed. They seemingly understood this willing to proceed. Procedure in detail: Patient was taken to the special suite and placed in supine position. The left upper extremity was prepped and draped in usual sterile fashion. A preprocedural timeout was performed, all parties were in agreement. Using the ultrasound, the radial artery was identified. The skin overlying was anesthetized with 1% lidocaine plain. The artery was patent without significant calcific disease and a permanent image was stored. Under direct visualization, the artery was accessed and Seldinger technique was used to place a 5 slender sheath. Catheters and wires were then used to selectively place a catheter across the subclavian, into the aortic arch and then selectively in the descending thoracic aorta and down into the abdominal aorta and subsequently into the external iliac artery. An angiogram was performed showing a widely patent external artery. The common femoral artery appears patent without significant disease. Evidence of previous thromboendarterectomy and patch angioplasty. Upon appeared patent without significant disease. The superficial femoral artery and stents at the proximal level appeared patent. At the level of the mid thigh there is full occlusion at the area of a placed stent. There is a collateral vessel and reconstitution of the popliteal artery distally just below the knee. The anterior tibial, peroneal and posterior tibial arteries are visualized. There are diminutive and difficult to visualize the on the mid calf due to lack of inline flow. After satisfactory images, catheters and wires were removed. The sheath was removed and a TR band was placed.
[2025-01-16] MEDS: WARFARIN 5 MG TAB PO ONE (16:53)
[2025-01-16 19:46] LABS: Glucose,Whole Blood 313 mg/dL (70-110)
--- NOTE | 2025-01-16 21:43 | P.CONS ---
History of Present Illness - Reason for Consult Consult date: 01/16/25 Left leg cellulitis Requesting physician: Corey E Sheet - Chief Complaint Pain and swelling to left knee area x few days - History of Present Illness Patient is a 59-year-old female with a past medical history significant for diabetes mellitus DVT hyperlipidemia hypertension seizure disorder COPD has been brought into the hospital for evaluation of right foot pain in this patient who did have history of PAD and has multiple stent to the right lower extremity was concerned about her foot felt "patient also have recent fall falling on her left knee area with the patient has developed bruising and has swelling some redness and complaining of pain to the left knee area which was described as moderate intensity without any radiation and limitation of the movement of the left knee area patient on presentation the hospital was afebrile and no fever have been recorded subsequently patient was not tachycardic hypotensive or hypoxic patient did have a white count of 5.5 INR is 2.8 creatinine 0.72 electrolytes has been normal liver enzymes are normal did have blood cultures obtained also have x-ray of the knee superficial soft tissue swelling over the patella patient has been treated with cefazolin infectious disease was consulted today concerning for left leg cellulitis possible patient did mention improvement in the pain after she had been started on antibiotics Review of Systems Positive point and negatives has been mentioned in the HPI, complete review of systems was performed and all other systems are negative Past Medical History Past Medical History: Cancer, COPD, Diabetes Mellitus, Deep Vein Thrombosis (DVT), GERD/Reflux, Hyperlipidemia, Hypertension, Osteoarthritis (OA), Seizure Disorder, Skin Disorder, Vascular Disorder Additional Past Medical History / Comment(s): heart murmur, 2016 R breast cancer -had surgery & chemo & radiation 7 yrs ago, IDDM type I, ? clarita. ft charcot neuropathy bilateral legs/feet, 09/2022 DVT L leg, one time seizure 10 or more years ago-testing done & never found anything, chronic pain mostly in feet and neck/back. 3 stents to right lower extremity on 08/23/24. History of Any Multi-Drug Resistant Organisms: None Reported Past Surgical History: Breast Surgery, Orthopedic Surgery, Tubal Ligation Additional Past Surgical History / Comment(s): right breast lumpectomy & lymph nodes removed, port for chemo/since removed, peripheral ang ioplasties/atherectomies, and removed blood clot from L leg, stents, right 2nd toe amputation d/t diabetic ulcer, bilateral carpal tunnel releases, cervical fusion, aortogram 08/02/24 Past Anesthesia/Blood Transfusion Reactions: No Reported Reaction Additional Past Anesthesia/Blood Transfusion Reaction / Comm: Pt received blood transfusion r/t blood loss with surgery. no issues Past Psychological History: Anxiety, Depression Additional Psychological History / Comment(s): Pt resides with spouse. Smoking Status: Former smoker Past Alcohol Use History: Rare Additional Past Alcohol Use History / Comment(s): Started smoking 1980 and quit in 2019. Past Drug Use History: None Reported - Past Family History Mother Family Medical History: Cancer Additional Family Medical History / Comment(s): Lung cancer, former smoker. Medications and Allergies Home Medications Medication Instructions Recorded Confirmed Type Atorvastatin [Lipitor] 40 mg PO DAILY 05/19/21 01/15/25 History INSULIN ASPART (NovoLOG) [NovoLOG 5 unit SQ AC-BID PRN 05/19/21 01/15/25 History (formulary)] Insulin Glargine,Hum.rec.anlog 30 unit SQ DAILY 05/19/21 01/15/25 History [Basaglar Kwikpen U-100] Omeprazole [PriLOSEC] 20 mg PO DAILY 05/19/21 01/15/25 History metFORMIN HCL [Glucophage] 1,000 mg PO BID 05/19/21 01/15/25 History Anastrozole 1 mg PO DAILY 10/08/22 01/15/25 History Gabapentin [Neurontin] 800 mg PO TID 08/30/24 01/15/25 History Insulin Glargine,Hum.rec.anlog 20 unit SQ HS 08/30/24 01/15/25 History [Basaglar Kwikpen U-100] amLODIPine [Norvasc] 10 mg PO DAILY 08/30/24 01/15/25 History Aspirin 81 mg PO DAILY #30 tab 12/28/24 01/15/25 Rx Metoprolol Succinate (ER) [Toprol 50 mg PO Q12HR #60 tab 12/28/24 01/15/25 Rx XL] HYDROcodone/APAP 5-325MG [Alexis 1 tab PO Q6HR PRN 01/15/25 01/15/25 History 5-325] Warfarin [Coumadin] 5 mg PO DAILY 01/15/25 01/15/25 History lisinopriL [Zestril] 40 mg PO DAILY 01/15/25 01/15/25 History Allergies Allergy/AdvReac Type Severity Reaction Status Date / Time protamine Allergy BP Verified 01/15/25 13:33 dropped, heart rate elevated tetracycline [Tetracycline] Allergy Rash/Hives Verified 01/15/25 13:33 Physical Exam Vitals: Vital Signs Temp Pulse Pulse Resp BP BP Pulse Ox 01/16/25 07:59 74 16 01/16/25 07:58 98.8 F 74 16 128/70 96 01/16/25 04:00 98.5 F 77 16 123/69 95 01/16/25 02:00 82 16 01/16/25 00:00 98.7 F 85 16 139/68 98 01/15/25 20:00 98.4 F 86 16 137/70 97 01/15/25 15:19 98.6 F 77 16 128/73 97 01/15/25 15:00 98.6 F 77 16 128/73 97 01/15/25 14:36 98.4 F 83 18 140/85 96 01/15/25 13:00 98.4 F 80 22 137/66 95 01/15/25 11:00 83 20 172/82 98 Intake and Output 01/15/25 01/16/25 01/16/25 22:59 06:59 14:59 Intake Total 180 Balance 180 Intake: Oral 180 Other: Voiding Method Toilet Toilet Toilet # Voids 1 Weight 107.048 kg 104.1 kg GENERAL DESCRIPTION: Middle-aged female lying in bed, no distress. No tachypnea or accessory muscle of respiration use. HEENT: Shows Pallor , no scleral icterus. Oral mucous membrane is dry. No pharyngeal erythema or thrush NECK: Trachea central, no thyromegaly. LUNGS: Unlabored breathing. Clear to auscultation anteriorly. No wheeze or crackle. HEART: S1, S2, regular rate and rhythm. No loud murmur ABDOMEN: Soft, no tenderness , guarding or rigidity, no organomegaly EXTREMITIES: Left knee did have some bruising swelling minimal redness no drainage SKIN: No rash, no masses palpable. NEUROLOGICAL: The patient is awake, alert, oriented x3, mood and affect normal. Results CBC & Chem 7: 01/18/25 07:23 01/18/25 07:23 Labs: Abnormal Lab Results - Last 24 Hours (Table) 01/15/25 01/15/25 01/15/25 Range/Units 10:45 16:12 20:25 RBC (3.80-5.40) m/uL Hgb (11.4-16.0) gm/dL Hct (34.0-46.0) % PT (10.0-12.5) sec INR (<1.2) Sodium (137-145) mmol/L Potassium 6.0 H (3.5-5.1) mmol/L Glucose (74-99) mg/dL POC Glucose (mg/dL) 172 H 288 H (70-110) mg/dL Hemoglobin A1c (<=6.0) % Calcium (8.4-10.2) mg/dL 01/16/25 01/16/25 01/16/25 Range/Units 06:16 07:05 07:05 RBC 3.50 L (3.80-5.40) m/uL Hgb 10.1 L (11.4-16.0) gm/dL Hct 32.4 L (34.0-46.0) % PT (10.0-12.5) sec INR (<1.2) Sodium (137-145) mmol/L Potassium (3.5-5.1) mmol/L Glucose (74-99) mg/dL POC Glucose (mg/dL) 140 H (70-110) mg/dL Hemoglobin A1c 9.1 H (<=6.0) % Calcium (8.4-10.2) mg/dL 01/16/25 01/16/25 Range/Units 07:05 07:05 RBC (3.80-5.40) m/uL Hgb (11.4-16.0) gm/dL Hct (34.0-46.0) % PT 28.3 H (10.0-12.5) sec INR 2.8 H (<1.2) Sodium 135 L (137-145) mmol/L Potassium (3.5-5.1) mmol/L Glucose 119 H (74-99) mg/dL POC Glucose (mg/dL) (70-110) mg/dL Hemoglobin A1c (<=6.0) % Calcium 7.4 L (8.4-10.2) mg/dL Assessment and Plan (1) Cellulitis of left knee Current Visit: Yes Status: Acute Code(s): L03.116 - CELLULITIS OF LEFT LOWER LIMB SNOMED Code(s): 89539482063983280 (2) Prepatellar bursitis Current Visit: Yes Status: Acute Priority: Medium Code(s): M70.40 - PREPATELLAR BURSITIS, UNSPECIFIED KNEE SNOMED Code(s): 28056952 Plan: 1patient with syndrome of left knee swelling some redness and pain in this patient noted to have recently fall with concern for possible left knee septic prepatellar bursitis and likely from gram-positive skin sherley with the patient mentions some improvement in her symptoms with the cefazolin 2we will camilo the area of the redness and swelling. 3cefazolin 2 g every 8 hours while waiting for the workup to be completed We will follow on clinical condition and cultures to further adjust medication if needed Thank you for this consultation we will follow the patient along with you Dictation was produced using [employer] dictation software. please excuse any grammatical, word or spelling errors. Time with Patient: Greater than 30
--- NOTE | 2025-01-16 23:43 | IR ---
Fluoroscopy INDICATION: Pain FINDINGS: Fluoroscopy time: 4 minutes 36 seconds. Total dose area product (DAP) in uGy*m?, mGy*cm? (or similar): 6.03 Images obtained: 382. IMPRESSION: 1. Documentation of fluoroscopy. [facility], , 01/16/2025 11:40 PM
[2025-01-17 05:38] LABS: Glucose,Whole Blood 126 mg/dL (70-110)
[2025-01-17] MEDS ORDERED: CAFFEINE CITRATE 60 MG/3 ML VIAL IV PRN (06:00)
[2025-01-17] MEDS ORDERED: AMINOPHYLLINE 500 MG/20 ML VIAL IV PRN (06:00)
[2025-01-17] MEDS ORDERED: REGADENOSON 0.4 MG/5 ML SYRINGE IV PRN (06:00)
[2025-01-17 07:32] LABS: INR 2.2 (<1.2); Prothrombin Time 22.2 sec (10.0-12.5)
[2025-01-17 07:39] LABS: Glucose,Whole Blood 185 mg/dL (70-110)
[2025-01-17] MEDS ORDERED: REGADENOSON 0.4 MG/5 ML SYRINGE IV ONE (08:00)
[2025-01-17 11:30] LABS: Glucose,Whole Blood 251 mg/dL (70-110)
--- NOTE | 2025-01-17 11:58 | NM ---
EXAMINATION TYPE: NM stress lexiscan cardiolite DATE OF EXAM: 01/17/2025 COMPARISON: NONE CLINICAL INDICATION: Female, 59 years old with history of preop clearance, TECHNIQUE: After the intravenous administration of 10 mCi Tc 99m Sestamibi - Cardiolite resting SPEC T images acquired 50 minutes post injection. At peak stress 26.7 mCi Tc 99m Sestamibi - Stress images obtained 35 minutes post injection The patient was stressed with 0.4mg Lexiscan. FINDINGS: There is diminished radiotracer accumulation along the inferior wall adjacent to the cardiac apex. Th is area has a more normal radiotracer distribution on the resting images. Pole or maps correlate with the SPECT imaging. Findings suspicious for stress-induced ischemic changes distal inferior wall at t he cardiac apex. Wall motion is normal. Ejection fraction is calculated to be 63 %. IMPRESSION: 1. Stress-induced ischemic change at the distal inferior wall extending into the cardiac apex. A Archer level critical message alert has been initiated for Corey E Sheet via the [employer] Critical Results System on 01/17/2025 11:55 AM. This message alert has been sent to Corey E Sheet via the preferences provided by the clinician for the receipt of Radiology Critical Findings. Message ID [id number]. [facility], , 01/17/2025 11:55 AM
--- NOTE | 2025-01-17 12:24 | CA ---
Lexiscan Nuclear Stress Test Report Name: Kendal Villeda Exam Date: 01/17/2025 10:07 Exam Location: [facility] Ht (in): 69 Wt (lb): 229 BSA: 2.19 Ordering Phys: Loli Cheung Referring Phys: Sheet,, Technologist: HESHAM,, Age: 59 Gender: F : 1965 Procedure CPT: Indications: Reflex order-Stress test ICD-10 Codes: Patient History: Short of breath, hypertension, diabetes, hyperlipidemai and pre op. Medications: SEE CHART,,,,, Meds past 24 hrs: Pretest Chest Pain: STRESS TEST Lexiscan Protocol Exercise Duration (min:sec): 01:[address] Depressions (mm): Angina Score: Saldivar Score: Resting HR (bpm): 79 Peak HR (bpm): 92 Resting BP (mmHg): 146 / 58 Peak BP (mmHg): 146 / 50 MPHR: 161 Target HR: 137 % MPHR: 57 METS: 1.0 Total Dose: Peak Dose: Atropine: Double Product: 96773 BP Response: Stress Termination: INFUSION COMPLETE Stress Symptoms: NO SYMPTOMS Stress Summary: ECG ANALYSIS Resting ECG: Stress ECG: CONCLUSIONS RESTING EKG: [Normal sinus rhythm, normal EKG] Patient recieved IV infusion of Lexiscan 0.4mg and at peak infusion STRESS EKG showed: [No significant ST-T wave changes diagnostic for ischemia by ST segment analysis] ARRYTHMIAS: [No ectopic rhythms or sustained arrythmias] CONCLUSION: 1. Normal hemodynamic and clinical response to Lexiscan infusion. 2. Non-ischemic EKG response to lexiscan infusion Please refer to the nuclear imaging portion of this stress test for complete interpretation of the study. Dr Valdo Castañeda (Electronically Signed) Final Date: 17 January 2025 12:23
[2025-01-17 12:32] VITALS: BMI 33.9
--- NOTE | 2025-01-17 12:56 | P.PN ---
Subjective This is a pleasant 59 years old female Who presents because of left knee swelling. Patient states that she tripped and fell about 2 weeks ago when her pajama get caught in the thing After that she started having experiencing pain in her left leg. She was referred to orthopedic team and she is supposed to have an appointment today but that was canceled because her orthopedic surgeon is sick so she decided to come to emergency room She denies chest pain or dyspnea or coughing. No specific GI/ symptoms. No headache dizziness weakness numbness She denies smoking alcohol or illicit drugs Patient states that she takes Coumadin because she has a history of 3 blood clots in her leg also she had a stent in her leg. Usually she follow-up with Dr. Araujo team for to check her INR, last week it was 2.3. Patient was recently discharged from the hospital about 2 weeks ago for her occlusion of the right leg vessel s/p angioplasty and stent placement to the right popliteal artery 01/16 Patient left leg swelling redness significantly improved compared to yesterday, however her left leg still pretty swollen. Even the fluid collection on the top of her left patella looks less tense and slightly less red. Patient feels improvement as well. Patient INR is 2.8, will going to put Coumadin pharmacy to dose. Vascular surgery and orthopedic team are following. As well as milling machine operator gear. Because of there is still suspicion of infection and patient showed improvement with antibiotics also there is no fever no leukocytosis and pro- Calcitonin is normal at 0.08. Will going to consult infectious disease team. Patient denies any other new complaints She might go for angiogram of the lower extremity 01/17 Patient fully awake and oriented and looks comfortable with no pain or distress She still has left lower extremity and prepatellar bursitis infection. Infection is suspected rather than hematoma. Patient responding well to antibiotics. Also patient is evidence with occluded SFA in the middle of the thigh per angiogram done yesterday with vascular surgery team. Patient may require femoral-popliteal bypass as such she required preop evaluation. However stress test came back positive today. I called the radiology department for the stress test. Will going to inform milling machine operator gear. Patient already on aspirin and she denies any cardiac symptoms like chest pain or dyspnea for now. Patient informed with the results and other management plan and she agrees. Review of systems CONSTITUTIONAL: No fever, no malaise, no fatigue. HEENT: No recent visual problems or hearing problems. Denied any sore throat. CARDIOVASCULAR: No orthopnea, PND, no palpitations, no syncope. PULMONARY: No shortness of breath, no cough, no hemoptysis. GASTROINTESTINAL: No diarrhea, no nausea, no vomiting, no abdominal pain. Normoactive bowel sounds. NEUROLOGICAL: No headaches, no weakness, no numbness. Active Medications Generic Name Dose Route Start Last Admin Trade Name Freq PRN Reason Stop Dose Admin Hydrocodone Bitart/Acetaminophen 1 each 01/15/25 12:01 01/17/25 11:47 Hydrocodone/Apap 5-325mg 1 Each Tab PO 1 each Q4HR PRN Administration Moderate Pain (Scale 4 to 6) Hydrocodone Bitart/Acetaminophen 1 each 01/15/25 19:00 Hydrocodone/Apap 5-325mg 1 Each Tab PO Q6HR PRN Pain Aminophylline 100 mg 01/17/25 06:00 Aminophylline 500 Mg/20 Ml Vial IV 01/17/25 23:00 ONCE PRN Patient Response Anastrozole 1 mg 01/16/25 09:00 01/17/25 07:45 Anastrozole 1 Mg Tab PO 1 mg DAILY LINDA Administration Aspirin 81 mg 01/16/25 09:00 01/17/25 07:46 Aspirin 81 Mg PO 81 mg DAILY LINDA Administration Atorvastatin Calcium 40 mg 01/16/25 09:00 01/17/25 07:45 Atorvastatin 40 Mg Tab PO 40 mg DAILY LINDA Administration Caffeine Citrate 60 mg 01/17/25 06:00 Caffeine Citrate 60 Mg/3 Ml Vial IV 01/17/25 23:00 ONCE PRN Patient Response Dextrose/Water 25 ml 01/15/25 18:53 Dextrose 50% Syringe 50 Ml IVP PER PROTOCOL PRN Hypoglycemia Protocol Dextrose/Water 50 ml 01/15/25 18:53 Dextrose 50% Syringe 50 Ml IVP PER PROTOCOL PRN Hypoglycemia Protocol Famotidine 20 mg 01/15/25 21:00 01/17/25 07:45 Famotidine 20 Mg/2 Ml Vial IV 20 mg Q12HR LINDA Administration Gabapentin 800 mg 01/15/25 22:00 01/17/25 07:45 Gabapentin 400 Mg Cap PO 800 mg TID LINDA Administration Hydromorphone HCl 0.5 mg 01/15/25 12:01 01/17/25 00:56 Hydromorphone 0.5 Mg/0.5 Ml Syringe IVP 0.5 mg Q3HR PRN Administration Moderate Pain (Scale 4 to 6) Sodium Chloride 1,000 mls @ 75 mls/hr 01/15/25 12:15 01/17/25 11:49 Saline 0.9% IV 75 mls/hr .[id number] LINDA Administration Cefazolin Sodium 2 gm/ Sodium 50 mls @ 100 mls/hr 01/15/25 16:00 01/17/25 08:20 Chloride IVPB 100 mls/hr Q8HR LINDA Administration Protocol Insulin Glargine 15 unit 01/16/25 07:00 01/17/25 11:48 Insulin Glargine (Lantus) 100 Unit/Ml Syr SQ 15 unit DAILY@0700 LINDA Administration Insulin Glargine 10 unit 01/15/25 21:00 01/16/25 20:40 Insulin Glargine (Lantus) 100 Unit/Ml Syr SQ 10 unit HS LINDA Administration Insulin Human Lispro 0 unit 01/15/25 21:00 01/17/25 11:48 Insulin Lispro (Humalog) 100 Unit/Ml 10 Ml Vl SQ 6 unit ACHS LINAD Administration Protocol Metoprolol Succinate 50 mg 01/15/25 21:00 01/17/25 07:45 Metoprolol Succinate (Er) 50 Mg Tab.Er.24h PO 50 mg Q12HR LINDA Administration Miscellaneous Information 1 each 01/16/25 10:06 Warfarin Per Pharmacy MISCELLANE DIRECTED PRN Per Protocol Protocol Naloxone HCl 0.2 mg 01/15/25 12:01 Naloxone 0.4 Mg/Ml 1 Ml Vial IV Q2M PRN Opioid Reversal Ondansetron HCl 4 mg 01/15/25 12:01 Ondansetron 4 Mg/2 Ml Vial IVP Q8HR PRN Nausea And Vomiting Regadenoson 0.4 mg 01/17/25 06:00 Regadenoson 0.4 Mg/5 Ml Syringe IV 01/17/25 23:00 ONCE PRN Per Protocol Warfarin Sodium 5 mg 01/17/25 18:00 Warfarin 5 Mg Tab PO 01/17/25 18:01 ONCE@1800 ONE Objective - Vital Signs Vital signs: Vital Signs Temp 98.8 F 01/17/25 11:46 Pulse 92 01/17/25 11:46 Resp 17 01/17/25 11:46 BP 147/80 01/17/25 11:46 Pulse Ox 96 01/17/25 11:46 FiO2 Intake & Output 01/16/25 01/17/25 01/17/25 18:59 06:59 18:59 Intake Total 275 120 Balance 275 120 Weight 104.2 kg 104.2 kg Intake: IV 75 Oral 200 120 Other: Voiding Method Toilet Toilet Toilet # Voids 1 2 1 - Exam GENERAL: The patient is alert and oriented x3, not in any acute distress. Well developed, well nourished. HEENT: Pupils are round and equally reacting to light. EOMI. No scleral icterus. No conjunctival pallor. Normocephalic, atraumatic. No pharyngeal erythema. No thyromegaly. CARDIOVASCULAR: S1 and S2 present. No murmurs, rubs, or gallops. PULMONARY: Chest is clear to auscultation, no wheezing , no crackles. ABDOMEN: Soft, nontender, nondistended, normoactive bowel sounds. No palpable organomegaly. MUSCULOSKELETAL: No joint swelling or deformity. -EXTREMITIES: No cyanosis, clubbing, or pedal edema. Left lower extremity is swollen little warm and tender, there is tender, red and fluctuating cystic mass on the top of the patella of the left knee, improving NEUROLOGICAL: Gross neurological examination did not reveal any focal deficits. SKIN: No rashes. no petechiae. - Labs CBC & Chem 7: 01/16/25 07:05 01/16/25 07:05 Labs: Abnormal Lab Results - Last 24 Hours (Table) 01/16/25 01/16/25 01/16/25 Range/Units 13:09 16:11 19:44 PT (10.0-12.5) sec INR (<1.2) POC Glucose (mg/dL) 163 H 116 H 313 H (70-110) mg/dL 01/17/25 01/17/25 01/17/25 Range/Units 05:37 06:14 07:38 PT 22.2 H (10.0-12.5) sec INR 2.2 H (<1.2) POC Glucose (mg/dL) 126 H 185 H (70-110) mg/dL 01/17/25 Range/Units 11:28 PT (10.0-12.5) sec INR (<1.2) POC Glucose (mg/dL) 251 H (70-110) mg/dL Microbiology - Last 24 Hours (Table) 01/15/25 15:56 Blood Culture - Preliminary Blood Assessment and Plan Assessment: Remote falling more than 2 weeks earlier associated with left knee swelling on the top of the patella, highly suspicious for hematoma. Cellulitis cannot be excluded as there is associated with left lower extremity swelling and tenderness Preop evaluation Coronary artery disease with positive stress test Recent acute occlusion of the right leg SFA. S/p angioplasty and stent to the right popliteal artery Paroxysmal atrial fibrillation on Coumadin Hyperkalemia COPD with no acute exacerbation Diabetes mellitus Hypertension Hyperlipidemia History of GERD Obesity with BMI of 34.9. Plan: Follow-up blood culture Start the patient empirically on cefazolin for possible cellulitis. Infection disease consult Continue with normal saline 75 mL/h Pain management Patient on some risk to proceed with surgery but there is no absolute contraindication Vascular surgery team consult plan to take the patient to the OR Cardiology consult. Patient has positive stress test ordered by milling machine operator gear. Continued on aspirin for now Resume Coumadin and monitor INR. Labs and medication were reviewed.. Continue same treatment. Continue with symptomatic treatment. Resume home medication. Monitor labs and vitals. DVT and GI prophylaxis. Further recommendations as per clinical course of the patient DVT prophylaxis: AC on hold GI Prophylaxis: Pepcid PT/OT: Pending Prognosis is guarded
--- NOTE | 2025-01-17 13:11 | P.PN ---
Subjective Progress Note Date: 01/17/25 Principal diagnosis: Peripheral arterial disease, right arterial occlusion Patient seen and examined as a follow-up. Patient underwent stress test today for cardiac clearance for scheduled right lower extremity bypass tomorrow. However patient was reevaluated today by orthopedic surgeon and they state patient has a septic knee and plans are for possible I&D. Patient has good range of motion of right foot, no overall change in pain. Denies any shortness of breath or chest pain. She has been afebrile. No leukocytosis. Objective - Vital Signs Vital signs: Vital Signs Temp 98.8 F 01/17/25 11:46 Pulse 92 01/17/25 11:46 Resp 17 01/17/25 11:46 BP 147/80 01/17/25 11:46 Pulse Ox 96 01/17/25 11:46 FiO2 Intake & Output 01/16/25 01/17/25 01/17/25 18:59 06:59 18:59 Intake Total 275 120 Balance 275 120 Weight 104.2 kg 104.2 kg Intake: IV 75 Oral 200 120 Other: Voiding Method Toilet Toilet Toilet # Voids 1 2 1 - Exam General appearance: The patient is alert, oriented, appears in no acute distre ss. HET: Head is normocephalic and atraumatic. Pupils are equal and reactive. Neck: Supple. Heart: Regular. Lungs: Equal expansion, normal respiratory effort. Abdomen: Soft, nontender, nondistended. Extremities: Right lower extremity warm to the touch up to the ankle, foot is cool to the touch. Sensorimotor intact with full range of motion. Nonpalpable PT or DP pulse. Palpable bilateral radial pulses. Left knee swollen, red left calf and julien with swelling and bruising. Tender to palpation. Neurological: No focal deficits. Strength and sensation are grossly intact. - Labs CBC & Chem 7: 01/16/25 07:05 01/16/25 07:05 Labs: Abnormal Lab Results - Last 24 Hours (Table) 01/16/25 01/16/25 01/16/25 Range/Units 13:09 16:11 19:44 PT (10.0-12.5) sec INR (<1.2) POC Glucose (mg/dL) 163 H 116 H 313 H (70-110) mg/dL 01/17/25 01/17/25 01/17/25 Range/Units 05:37 06:14 07:38 PT 22.2 H (10.0-12.5) sec INR 2.2 H (<1.2) POC Glucose (mg/dL) 126 H 185 H (70-110) mg/dL 01/17/25 Range/Units 11:28 PT (10.0-12.5) sec INR (<1.2) POC Glucose (mg/dL) 251 H (70-110) mg/dL Microbiology - Last 24 Hours (Table) 01/15/25 15:56 Blood Culture - Preliminary Blood Assessment and Plan Assessment: 1. Acute limb ishemia, right lower extremity 2. Peripheral arterial disease with SFA occlusion status post recent angioplasty and stent as well as tPA infusion 3. Recurrent in stent stenosis 4. [place] 3 right lower extremity claudication 5. Hyperkalemia 6. Atrial fibrillation 7. Left lower extremity injury with swelling and ecchymosis secondary to recent fall 8. Suspected septic knee per orthopedics Plan: 1. Patient may have consistent carbohydrate diet 2. Will hold off on heparin infusion secondary to therapeutic INR 3. Orthopedics on consultation, they suspect septic knee with possible need for I&D. 5. Venous duplex of left lower extremity ordered and reviewed 6. Cardiology consult for cardiac clearance for possible right lower extremity femoral-pop bypass 7. Tentative plan was for right femoropopliteal bypass with CryoVein for tomorrow, currently canceled secondary to concern for septic knee 8. Patient will need to be started on anticoagulation following I&D 9. Further recommendations forthcoming based on clinical course Thank you for this consultation, we will continue to follow. The impression and plan of care has been dictated as directed. Dr. Km Ramirez performed a history and examination of this patient, discussed the same with the dictator. I agree with the dictator's note ,documented as a scribe. Any additional findings or plans will be noted.
[2025-01-17] MEDS ORDERED: ALPRAZolam 0.5 MG TAB PO PRN (13:52)
[2025-01-17] MEDS ORDERED: NITROGLYCERIN SL TABS 0.4 MG TAB SUBLINGUAL PRN (13:52)
--- NOTE | 2025-01-17 14:04 | P.PN ---
Subjective Progress Note Date: 01/17/25 Reason for Consult (text): Cardiac clearance for right lower extremity femoropopliteal bypass surgery History of present illness: This is a 59-year-old female with diabetes mellitus type 2 for 40 years, peripheral artery disease with chronic right lower extremity claudication and recurrent stenosis with previous percutaneous transluminal balloon angioplasty and stent placement the distal SFA and proximal popliteal artery above the knee, history of DVTs, hypertension, hyperlipidemia, paroxysmal atrial fibrillation, obesity, GERD, history of breast cancer. We have been asked to evaluate patient for cardiac clearance for right lower extremity femoropopliteal bypass surgery. Patient is scheduled for angiogram this afternoon and tentatively scheduled for femoropopliteal bypass on Tuesday. 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 Patient was recently hospitalized in December at that time was seen by cardiology for new diagnosis of paroxysmal atrial fibrillation was continued on Coumadin. Patient states the only time she had chest pain was when she had the atrial fibrillation several weeks ago. She states she does not usually walk very much. She does have shortness of breath occasionally. Blood pressure 128/74, heart rate 75, pulse ox 95% on room air. -Left lower extremity ultrasound duplex revealed negative for DVT. -Laboratory studies: WBC 5.5, hemoglobin 10.1, INR 2.8. Sodium 135, potassium 4.5, BUN 15 creatinine 0.72. A1c 9.1. -Home cardiac medications: Amlodipine 10 mg daily, aspirin 81 mg daily, atorvastatin 40 mg daily, lisinopril 40 mg daily, metoprolol succinate 50 mg every 12 hours, Coumadin 5 mg daily. -Echocardiogram from 12/27/2024 reveals normal LV function. 01/17 Patient seen and examined. Patient underwent Lexiscan stress test today which reported with stress-induced ischemic change at the distal inferior wall extending into the cardiac apex. Yesterday, patient underwent angiogram of the right lower extremity. Dr. Dumont discussed results of stress test with patient. Recommend cardiac catheterization which she is agreeable to move forward with this. Repeat blood work reveals INR 2.2. Blood pressure 147/80, heart rate 92, pulse ox 96% on room air. Orthopedics has been consulted for septic left knee. Physical examination: Gen: This is a 59-year-old female in no acute distress VS: reviewed HEENT: Head is atraumatic, normocephalic. Pupils equal, round. Sclerae is anicteric. NECK: Supple. No JVD. LUNGS: Clear to auscultation. No wheezes or rhonchi. No intercostal retractio ns. HEART: Regular rate and rhythm. ABDOMEN: Soft No tenderness. EXTREMITIES: No pedal edema. NEUROLOGICAL: Patient is awake, alert and oriented x3. Assessment: Acute right lower extremity limb ischemia Abnormal stress test Septic left knee Peripheral arterial disease with SFA occlusion status post recent angioplasty and stent as well as tPA infusion Diabetes mellitus type 1, uncontrolled with A1c of 9.1 Paroxysmal atrial fibrillation currently in a sinus rhythm Hypertension Hyperlipidemia Obesity with BMI of 33 GERD Plan: Continue patient's home cardiac medications Resume lisinopril N.p.o. after midnight Schedule patient for cardiac catheterization tomorrow with Dr. Dumont No need to repeat echocardiogram Further recommendations to follow based upon clinical course Thank you kindly for this consultation. Nurse practitioner note has been reviewed, I agree with documented findings and plan of care. Patient was seen and examined. Objective - Vital Signs Vital signs: Vital Signs Temp 98.8 F 01/17/25 11:46 Pulse 92 01/17/25 11:46 Resp 17 01/17/25 11:46 BP 147/80 01/17/25 11:46 Pulse Ox 96 01/17/25 11:46 FiO2 Intake & Output 01/16/25 01/17/25 01/17/25 18:59 06:59 18:59 Intake Total 275 120 Balance 275 120 Weight 104.2 kg 104.2 kg Intake: IV 75 Oral 200 120 Other: Voiding Method Toilet Toilet Toilet # Voids 1 2 1 - Labs CBC & Chem 7: 01/16/25 07:05 01/16/25 07:05 Labs: Abnormal Lab Results - Last 24 Hours (Table) 01/16/25 01/16/25 01/17/25 Range/Units 16:11 19:44 05:37 PT (10.0-12.5) sec INR (<1.2) POC Glucose (mg/dL) 116 H 313 H 126 H (70-110) mg/dL 01/17/25 01/17/25 01/17/25 Range/Units 06:14 07:38 11:28 PT 22.2 H (10.0-12.5) sec INR 2.2 H (<1.2) POC Glucose (mg/dL) 185 H 251 H (70-110) mg/dL Microbiology - Last 24 Hours (Table) 01/15/25 15:56 Blood Culture - Preliminary Blood
[2025-01-17] MEDS: lisinopriL 20 MG TAB PO SCH (14:24)
[2025-01-17 16:38] LABS: Glucose,Whole Blood 307 mg/dL (70-110)
[2025-01-17] MEDS: WARFARIN 5 MG TAB PO ONE (17:16)
[2025-01-17 20:05] LABS: Glucose,Whole Blood 285 mg/dL (70-110)
--- NOTE | 2025-01-17 21:28 | P.PN ---
Subjective Progress Note Date: 01/17/25 Principal diagnosis: Left knee bursitis cellulitis Patient is seen at bedside this am. We are following regarding her left knee pain and swelling. She does not feel improved from yesterday. She has been on IV antibiotics. She continues with pain and swelling. She denies numbness, calf pain, fever or chills. Objective - Vital Signs Vital signs: Vital Signs Temp 98.9 F 01/17/25 07:40 Pulse 80 01/17/25 07:41 Resp 17 01/17/25 07:41 BP 148/74 01/17/25 07:40 Pulse Ox 96 01/17/25 07:40 FiO2 Intake & Output 01/16/25 01/17/25 01/17/25 18:59 06:59 18:59 Intake Total 275 120 Balance 275 120 Weight 104.2 kg Intake: IV 75 Oral 200 120 Other: Voiding Method Toilet Toilet Toilet # Voids 1 2 - Exam Inspection of left knee shows continue prepatellar/suprapatellar swelling. There appears to be increased erythema at the patella. It is tender to touch. She has pain with flexion and extension at the patella. There doesnt appear to be joint line pain or effusion in the joint. Calf is SNT. There is some edema at the left ower leg. NVI. - Labs CBC & Chem 7: 01/16/25 07:05 01/16/25 07:05 Labs: Abnormal Lab Results - Last 24 Hours (Table) 01/16/25 01/16/25 01/16/25 Range/Units 07:05 11:39 13:09 PT (10.0-12.5) sec INR (<1.2) POC Glucose (mg/dL) 200 H 163 H (70-110) mg/dL Hemoglobin A1c 9.1 H (<=6.0) % 01/16/25 01/16/25 01/17/25 Range/Units 16:11 19:44 05:37 PT (10.0-12.5) sec INR (<1.2) POC Glucose (mg/dL) 116 H 313 H 126 H (70-110) mg/dL Hemoglobin A1c (<=6.0) % 01/17/25 01/17/25 Range/Units 06:14 07:38 PT 22.2 H (10.0-12.5) sec INR 2.2 H (<1.2) POC Glucose (mg/dL) 185 H (70-110) mg/dL Hemoglobin A1c (<=6.0) % Microbiology - Last 24 Hours (Table) 01/15/25 15:56 Blood Culture - Preliminary Blood Assessment and Plan (1) Prepatellar bursitis Narrative/Plan: Patient discussed with Dr. Corey and Dr. Asif. We will plan is for I and D of left knee tomorrow at 12 pm in lieu of her previous planned right fem pop procedure. She is to remain NPO after MN. Continue med management, DVT prophylaxis, pain management, and abiotics. Current Visit: Yes Status: Acute Priority: Medium Code(s): M70.40 - PREPATELLAR BURSITIS, UNSPECIFIED KNEE SNOMED Code(s): 87882436 (2) Contusion of left knee Current Visit: Yes Status: Acute Priority: Medium Code(s): S80.02XA - CONTUSION OF LEFT KNEE, INITIAL ENCOUNTER SNOMED Code(s): 98486283036850848
[2025-01-18] MEDS: ASPIRIN 325 MG TAB PO ONE (05:46)
[2025-01-18] MEDS: ATORVASTATIN 80 MG TAB PO ONE (05:46)
[2025-01-18 06:22] LABS: Glucose,Whole Blood 229 mg/dL (70-110)
[2025-01-18] MEDS ORDERED: HEPARIN SODIUM,PORCINE 10,000 UNIT in SODIUM CHLORIDE 0.9% 1,000 ML IRRIGATION PRN (07:00)
[2025-01-18] MEDS ORDERED: HEPARIN SODIUM,PORCINE (1 ML) 2,500 UNIT in SODIUM CHLORIDE 0.9% 250 ML IRRIGATION PRN (07:00)
[2025-01-18 08:29] LABS: INR 2.1 (<1.2)
[2025-01-18 08:30] LABS: Prothrombin Time 21.6 sec (10.0-12.5)
[2025-01-18 08:41] LABS: Basophils % (A) 0 %; Eosinophils # (A) 0.3 k/uL (0-0.7); Eosinophils % (A) 4 %; HCT 36.1 % (34.0-46.0); HGB 11.2 gm/dL (11.4-16.0); Hypochromasia Slight; Lymphocytes # (A) 1.1 k/uL (1.0-4.8); Lymphocytes % (A) 18 %; MCH 28.8 pg (25.0-35.0); MCHC 30.9 g/dL (31.0-37.0); Mean Platelet Volume 8.1; Monocytes # (A) 0.4 k/uL (0-1.0); Monocytes % (A) 6 %; Neutrophils # (A) 4.4 k/uL (1.3-7.7); Neutrophils % (A) 70 %; Platelet Count 296 k/uL (150-450); RBC 3.88 m/uL (3.80-5.40); RDW 13.6 % (11.5-15.5); WBC 6.3 k/uL (3.8-10.6)
--- NOTE | 2025-01-18 08:43 | P.PN ---
Subjective This is a pleasant 59 years old female Who presents because of left knee swelling. Patient states that she tripped and fell about 2 weeks ago when her pajama get caught in the thing After that she started having experiencing pain in her left leg. She was referred to orthopedic team and she is supposed to have an appointment today but that was canceled because her orthopedic surgeon is sick so she decided to come to emergency room She denies chest pain or dyspnea or coughing. No specific GI/ symptoms. No headache dizziness weakness numbness She denies smoking alcohol or illicit drugs Patient states that she takes Coumadin because she has a history of 3 blood clots in her leg also she had a stent in her leg. Usually she follow-up with Dr. Araujo team for to check her INR, last week it was 2.3. Patient was recently discharged from the hospital about 2 weeks ago for her occlusion of the right leg vessel s/p angioplasty and stent placement to the right popliteal artery 01/16 Patient left leg swelling redness significantly improved compared to yesterday, however her left leg still pretty swollen. Even the fluid collection on the top of her left patella looks less tense and slightly less red. Patient feels improvement as well. Patient INR is 2.8, will going to put Coumadin pharmacy to dose. Vascular surgery and orthopedic team are following. As well as all source intelligence. Because of there is still suspicion of infection and patient showed improvement with antibiotics also there is no fever no leukocytosis and pro- Calcitonin is normal at 0.08. Will going to consult infectious disease team. Patient denies any other new complaints She might go for angiogram of the lower extremity 01/17 Patient fully awake and oriented and looks comfortable with no pain or distress She still has left lower extremity and prepatellar bursitis infection. Infection is suspected rather than hematoma. Patient responding well to antibiotics. Also patient is evidence with occluded SFA in the middle of the thigh per angiogram done yesterday with vascular surgery team. Patient may require femoral-popliteal bypass as such she required preop evaluation. However stress test came back positive today. I called the radiology department for the stress test. Will going to inform all source intelligence. Patient already on aspirin and she denies any cardiac symptoms like chest pain or dyspnea for now. Patient informed with the results and other management plan and she agrees. 01/18 Patient going for cardiac cath today after she had positive stress test yesterday. No chest pain or dyspnea. Her left leg cellulitis and prepatellar soft tissue swelling is significantly improving every day She still complains from squeezing in her right leg and intermittent claudication with walking Patient feels little bit frustrated from everything going on but she denies any depression any other new complaints. She remains on warfarin with INR 2.1 which is therapeutic, on cefazolin and normal saline. Also she is on aspirin and Lipitor. Objective - Vital Signs Vital signs: Vital Signs Temp 98.5 F 01/18/25 04:00 Pulse 77 01/18/25 04:00 Resp 17 01/18/25 04:00 BP 136/74 01/18/25 04:00 Pulse Ox 95 01/18/25 04:00 FiO2 Intake & Output 01/17/25 01/18/25 01/18/25 18:59 06:59 18:59 Intake Total 660 Balance 660 Weight 104.2 kg 104.1 kg Intake: Oral 660 Other: Voiding Method Toilet Toilet # Voids 7 2 # Bowel Movements 1 - Exam GENERAL: The patient is alert and oriented x3, not in any acute distress. Well developed, well nourished. HEENT: Pupils are round and equally reacting to light. EOMI. No scleral icterus. No conjunctival pallor. Normocephalic, atraumatic. No pharyngeal erythema. No thyromegaly. CARDIOVASCULAR: S1 and S2 present. No murmurs, rubs, or gallops. PULMONARY: Chest is clear to auscultation, no wheezing , no crackles. ABDOMEN: Soft, nontender, nondistended, normoactive bowel sounds. No palpable organomegaly. MUSCULOSKELETAL: No joint swelling or deformity. -EXTREMITIES: No cyanosis, clubbing, or pedal edema. Left lower extremity is swollen little warm and tender, there is tender, red and fluctuating cystic mass on the top of the patella of the left knee, improving NEUROLOGICAL: Gross neurological examination did not reveal any focal deficits. SKIN: No rashes. no petechiae. - Labs CBC & Chem 7: 01/18/25 07:23 01/16/25 07:05 Labs: Abnormal Lab Results - Last 24 Hours (Table) 01/17/25 01/17/25 01/17/25 Range/Units 11:28 16:37 20:03 Hgb (11.4-16.0) gm/dL MCHC (31.0-37.0) g/dL PT (10.0-12.5) sec INR (<1.2) POC Glucose (mg/dL) 251 H 307 H 285 H (70-110) mg/dL 01/18/25 01/18/25 01/18/25 Range/Units 06:19 07:23 07:23 Hgb 11.2 L (11.4-16.0) gm/dL MCHC 30.9 L (31.0-37.0) g/dL PT 21.6 H (10.0-12.5) sec INR 2.1 H (<1.2) POC Glucose (mg/dL) 229 H (70-110) mg/dL Microbiology - Last 24 Hours (Table) 01/15/25 15:56 Blood Culture - Preliminary Blood Assessment and Plan Assessment: Remote falling more than 2 weeks earlier associated with left knee swelling on the top of the patella, highly suspicious for hematoma. Cellulitis cannot be excluded as there is associated with left lower extremity swelling and tenderness Preop evaluation Coronary artery disease with positive stress test Recent acute occlusion of the right leg SFA. S/p angioplasty and stent to the r ight popliteal artery Paroxysmal atrial fibrillation on Coumadin Hyperkalemia COPD with no acute exacerbation Diabetes mellitus Hypertension Hyperlipidemia History of GERD Obesity with BMI of 34.9. Plan: Follow-up blood culture Start the patient empirically on cefazolin for possible cellulitis. Infection disease consult Continue with normal saline 75 mL/h Patient is Going for cardiac cath on 01/18 Pain management Patient on some risk to proceed with surgery but there is no absolute contraindication Vascular surgery team consult plan to take the patient to the OR Cardiology consult. Patient has positive stress test ordered by all source intelligence. Continued on aspirin for now Resume Coumadin and monitor INR. Labs and medication were reviewed.. Continue same treatment. Continue with symptomatic treatment. Resume home medication. Monitor labs and vitals. DVT and GI prophylaxis. Further recommendations as per clinical course of the patient DVT prophylaxis: AC on hold GI Prophylaxis: Pepcid PT/OT: Pending Prognosis is guarded
[2025-01-18 09:12] LABS: African American GFR (CKD) >90 (>60 ml/min/1.73 sqM); Anion Gap 12 mmol/L; Blood Urea Nitrogen 18 mg/dL (7-17); Calcium 9.1 mg/dL (8.4-10.2); Carbon Dioxide 21 mmol/L (22-30); Chloride 100 mmol/L (98-107); Glucose 244 mg/dL (74-99); Non-African American GFR(CKD) 83 (>60 ml/min/1.73 sqM); Sodium 133 mmol/L (137-145)
[2025-01-18 09:16] LABS: Potassium 5.4 mmol/L (3.5-5.1)
--- NOTE | 2025-01-18 10:42 | P.PN ---
Subjective Progress Note Date: 01/18/25 Principal diagnosis: Peripheral arterial disease, right arterial occlusion Patient is seen and examined today as a follow-up. She was initially scheduled to undergo right femoral to popliteal bypass today however patient was evaluated by orthopedic surgeon and there is a high suspicion for left septic knee. Bypass was canceled and patient was scheduled for surgical I&D of the left knee today. However, yesterday she underwent cardiac stress test for clearance for surgery and had ischemic changes. She is now scheduled for cardiac catheterization today. She denies any worsening pain in her right lower extremity. She is still has good mobility of her leg foot and ankle. Objective - Vital Signs Vital signs: Vital Signs Temp 98.5 F 01/18/25 04:00 Pulse 77 01/18/25 04:00 Resp 17 01/18/25 04:00 BP 136/74 01/18/25 04:00 Pulse Ox 95 01/18/25 04:00 FiO2 Intake & Output 01/17/25 01/18/25 01/18/25 18:59 06:59 18:59 Intake Total 660 Balance 660 Weight 104.2 kg 104.1 kg Intake: Oral 660 Other: Voiding Method Toilet Toilet # Voids 7 2 # Bowel Movements 1 - Exam General appearance: The patient is alert, oriented, appears in no acute distress. HET: Head is normocephalic and atraumatic. Pupils are equal and reactive. Neck: Supple. Heart: Regular. Lungs: Equal expansion, normal respiratory effort. Abdomen: Soft, nontender, nondistended. Extremities: Right lower extremity warm to the touch up to the ankle, foot is cool to the touch. Sensorimotor intact with full range of motion. Nonpalpable PT or DP pulse. Palpable bilateral radial pulses. Left knee swollen, red left calf and julien with swelling and bruising. Tender to palpation. Neurological: No focal deficits. Strength and sensation are grossly intact. - Labs CBC & Chem 7: 01/18/25 07:23 01/18/25 07:23 Labs: Abnormal Lab Results - Last 24 Hours (Table) 01/17/25 01/17/25 01/17/25 Range/Units 06:14 07:38 11:28 PT 22.2 H (10.0-12.5) sec INR 2.2 H (<1.2) POC Glucose (mg/dL) 185 H 251 H (70-110) mg/dL 01/17/25 01/17/25 01/18/25 Range/Units 16:37 20:03 06:19 PT (10.0-12.5) sec INR (<1.2) POC Glucose (mg/dL) 307 H 285 H 229 H (70-110) mg/dL Microbiology - Last 24 Hours (Table) 01/15/25 15:56 Blood Culture - Preliminary Blood Assessment and Plan Assessment: 1. Acute limb ishemia, right lower extremity 2. Peripheral arterial disease with SFA occlusion status post recent angioplasty and stent as well as tPA infusion 3. Recurrent in stent stenosis 4. [place] 3 right lower extremity claudication 5. Hyperkalemia 6. Atrial fibrillation 7. Left lower extremity injury with swelling and ecchymosis secondary to recent fall 8. Suspected septic knee per orthopedics 9. Ischemic changes on stress test Plan: 1. Cardiology consulted for cardiac clearance. Patient had ischemic changes on stress test. Scheduled for cardiac catheterization today 2. Recommend full anticoagulation post procedures 3. Orthopedics on consultation, they suspect septic knee with plans for I&D 4. Will plan for outpatient femoropopliteal bypass Thank you for this consultation, we will continue to follow. The impression and plan of care has been dictated as directed. Dr. Km Ramirez performed a history and examination of this patient, discussed the same with the dictator. I agree with the dictator's note ,documented as a scribe. Any additional findings or plans will be noted.
[2025-01-18] MEDS: MIDAZOLAM HCL 10 MG/10 ML VIAL IVP ONE (11:42)
[2025-01-18] MEDS: fentaNYL (PF) 50 MCG/ML 2 ML AMP IVP ONE ×2 (11:42→11:47)
[2025-01-18] MEDS: LIDOCAINE 1% INJ 10MG/ML (20 ML MDV) SQ ONE (11:42)
[2025-01-18] MEDS: VERAPAMIL SYRINGE (5 MG/10 ML) INTRAARTER ONE (11:43)
[2025-01-18] MEDS: HEPARIN SODIUM 1,000 UN/ML (10ML VL) IVP ONE (11:47)
[2025-01-18] MEDS: MIDAZOLAM 2 MG/2 ML VIAL IVP ONE (11:47)
[2025-01-18] MEDS: IOPAMIDOL-370 100ML BTL INJ ONE (12:13)
[2025-01-18] MEDS: IV FLUID CONTINUATION 400 ML IV ONE (12:13)
[2025-01-18 12:25] LABS: Glucose,Whole Blood 384 mg/dL (70-110)
[2025-01-18 12:26] VITALS: RESP 18
--- NOTE | 2025-01-18 13:06 | P.PN ---
Subjective Progress Note Date: 01/17/25 Principal diagnosis: Reason for follow-up is left knee cellulitis/bursitis Patient is a 59-year-old female with a past medical history significant for diabetes mellitus DVT hyperlipidemia hypertension seizure disorder COPD has been brought into the hospital for evaluation of right foot pain in this patient who did have history of PAD and has multiple stent to the right lower extremity also have a pain and swelling to the left knee after she fell on it and there was concern for left knee cellulitis/bursitis. On today's evaluation that is 01/17/2025,the patient remains to be afebrile, patient is on room air not requiring supplemental oxygen and denies any shortne ss of breath no chest pain or cough.Patient denies having any nausea or vomiting, no abdominal pain and no diarrhea has been reported pain to the left knee has slightly decreased in intensity. Patient did have a INR of 2.2 no CBC was done today blood culture currently pending Objective - Vital Signs Vital signs: Vital Signs Temp 98.8 F 01/17/25 11:46 Pulse 92 01/17/25 11:46 Resp 17 01/17/25 11:46 BP 147/80 01/17/25 11:46 Pulse Ox 96 01/17/25 11:46 FiO2 Intake & Output 01/16/25 01/17/25 01/17/25 18:59 06:59 18:59 Intake Total 275 120 Balance 275 120 Weight 104.2 kg 104.2 kg Intake: IV 75 Oral 200 120 Other: Voiding Method Toilet Toilet Toilet # Voids 1 2 1 - Exam GENERAL DESCRIPTION: Middle-age female lying in bed in no distress RESPIRATORY SYSTEM: Unlabored breathing , decreased breath sounds at bases HEART: S1 S2 regular rate and rhythm , ABDOMEN: Soft , no tenderness EXTREMITIES: Left knee did have minimal swelling redness no drainage - Labs CBC & Chem 7: 01/18/25 07:23 01/18/25 07:23 Labs: Abnormal Lab Results - Last 24 Hours (Table) 01/16/25 01/16/25 01/17/25 Range/Units 16:11 19:44 05:37 PT (10.0-12.5) sec INR (<1.2) POC Glucose (mg/dL) 116 H 313 H 126 H (70-110) mg/dL 01/17/25 01/17/2525 Range/Units 06:14 07:38 11:28 PT 22.2 H (10.0-12.5) sec INR 2.2 H (<1.2) POC Glucose (mg/dL) 185 H 251 H (70-110) mg/dL Microbiology - Last 24 Hours (Table) 01/15/25 15:56 Blood Culture - Preliminary Blood Assessment and Plan (1) Cellulitis of left knee Current Visit: Yes Status: Acute Code(s): L03.116 - CELLULITIS OF LEFT LOWER LIMB SNOMED Code(s): 83341470207311682 (2) Prepatellar bursitis Current Visit: Yes Status: Acute Priority: Medium Code(s): M70.40 - [place] EPATELLAR BURSITIS, UNSPECIFIED KNEE SNOMED Code(s): 97637273 Plan: 1patient with syndrome of left knee swelling some redness and pain in this patient noted to have recently fall with concern for possible left knee septic prepatellar bursitis and likely from gram-positive skin sherley with the patient mentions some improvement in her symptoms with the cefazolin 2patient is afebrile vitals normal currently being treated cefazolin 2 g every 8 hours while waiting for the workup to be completed Dictation was produced using [employer] dictation software. please excuse any grammatical, word or spelling errors.
--- NOTE | 2025-01-18 13:07 | P.PN ---
Subjective Progress Note Date: 01/18/25 Principal diagnosis: Reason for follow-up is left knee cellulitis/bursitis Patient is a 59-year-old female with a past medical history significant for diabetes mellitus DVT hyperlipidemia hypertension seizure disorder COPD has been brought into the hospital for evaluation of right foot pain in this patient who did have history of PAD and has multiple stent to the right lower extremity also have a pain and swelling to the left knee after she fell on it and there was concern for left knee cellulitis/bursitis. On today's evaluation that is 01/18/2025, the patient continues to be afebrile, the patient is on room air and breathing comfortably, the Pt denies having any chest pain or cough, the patient denies having any abdominal pain no vomiting or any diarrhea mention pain to the left knee has slightly decreased denies any open wound or any drainage. Patient white count is 6.3 creatinine 0.79 Objective - Vital Signs Vital signs: Vital Signs Temp 98.5 F 01/18/25 04:00 Pulse 86 01/18/25 12:54 Resp 18 01/18/25 12:54 BP 153/71 01/18/25 12:54 Pulse Ox 95 01/18/25 12:54 FiO2 Intake & Output 01/17/25 01/18/25 01/18/25 18:59 06:59 18:59 Intake Total 660 300 Balance 660 300 Weight 104.2 kg 104.1 kg Intake: IV 300 Oral 660 Other: Voiding Method Toilet Toilet Toilet # Voids 7 2 # Bowel Movements 1 - Exam GENERAL DESCRIPTION: Middle-age female lying in bed in no distress RESPIRATORY SYSTEM: Unlabored breathing , decreased breath sounds at bases HEART: S1 S2 regular rate and rhythm , ABDOMEN: Soft , no tenderness EXTREMITIES: Left knee did have minimal swelling redness no drainage - Labs CBC & Chem 7: 01/18/25 07:23 01/18/25 07:23 Labs: Abnormal Lab Results - Last 24 Hours (Table) 01/17/25 01/17/25 01/18/25 Range/Units 16:37 20:03 06:19 Hgb (11.4-16.0) gm/dL MCHC (31.0-37.0) g/dL PT (10.0-12.5) sec INR (<1.2) Sodium (137-145) mmol/L Potassium (3.5-5.1) mmol/L Carbon Dioxide (22-30) mmol/L BUN (7-17) mg/dL Glucose (74-99) mg/dL POC Glucose (mg/dL) 307 H 285 H 229 H (70-110) mg/dL 01/18/25 01/18/25 01/18/25 Range/Units 07:23 07:23 07:23 Hgb 11.2 L (11.4-16.0) gm/dL MCHC 30.9 L (31.0-37.0) g/dL PT 21.6 H (10.0-12.5) sec INR 2.1 H (<1.2) Sodium 133 L (137-145) mmol/L Potassium 5.4 H (3.5-5.1) mmol/L Carbon Dioxide 21 L (22-30) mmol/L BUN 18 H (7-17) mg/dL Glucose 244 H (74-99) mg/dL POC Glucose (mg/dL) (70-110) mg/dL 01/18/25 Range/Units 12:24 Hgb (11.4-16.0) gm/dL MCHC (31.0-37.0) g/dL PT (10.0-12.5) sec INR (<1.2) Sodium (137-145) mmol/L Potassium (3.5-5.1) mmol/L Carbon Dioxide (22-30) mmol/L BUN (7-17) mg/dL Glucose (74-99) mg/dL POC Glucose (mg/dL) 384 H (70-110) mg/dL Microbiology - Last 24 Hours (Table) 01/15/25 15:56 Blood Culture - Preliminary Blood Assessment and Plan (1) Cellulitis of left knee Current Visit: Yes Status: Acute Code(s): L03.116 - CELLULITIS OF LEFT LOWER LIMB SNOMED Code(s): 10624752797833744 (2) Prepatellar bursitis Current Visit: Yes Status: Acute Priority: Medium Code(s): M70.40 - PREPATELLAR BURSITIS, UNSPECIFIED KNEE SNOMED Code(s): 06622408 Plan: 1patient with syndrome of left knee swelling some redness and pain in this patient noted to have recently fall with concern for possible left knee septic prepatellar bursitis and likely from gram-positive skin sherley with the patient mentions some improvement in her symptoms with the cefazolin 2patient is afebrile white count has been normal Ortho is planning for I&D culture should be obtained continue with the cefazolin question concern answered Dictation was produced using [employer] dictation software. please excuse any grammatical, word or spelling errors. Time with Patient: Less than 30
--- NOTE | 2025-01-18 14:30 | P.PN ---
Subjective Progress Note Date: 01/18/25 Reason for Consult (text): Cardiac clearance for right lower extremity femoropopliteal bypass surgery History of present illness: This is a 59-year-old female with diabetes mellitus type 2 for 40 years, peripheral artery disease with chronic right lower extremity claudication and recurrent stenosis with previous percutaneous transluminal balloon angioplasty and stent placement the distal SFA and proximal popliteal artery above the knee, history of DVTs, hypertension, hyperlipidemia, paroxysmal atrial fibrillation, obesity, GERD, history of breast cancer. We have been asked to evaluate patient for cardiac clearance for right lower extremity femoropopliteal bypass surgery. Patient is scheduled for angiogram this afternoon and tentatively scheduled for femoropopliteal bypass on Tuesday. 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 Patient was recently hospitalized in December at that time was seen by cardiology for new diagnosis of paroxysmal atrial fibrillation was continued on Coumadin. Patient states the only time she had chest pain was when she had the atrial fibrillation several weeks ago. She states she does not usually walk very much. She does have shortness of breath occasionally. Blood pressure 128/74, heart rate 75, pulse ox 95% on room air. -Left lower extremity ultrasound duplex revealed negative for DVT. -Laboratory studies: WBC 5.5, hemoglobin 10.1, INR 2.8. Sodium 135, potassium 4.5, BUN 15 creatinine 0.72. A1c 9.1. -Home cardiac medications: Amlodipine 10 mg daily, aspirin 81 mg daily, atorvastatin 40 mg daily, lisinopril 40 mg daily, metoprolol succinate 50 mg every 12 hours, Coumadin 5 mg daily. -Echocardiogram from 12/27/2024 reveals normal LV function. 01/17 Patient seen and examined. Patient underwent Lexiscan stress test today which reported with stress-induced ischemic change at the distal inferior wall extending into the cardiac apex. Yesterday, patient underwent angiogram of the right lower extremity. Dr. Dumont discussed results of stress test with patient. Recommend cardiac catheterization which she is agreeable to move forward with this. Repeat blood work reveals INR 2.2. Blood pressure 147/80, heart rate 92, pulse ox 96% on room air. Orthopedics has been consulted for septic left knee. 01/18 Patient seen and examined. Patient is scheduled for cardiac catheterization today. Blood pressure 153/75, heart rate 77, pulse ox 97% on room air. Repeat blood work reveals hemoglobin 9.2, INR 2.1. Sodium 133, potassium 5.4, BUN 18 creatinine 0.79. Physical examination: Gen: This is a 59-year-old female in no acute distress VS: reviewed HEENT: Head is atraumatic, normocephalic. Pupils equal, round. Sclerae is anicteric. NECK: Supple. No JVD. LUNGS: Clear to auscultation. No wheezes or rhonchi. No intercostal retractions. HEART: Regular rate and rhythm. ABDOMEN: Soft No tenderness. EXTREMITIES: No pedal edema. NEUROLOGICAL: Patient is awake, alert and oriented x3. Assessment: Acute right lower extremity limb ischemia Abnormal stress test Septic left knee Peripheral arterial disease with SFA occlusion status post recent angioplasty and stent as well as tPA infusion Diabetes mellitus type 1, uncontrolled with A1c of 9.1 Paroxysmal atrial fibrillation currently in a sinus rhythm Hypertension Hyperlipidemia Obesity with BMI of 33 GERD Plan: Continue patient's home cardiac medications N.p.o. Schedule patient for cardiac catheterization with Dr. Dumont No need to repeat echocardiogram Further recommendations to follow based upon clinical course Thank you kindly for this consultation. Nurse practitioner note has been reviewed, I agree with documented findings and plan of care. Patient was seen and examined. Objective - Vital Signs Vital signs: Vital Signs Temp 98.5 F 01/18/25 04:00 Pulse 86 01/18/25 12:54 Resp 18 01/18/25 12:54 BP 153/71 01/18/25 12:54 Pulse Ox 95 01/18/25 12:54 FiO2 Intake & Output 01/17/25 01/18/25 01/18/25 18:59 06:59 18:59 Intake Total 660 300 Balance 660 300 Weight 104.2 kg 104.1 kg Intake: IV 300 Oral 660 Other: Voiding Method Toilet Toilet Toilet # Voids 7 2 # Bowel Movements 1 - Labs CBC & Chem 7: 01/18/25 07:23 01/18/25 07:23 Labs: Abnormal Lab Results - Last 24 Hours (Table) 01/17/25 01/17/25 01/18/25 Range/Units 16:37 20:03 06:19 Hgb (11.4-16.0) gm/dL MCHC (31.0-37.0) g/dL PT (10.0-12.5) sec INR (<1.2) Sodium (137-145) mmol/L Potassium (3.5-5.1) mmol/L Carbon Dioxide (22-30) mmol/L BUN (7-17) mg/dL Glucose (74-99) mg/dL POC Glucose (mg/dL) 307 H 285 H 229 H (70-110) mg/dL 01/18/25 01/18/25 01/18/25 Range/Units 07:23 07:23 07:23 Hgb 11.2 L (11.4-16.0) gm/dL MCHC 30.9 L (31.0-37.0) g/dL PT 21.6 H (10.0-12.5) sec INR 2.1 H (<1.2) Sodium 133 L (137-145) mmol/L Potassium 5.4 H (3.5-5.1) mmol/L Carbon Dioxide 21 L (22-30) mmol/L BUN 18 H (7-17) mg/dL Glucose 244 H (74-99) mg/dL POC Glucose (mg/dL) (70-110) mg/dL 01/18/25 Range/Units 12:24 Hgb (11.4-16.0) gm/dL MCHC (31.0-37.0) g/dL PT (10.0-12.5) sec INR (<1.2) Sodium (137-145) mmol/L Potassium (3.5-5.1) mmol/L Carbon Dioxide (22-30) mmol/L BUN (7-17) mg/dL Glucose (74-99) mg/dL POC Glucose (mg/dL) 384 H (70-110) mg/dL Microbiology - Last 24 Hours (Table) 01/15/25 15:56 Blood Culture - Preliminary Blood
--- NOTE | 2025-01-18 16:06 | P.CARDCATH ---
Description of Procedure: PROCEDURES PERFORMED: Left heart catheterization, bilateral coronary angiography, ultrasound guided arterial access INDICATION: Preoperative cardiovascular assessment, abnormal stress test CONSENT:I have discussed the risks, benefits and alternative therapies for the above-mentioned procedure and for both sedation/analgesia as well as necessary blood product administration, if indicated, as they pertain to this patient. The patient has indicated understanding and acceptance of the risks and procedures discussed. PROCEDURE: After the risks, benefits and alternatives of the above mentioned procedure explained in detail with the patient, informed consent was obtained. Patient was taken to the catheterization lab and prepped and draped in usual fashion. Ultrasound guidance was used to assess for arterial access. 1% lidocaine was used to anesthetize the right radial artery. A 6-[place] sheath was placed in the right radial artery using modified Seldinger technique and ultrasound guidance. Left coronary angiography was performed with a 5-[place] JL 3.5 catheter and right coronary angiography was performed with a 5-[place] FR5 catheter in various views. A 5-[place] FR5 catheter was inserted into the left ventricle and pressure measurements were obtained. The ischemia was noted in the inferior apex and therefore decision made to perform functional assessment of both the RCA and LAD. Heparin was given. Using the FL 5 catheter, a 0.014 pressure wire was inserted and normalized in the proximal RCA. It was then advanced to the distal RCA and was mildly abnormal at 0.88. It was pulled back to the mid RCA to assess the degree of stenosis of the proximal segment and this was normal at 0.94. Given long area of diffuse heavy calcifications and more proximal RCA which appeared more 60 to 70% being that hemodynamically significant decision made to treat medically with diffuse disease. The 0.014 pressure wire was then advanced through the FL 3.5 catheter into the left main and normalized. It was then advanced 1 cm distal to the mid LAD lesion and this was normal at 0.92. The right radial sheath was removed and a TR band was placed with hemostasis achieved. The patient tolerated the procedure well. Patient was transported back to the post catheterization holding area in stable condition. Conscious Sedation: Patient was monitored under the direct supervision of myself for conscious sedation using Versed and fentanyl for a total duration of 20 minutes HEMODYNAMICS: Aorta: 134/72 LV: 131/8, LVEDP 19 SELECTIVE CORONARY ARTERIOGRAPHY: LEFT MAIN: The left main is a large caliber vessel which bifurcates into the LAD and circumflex. There is no significant stenosis. LEFT ANTERIOR DESCENDING CORONARY ARTERY: LAD is a large caliber vessel which wraps around to the apex. There is a mid LAD 50 to 60% stenosis at the level of a small caliber diagonal 2 branch and otherwise mild 10 to 20% stenosis. LEFT CIRCUMFLEX CORONARY ARTERY: Left circumflex is a moderate caliber vessel with OM1 having a mid 40% stenosis and otherwise mild luminal irregularities RIGHT CORONARY ARTERY: The right coronary artery is a large caliber vessel which gives off a PDA and PLV branch and is the dominant vessel. There is diffuse heavy calcification of the entire proximal to distal RCA. The proximal RCA has a somewhat hazy appearance with heavy calcification. The mid to distal RCA has an additional 50% stenosis. FINAL IMPRESSION: 1. CAD as described above including 60 to 70% proximal RCA stenosis, 50% mid RCA, 50 to 60% mid LAD, 40% OM1 stenosis 2. Mildly elevated left sided filling pressures 3. Mildly abnormal iFR(RFR) of RCA, normal iFR LAD PLAN: 1. Aggressive risk factor modification per most recent ACC/AHA guidelines. 2. Patient without critical disease and RCA technically ischemic however not critical and long area of diffuse calcification. Given patient without critical disease and borderline ischemic and without significant angina type symptoms would treat this medically and cleared patient for surgery. If patient has more angina or progressive symptoms may consider reevaluation.
[2025-01-18 16:24] LABS: Glucose,Whole Blood 286 mg/dL (70-110)
[2025-01-18] MEDS: WARFARIN 5 MG TAB PO ONE (16:27)
[2025-01-18] MEDS: HYDROcodone/APAP 5-325MG 1 EACH TAB PO PRN (16:33)
--- NOTE | 2025-01-18 16:56 | P.PN ---
Subjective Progress Note Date: 01/18/25 Principal diagnosis: Left knee bursitis cellulitis Patient is seen at bedside this afternoon. We are following regarding her left knee pain and swelling. She feels about 25 percent improved from yesterday. She has been on IV antibiotics. She denies numbness, calf pain, fever or chills. Objective - Vital Signs Vital signs: Vital Signs Temp 98.5 F 01/18/25 04:00 Pulse 77 01/18/25 16:09 Resp 18 01/18/25 16:09 BP 157/80 01/18/25 16:09 Pulse Ox 96 01/18/25 16:09 FiO2 Intake & Output 01/17/25 01/18/25 01/18/25 18:59 06:59 18:59 Intake Total 660 540 Balance 660 540 Weight 104.2 kg 104.1 kg Intake: IV 300 Oral 660 240 Other: Voiding Method Toilet Toilet Toilet # Voids 7 2 # Bowel Movements 1 - Exam Inspection of left knee shows continued prepatellar/suprapatellar swelling that is improved. There appears to be improved erythema at the patella. It is mildly tender to touch. It is not overly hot to touch. She has pain with flexion and extension at the patella but ambulates okay. There doesn't appear to be joint line pain or effusion in the joint. Calf is SNT. There is some edema at the left lower leg. NVI. - Constitutional General appearance: Present: no acute distress - Labs CBC & Chem 7: 01/18/25 07:23 01/18/25 07:23 Labs: Abnormal Lab Results - Last 24 Hours (Table) 01/17/25 01/18/25 01/18/25 Range/Units 20:03 06:19 07:23 Hgb (11.4-16.0) gm/dL MCHC (31.0-37.0) g/dL PT (10.0-12.5) sec INR (<1.2) Sodium 133 L (137-145) mmol/L Potassium 5.4 H (3.5-5.1) mmol/L Carbon Dioxide 21 L (22-30) mmol/L BUN 18 H (7-17) mg/dL Glucose 244 H (74-99) mg/dL POC Glucose (mg/dL) 285 H 229 H (70-110) mg/dL 01/18/25 01/18/25 01/18/25 Range/Units 07:23 07:23 12:24 Hgb 11.2 L (11.4-16.0) gm/dL MCHC 30.9 L (31.0-37.0) g/dL PT 21.6 H (10.0-12.5) sec INR 2.1 H (<1.2) Sodium (137-145) mmol/L Potassium (3.5-5.1) mmol/L Carbon Dioxide (22-30) mmol/L BUN (7-17) mg/dL Glucose (74-99) mg/dL POC Glucose (mg/dL) 384 H (70-110) mg/dL 01/18/25 Range/Units 16:22 Hgb (11.4-16.0) gm/dL MCHC (31.0-37.0) g/dL PT (10.0-12.5) sec INR (<1.2) Sodium (137-145) mmol/L Potassium (3.5-5.1) mmol/L Carbon Dioxide (22-30) mmol/L BUN (7-17) mg/dL Glucose (74-99) mg/dL POC Glucose (mg/dL) 286 H (70-110) mg/dL Microbiology - Last 24 Hours (Table) 01/15/25 15:56 Blood Culture - Preliminary Blood Assessment and Plan (1) Prepatellar bursitis Narrative/Plan: Patient discussed with Dr. Corey. We will hold off on I and D for now and monitor as she is showing signs of improvement along with a normal WBC and is afebrile. Continue IV antibiotics, pain management, elevation, rest, medical management, and DVT prophylaxis. Current Visit: Yes Status: Acute Priority: Medium Code(s): M70.40 - PREPATELLAR BURSITIS, UNSPECIFIED KNEE SNOMED Code(s): 91982391 (2) Contusion of left knee Current Visit: Yes Status: Acute Priority: Medium Code(s): S80.02XA - CONTUSION OF LEFT KNEE, INITIAL ENCOUNTER SNOMED Code(s): 99578552610993021
[2025-01-18 20:18] LABS: Glucose,Whole Blood 306 mg/dL (70-110)
[2025-01-19 06:09] LABS: Glucose,Whole Blood 113 mg/dL (70-110)
[2025-01-19 07:07] LABS: INR 1.9 (<1.2); Prothrombin Time 19.5 sec (10.0-12.5)
[2025-01-19 07:27] LABS: African American GFR (CKD) >90 (>60 ml/min/1.73 sqM); Anion Gap 5 mmol/L; Blood Urea Nitrogen 15 mg/dL (7-17); Calcium 8.7 mg/dL (8.4-10.2); Carbon Dioxide 26 mmol/L (22-30); Chloride 104 mmol/L (98-107); Glucose 108 mg/dL (74-99); Non-African American GFR(CKD) >90 (>60 ml/min/1.73 sqM); Potassium 4.6 mmol/L (3.5-5.1); Sodium 135 mmol/L (137-145)
[2025-01-19] MEDS: ATORVASTATIN 40 MG TAB PO SCH (08:11)
[2025-01-19] MEDS: ASPIRIN 81 MG PO SCH (08:12)
--- NOTE | 2025-01-19 09:02 | P.PN ---
Subjective Progress Note Date: 01/19/25 Patient is seen at bedside this morning. Orthopedics is following regarding her left knee pain and swelling. The patient states she has improved since yesterday and the day before. She has been on IV antibiotics. She denies chest pain, shortness of breath, calf pain, fevers or chills. Objective - Vital Signs Vital signs: Vital Signs Temp 98.3 F 01/18/25 20:15 Pulse 83 01/19/25 08:07 Resp 18 01/19/25 08:07 BP 143/71 01/19/25 08:07 Pulse Ox 97 01/19/25 08:07 FiO2 Intake & Output 01/18/25 01/19/25 01/19/25 18:59 06:59 18:59 Intake Total 900 120 118 Balance 900 120 118 Weight 104.1 kg Intake: IV 300 Oral 600 120 118 Other: Voiding Method Toilet # Voids 1 - Exam Patient was examined at bedside. Patient is resting comfortably in bed. No apparent distress. They are awake, alert and able to answer questions. Inspection: prepatellar/suprapatellar swelling. Mild amount of erythema at the patella. Patella has mild tenderness to touch. It is not overly hot to touch compared to the right. Patient can fully extend and flex to 90. Patient has pain with flexion past 90 degrees. No joint line tenderness to palpation. Palpation: The calf is soft to compression. No calf tenderness. Neurovascular: Left femoral nerve function is intact. The patient is able to actively plantarflex and dorsiflex their ankle and toes. Left lower extremity sensation is intact to light touch throughout. Their left foot appears well perfused, palpable dorsalis pedis pulse, and capillary refill under 2 seconds. - Labs CBC & Chem 7: 01/18/25 07:23 01/19/25 06:07 Labs: Abnormal Lab Results - Last 24 Hours (Table) 01/18/25 01/18/25 01/18/25 Range/Units 07:23 12:24 16:22 PT (10.0-12.5) sec INR (<1.2) Sodium 133 L (137-145) mmol/L Potassium 5.4 H (3.5-5.1) mmol/L Carbon Dioxide 21 L (22-30) mmol/L BUN 18 H (7-17) mg/dL Glucose 244 H (74-99) mg/dL POC Glucose (mg/dL) 384 H 286 H (70-110) mg/dL 01/18/25 01/19/25 01/19/25 Range/Units 20:17 06:02 06:07 PT 19.5 H (10.0-12.5) sec INR 1.9 H (<1.2) Sodium (137-145) mmol/L Potassium (3.5-5.1) mmol/L Carbon Dioxide (22-30) mmol/L BUN (7-17) mg/dL Glucose (74-99) mg/dL POC Glucose (mg/dL) 306 H 113 H (70-110) mg/dL 01/19/25 Range/Units 06:07 PT (10.0-12.5) sec INR (<1.2) Sodium 135 L (137-145) mmol/L Potassium (3.5-5.1) mmol/L Carbon Dioxide (22-30) mmol/L BUN (7-17) mg/dL Glucose 108 H (74-99) mg/dL POC Glucose (mg/dL) (70-110) mg/dL Microbiology - Last 24 Hours (Table) 01/15/25 15:56 Blood Culture - Preliminary Blood Assessment and Plan Assessment: Left left prepatellar bursitis. Left knee contusion Left knee pain. Plan: Orthopedics will continue to hold off on left knee incision and drainage today because she has continued to show signs of clinical improvement. We would like to continue to monitor and evaluate again tomorrow. Continue IV antibiotics, pain management, elevation, rest, medical management, and DVT prophylaxis.
[2025-01-19 11:28] LABS: Glucose,Whole Blood 407 mg/dL (70-110)
--- NOTE | 2025-01-19 11:33 | P.PN ---
Subjective Progress Note Date: 01/19/25 Patient seen and examined. Underwent heart catheterization without any stenting. Cleared for surgical intervention. Patient was initially planned to undergo I&D for septic joint however they feel she is improving with conservative therapies. At this time she maintains motor sensory function to her right lower extremity with short onset claudication. No evidence of rest pain at this time. Objective - Vital Signs Vital signs: Vital Signs Temp 98.3 F 01/18/25 20:15 Pulse 83 01/19/25 09:29 Resp 18 01/19/25 09:29 BP 143/71 01/19/25 08:07 Pulse Ox 97 01/19/25 08:07 FiO2 Intake & Output 01/18/25 01/19/25 01/19/25 18:59 06:59 18:59 Intake Total 900 120 118 Balance 900 120 118 Weight 104.1 kg Intake: IV 300 Oral 600 120 118 Other: Voiding Method Toilet Toilet # Voids 1 - Exam General appearance: The patient is alert, oriented, appears in no acute distress. HET: Head is normocephalic and atraumatic. Pupils are equal and reactive. Neck: Supple. Heart: Regular. Lungs: Equal expansion, normal respiratory effort. Abdomen: Soft, nontender, nondistended. Extremities: Right lower extremity warm to the touch up to the ankle, foot is cool to the touch. Sensorimotor intact with full range of motion. Nonpalpable PT or DP pulse. Palpable bilateral radial pulses. Left knee swollen, red left calf and julien with swelling and bruising. Tender to palpation. Neurological: No focal deficits. Strength and sensation are grossly intact. - Labs CBC & Chem 7: 01/18/25 07:23 01/19/25 06:07 Labs: Abnormal Lab Results - Last 24 Hours (Table) 01/18/25 01/18/25 01/18/25 Range/Units 12:24 16:22 20:17 PT (10.0-12.5) sec INR (<1.2) Sodium (137-145) mmol/L Glucose (74-99) mg/dL POC Glucose (mg/dL) 384 H 286 H 306 H (70-110) mg/dL 01/19/25 01/19/25 01/19/25 Range/Units 06:02 06:07 06:07 PT 19.5 H (10.0-12.5) sec INR 1.9 H (<1.2) Sodium 135 L (137-145) mmol/L Glucose 108 H (74-99) mg/dL POC Glucose (mg/dL) 113 H (70-110) mg/dL 01/19/25 Range/Units 11:26 PT (10.0-12.5) sec INR (<1.2) Sodium (137-145) mmol/L Glucose (74-99) mg/dL POC Glucose (mg/dL) 407 H (70-110) mg/dL Microbiology - Last 24 Hours (Table) 01/15/25 15:56 Blood Culture - Preliminary Blood Assessment and Plan Assessment: 1. Acute limb ishemia, right lower extremity 2. Peripheral arterial disease with SFA occlusion status post recent angioplasty and stent as well as tPA infusion 3. Recurrent in stent stenosis 4. [place] 3 right lower extremity claudication 5. Hyperkalemia 6. Atrial fibrillation 7. Left lower extremity injury with swelling and ecchymosis secondary to recent fall 8. Suspected septic knee per orthopedics 9. Ischemic changes on stress test Plan: Cleared by cardiology for intervention. Suspected septic knee per orthopedics with previous plans for I&D. Will await further recommendations in that regard and clearance of infection prior to intervention. Did discuss with patient current infection does cause high risk for infection at surgical sites therefore we will forego femoral-popliteal bypass as she still remains motor intact at this time. If this significantly worsens or changes, we will plan to go forward with bypass sooner otherwise hopeful for the next few weeks.
--- NOTE | 2025-01-19 13:11 | P.PN ---
Subjective Progress Note Date: 01/19/25 Reason for Consult (text): Cardiac clearance for right lower extremity femoropopliteal bypass surgery History of present illness: This is a 59-year-old female with diabetes mellitus type 2 for 40 years, peripheral artery disease with chronic right lower extremity claudication and recurrent stenosis with previous percutaneous transluminal balloon angioplasty and stent placement the distal SFA and proximal popliteal artery above the knee, history of DVTs, hypertension, hyperlipidemia, paroxysmal atrial fibrillation, obesity, GERD, history of breast cancer. We have been asked to evaluate patient for cardiac clearance for right lower extremity femoropopliteal bypass surgery. Patient is scheduled for angiogram this afternoon and tentatively scheduled for femoropopliteal bypass on Tuesday. 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 Patient was recently hospitalized in December at that time was seen by cardiology for new diagnosis of paroxysmal atrial fibrillation was continued on Coumadin. Patient states the only time she had chest pain was when she had the atrial fibrillation several weeks ago. She states she does not usually walk very much. She does have shortness of breath occasionally. Blood pressure 128/74, heart rate 75, pulse ox 95% on room air. -Left lower extremity ultrasound duplex revealed negative for DVT. -Laboratory studies: WBC 5.5, hemoglobin 10.1, INR 2.8. Sodium 135, potassium 4.5, BUN 15 creatinine 0.72. A1c 9.1. -Home cardiac medications: Amlodipine 10 mg daily, aspirin 81 mg daily, atorvastatin 40 mg daily, lisinopril 40 mg daily, metoprolol succinate 50 mg every 12 hours, Coumadin 5 mg daily. -Echocardiogram from 12/27/2024 reveals normal LV function. 01/17 Patient seen and examined. Patient underwent Lexiscan stress test today which reported with stress-induced ischemic change at the distal inferior wall extending into the cardiac apex. Yesterday, patient underwent angiogram of the right lower extremity. Dr. Dumont discussed results of stress test with patient. Recommend cardiac catheterization which she is agreeable to move forward with this. Repeat blood work reveals INR 2.2. Blood pressure 147/80, heart rate 92, pulse ox 96% on room air. Orthopedics has been consulted for septic left knee. 01/18 Patient seen and examined. Patient is scheduled for cardiac catheterization today. Blood pressure 153/75, heart rate 77, pulse ox 97% on room air. Repeat blood work reveals hemoglobin 9.2, INR 2.1. Sodium 133, potassium 5.4, BUN 18 creatinine 0.79. 01/19 Patient seen and examined. Yesterday, patient underwent cardiac catheterization with Dr. Dumont which revealed coronary artery disease with 60 to 70% proximal RCA stenosis, 50% mid RCA, 50 to 60% mid LAD, 40% OM1 stenosis. Plan is for aggressive risk factor modification. Patient without critical disease in RCA technically ischemic however not critical and long area of diffuse calcification. Given the patient without critical disease and borderline ischemic and without significant anginal symptoms, treat medically and patient is cleared for surgery. Blood pressure 143/71, heart rate 83, pulse ox 97% on room air. Repeat blood work reveals INR 1.9. Sodium 135, potassium 4.6, BUN 15 creatinine 0.67. Regarding the septic left knee, orthopedics is holding off on I&D and continuing antibiotics. Patient voices significant frustration that left knee is not being addressed. This concern can be addressed by the attending. Physical examination: Gen: This is a 59-year-old female in no acute distress VS: reviewed HEENT: Head is atraumatic, normocephalic. Pupils equal, round. Sclerae is anicteric. NECK: Supple. No JVD. LUNGS: Clear to auscultation. No wheezes or rhonchi. No intercostal retracti ons. HEART: Regular rate and rhythm. ABDOMEN: Soft No tenderness. EXTREMITIES: No pedal edema. NEUROLOGICAL: Patient is awake, alert and oriented x3. Assessment: Acute right lower extremity limb ischemia Abnormal stress test Septic left knee Peripheral arterial disease with SFA occlusion status post recent angioplasty and stent as well as tPA infusion Diabetes mellitus type 1, uncontrolled with A1c of 9.1 Paroxysmal atrial fibrillation currently in a sinus rhythm Hypertension Hyperlipidemia Obesity with BMI of 33 GERD Plan: Continue current cardiac medications: Aspirin 81 mg daily, atorvastatin 40 mg daily, lisinopril 40 mg daily, Toprol 50 mg every 12 hours Coumadin is being dosed by pharmacy No need to repeat echocardiogram Patient is cleared for the right femoral to popliteal bypass that is being postponed until later date. She is at increased risks for perioperative complications but no absolute contraindications to proceeding with surgery. Further recommendations to follow based upon clinical course Nurse practitioner note has been reviewed, I agree with documented findings and plan of care. Patient was seen and examined. Objective - Vital Signs Vital signs: Vital Signs Temp 98.3 F 01/18/25 20:15 Pulse 83 01/19/25 08:07 Resp 18 01/19/25 08:07 BP 143/71 01/19/25 08:07 Pulse Ox 97 01/19/25 08:07 FiO2 Intake & Output 01/18/25 01/19/25 01/19/25 18:59 06:59 18:59 Intake Total 900 120 118 Balance 900 120 118 Weight 104.1 kg Intake: IV 300 Oral 600 120 118 Other: Voiding Method Toilet # Voids 1 - Labs CBC & Chem 7: 01/18/25 07:23 01/19/25 06:07 Labs: Abnormal Lab Results - Last 24 Hours (Table) 01/18/25 01/18/25 01/18/25 Range/Units 12:24 16:22 20:17 PT (10.0-12.5) sec INR (<1.2) Sodium (137-145) mmol/L Glucose (74-99) mg/dL POC Glucose (mg/dL) 384 H 286 H 306 H (70-110) mg/dL 01/19/25 01/19/25 01/19/25 Range/Units 06:02 06:07 06:07 PT 19.5 H (10.0-12.5) sec INR 1.9 H (<1.2) Sodium 135 L (137-145) mmol/L Glucose 108 H (74-99) mg/dL POC Glucose (mg/dL) 113 H (70-110) mg/dL Microbiology - Last 24 Hours (Table) 01/15/25 15:56 Blood Culture - Preliminary Blood
[2025-01-19 16:41] LABS: Glucose,Whole Blood 167 mg/dL (70-110)
[2025-01-19] MEDS: WARFARIN 5 MG TAB PO ONE (16:46)
[2025-01-19 20:08] LABS: Glucose,Whole Blood 202 mg/dL (70-110)
--- NOTE | 2025-01-19 21:37 | P.PN ---
Subjective Progress Note Date: 01/19/25 Principal diagnosis: Reason for follow-up is left knee cellulitis/bursitis Patient is a 59-year-old female with a past medical history significant for diabetes mellitus DVT hyperlipidemia hypertension seizure disorder COPD has been brought into the hospital for evaluation of right foot pain in this patient who did have history of PAD and has multiple stent to the right lower extremity also have a pain and swelling to the left knee after she fell on it and there was concern for left knee cellulitis/bursitis. On today's evaluation that is 01/19/2025, patient did not have any fever and denies any chills, patient is breathing comfortably on room air, patient with no chest pain or cough patient did not have any abdominal pain nausea vomiting or any loose stools, pain to the left knee has decreased in intensity. Patient did have INR of 1.8, creatinine 0.67 blood culture has been negative Objective - Vital Signs Vital signs: Vital Signs Temp 98.3 F 01/18/25 20:15 Pulse 78 01/19/25 14:29 Resp 18 01/19/25 14:29 BP 164/77 01/19/25 11:54 Pulse Ox 96 01/19/25 11:54 FiO2 Intake & Output 01/18/25 01/19/25 01/19/25 18:59 06:59 18:59 Intake Total 900 120 118 Balance 900 120 118 Weight 104.1 kg Intake: IV 300 Oral 600 120 118 Other: Voiding Method Toilet Toilet # Voids 1 - Exam GENERAL DESCRIPTION: Middle-age female lying in bed in no distress RESPIRATORY SYSTEM: Unlabored breathing , decreased breath sounds at bases HEART: S1 S2 regular rate and rhythm , ABDOMEN: Soft , no tenderness EXTREMITIES: Left knee did have minimal swelling redness no drainage - Labs CBC & Chem 7: 01/18/25 07:23 01/19/25 06:07 Labs: Abnormal Lab Results - Last 24 Hours (Table) 01/18/25 01/18/25 01/19/25 Range/Units 16:22 20:17 06:02 PT 19.5 H (10.0-12.5) sec INR 1.9 H (<1.2) Sodium (137-145) mmol/L Glucose (74-99) mg/dL POC Glucose (mg/dL) 286 H 306 H (70-110) mg/dL 01/19/25 01/19/25 01/19/25 Range/Units 06:07 06:07 11:26 PT (10.0-12.5) sec INR (<1.2) Sodium 135 L (137-145) mmol/L Glucose 108 H (74-99) mg/dL POC Glucose (mg/dL) 113 H 407 H (70-110) mg/dL Microbiology - Last 24 Hours (Table) 01/15/25 15:56 Blood Culture - Preliminary Blood Assessment and Plan (1) Cellulitis of left knee Current Visit: Yes Status: Acute Code(s): L03.116 - CELLULITIS OF LEFT LOWER LIMB SNOMED Code(s): 30807907047758371 (2) Prepatellar bursitis Current Visit: Yes Status: Acute Priority: Medium Code(s): M70.40 - PREPATELLAR BURSITIS, UNSPECIFIED KNEE SNOMED Code(s): 53624185 Plan: 1patient with syndrome of left knee swelling some redness and pain in this patient noted to have recently fall with concern for possible left knee septic prepatellar bursitis and likely from gram-positive skin sherley with the patient mentions some improvement in her symptoms with the cefazolin 2patient is afebrile white count has been normal, blood culture has been negative and the patient left knee swelling redness has improved patient can proceed with any vascular intervention from infectious disease standpoint this was explained to the patient and the nursing staff Dictation was produced using [employer] dictation software. please excuse any grammatical, word or spelling errors. Time with Patient: Less than 30
[2025-01-19 23:38] LABS: Glucose,Whole Blood 50 mg/dL (70-110)
[2025-01-20 00:01] LABS: Glucose,Whole Blood 87 mg/dL (70-110)
[2025-01-20] MEDS: ALPRAZolam 0.25 MG TAB PO PRN (03:58)
[2025-01-20 05:56] LABS: Glucose,Whole Blood 276 mg/dL (70-110)
[2025-01-20 08:36] LABS: INR 1.7 (<1.2); Prothrombin Time 17.1 sec (10.0-12.5)
--- NOTE | 2025-01-20 08:39 | P.PN ---
Subjective Progress Note Date: 01/20/25 Patient is seen at bedside this morning. Orthopedics is following regarding her left knee pain and swelling. The patient states she has continued to improve in regards to her left knee pain and swelling. She has been on IV antibiotics. She denies chest pain, shortness of breath, calf pain, fevers or c hills. Objective - Vital Signs Vital signs: Vital Signs Temp 98.6 F 01/19/25 20:15 Pulse 80 01/20/25 04:40 Resp 18 01/20/25 04:40 BP 150/69 01/20/25 04:40 Pulse Ox 97 01/20/25 04:40 FiO2 Intake & Output 01/19/25 01/20/25 01/20/25 18:59 06:59 18:59 Intake Total 118 120 Balance 118 120 Weight 104.2 kg Intake: Oral 118 120 Other: Voiding Method Toilet # Voids 2 - Exam Patient was examined at bedside. Patient is resting comfortably in bed. No apparent distress. They are awake, alert and able to answer questions. Inspection: prepatellar/suprapatellar swelling, improved since yesterday. Erythema over the patella is significantly improved since yesterday. Range of motion: Patient can fully extend their knee. Patient's flexion has improved to 110 degrees, this is significantly improved compared to yesterday. Palpation: Trace amount of tenderness to palpation over the suprapatella swelling. The calf is soft to compression. No calf tenderness. Neurovascular: Left femoral nerve function is intact. The patient is able to actively plantarflex and dorsiflex their ankle and toes. Left lower extremity s ensation is intact to light touch throughout. Their left foot appears well perfused, palpable dorsalis pedis pulse, and capillary refill under 2 seconds. - Labs CBC & Chem 7: 01/18/25 07:23 01/19/25 06:07 Labs: Abnormal Lab Results - Last 24 Hours (Table) 01/19/25 01/19/25 01/19/25 Range/Units 11:26 16:40 20:06 POC Glucose (mg/dL) 407 H 167 H 202 H (70-110) mg/dL 01/19/25 01/20/25 Range/Units 23:37 05:54 POC Glucose (mg/dL) 50 L 276 H (70-110) mg/dL Assessment and Plan Assessment: Left prepatellar bursitis. Left knee contusion Left knee pain. Plan: Patient has continued to show significant signs of clinical improvement with IV antibiotics. After today's exam, orthopedics does not plan on performing a left knee incision and drainage. This was discussed with the patient at length and they verbalized understanding and thankfulness in regards to their left knee. Continue IV antibiotics, pain management, elevation, rest, medical management, and DVT prophylaxis.
[2025-01-20 09:48] VITALS: TEMP 98.5
--- NOTE | 2025-01-20 10:03 | P.PN ---
Subjective Interval History: This is a pleasant 59 years old female Who presents because of left knee swelling. Patient states that she tripped and fell about 2 weeks ago when her pajama get caught in the thing After that she started having experiencing pain in her left leg. She was referred to orthopedic team and she is supposed to have an appointment today but that was canceled because her orthopedic surgeon is sick so she decided to come to emergency room She denies chest pain or dyspnea or coughing. No specific GI/ symptoms. No headache dizziness weakness numbness She denies smoking alcohol or illicit drugs Patient states that she takes Coumadin because she has a history of 3 blood clots in her leg also she had a stent in her leg. Usually she follow-up with Dr. Araujo team for to check her INR, last week it was 2.3. Patient was recently discharged from the hospital about 2 weeks ago for her occlusion of the right leg vessel s/p angioplasty and stent placement to the right popliteal artery 01/16 Patient left leg swelling redness significantly improved compared to yesterday, however her left leg still pretty swollen. Even the fluid collection on the top of her left patella looks less tense and slightly less red. Patient feels improvement as well. Patient INR is 2.8, will going to put Coumadin pharmacy to dose. Vascular surgery and orthopedic team are following. As well as cotton grader. Because of there is still suspicion of infection and patient showed improvement with antibiotics also there is no fever no leukocytosis and pro- Calcitonin is normal at 0.08. Will going to consult infectious disease team. Patient denies any other new complaints She might go for angiogram of the lower extremity 01/17 Patient fully awake and oriented and looks comfortable with no pain or distress She still has left lower extremity and prepatellar bursitis infection. Infection is suspected rather than hematoma. Patient responding well to antibiotics. Also patient is evidence with occluded SFA in the middle of the thigh per angiogram done yesterday with vascular surgery team. Patient may require femoral-popliteal bypass as such she required preop evaluation. However stress test came back positive today. I called the radiology department for the stress test. Will going to inform cotton grader. Patient already on aspirin and she denies any cardiac symptoms like chest pain or dyspnea for now. Patient informed with the results and other management plan and she agrees. 01/18 Patient going for cardiac cath today after she had positive stress test yesterday. No chest pain or dyspnea. Her left leg cellulitis and prepatellar soft tissue swelling is significantly improving every day She still complains from squeezing in her right leg and intermittent claudication with walking Patient feels little bit frustrated from everything going on but she denies any depression any other new complaints. She remains on warfarin with INR 2.1 which is therapeutic, on cefazolin and normal saline. Also she is on aspirin and Lipitor. 01/19--patient was seen and examined today. Orthopedic following, will continue to monitor, left knee improving with antibiotics. Remains on Coumadin. ID following, on cefazolin. Vascular surgery on board for peripheral arterial disease. Assessment and plan: Left knee cellulitis/bursitis: Remote falling more than 2 weeks earlier associated with left knee swelling on the top of the patella, highly suspicious for hematoma. Cellulitis cannot be excluded as there is associated with left lower extremity swelling and tenderness Preop evaluation Coronary artery disease with positive stress test status post cardiac cath 01/18--no stents, recommended medical management, without critical disease. Recent acute occlusion of the right leg SFA. S/p angioplasty and stent to the right popliteal artery Paroxysmal atrial fibrillation on Coumadin Hyperkalemia COPD with no acute exacerbation Diabetes mellitus Hypertension Hyperlipidemia History of GERD Obesity with BMI of 34.9. Plan: Follow-up blood culture Start the patient empirically on cefazolin for possible cellulitis. Infection disease consult , orthopedic consultedmonitoring for improvement. Continue with normal saline 75 mL/h Status post cardiac catheterization 01/18, no stents, without critical disease, cardiology recommended medical management, okay to proceed with surgery. Pain management Patient on some risk to proceed with surgery but there is no absolute contraindication Vascular surgery team consult plan to take the patient to the OR pending Cardiology consult. Patient has positive stress test ordered by cotton grader. Continued on aspirin for now Resume Coumadin and monitor INR. DVT prophylaxis AC Monitor vital signs and labs Labs and medication were reviewed. Continue same treatment. Further recommendations as per clinical course of the patient PHYSICAL EXAMINATION: GENERAL: The patient is A&O x3, NAD HEENT: EOMI, Sclerae anicteric, Moist Mucous membranes Neck: Supple, Non tender, No JVD PULMONARY: Equal breath souds B/L, No wheezing, No crackles. CARDIOVASCULAR: S1, S2 present. No murmurs, rubs, or gallops. ABDOMEN: Soft, nontender, nondistended, normoactive bowel sounds. No guarding or rebound tenderness. MUSCULOSKELETAL: No edema, No cyanosis. No clubbing. Normal ROM. Intact peripheral pulses. Left knee swelling, mild tenderness. NEUROLOGICAL: CN 2-12 grossly intact. No FND Skin: No Rash REVIEW OF SYSTEMS: CONSTITUTIONAL: No fever or chills. CARDIOVASCULAR: No chest pain, palpitations or syncope. PULMONARY: No shortness of breath, no cough, sore throat. GASTROINTESTINAL: No nausea, vomiting, diarrhea, abdominal pain. : No Dysuria, urgency, frequency. Extremities: No edema. NEUROLOGICAL: No headaches, no weakness, or numbness Dictation was produced using [employer] dictation software. please excuse any grammatical, word or spelling errors. Objective - Vital Signs Vital signs: Vital Signs Temp 98.5 F 01/20/25 08:00 Pulse 76 01/20/25 08:00 Resp 18 01/20/25 08:00 BP 155/73 01/20/25 08:00 Pulse Ox 97 01/20/25 08:00 FiO2 Intake & Output 01/19/25 01/20/25 01/20/25 18:59 06:59 18:59 Intake Total 118 120 Balance 118 120 Weight 104.2 kg Intake: Oral 118 120 Other: Voiding Method Toilet Toilet # Voids 2 - Labs CBC & Chem 7: 01/18/25 07:23 01/19/25 06:07 Labs: Abnormal Lab Results - Last 24 Hours (Table) 01/19/25 01/19/25 01/19/25 Range/Units 11:26 16:40 20:06 PT (10.0-12.5) sec INR (<1.2) POC Glucose (mg/dL) 407 H 167 H 202 H (70-110) mg/dL 01/19/25 01/20/25 01/20/25 Range/Units 23:37 05:54 07:22 PT 17.1 H (10.0-12.5) sec INR 1.7 H (<1.2) POC Glucose (mg/dL) 50 L 276 H (70-110) mg/dL
[2025-01-20 11:35] LABS: Glucose,Whole Blood 373 mg/dL (70-110)
--- NOTE | 2025-01-20 11:56 | P.PN ---
Subjective Progress Note Date: 01/20/25 Patient seen and examined. . Patient was initially planned to undergo I&D for septic joint however they feel she is improving with conservative therapies. At this time she maintains motor sensory function to her right lower extremity with short onset claudication. No evidence of rest pain at this time. Objective - Vital Signs Vital signs: Vital Signs Temp 98.5 F 01/20/25 08:00 Pulse 76 01/20/25 08:00 Resp 18 01/20/25 08:00 BP 155/73 01/20/25 08:00 Pulse Ox 97 01/20/25 08:00 FiO2 Intake & Output 01/19/25 01/20/25 01/20/25 18:59 06:59 18:59 Intake Total 118 120 240 Balance 118 120 240 Weight 104.2 kg Intake: Oral 118 120 240 Other: Voiding Method Toilet Toilet # Voids 2 - Exam General appearance: The patient is alert, oriented, appears in no acute distress. HET: Head is normocephalic and atraumatic. Pupils are equal and reactive. Neck: Supple. Heart: Regular. Lungs: Equal expansion, normal respiratory effort. Abdomen: Soft, nontender, nondistended. Extremities: Right lower extremity warm to the touch up to the ankle, foot is cooler to the touch. Sensorimotor intact with full range of motion. Nonpalpable PT or DP pulse. Palpable bilateral radial pulses. Left knee swollen, overall improving. Tender to palpation. Neurological: No focal deficits. Strength and sensation are grossly intact. - Labs CBC & Chem 7: 01/18/25 07:23 01/19/25 06:07 Labs: Abnormal Lab Results - Last 24 Hours (Table) 01/19/25 01/19/25 01/19/25 Range/Units 16:40 20:06 23:37 PT (10.0-12.5) sec INR (<1.2) POC Glucose (mg/dL) 167 H 202 H 50 L (70-110) mg/dL 01/20/25 01/20/25 01/20/25 Range/Units 05:54 07:22 11:33 PT 17.1 H (10.0-12.5) sec INR 1.7 H (<1.2) POC Glucose (mg/dL) 276 H 373 H (70-110) mg/dL Assessment and Plan Assessment: 1. limb ishemia, right lower extremity 2. Peripheral arterial disease with SFA occlusion status post recent angioplasty and stent as well as tPA infusion 3. Recurrent in stent stenosis 4. Dann 3 right lower extremity claudication 5. Hyperkalemia 6. Atrial fibrillation 7. Left lower extremity injury with swelling and ecchymosis secondary to recent fall 8. Suspected septic knee per orthopedics 9. Ischemic changes on stress test Plan: Cleared by cardiology for intervention. Understand and read input from infectious disease, at this time did discuss with patient current infection does cause high risk for infection at surgical sites we will forego femoral- popliteal bypass as she still remains motor intact at this time. If this significantly worsens or changes, we will plan to go forward with bypass sooner otherwise hopeful for the next few weeks. Did discuss that as an outpatient will need Lovenox bridge prior to surgical intervention.
[2025-01-20 13:00] VITALS: BP 168/79; PULSE 69
--- NOTE | 2025-01-20 13:52 | P.PN ---
Subjective Progress Note Date: 01/20/25 Reason for Consult (text): Cardiac clearance for right lower extremity femoropopliteal bypass surgery History of present illness: This is a 59-year-old female with diabetes mellitus type 2 for 40 years, peripheral artery disease with chronic right lower extremity claudication and recurrent stenosis with previous percutaneous transluminal balloon angioplasty and stent placement the distal SFA and proximal popliteal artery above the knee, history of DVTs, hypertension, hyperlipidemia, paroxysmal atrial fibrillation, obesity, GERD, history of breast cancer. We have been asked to evaluate patient for cardiac clearance for right lower extremity femoropopliteal bypass surgery. Patient is scheduled for angiogram this afternoon and tentatively scheduled for femoropopliteal bypass on Tuesday. Patient states she does not follow with a rental representative. Patient was recently hospitalized in December at that time was seen by cardiology for new diagnosis of paroxysmal atrial fibrillation was continued on Coumadin. Patient states the only time she had chest pain was when she had the atrial fibrillation several weeks ago. She states she does not usually walk very much. She does have shortness of breath occasionally. Blood pressure 128/74, heart rate 75, pulse ox 95% on room air. -Left lower extremity ultrasound duplex revealed negative for DVT. -Laboratory studies: WBC 5.5, hemoglobin 10.1, INR 2.8. Sodium 135, potassium 4.5, BUN 15 creatinine 0.72. A1c 9.1. -Home cardiac medications: Amlodipine 10 mg daily, aspirin 81 mg daily, atorvastatin 40 mg daily, lisinopril 40 mg daily, metoprolol succinate 50 mg every 12 hours, Coumadin 5 mg daily. -Echocardiogram from 12/27/2024 reveals normal LV function. 01/17 Patient seen and examined. Patient underwent Lexiscan stress test today which reported with stress-induced ischemic change at the distal inferior wall extending into the cardiac apex. Yesterday, patient underwent angiogram of the right lower extremity. Dr. Dumont discussed results of stress test with patient. Recommend cardiac catheterization which she is agreeable to move forward with this. Repeat blood work reveals INR 2.2. Blood pressure 147/80, heart rate 92, pulse ox 96% on room air. Orthopedics has been consulted for septic left knee. 01/18 Patient seen and examined. Patient is scheduled for cardiac catheterization today. Blood pressure 153/75, heart rate 77, pulse ox 97% on room air. Repeat blood work reveals hemoglobin 9.2, INR 2.1. Sodium 133, potassium 5.4, BUN 18 creatinine 0.79. 01/19 Patient seen and examined. Yesterday, patient underwent cardiac catheterization with Dr. Dumont which revealed coronary artery disease with 60 to 70% proximal RCA stenosis, 50% mid RCA, 50 to 60% mid LAD, 40% OM1 stenosis. Plan is for aggressive risk factor modification. Patient without critical disease in RCA technically ischemic however not critical and long area of diffuse calcification. Given the patient without critical disease and borderline ischemic and without significant anginal symptoms, treat medically and patient is cleared for surgery. Blood pressure 143/71, heart rate 83, pulse ox 97% on room air. Repeat blood work reveals INR 1.9. Sodium 135, potassium 4.6, BUN 15 creatinine 0.67. Regarding the septic left knee, orthopedics is holding off on I&D and continuing antibiotics. Patient voices significant frustration that left knee is not being addressed. This concern can be addressed by the attending. 01/20 Patient seen and examined. Patient has no complaints of chest pain or chest pressure. She has been followed by orthopedics, infectious disease and vascular surgery. Blood pressure 155/73, heart rate 76, pulse ox 97% on room air. INR 1.7 and pharmacy is dosing Coumadin. Physical examination: Gen: This is a 59-year-old female in no acute distress VS: reviewed HEENT: Head is atraumatic, normocephalic. Pupils equal, round. Sclerae is anicteric. NECK: Supple. No JVD. LUNGS: Clear to auscultation. No wheezes or rhonchi. No intercostal retractions. HEART: Regular rate and rhythm. ABDOMEN: Soft No tenderness. EXTREMITIES: No pedal edema. NEUROLOGICAL: Patient is awake, alert and oriented x3. Assessment: Acute right lower extremity limb ischemia Abnormal stress test with documented coronary artery disease on [facility] as above. No obstructive CAD. Septic left knee Peripheral arterial disease with SFA occlusion status post recent angioplasty and stent as well as tPA infusion Diabetes mellitus type 1, uncontrolled with A1c of 9.1 Paroxysmal atrial fibrillation currently in a sinus rhythm Hypertension Hyperlipidemia Obesity with BMI of 33 GERD Plan: Continue current cardiac medications: Aspirin 81 mg daily, atorvastatin 40 mg daily, lisinopril 40 mg daily, Toprol 50 mg every 12 hours Coumadin is being dosed by pharmacy No need to repeat echocardiogram Patient is cleared for the right femoral to popliteal bypass that is being postponed until later date. She is at increased risks for perioperative complications but no absolute contraindications to proceeding with surgery. Cardiology will sign off this case and follow on an as-needed basis. Please reconsult for any new concerns. Patient may follow-up in the office in [address] Dumont. Nurse practitioner note has been reviewed, I agree with documented findings and plan of care. Patient was seen and examined. Objective - Vital Signs Vital signs: Vital Signs Temp 98.5 F 01/20/25 08:00 Pulse 76 01/20/25 08:00 Resp 18 01/20/25 08:00 BP 155/73 01/20/25 08:00 Pulse Ox 97 01/20/25 08:00 FiO2 Intake & Output 01/19/25 01/20/25 01/20/25 18:59 06:59 18:59 Intake Total 118 120 240 Balance 118 120 240 Weight 104.2 kg Intake: Oral 118 120 240 Other: Voiding Method Toilet Toilet # Voids 2 - Labs CBC & Chem 7: 01/18/25 07:23 01/19/25 06:07 Labs: Abnormal Lab Results - Last 24 Hours (Table) 01/19/25 01/19/25 01/19/25 Range/Units 11:26 16:40 20:06 PT (10.0-12.5) sec INR (<1.2) POC Glucose (mg/dL) 407 H 167 H 202 H (70-110) mg/dL 01/19/25 01/20/25 01/20/25 Range/Units 23:37 05:54 07:22 PT 17.1 H (10.0-12.5) sec INR 1.7 H (<1.2) POC Glucose (mg/dL) 50 L 276 H (70-110) mg/dL
--- NOTE | 2025-01-20 14:41 | P.PN ---
Subjective Progress Note Date: 01/20/25 Principal diagnosis: Reason for follow-up is left knee cellulitis/bursitis Patient is a 59-year-old female with a past medical history significant for diabetes mellitus DVT hyperlipidemia hypertension seizure disorder COPD has been brought into the hospital for evaluation of right foot pain in this patient who did have history of PAD and has multiple stent to the right lower extremity also have a pain and swelling to the left knee after she fell on it and there was concern for left knee cellulitis/bursitis. On today's evaluation that is 01/20/2025, Patient is afebrile patient is currently on room air and denies having any shortness of breath, the patient denies any chest pain or cough, the patient denies any nausea vomiting did not have any abdominal pain and no diarrhea pain to the left knee has decreased in intensity. Patient INR 1.7 blood culture has been negative Objective - Vital Signs Vital signs: Vital Signs Temp 98.5 F 01/20/25 08:00 Pulse 69 01/20/25 11:45 Resp 18 01/20/25 11:45 BP 168/79 01/20/25 11:45 Pulse Ox 97 01/20/25 11:45 FiO2 Intake & Output 01/19/25 01/20/25 01/20/25 18:59 06:59 18:59 Intake Total 118 120 240 Balance 118 120 240 Weight 104.2 kg Intake: Oral 118 120 240 Other: Voiding Method Toilet Toilet # Voids 2 - Exam GENERAL DESCRIPTION: Middle-age female lying in bed in no distress RESPIRATORY SYSTEM: Unlabored breathing , decreased breath sounds at bases HEART: S1 S2 regular rate and rhythm , ABDOMEN: Soft , no tenderness EXTREMITIES: Left knee did have minimal swelling redness which has decreased in intensity - Labs CBC & Chem 7: 01/18/25 07:23 01/19/25 06:07 Labs: Abnormal Lab Results - Last 24 Hours (Table) 01/19/25 01/19/25 01/19/25 Range/Units 16:40 20:06 23:37 PT (10.0-12.5) sec INR (<1.2) POC Glucose (mg/dL) 167 H 202 H 50 L (70-110) mg/dL 01/20/25 01/20/25 01/20/25 Range/Units 05:54 07:22 11:33 PT 17.1 H (10.0-12.5) sec INR 1.7 H (<1.2) POC Glucose (mg/dL) 276 H 373 H (70-110) mg/dL Assessment and Plan (1) Cellulitis of left knee Current Visit: Yes Status: Acute Code(s): L03.116 - CELLULITIS OF LEFT LOWER LIMB SNOMED Code(s): 25808210989039575 (2) Prepatellar bursitis Current Visit: Yes Status: Acute Priority: Medium Code(s): M70.40 - PREPATELLAR BURSITIS, UNSPECIFIED KNEE SNOMED Code(s): 62591948 Plan: 1patient with syndrome of left knee swelling some redness and pain in this patient noted to have recently fall with concern for possible left knee septic prepatellar bursitis and likely from gram-positive skin sherley with the patient mentions some improvement in her symptoms with the cefazolin 2patient is afebrile white count has been normal, blood culture has been negative, orthopedic not planning for any surgical intervention and same per vascular surgery patient has been cleared for discharge keeping in mind improvement with IV cefazolin recommended 10-day course of oral Keflex discussed with the nursing staff Dictation was produced using [employer] dictation software. please excuse any grammatical, word or spelling errors.
[2025-01-20] MEDS ORDERED: WARFARIN 3 MG TAB PO ONE (18:00)
--- NOTE | 2025-01-21 16:58 | P.DS ---
Providers Date of admission: 01/15/25 12:25 Attending physician: Corey Metz MD Consults: 01/15/25 12:01 Consult Physician Routine Consulting Provider: Joseph Corey Consult Reason/Comments: Left knee pain Do you want consulting provider notified?: Yes Consult Physician Urgent Consulting Provider: Kimberlyn Jurado Consult Reason/Comments: Arterial occlusion Do you want consulting provider notified?: Already Contacted 01/15/25 12:06 Consult Physician Routine Consulting Provider: Joshua Gabriel Consult Reason/Comments: cardiac clearance for RLE fem-pop bypass Do you want consulting provider notified?: Yes 01/16/25 09:22 Consult Physician Routine Consulting Provider: Alexandria Brown Consult Reason/Comments: left leg cellulitis , possible Do you want consulting provider notified?: Yes Primary care physician: Tatianna Mason Hospital Course: Discharge diagnoses: Left knee cellulitis/bursitis: Remote falling more than 2 weeks earlier associated with left knee swelling on the top of the patella, highly suspicious for hematoma. Cellulitis cannot be excluded as there is associated with left lower extremity swelling and tenderness Preop evaluation Coronary artery disease with positive stress test status post cardiac cath 01/18--no stents, recommended medical management, without critical disease. Recent acute occlusion of the right leg SFA. S/p angioplasty and stent to the right popliteal artery Paroxysmal atrial fibrillation on Coumadin Hyperkalemia--resolved COPD with no acute exacerbation Diabetes mellitus Hypertension Hyperlipidemia History of GERD Obesity with BMI of 34.9. Plan: Evaluated by infectious disease, orthopedic, vascular surgery and cardiology. Blood culture remain negative Received IV antibiotics during hospitalization. Start the patient empirically on cefazolin for possible cellulitis. Infection disease consult , orthopedic consultedimproving with antibiotics, no surgical intervention indicated. Infectious disease recommended to continue Keflex for 10 days at discharge. Cardiology consultedstatus post cardiac catheterization 01/18, no stents, without critical disease, cardiology recommended medical management, okay to proceed with surgery. Pain management Patient on some risk to proceed with surgery but there is no absolute contraindication Vascular surgery consultedrecommended outpatient follow-up for vascular surgery intervention as outpatient due to high risk of infection at this point Continued on subcutaneous Lovenox for bridging while INR subtherapeutic, resume home Coumadin dose, recommended to get Coumadin level checked in 2 to 3 days on Coumadin dose adjusted. Recommended to stop subcutaneous Lovenox once INR above 2.0. Hospital course This is a pleasant 59 years old female Who presents because of left knee swelling. Patient states that she tripped and fell about 2 weeks ago when her pajama get caught in the thing After that she started having experiencing pain in her left leg. She was referred to orthopedic team and she is supposed to have an appointment today but that was canceled because her orthopedic surgeon is sick so she decided to come to emergency room She denies chest pain or dyspnea or coughing. No specific GI/ symptoms. No headache dizziness weakness numbness She denies smoking alcohol or illicit drugs Patient states that she takes Coumadin because she has a history of 3 blood clots in her leg also she had a stent in her leg. Usually she follow-up with Dr. Araujo team for to check her INR, last week it was 2.3. Patient was recently discharged from the hospital about 2 weeks ago for her occlusion of the right leg vessel s/p angioplasty and stent placement to the right popliteal artery 01/16 Patient left leg swelling redness significantly improved compared to yesterday, however her left leg still pretty swollen. Even the fluid collection on the top of her left patella looks less tense and slightly less red. Patient feels improvement as well. Patient INR is 2.8, will going to put Coumadin pharmacy to dose. Vascular surgery and orthopedic team are following. As well as tubing supervisor. Because of there is still suspicion of infection and patient showed improvement with antibiotics also there is no fever no leukocytosis and pro- Calcitonin is normal at 0.08. Will going to consult infectious disease team. Patient denies any other new complaints She might go for angiogram of the lower extremity 01/17 Patient fully awake and oriented and looks comfortable with no pain or distress She still has left lower extremity and prepatellar bursitis infection. Infection is suspected rather than hematoma. Patient responding well to antibiotics. Also patient is evidence with occluded SFA in the middle of the thigh per angiogram done yesterday with vascular surgery team. Patient may require femoral-popliteal bypass as such she required preop evaluation. However stress test came back positive today. I called the radiology department for the stress test. Will going to inform tubing supervisor. Patient already on aspirin and she denies any cardiac symptoms like chest pain or dyspnea for now. Patient informed with the results and other management plan and she agrees. 01/18 Patient going for cardiac cath today after she had positive stress test yesterday. No chest pain or dyspnea. Her left leg cellulitis and prepatellar soft tissue swelling is significantly improving every day She still complains from squeezing in her right leg and intermittent claudication with walking Patient feels little bit frustrated from everything going on but she denies any depression any other new complaints. She remains on warfarin with INR 2.1 which is therapeutic, on cefazolin and normal saline. Also she is on aspirin and Lipitor. 01/19--patient was seen and examined today. Orthopedic following, will continue to monitor, left knee improving with antibiotics. Remains on Coumadin. ID following, on cefazolin. Vascular surgery on board for peripheral arterial disease. 01/20--patient was seen and examined today. No issues overnight. Left knee swelling continues to improve with cefazolin. Orthopedic recommended no intervention indicated. Discussed with vascular surgery, recommended outpatient follow-up, no plan for surgical intervention at this point due to high risk of infection. Discussed with infectious disease, recommended to continue Keflex for 10 days. Patient's INR 1.7, continued on subcutaneous Lovenox for bridging until INR above 2.0. Patient's other home medication resumed at discharge. Please refer to medical assessment plan for further details. Follow-up with PCP in 1 week Follow-up with cardiology as outpatient Follow-up with vascular surgery as outpatient. PHYSICAL EXAMINATION: GENERAL: The patient is A&O x3, NAD HEENT: EOMI, Sclerae anicteric, Moist Mucous membranes Neck: Supple, Non tender, No JVD PULMONARY: Equal breath souds B/L, No wheezing, No crackles. CARDIOVASCULAR: S1, S2 present. No murmurs, rubs, or gallops. ABDOMEN: Soft, nontender, nondistended, normoactive bowel sounds. No guarding or rebound tenderness. MUSCULOSKELETAL: No edema, No cyanosis. No clubbing. Normal ROM. Intact peripheral pulses. Mild left knee swelling, no tenderness. NEUROLOGICAL: CN 2-12 grossly intact. No FND SKIN: No rashes. Dictation was produced using [employer] dictation software. please excuse any grammatical, word or spelling errors. Plan - Discharge Summary Discharge Rx Participant: No New Discharge Prescriptions: New Cephalexin [Keflex] 500 mg PO Q6HR 10 Days #40 cap Enoxaparin [Lovenox] 100 mg SQ Q12H 5 Days #10 each Continue Atorvastatin [Lipitor] 40 mg PO DAILY Omeprazole [PriLOSEC] 20 mg PO DAILY Anastrozole 1 mg PO DAILY amLODIPine [Norvasc] 10 mg PO DAILY Aspirin 81 mg PO DAILY #30 tab lisinopriL [Zestril] 40 mg PO DAILY metFORMIN HCL [Glucophage] 1,000 mg PO BID INSULIN ASPART (NovoLOG) [NovoLOG (formulary)] 5 unit SQ AC-BID PRN PRN Reason: Blood Sugar - High Insulin Glargine,Hum.rec.anlog [Basaglar Kwikpen U-100] 30 unit SQ DAILY Gabapentin [Neurontin] 800 mg PO TID Insulin Glargine,Hum.rec.anlog [Basaglar Kwikpen U-100] 20 unit SQ HS Metoprolol Succinate (ER) [Toprol XL] 50 mg PO Q12HR #60 tab Warfarin [Coumadin] 5 mg PO DAILY HYDROcodone/APAP 5-325MG [[place] 5-325] 1 tab PO Q6HR PRN PRN Reason: Pain Discharge Medication List Atorvastatin [Lipitor] 40 mg PO DAILY 05/19/21 [History] INSULIN ASPART (NovoLOG) [NovoLOG (formulary)] 5 unit SQ AC-BID PRN 05/19/21 [History] Insulin Glargine,Hum.rec.anlog [Basaglar Kwikpen U-100] 30 unit SQ DAILY 05/19/21 [History] Omeprazole [PriLOSEC] 20 mg PO DAILY 05/19/21 [History] metFORMIN HCL [Glucophage] 1,000 mg PO BID 05/19/21 [History] Anastrozole 1 mg PO DAILY 10/08/22 [History] Gabapentin [Neurontin] 800 mg PO TID 08/30/24 [History] Insulin Glargine,Hum.rec.anlog [Basaglar Kwikpen U-100] 20 unit SQ HS 08/30/24 [History] amLODIPine [Norvasc] 10 mg PO DAILY 08/30/24 [History] Aspirin 81 mg PO DAILY #30 tab 12/28/24 [Rx] Metoprolol Succinate (ER) [Toprol XL] 50 mg PO Q12HR #60 tab 12/28/24 [Rx] HYDROcodone/APAP 5-325MG [[place] 5-325] 1 tab PO Q6HR PRN 01/15/25 [History] Warfarin [Coumadin] 5 mg PO DAILY 01/15/25 [History] lisinopriL [Zestril] 40 mg PO DAILY 01/15/25 [History] Cephalexin [Keflex] 500 mg PO Q6HR 10 Days #40 cap 01/20/25 [Rx] Enoxaparin [Lovenox] 100 mg SQ Q12H 5 Days #10 each 01/20/25 [Rx] Follow up Appointment(s)/Referral(s): Tatianna Mason MD [Primary Care Provider] - 1-2 days Kimberlyn Jurado DO [STAFF PHYSICIAN] - 1 Week Activity/Diet/Wound Care/Special Instructions: Get your INR checked in 2 to 3 days and get Coumadin levels adjusted by PCP/Coumadin clinic Stop subcutaneous Lovenox once INR above 2.0 Discharge Disposition: HOME SELF-CARE
== END 2025-01-20 14:39 | disposition home or self-care, planned readmission (81) | DRG 287 ==
LOC: EC 09:14 → 3SCARD 12:25
PROVIDERS: ADMIT Internal Medicine; ATTEND Internal Medicine
PROC: 4A033BC Measurement of Arterial Pressure, Coronary, Percutaneous Approach (ICD-10-PCS; 2025-01-18)
PROC: 4A0335C Measurement of Arterial Flow, Coronary, Percutaneous Approach (ICD-10-PCS; 2025-01-18)
PROC: B2111ZZ Fluoroscopy of Multiple Coronary Arteries using Low Osmolar Contrast (ICD-10-PCS; principal; 2025-01-18 07:30)
PROC: 4A023N7 Measurement of Cardiac Sampling and Pressure, Left Heart, Percutaneous Approach (ICD-10-PCS; 2025-01-18 07:30)
DX: T82.856A Stenosis of peripheral vascular stent, initial encounter (principal); M00.862 Arthritis due to other bacteria, left knee; E11.65 Type 2 diabetes mellitus with hyperglycemia; J44.9 Chronic obstructive pulmonary disease, unspecified; E66.9 Obesity, unspecified; I10 Essential (primary) hypertension; I70.211 Atherosclerosis of native arteries of extremities with intermittent claudication, right leg; L03.116 Cellulitis of left lower limb; E11.51 Type 2 diabetes mellitus with diabetic peripheral angiopathy without gangrene; I48.0 Paroxysmal atrial fibrillation; Z79.4 Long term (current) use of insulin; E78.5 Hyperlipidemia, unspecified; I25.10 Atherosclerotic heart disease of native coronary artery without angina pectoris; W01.0XXA Fall on same level from slipping, tripping and stumbling without subsequent striking against object, initial encounter; K21.9 Gastro-esophageal reflux disease without esophagitis; S80.02XA Contusion of left knee, initial encounter; E87.5 Hyperkalemia; Y71.1 Therapeutic (nonsurgical) and rehabilitative cardiovascular devices associated with adverse incidents; Z68.34 Body mass index [BMI] 34.0-34.9, adult; Z79.84 Long term (current) use of oral hypoglycemic drugs; Z79.811 Long term (current) use of aromatase inhibitors; Z79.82 Long term (current) use of aspirin; Z79.01 Long term (current) use of anticoagulants; Z87.891 Personal history of nicotine dependence; Z89.021 Acquired absence of right finger(s); Z86.718 Personal history of other venous thrombosis and embolism; Z79.899 Other long term (current) drug therapy; Z85.3 Personal history of malignant neoplasm of breast; Z92.3 Personal history of irradiation; Z92.21 Personal history of antineoplastic chemotherapy
CPT/HCPCS: 36247; 36415; 75710; 76937; 78452; 80048; 80053; 83036; 84132; 84145; 85025; 85610; 85730; 86850; 86900; 86901; 87040; 93017; 93458; 93799; 96361; 96365; 96366; 96375; 99291

== ENCOUNTER 2025-02-14 05:49 | Inpatient (IN) | payer MEDICARE ==
[2025-02-14] MEDS ORDERED: LIDOCAINE 1% (10MG/ML) FOR IV START INTRADERMA PRN (06:03)
[2025-02-14] MEDS: IV FLUID CONTINUATION 1,000 ML IV ONE (06:32)
[2025-02-14 06:57] LABS: Glucose,Whole Blood 54 mg/dL (70-110)
[2025-02-14 06:58] LABS: HCT 37.1 % (34.0-46.0); HGB 12.1 gm/dL (11.4-16.0); MCHC 32.6 g/dL (31.0-37.0); MCV 88.8 fL (80.0-100.0); Mean Platelet Volume 7.4; Platelet Count 274 k/uL (150-450); RBC 4.18 m/uL (3.80-5.40); RDW 14.1 % (11.5-15.5); WBC 6.9 k/uL (3.8-10.6)
[2025-02-14] MEDS ORDERED: fentaNYL (PF) 50 MCG/ML 2 ML AMP IV PRN (07:00)
[2025-02-14] MEDS: DEXAMETHASONE SOD PHOSPHATE 4 MG/ML 1 ML VIAL IV ONE (07:01)
[2025-02-14] MEDS: ONDANSETRON 4 MG/2 ML VIAL IVP ONE (07:01)
[2025-02-14] MEDS: DEXTROSE 50% SYRINGE 50 ML IVP STA (07:02)
[2025-02-14 07:09] LABS: INR 0.9 (<1.2); Partial Thromboplastin Time 25.9 sec (22.0-30.0); Prothrombin Time 10.4 sec (10.0-12.5)
[2025-02-14 07:29] LABS: Glucose,Whole Blood 113 mg/dL (70-110)
[2025-02-14] MEDS ORDERED: NEOSTIGMINE 1 MG/ML 10 ML VIAL ONE (07:33)
[2025-02-14] MEDS ORDERED: GLYCOPYRROLATE 0.2 MG/ML 2 ML VIAL ONE (07:33)
[2025-02-14] MEDS ORDERED: HEPARIN SODIUM,PORCINE 10,000 UNIT/ML 1 ML VIAL ONE (07:33)
[2025-02-14] MEDS ORDERED: SUCCINYLCHOLINE CHLORIDE 200 MG/10 ML VIAL IV ONE (07:33)
[2025-02-14] MEDS ORDERED: PROPOFOL 10 MG/ML 20 ML VIAL IV ONE (07:33)
[2025-02-14] MEDS ORDERED: MIDAZOLAM 2 MG/2 ML VIAL ONE (07:33)
[2025-02-14] MEDS ORDERED: HYDROmorphone (PF) 1 MG/ML ONE (07:33)
[2025-02-14] MEDS ORDERED: LIDOCAINE 1% INJ 10MG/ML (20 ML MDV) ONE (07:33)
[2025-02-14] MEDS ORDERED: ROCURONIUM 10 MG/ML (5 ML VIAL) IV ONE (07:33)
[2025-02-14] MEDS ORDERED: PHENYLEPHRINE-0.9% NACL SYG 1,000 MCG/10 ML SYRINGE ONE (07:33)
[2025-02-14] MEDS ORDERED: fentaNYL (PF) 50 MCG/ML 2 ML AMP ONE (07:33)
[2025-02-14] MEDS: ceFAZolin 4,000 MG in SODIUM CHLORIDE 0.9% 1,000 ML IRRIGATION ONE (08:39)
[2025-02-14] MEDS: DEXTROSE 5%-LACTATED RINGERS 1,000 ML IV ONE (08:40)
[2025-02-14] MEDS: HEPARIN SODIUM,PORCINE 10,000 UNIT in SODIUM CHLORIDE 0.9% 1,000 ML IRRIGATION ONE (08:40)
[2025-02-14] MEDS: THROMBIN (BOVINE) 5,000 UNIT VIAL TOPICAL ONE (10:11)
[2025-02-14] MEDS: LACTATED RINGERS 1,000 ML IV ONE (10:27)
--- NOTE | 2025-02-14 10:46 | P.OP ---
Date of Procedure: 02/14/25 Description of Procedure: preoperative diagnosis: Lifestyle-limiting peripheral vascular disease, femoral-popliteal occlusive disease, recurrent in-stent occlusion multiple times Postoperative diagnosis: Same Procedure: Right femoral cutdown/redo revision with intent to bypass in groin with previous procedure greater than 30 days Right femoral to distal popliteal below-knee bypass with CryoVein Surgeon: Kimberlyn Asif D.O. Automatic Driller And Reamer: Kayley EBL: 50 cc IV fluids: See records Drains: None, Prevena incisional wound vacs Urine output: See records Complications: None Condition: Stable, extubated in the OR to PACU Operative indication and findings: The patient is a 59-year-old female with lifestyle limiting claudication of her right lower extremity. She has had previous endovascular repairs but has had subsequent and recurrent thrombosis of her stent in the short-term after each intervention therefore a bypass was recommended.. Risks and benefits were discussed including but not limited to bleeding, infection, limb loss, heart attack, poor wound healing and . The patient seemingly understood and was willing to proceed. Procedure in detail: Patient taken to the operative suite placed in supine position and intubated. A Asif catheter was placed. The abdomen and right lower extremity prepped and draped in usual sterile fashion. A preprocedure timeout was performed and all parties are in agreement. An longitudinal incision was made in the right groin with the scalpel through the previous scar. It was deepened through subcutaneous tissues and significant scar tissue with electrocautery. The encountered lymphatics were ligated and divided. Careful and precise dissection was performed to the level of the femoral artery. The patch previously placed was identified. It was dissected free medially and laterally to allow for appropriate clamping for occlusion of flow. Due to the significant scar tissue it was felt that dissecting further to identify the profundus would be unnecessary. There was a plenty of space at the common femoral level to allow for appropriate access Attention was then turned towards the below-knee incision. It was made in the medial condyle and deepened through the fascia. There was significant depth of the soft tissue in order to get to the popliteal artery was identified the popliteal vein was retracted. Vessel loops were placed after careful circumferential dissection. A tunneler was then placed in the subsartorial plane. the patient was heparinized and ACT is were followed. Once heparinization was adequate, flow was occluded through the vessel. An 11 blade was utilized and arteriotomy is made the Barragan-Peterson scissors was utilized to enlarge the arteriotomy. An anastomosis was then created with the previously treated and flushed CryoVein using 5-0 Prolene between the femoral artery and the saphenous vein. The vein was marked and passed through the tunneler. The tunneler was removed. At that point the arteriotomy of the popliteal segment was performed. There was adequate appearing backbleeding The vein was cut to size and spatulated. Utilizing 6-0 Prolene an anastomosis was created. At this point all anastomoses were completed and flow was resumed through the bypass graft. Hemostasis was achieved with interrupted sutures of 6-0 Prolene and thrombin Gelfoam A Doppler was utilized to confirm multiphasic flow distally to the anastomosis. The wound was copiously irrigated with antibiotic solution. The femoral sheath and The popliteal fascia was reapproximated with interrupted sutures of 3-0 Vicryl. The subcuticular tissue was reapproximated with 3-0 Vicryl. The skin was closed with running sutures of 4-0 Monocryl. Incisional wound VAC and dressings were placed.
[2025-02-14] MEDS ORDERED: ACETAMINOPHEN TAB 325 MG TAB PO PRN (10:47)
[2025-02-14] MEDS ORDERED: ONDANSETRON 4 MG/2 ML VIAL IVP PRN (10:47)
[2025-02-14] MEDS: HYDROmorphone 0.5 MG/0.5 ML SYRINGE IVP PRN (11:00)
[2025-02-14 13:48] LABS: Glucose,Whole Blood 238 mg/dL (70-110)
[2025-02-14] MEDS: LACTATED RINGERS 1,000 ML IV SCH (13:50)
[2025-02-14] MEDS: MORPHINE SULFATE 4 MG/ML SYRINGE IVP PRN (15:03)
[2025-02-14] MEDS ORDERED: DEXTROSE 50% SYRINGE 50 ML IVP PRN ×2 (15:39)
[2025-02-14] MEDS: GABAPENTIN 400 MG CAP PO SCH (16:14)
[2025-02-14] MEDS: HYDROcodone/APAP 5-325MG 1 EACH TAB PO PRN (16:22)
[2025-02-14 16:24] LABS: Glucose,Whole Blood 263 mg/dL (70-110)
[2025-02-14] MEDS: INSULIN LISPRO (HumaLOG) 100 UNIT/ML 10 mL VL SQ SCH (16:44)
[2025-02-14 19:54] LABS: Glucose,Whole Blood 310 mg/dL (70-110)
--- NOTE | 2025-02-14 20:40 | P.CONS ---
History of Present Illness - History of Present Illness This is a pleasant 59 years old female with recent history of falling and left lower extremity cellulitis and left knee bursitis about 1 month ago completely treated with antibiotic and found to have right lower extremity ischemia. At that time evaluated by vascular surgery team, cleared for discharge. Common this time for similar problem of her history of recurrent in-stent stenosis multiple times in her right lower extremity. Patient a known case of peripheral vascular disease with femoral-popliteal occlusion with angioplasty and stent placement. Today she is status post right femoral revision with intent to bypass, she underwent right femoral-popliteal below-knee bypass. I saw the patient postoperatively she was doing fine denies any other complaint no chest pain or dyspnea. No GI/ symptoms. Patient currently is hemodynamically stable and afebrile He has CBC done showing normal WBC, hemoglobin and platelet count. INR 0.9. She is a known case of A-fib on Coumadin at home. Her sugar was also low earlier as she was n.p.o. At home she takes Lantus 30 units in the morning 20 units at night besides metformin. She is currently covered with Lovenox for bridging while resuming her Coumadin tonight Review of Systems Review of systems CONSTITUTIONAL: No fever, no malaise, no fatigue. HEENT: No recent visual problems or hearing problems. Denied any sore throat. CARDIOVASCULAR: No orthopnea, PND, no palpitations, no syncope. PULMONARY: No shortness of breath, no cough, no hemoptysis. GASTROINTESTINAL: No diarrhea, no nausea, no vomiting, no abdominal pain. Normoactive bowel sounds. NEUROLOGICAL: No headaches, no weakness, no numbness. HEMATOLOGICAL: Denies any bleeding or petechiae. GENITOURINARY: Denies any burning micturition, frequency, or urgency. MUSCULOSKELETAL/RHEUMATOLOGICAL: Denies any joint pain, swelling, or any muscle pain. ENDOCRINE: Denies any polyuria or polydipsia. Past Medical History Past Medical History: Atrial Fibrillation, Blood Disorder, Cancer, COPD, Diabetes Mellitus, Deep Vein Thrombosis (DVT), GERD/Reflux, Hyperlipidemia, Hypertension, Osteoarthritis (OA), Seizure Disorder, Skin Disorder, Vascular Disorder Additional Past Medical History / Comment(s): heart murmur, 2016 R breast cancer -had surgery & chemo & radiation 7 yrs ago, IDDM type II, clarita. ft charcot neuropathy bilateral legs/feet, 09/2022 DVT Lt. leg, one time seizure 10 or more years ago-testing done & never found anything, chronic pain mostly in feet and neck/back. 3 stents to right lower extremity on 08/23/24, paroxysmal Atrial fibrillation History of Any Multi-Drug Resistant Organisms: None Reported Past Surgical History: Breast Surgery, Orthopedic Surgery, Tubal Ligation Additional Past Surgical History / Comment(s): right breast lumpectomy & lymph nodes removed, port for chemo/since removed, peripheral angioplasties/atherectomies, and removed blood clot from L leg, stents, right 2nd toe amputation d/t diabetic ulcer, bilateral carpal tunnel releases, cervical fusion, aortogram 08/02/24 Past Anesthesia/Blood Transfusion Reactions: No Reported Reaction Additional Past Anesthesia/Blood Transfusion Reaction / Comm: Pt received blood transfusion r/t blood loss with surgery. no issues Smoking Status: Former smoker - Past Family History Mother Family Medical History: Cancer Additional Family Medical History / Comment(s): Lung cancer, former smoker. Medications and Allergies Home Medications Medication Instructions Recorded Confirmed Type Atorvastatin [Lipitor] 40 mg PO DAILY 05/19/21 02/14/25 History INSULIN ASPART (NovoLOG) [NovoLOG 5 unit SQ AC-BID PRN 05/19/21 02/14/25 History (formulary)] Insulin Glargine,Hum.rec.anlog 30 unit SQ DAILY 05/19/21 02/14/25 History [Basaglar Kwikpen U-100] Omeprazole [PriLOSEC] 20 mg PO DAILY 05/19/21 02/14/25 History metFORMIN HCL [Glucophage] 1,000 mg PO BID 05/19/21 02/14/25 History Anastrozole 1 mg PO DAILY 10/08/22 02/14/25 History Gabapentin [Neurontin] 800 mg PO TID 08/30/24 02/14/25 History Insulin Glargine,Hum.rec.anlog 20 unit SQ HS 08/30/24 02/14/25 History [Basaglar Kwikpen U-100] amLODIPine [Norvasc] 10 mg PO DAILY 08/30/24 02/14/25 History Aspirin 81 mg PO DAILY #30 tab 12/28/24 02/14/25 Rx Metoprolol Succinate (ER) [Toprol 50 mg PO Q12HR #60 tab 12/28/24 02/14/25 Rx XL] Warfarin [Coumadin] 5 mg PO DAILY 01/15/25 02/08/25 History lisinopriL [Zestril] 40 mg PO DAILY 01/15/25 02/14/25 History Enoxaparin [Lovenox] 100 mg SQ Q12H 5 Days #10 each 01/20/25 02/14/25 Rx Allergies Allergy/AdvReac Type Severity Reaction Status Date / Time protamine Allergy BP Verified 02/14/25 06:25 dropped, heart rate elevated tetracycline [Tetracycline] Allergy Rash/Hives Verified 02/14/25 06:25 Physical Exam Vitals: Vital Signs Temp Pulse Resp BP BP Pulse Ox 02/14/25 11:04 71 16 158/68 169/70 99 02/14/25 10:48 97.3 F L 75 16 153/69 180/69 97 02/14/25 07:15 72 16 160/63 98 02/14/25 06:45 97.0 F L 74 16 175/70 97 Intake and Output 02/13/25 02/14/25 02/14/25 22:59 06:59 14:59 Intake Total 100 1053 Output Total 450 Balance 100 603 Intake: IV 100 1053 Output: Urine 400 Estimated Blood Loss 50 Other: Weight 104.2 kg GENERAL: The patient is alert and oriented x3, not in any acute distress. Well developed, well nourished. HEENT: Pupils are round and equally reacting to light. EOMI. No scleral icterus. No conjunctival pallor. Normocephalic, atraumatic. No pharyngeal erythema. No thyromegaly. CARDIOVASCULAR: S1 and S2 present. No murmurs, rubs, or gallops. PULMONARY: Chest is clear to auscultation, no wheezing , no crackles. ABDOMEN: Soft, nontender, nondistended, normoactive bowel sounds. No palpable organomegaly. MUSCULOSKELETAL: No joint swelling or deformity. EXTREMITIES: No cyanosis, clubbing, or pedal edema. NEUROLOGICAL: Gross neurological examination did not reveal any focal deficits. SKIN: No rashes. no petechiae. Results CBC & Chem 7: 02/14/25 06:45 Labs: Abnormal Lab Results - Last 24 Hours (Table) 03/27/25 03/27/25 Range/Units 06:53 07:26 POC Glucose (mg/dL) 54 L 113 H (70-110) mg/dL Assessment and Plan Assessment: Diagnoses: Re-cent acute occlusion of the right leg SFA. With history of angioplasty and stent to the right popliteal artery. Patient has history of multiple stent closure s/p right femoral-popliteal bypass, below knee bypass -Paroxysmal atrial fibrillation on Coumadin -Coronary artery disease -COPD with no acute exacerbation -Diabetes mellitus -Hypertension -Hyperlipidemia -History of GERD -Obesity with BMI of 34.9. Plan: Continue with cefazolin Continue with IV fluid per primary team, currently patient of IV fluid She is on Lovenox bridging dose, start her home dose of Coumadin 5 mg daily tonight. Her INR 0.9 we will keep following her INR Will give her half the dose of Lantus for now as she might have average appetite and insulin sliding scale. In 1 to 2 days we can increase it to full dose Pain looks controlled continue with pain management Labs and medication were reviewed.. Continue same treatment. Continue with symptomatic treatment. Resume home medication. Monitor labs and vitals. DVT and GI prophylaxis. Further recommendations as per clinical course of the patient DVT prophylaxis: Subcutaneous Lovenox with warfarin GI Prophylaxis: Pepcid Physical therapy evaluation ordered Prognosis is guarded Thank you for consulting us
[2025-02-14] MEDS: ENOXAPARIN 80 MG/0.8 ML SYRINGE SQ SCH (21:43)
[2025-02-14] MEDS: FAMOTIDINE 20 MG/2 ML VIAL IV SCH (21:43)
[2025-02-14] MEDS: METOPROLOL SUCCINATE (ER) 50 MG TAB.ER.24H PO SCH (21:44)
[2025-02-14] MEDS: WARFARIN 5 MG TAB PO ONE (22:16)
[2025-02-14] MEDS: INSULIN GLARGINE (LANTUS) 100 UNIT/ML SYR SQ SCH (22:16)
[2025-02-15 02:04] LABS: Glucose,Whole Blood 255 mg/dL (70-110)
[2025-02-15 06:20] LABS: Glucose,Whole Blood 334 mg/dL (70-110)
[2025-02-15] MEDS: INSULIN GLARGINE (LANTUS) 100 UNIT/ML SYR SQ SCH ×2 (06:31→18:19)
[2025-02-15 08:17] LABS: INR 0.9 (<1.2); Prothrombin Time 10.4 sec (10.0-12.5)
[2025-02-15] MEDS: lisinopriL 20 MG TAB PO SCH (08:40)
[2025-02-15] MEDS: ATORVASTATIN 40 MG TAB PO SCH (08:41)
[2025-02-15] MEDS: amLODIPine 10 MG TAB PO SCH (08:41)
--- NOTE | 2025-02-15 08:59 | P.PN ---
Subjective This is a pleasant 59 years old female with recent history of falling and left lower extremity cellulitis and left knee bursitis about 1 month ago completely treated with antibiotic and found to have right lower extremity ischemia. At that time evaluated by vascular surgery team, cleared for discharge. Common this time for similar problem of her history of recurrent in-stent stenosis multiple times in her right lower extremity. Patient a known case of peripheral vascular disease with femoral-popliteal occlusion with angioplasty and stent p lacement. Today she is status post right femoral revision with intent to bypass, she underwent right femoral-popliteal below-knee bypass. I saw the patient postoperatively she was doing fine denies any other complaint no chest pain or dyspnea. No GI/ symptoms. Patient currently is hemodynamically stable and afebrile He has CBC done showing normal WBC, hemoglobin and platelet count. INR 0.9. She is a known case of A-fib on Coumadin at home. Her sugar was also low earlier as she was n.p.o. At home she takes Lantus 30 units in the morning 20 units at night besides metformin. She is currently covered with Lovenox for bridging [facility] patient overall doing well No chest pain or dyspnea No other complaints Her right lower extremity swelling and pain about 5/10 in severity Surgical wound with dressing in place, rest of exam deferred to surgery team. Patient started on Coumadin 5 mg last night, patient states she takes Coumadin 7 mg, discussed with the staff call pharmacy to check dosing. Also she is on bridging with Lovenox . Last time she was discharged on 10 injections. Patient does not have any more at home and probably she will require more Lovenox injection upon discharge. I told the patient the goal INR is 2-3, if INR more than 3 to hold Coumadin. If INR more than 2 to hold Lovenox and she agrees. Last time she was discharged also on subcu Lovenox and she knew how to inject herself Objective - Vital Signs Vital signs: Vital Signs Temp 98.7 F 02/15/25 08:13 Pulse 76 02/15/25 08:13 Resp 14 02/15/25 08:13 BP 106/62 02/15/25 08:13 Pulse Ox 95 02/15/25 08:13 FiO2 Intake & Output 03/27/25 03/28/25 03/28/25 18:59 06:59 18:59 Intake Total 1771 118 Output Total 1125 1200 Balance 646 -1082 Intake: IV 1503 Intake, IV Titration 150 Amount IV Fluid Continuation 1, 100 000 ml @ 0 mls/hr IV .[facility] Rx#:[id number] ceFAZolin 2 gm In Sodium 50 Chloride 0.9% 50 ml @ 100 mls/hr IVPB Q8H [facility] Rx#: [id number] Oral 118 118 Output: Urine 1075 1200 Estimated Blood Loss 50 Other: Voiding Method Indwelling Catheter Indwelling Catheter - Exam GENERAL: The patient is alert and oriented x3, not in any acute distress. Well developed, well nourished. HEENT: Pupils are round and equally reacting to light. EOMI. No scleral icterus. No conjunctival pallor. Normocephalic, atraumatic. No pharyngeal erythema. No thyromegaly. CARDIOVASCULAR: S1 and S2 present. No murmurs, rubs, or gallops. PULMONARY: Chest is clear to auscultation, no wheezing , no crackles. ABDOMEN: Soft, nontender, nondistended, normoactive bowel sounds. No palpable organomegaly. MUSCULOSKELETAL: No joint swelling or deformity. -EXTREMITIES: No cyanosis, clubbing, or pedal edema. Right lower extremity is swollen, surgical wound with dressing in the middle medial side. Rest of exam deferred to surgery team NEUROLOGICAL: Gross neurological examination did not reveal any focal deficits. SKIN: No rashes. no petechiae. - Labs CBC & Chem 7: 02/14/25 06:45 Labs: Abnormal Lab Results - Last 24 Hours (Table) 02/14/25 02/14/25 02/14/25 Range/Units 13:47 16:22 19:53 POC Glucose (mg/dL) 238 H 263 H 310 H (70-110) mg/dL 02/15/25 02/15/25 Range/Units 02:02 06:16 POC Glucose (mg/dL) 255 H 334 H (70-110) mg/dL Assessment and Plan Assessment: Diagnoses: Re-cent acute occlusion of the right leg SFA. With history of angioplasty and stent to the right popliteal artery. Patient has history of multiple stent closure s/p right femoral-popliteal bypass, below knee bypass -Paroxysmal atrial fibrillation on Coumadin -Coronary artery disease -COPD with no acute exacerbation -Diabetes mellitus -Hypertension -Hyperlipidemia -History of GERD -Obesity with BMI of 34.9. Plan: cefazolin was discontinued Continue Coumadin pharmacy to dose, patient states last time her PCP increased her dose to 7 mg She is on Lovenox bridging dose, start her home dose of Coumadin 5 mg daily tonight. Her INR 0.9 we will keep following her INR Will give her half the dose of Lantus for now as she might have average appetite and insulin sliding scale. In 1 to 2 days we can increase it to full dose Pain looks controlled continue with pain management Labs and medication were reviewed.. Continue same treatment. Continue with symptomatic treatment. Resume home medication. Monitor labs and vitals. DVT and GI prophylaxis. Further recommendations as per clinical course of the patient DVT prophylaxis: Subcutaneous Lovenox with warfarin GI Prophylaxis: Pepcid Physical therapy evaluation ordered Prognosis is guarded Thank you for consulting us
[2025-02-15] MEDS: INSULIN GLARGINE (LANTUS) 100 UNIT/ML SYR SQ ONE (09:53)
[2025-02-15 10:38] LABS: Glucose,Whole Blood 444 mg/dL (70-110)
[2025-02-15] MEDS: INSULIN LISPRO (HumaLOG) 100 UNIT/ML 10 mL VL SQ ONE (11:14)
[2025-02-15 12:33] LABS: Glucose,Whole Blood 370 mg/dL (70-110)
[2025-02-15 16:31] LABS: Glucose,Whole Blood 306 mg/dL (70-110)
[2025-02-15] MEDS: WARFARIN 5 MG TAB PO ONE (17:19)
[2025-02-15 19:59] LABS: Glucose,Whole Blood 271 mg/dL (70-110)
--- NOTE | 2025-02-15 20:13 | P.PN ---
Subjective Progress Note Date: 02/15/25 Patient seen and examined. Doing well no complaints. Right lower extremity warm. Pain is generally well-controlled at this point. Has been up and states her pain overall is improved from previous, different more incisional pain and swelling at this point. Continue elevation. Hopeful for discharge home tomorrow in the morning. Patient is cleared from my standpoint for discharge once seen by medicine. She is handwritten a prescription for pain pills. Home- going instructions given. Objective - Vital Signs Vital signs: Vital Signs Temp 97.8 F 02/15/25 19:00 Pulse 71 02/15/25 19:00 Resp 16 02/15/25 19:00 BP 115/63 02/15/25 19:00 Pulse Ox 96 02/15/25 19:00 FiO2 Intake & Output 02/15/25 02/15/25 02/16/25 06:59 18:59 06:59 Intake Total 458 Output Total 1400 Balance -942 Intake: Oral 458 Output: Urine 1400 Other: Voiding Method Indwelling Catheter Toilet # Voids 2 - Labs CBC & Chem 7: 02/14/25 06:45 Labs: Abnormal Lab Results - Last 24 Hours (Table) 02/15/25 02/15/25 02/15/25 Range/Units 02:02 06:16 07:05 POC Glucose (mg/dL) 255 H 334 H (70-110) mg/dL Hemoglobin A1c 7.8 H (<=6.0) % 02/15/25 02/15/25 02/15/25 Range/Units 10:35 12:30 16:30 POC Glucose (mg/dL) 444 H 370 H 306 H (70-110) mg/dL Hemoglobin A1c (<=6.0) % 02/15/25 Range/Units 19:57 POC Glucose (mg/dL) 271 H (70-110) mg/dL Hemoglobin A1c (<=6.0) %
[2025-02-15] MEDS: HYDROcodone/APAP 10-325MG 1 EACH TAB PO PRN (20:14)
[2025-02-16 06:03] LABS: Glucose,Whole Blood 358 mg/dL (70-110)
[2025-02-16] MEDS: INSULIN GLARGINE (LANTUS) 100 UNIT/ML SYR SQ SCH (06:54)
[2025-02-16 08:07] VITALS: PULSE 80
[2025-02-16 09:19] LABS: INR 0.9 (<1.2); Prothrombin Time 10.2 sec (10.0-12.5)
[2025-02-16 11:26] LABS: Glucose,Whole Blood 311 mg/dL (70-110)
[2025-02-16 12:04] VITALS: BP 130/63; RESP 16; TEMP 98.7
[2025-02-16] MEDS: INSULIN GLARGINE (LANTUS) 100 UNIT/ML SYR SQ ONE (12:42)
[2025-02-16] MEDS ORDERED: WARFARIN 7.5 MG TAB PO ONE (18:00)
--- NOTE | 2025-02-16 19:24 | P.PN ---
Subjective This is a pleasant 59 years old female with recent history of falling and left lower extremity cellulitis and left knee bursitis about 1 month ago completely treated with antibiotic and found to have right lower extremity ischemia. At that time evaluated by vascular surgery team, cleared for discharge. Common this time for similar problem of her history of recurrent in-stent stenosis multiple times in her right lower extremity. Patient a known case of peripheral vascular disease with femoral-popliteal occlusion with angioplasty and stent p lacement. Today she is status post right femoral revision with intent to bypass, she underwent right femoral-popliteal below-knee bypass. I saw the patient postoperatively she was doing fine denies any other complaint no chest pain or dyspnea. No GI/ symptoms. Patient currently is hemodynamically stable and afebrile He has CBC done showing normal WBC, hemoglobin and platelet count. INR 0.9. She is a known case of A-fib on Coumadin at home. Her sugar was also low earlier as she was n.p.o. At home she takes Lantus 30 units in the morning 20 units at night besides metformin. She is currently covered with Lovenox for bridging while resuming her Coumadin tonight 02/15 patient overall doing well No chest pain or dyspnea No other complaints Her right lower extremity swelling and pain about 5/10 in severity Surgical wound with dressing in place, rest of exam deferred to surgery team. Patient started on Coumadin 5 mg last night, patient states she takes Coumadin 7 mg, discussed with the staff call pharmacy to check dosing. Also she is on bridging with Lovenox . Last time she was discharged on 10 injections. Patient does not have any more at home and probably she will require more Lovenox injection upon discharge. I told the patient the goal INR is 2-3, if INR more than 3 to hold Coumadin. If INR more than 2 to hold Lovenox and she agrees. Last time she was discharged also on subcu Lovenox and she knew how to inject herself 02/16 Patient today was doing well, she was sitting in chair doing okay denies any new complaint no chest pain or dyspnea. No headache or dizziness. Her right leg swelling and pain were improving, surgical wound is closed with dressing in place Patient was cleared for discharge from medical service. Dr. Asif has y discha rge patient yesterday. And she discharged her on Lovenox bridging however the dose was given was 80 mg twice daily while at home she was 100 mg twice daily which caused with her weight of 106 kg. Therefore another new prescription for Lovenox 100 mg twice daily was given her for 3 days with 3 refills with Coumadin 7.5 mg, she has Coumadin at home but we gave her extra prescription for 15 days just in case with recommendation to check her INR in every 2 days, with recommendation to hold Lovenox if INR more than 2 and hold Coumadin and talk to her doctor of her INR more than 3. Also we discharged her on home health care with recommendation to check her INR. Patient verbalized understanding acceptance to these recommendations. Because of her surgical procedure we are holding her metformin upon discharge increasing her insulin at night dose up to 25 units. Till she checks her creatinine with her doctor within a week prior to resuming her metformin and lower the dose of insulin from 25 down to 20 units at night Other than that patient told me she has all her home prescription including hypertension medication Patient was eager to go home today. Patient is medically stable for discharge. Discussed with staff Objective - Vital Signs Vital signs: Vital Signs Temp 98.7 F 02/16/25 12:03 Pulse 80 02/16/25 12:03 Resp 16 02/16/25 12:03 BP 130/63 02/16/25 12:03 Pulse Ox 94 L 02/16/25 12:03 FiO2 Intake & Output 02/15/25 02/16/25 02/16/25 18:59 06:59 18:59 Intake Total 458 540 Output Total 1400 Balance -942 540 Weight 47 kg 106 kg Intake: Oral 458 540 Output: Urine 1400 Other: Voiding Method Toilet Toilet Toilet # Voids 2 - Exam GENERAL: The patient is alert and oriented x3, not in any acute distress. Well developed, well nourished. HEENT: Pupils are round and equally reacting to light. EOMI. No scleral icterus. No conjunctival pallor. Normocephalic, atraumatic. No pharyngeal erythema. No thyromegaly. CARDIOVASCULAR: S1 and S2 present. No murmurs, rubs, or gallops. PULMONARY: Chest is clear to auscultation, no wheezing , no crackles. ABDOMEN: Soft, nontender, nondistended, normoactive bowel sounds. No palpable organomegaly. MUSCULOSKELETAL: No joint swelling or deformity. -EXTREMITIES: No cyanosis, clubbing, or pedal edema. Right lower extremity is swollen, surgical wound with dressing in the middle medial side. Rest of exam deferred to surgery team NEUROLOGICAL: Gross neurological examination did not reveal any focal deficits. SKIN: No rashes. no petechiae. - Labs CBC & Chem 7: 02/14/25 06:45 Labs: Abnormal Lab Results - Last 24 Hours (Table) 02/15/25 02/15/25 02/15/25 Range/Units 12:30 16:30 19:57 POC Glucose (mg/dL) 370 H 306 H 271 H (70-110) mg/dL 02/16/25 02/16/25 Range/Units 05:58 11:24 POC Glucose (mg/dL) 358 H 311 H (70-110) mg/dL Assessment and Plan Assessment: Diagnoses: Re-cent acute occlusion of the right leg SFA. With history of angioplasty and stent to the right popliteal artery. Patient has history of multiple stent closure s/p right femoral-popliteal bypass, below knee bypass -Paroxysmal atrial fibrillation on Coumadin -Coronary artery disease -COPD with no acute exacerbation -Diabetes mellitus -Hypertension -Hyperlipidemia -History of GERD -Obesity with BMI of 34.9. Plan: Continue with Coumadin 7.5 mg which she takes at home, give her prescription for Lovenox bridging at 100 milligram twice daily. Also will hold her metformin upon discharge and increase the dose of Lantus to 1 units at bedtime up to 25 units and keep that the dose of 30 units daily. With recommendation for close monitoring for 2 weeks of her glucose and she verbalized understanding and acceptance Resume all of her home medication Ordered home health care for her upon discharge I told the patient to follow-up with Dr. Mason her PCP on Tuesday or Tuesday and she agrees, also I advised her to check her INR every 2 days or as per PCP Dr. Mason and she agrees Also patient is going to follow-up with her vascular surgeon Dr. Asif upon discharge Labs and medication were reviewed.. Continue same treatment. Continue with symptomatic treatment. Resume home medication. Monitor labs and vitals. DVT and GI prophylaxis. Further recommendations as per clinical course of the pat ient DVT prophylaxis: Subcutaneous Lovenox with warfarin GI Prophylaxis: Pepcid Physical therapy evaluation ordered Patient medically stable for discharge and guarded prognosis Thank you for consulting us
== END 2025-02-16 13:10 | disposition home or self-care (01) | DRG 254 ==
LOC: 2ORMAIN 05:49 → 3SCARD 13:10
PROVIDERS: ADMIT Surgery; ATTEND Surgery
PROC: 061 Lower Veins, Bypass (ICD-10-PCS; principal; 2025-02-14 07:30)
DX: E11.51 Type 2 diabetes mellitus with diabetic peripheral angiopathy without gangrene (principal); E11.610 Type 2 diabetes mellitus with diabetic neuropathic arthropathy; J44.9 Chronic obstructive pulmonary disease, unspecified; E66.9 Obesity, unspecified; I70.211 Atherosclerosis of native arteries of extremities with intermittent claudication, right leg; I10 Essential (primary) hypertension; I48.0 Paroxysmal atrial fibrillation; Z79.4 Long term (current) use of insulin; E78.5 Hyperlipidemia, unspecified; I25.10 Atherosclerotic heart disease of native coronary artery without angina pectoris; G89.29 Other chronic pain; Z79.02 Long term (current) use of antithrombotics/antiplatelets; Z79.82 Long term (current) use of aspirin; Z79.84 Long term (current) use of oral hypoglycemic drugs; Z79.899 Other long term (current) drug therapy; Z95.820 Peripheral vascular angioplasty status with implants and grafts; Z87.891 Personal history of nicotine dependence; Z68.34 Body mass index [BMI] 34.0-34.9, adult; Z85.3 Personal history of malignant neoplasm of breast; Z91.81 History of falling; Z79.01 Long term (current) use of anticoagulants; Z79.811 Long term (current) use of aromatase inhibitors
CPT/HCPCS: 83036; 85027; 85610; 85730; 86850; 86900; 86901; 88305

== ENCOUNTER 2025-05-27 09:43 | Inpatient (IN) | payer MEDICARE ==
[2025-05-27] MEDS ORDERED: RX INFO: IV CONTRAST WAS GIVEN 1 EACH MISC MISCELLANE PRN ×2 (10:38→10:39)
--- NOTE | 2025-05-27 10:39 | ED ---
General Adult HPI - General Chief complaint: Extremity Problem,Nontraumatic Stated complaint: R Leg/Foot issue Time Seen by Provider: 05/27/25 10:27 Source: patient, RN notes reviewed Mode of arrival: ambulatory Limitations: no limitations - History of Present Illness Initial comments: This is a 60-year-old female with a history of DVT on warfarin and peripheral arterial disease with recent bypass surgery in the spring of this year with Dr. Asif presenting to the emergency department with pain to the right lower extremity, swelling, redness that has been worsening over the past few weeks. She states that she is concerned there may be infection of her digits that has developed over the past few days. has severe pain over the first digit and 4th and noticed rendess streaking up her leg as well. She denies chest pain, difficulty breathing, fevers, chills, nausea or vomiting. states she has been taking her medications as prescribed. - Related Data Home Medications Medication Instructions Recorded Confirmed Atorvastatin [Lipitor] 40 mg PO DAILY 05/19/21 05/27/25 INSULIN ASPART (NovoLOG) [NovoLOG See Protocol SQ AC-TID 05/19/21 05/27/25 (formulary)] Insulin Glargine,Hum.rec.anlog 30 unit SQ AC-BRKFST 05/19/21 05/27/25 [Basaglar Kwikpen U-100] Omeprazole [PriLOSEC] 20 mg PO DAILY 05/19/21 05/27/25 Anastrozole 1 mg PO DAILY 10/08/22 05/27/25 Gabapentin [Neurontin] 800 mg PO TID 08/30/24 05/27/25 amLODIPine [Norvasc] 10 mg PO DAILY 08/30/24 05/27/25 lisinopriL [Zestril] 40 mg PO DAILY 01/15/25 05/27/25 Insulin Glargine,Hum.rec.anlog 15 unit SQ AC-SUPPER 05/27/25 05/27/25 [Basaglar Kwikpen U-100] metFORMIN HCL 1,000 mg PO BID 05/27/25 05/27/25 Previous Rx's Medication Instructions Recorded Aspirin 81 mg PO DAILY #30 tab 12/28/24 Metoprolol Succinate (ER) [Toprol 50 mg PO Q12HR #60 tab 12/28/24 XL] Warfarin [Coumadin] 7.5 mg PO DAILY 15 Days #15 tab 02/16/25 Allergies Allergy/AdvReac Type Severity Reaction Status Date / Time protamine Allergy BP Verified 05/27/25 14:28 dropped, heart rate elevated tetracycline [Tetracycline] Allergy Rash/Hives Verified 05/27/25 14:28 Review of Systems ROS Statement: Those systems with pertinent positive or pertinent negative responses have been documented in the HPI. ROS Other: All systems not noted in ROS Statement are negative. Past Medical History Past Medical History: Atrial Fibrillation, Blood Disorder, Cancer, COPD, Diabetes Mellitus, Deep Vein Thrombosis (DVT), GERD/Reflux, Hyperlipidemia, Hype rtension, Osteoarthritis (OA), Seizure Disorder, Skin Disorder, Vascular Disorder Additional Past Medical History / Comment(s): heart murmur, 2015 R breast cancer -had surgery & chemo & radiation 7 yrs ago, IDDM type II, clarita. ft charcot neuropathy bilateral legs/feet, 09/2022 DVT Lt. leg, one time seizure 10 or more years ago-testing done & never found anything, chronic pain mostly in feet and neck/back. 3 stents to right lower extremity on 08/23/24, paroxysmal Atrial fib rillation History of Any Multi-Drug Resistant Organisms: None Reported Past Surgical History: Breast Surgery, Orthopedic Surgery, Tubal Ligation Additional Past Surgical History / Comment(s): right breast lumpectomy & lymph n odes removed, port for chemo/since removed, peripheral angioplasties/atherectomies, and removed blood clot from L leg, stents, right 2nd toe amputation d/t diabetic ulcer, bilateral carpal tunnel releases, cervical fusion, aortogram 08/02/24 Past Anesthesia/Blood Transfusion Reactions: No Reported Reaction Additional Past Anesthesia/Blood Transfusion Reaction / Comment(s): Pt received blood transfusion r/t blood loss with surgery. no issues Past Psychological History: Anxiety, Depression Smoking Status: Former smoker Past Alcohol Use History: None Reported Past Drug Use History: None Reported - Past Family History Mother Family Medical History: Cancer Additional Family Medical History / Comment(s): Lung cancer, former smoker. General Exam Limitations: no limitations Respiratory exam: Present: normal lung sounds bilaterally. Absent: respiratory distress, wheezes, rales, rhonchi, stridor Cardiovascular Exam: Present: regular rate, normal rhythm, normal heart sounds. Absent: systolic murmur, diastolic murmur, rubs, gallop, clicks GI/Abdominal exam: Present: soft, normal bowel sounds. Absent: distended, tenderness, guarding, rebound, rigid Right Lower Leg exam: Present: tenderness, swelling, erythema Foot/Toe exam: Present: tenderness, swelling, erythema, amputation Gait: not tested/not observed Course Vital Signs 05/27/25 05/27/25 09:45 13:44 Temperature 98.3 F 98.0 F Pulse Rate 83 75 Respiratory 20 19 Rate Blood Pressure 173/75 126/86 O2 Sat by Pulse 99 95 Oximetry Medical Decision Making - Medical Decision Making Was pt. sent in by a medical professional or institution (, PA, HEAD MIXER, urgent care, hospital, or [place] health care facility...) When possible be specific @ -No Did you speak to anyone other than the patient for history (EMS, parent, family, police, friend...)? What history was obtained from this source @ -No Did you review nursing and triage notes (agree or disagree)? Why? @ -I reviewed and agree with nursing and triage notes Were old charts reviewed (outside hosp., previous admission, EMS record, old EKG, old radiological studies, urgent care reports/EKG's, [place] health care facility records)? Report findings @ -No old charts were reviewed Differential Diagnosis (chest pain, altered mental status, abdominal pain women, abdominal pain men, vaginal bleeding, weakness, fever, dyspnea, syncope, headache, dizziness, GI bleed, back pain, seizure, CVA, palpatations, mental health, musculoskeletal)? @ -Venous insufficiency, deep vein thrombosis, superficial thrombophlebitis, peripheral arterial disease, cellulitis, this is not all-inclusive EKG interpreted by me (3pts min.). @ -None X-rays interpreted by me (1pt min.). @ -None done CT interpreted by me (1pt min.). @ -CTA of the lower extremity reveals an occlusion of the right superficial femoral artery from the midpoint to the popliteal artery not different from 2023 with reconstitution 2 vessels with right proximal stent graft and superficial femoral arteries patent. U/S interpreted by me (1pt. min.). @ -None done What testing was considered but not performed or refused? (CT, X-rays, U/S, labs)? Why? @ -None What meds were considered but not given or refused? Why? @ -None Did you discuss the management of the patient with other professionals (professionals i.e. , PA, HEAD MIXER, lab, RT, psych nurse, foster care social worker, buffing machine operator semiautomatic, teacher, eeo officer, correctional casework specialist)? Give summary @ -I spoke on-call with Dr. Baum was agreed admit the patient for further evaluation of peripheral vascular disease and cellulitis. Was smoking cessation discussed for >3mins.? @ -No Was critical care preformed (if so, how long)? @ -No Were there social determinants of health that impacted care today? How? (Homelessness, low income, unemployed, alcoholism, drug addiction, transportation, low edu. Level, literacy, decrease access to med. care, shelter, rehab)? @ -No Was there de-escalation of care discussed even if they declined (Discuss DNR or withdrawal of care, Hospice)? DNR status @ -No What co-morbidities impacted this encounter? (DM, HTN, Smoking, COPD, CAD, Cancer, CVA, ARF, Chemo, Hep., AIDS, mental health diagnosis, sleep apnea, morbid obesity)? @ -None Was patient admitted / discharged? Hospital course, mention meds given and route, prescriptions, significant lab abnormalities, going to OR and other pertinent info. @ -Admitted. 60-year-old female presenting with right lower extremity pain, erythema. The 1st and 4th digit noted to be tender with eschar. Patient's foot is red, swollen, warm to the touch and tender. Redness streaking proximally to the lower calf. Patient better with pain medication. Laboratory testing including CBC is unremarkable. Patient noted to have hyperkalemia with a potassium of 5.6. Patient states that she has had hyperkalemia in the past and does not take medications for this. She is provide with [employer] 42cm for her potassium. Patient will be admitted to internal medicine with vascular on consult and started on IV vancomycin with concern for cellulitis. Case discussed with my attending Dr. Chery Undiagnosed new problem with uncertain prognosis? @ -No Drug Therapy requiring intensive monitoring for toxicity (Heparin, Nitro, Insulin, Cardizem)? @ -No Were any procedures done? @ -No Diagnosis/symptom? @ -Cellulitis, peripheral vascular disease Acute, or Chronic, or Acute on Chronic? @ -Acute Uncomplicated (without systemic symptoms) or Complicated (systemic symptoms)? @ -Complicated Side effects of treatment? @ -No Exacerbation, Progression, or Severe Exacerbation? @ -No Poses a threat to life or bodily function? How? (Chest pain, [place], [place], pneumonia, PE, COPD, DKA, ARF, appy, cholecystitis, CVA, Diverticulitis, Homicidal, Suicidal, threat to staff... and all critical care pts) @ -No - Lab Data Result diagrams: 05/27/25 10:57 05/27/25 10:57 Lab Results 05/27/25 05/27/25 05/27/25 Range/Units 10:57 10:57 10:57 WBC 10.07 H (4.50-10.00) 10*3/uL RBC 4.79 (4.10-5.20) 10*6/uL Hgb 13.0 (12.0-15.0) g/dL Hct 39.1 (37.2-46.3) % MCV 81.6 (80.0-97.0) fL MCH 27.1 (27.0-32.0) pg MCHC 33.2 (32.0-37.0) g/dL Plt Count 322 (140-440) 10*3/uL MPV 10.7 (9.5-12.2) fL Immature Gran % (Auto) 0.2 % Neutrophils % 71.1 % Lymphocytes % 18.8 % Monocytes % 7.7 % Eosinophils % 1.7 % Basophils % 0.5 % Immature Gran # 0.02 (0.00-0.04) 10*3/uL Neutrophils # 7.16 (1.80-7.70) 10*3/uL Lymphocytes # 1.89 (0.90-5.00) 10*3/uL Monocytes # 0.78 (0.20-1.00) 10*3/uL Eosinophils # 0.17 (0.04-0.35) 10*3/uL Basophils # 0.05 (0.00-0.10) 10*3/uL Sodium 135 L (137-145) mmol/L Potassium 5.6 H (3.5-5.1) mmol/L Chloride 101 (98-107) mmol/L Carbon Dioxide 24 (22-30) mmol/L Anion Gap 10 mmol/L BUN 20 H (7-17) mg/dL Creatinine 0.82 (0.52-1.04) mg/dL Est GFR (CKD-EPI)AfAm >90 (>60 ml/min/1.73 sqM) Est GFR (CKD-EPI)NonAf 78 (>60 ml/min/1.73 sqM) Glucose 89 (74-99) mg/dL Plasma Lactic Acid Harvey 1.0 (0.7-2.0) mmol/L Calcium 9.5 (8.4-10.2) mg/dL Total Bilirubin 0.7 (0.2-1.3) mg/dL AST 31 (14-36) U/L ALT 29 (4-34) U/L Alkaline Phosphatase 111 (38-126) U/L C-Reactive Protein 1.9 H (<1.0) mg/dL Total Protein 7.2 (6.3-8.2) g/dL Albumin 4.3 (3.5-5.0) g/dL Disposition Clinical Impression: Cellulitis, PAD (peripheral artery disease), Hyperkalemia Disposition: ADMITTED IP TO THIS [facility] Condition: Stable Decision to Admit Reason: Admit from EC Decision Date: 05/27/25 Decision Time: 13:19
[2025-05-27 11:04] LABS: Basophils # (A) 0.05 10*3/uL (0.00-0.10); Basophils % (A) 0.5 %; Eosinophils # (A) 0.17 10*3/uL (0.04-0.35); Eosinophils % (A) 1.7 %; HCT 39.1 % (37.2-46.3); HGB 13.0 g/dL (12.0-15.0); Lymphocytes # (A) 1.89 10*3/uL (0.90-5.00); Lymphocytes % (A) 18.8 %; MCH 27.1 pg (27.0-32.0); MCHC 33.2 g/dL (32.0-37.0); MCV 81.6 fL (80.0-97.0); Monocytes # (A) 0.78 10*3/uL (0.20-1.00); Monocytes % (A) 7.7 %; Neutrophils # (A) 7.16 10*3/uL (1.80-7.70); Neutrophils % (A) 71.1 %; Platelet Count 322 10*3/uL (140-440); RBC 4.79 10*6/uL (4.10-5.20); RDW 16.3 % (11.5-14.5); WBC 10.07 10*3/uL (4.50-10.00)
[2025-05-27 11:33] LABS: ALT 29 U/L (4-34); AST 31 U/L (14-36); African American GFR (CKD) >90 (>60 ml/min/1.73 sqM); Albumin 4.3 g/dL (3.5-5.0); Alkaline Phosphatase 111 U/L (38-126); Anion Gap 10 mmol/L; Blood Urea Nitrogen 20 mg/dL (7-17); Calcium 9.5 mg/dL (8.4-10.2); Carbon Dioxide 24 mmol/L (22-30); Chloride 101 mmol/L (98-107); Glucose 89 mg/dL (74-99); Non-African American GFR(CKD) 78 (>60 ml/min/1.73 sqM); Potassium 5.6 mmol/L (3.5-5.1); Sodium 135 mmol/L (137-145); Total Protein 7.2 g/dL (6.3-8.2)
--- NOTE | 2025-05-27 12:46 | CT ---
EXAMINATION TYPE: CT angio lower extremity BILAT DATE OF EXAM: 05/27/2025 12:18 PM COMPARISON: 10/08/2022 08/30/2024. CLINICAL INDICATION: Female, 60 years old with history of swelling, pain, discoloration, hx DVT and P AD; PHH, Rt leg pain, swelling and discoloration. Hx of DVT and PAD. TECHNIQUE: CT angio lower extremity BILAT Multiple thin slice sub-millimeter images were obtained before and after administration of contrast. 3-D reconstructed images and maximum intensity projection images were obtained on a separate works tation. CT angio lower extremity BILAT CT Contrast: Contrast used:100 ml mL of Isovue 370 with IV Contrast, Oral contrast used: None CT DLP: 1759.8 mGycm, Automated exposure control for dose reduction was used. FINDINGS: CTA Abdomen and pelvis: The abdominal aorta does not demonstrate aneurysmal dilatation. Atherosclero tic plaquing is identified within the abdominal aorta. The iliac vessels are normal in morphology CTA Lower extremities: Right: A common femoral artery is patent. The proximal superficial femoral artery demonstrates stent graft stent graft does appear patent. There is occlusion of the mid superficial femoral vein extendin g approximately 28.0 cm with reconstitution. At the popliteal artery. The anterior and posterior tibi al arteries are identified. Poor visualization of these arteries more distally due to calcified plaqu e. Both also thought to cross the ankle. Scattered atherosclerotic disease throughout the arterial va sculature. Fatty atrophy changes of the musculature in the leg posterior compartment. Left: The common femoral and superficial femoral arteries are patent. There are 2 stent grafts in the superficial femoral artery which are patent. The popliteal artery is patent. Anterior and posterior tibial arteries as well as the peroneal artery are patent. Anterior and posterior tibial arteries cross tie turner ss the ankle. No areas of high-grade stenosis to definitively visualized. Fatty atrophy changes of th e posterior leg musculature KIDNEYS AND URETERS: No evidence of hydronephrosis or obstructing renal calculus. The ureters are unr emarkable. BLADDER: Unremarkable REPRODUCTIVE: Unremarkable. ABDOMEN & PELVIS STOMACH AND BOWEL: No evidence of bowel obstruction. The appendix is normal. Scattered colonic divert icula are noted. PERITONEUM: No evidence of pneumoperitoneum or free fluid. VASCULATURE: No evidence of aortic aneurysm. MUSCULOSKELETAL: No acute osseous abnormalities LYMPH NODES: No gross evidence for lymphadenopathy. SOFT TISSUE/ABDOMINAL WALL: Fat-containing umbilical hernia. IMPRESSION: 1. Occlusion of the right superficial femoral artery from the midportion to the popliteal artery ext ending 28 cm. Is not all that different from 2023. 2. Reconstitution with what is thought to be 2 vessels crossing the ankle. 3. Right proximal stent graft and superficial femoral artery is patent. 4. Left lower extremity: Stent graft in the left superficial femoral arteries are patent. [facility], , 05/27/2025 12:44 PM
[2025-05-27] MEDS ORDERED: NALOXONE 0.4 MG/ML 1 ML VIAL IV PRN (13:16)
[2025-05-27] MEDS ORDERED: ACETAMINOPHEN TAB 325 MG TAB PO PRN (13:16)
[2025-05-27] MEDS ORDERED: ONDANSETRON 4 MG/2 ML VIAL IVP PRN (13:16)
[2025-05-27] MEDS ORDERED: VANCOMYCIN IV PER PHARMACY 1 EACH MISC MISCELLANE PRN (13:18)
[2025-05-27] MEDS: HYDROmorphone 0.5 MG/0.5 ML SYRINGE IVP PRN (14:39)
[2025-05-27] MEDS: VANCOMYCIN 1,750 MG in SODIUM CHLORIDE 0.9% 500 ML 500 ML IVPB STA (14:40)
[2025-05-27] MEDS: SODIUM ZIRCONIUM CYCLOSILICATE 10 GM PACKET PO ONE (14:50)
[2025-05-27] MEDS: SODIUM ZIRCONIUM CYCLOSILICATE 10 GM PACKET PO SCH (16:35)
[2025-05-27] MEDS ORDERED: DEXTROSE 50% SYRINGE 50 ML IVP PRN (17:23)
[2025-05-27 17:49] LABS: Glucose,Whole Blood 145 mg/dL (70-110)
[2025-05-27] MEDS: INSULIN LISPRO (HumaLOG) 100 UNIT/ML 10 mL VL SQ SCH (17:50)
[2025-05-27] MEDS: metFORMIN 500 MG TAB PO SCH (18:14)
[2025-05-27] MEDS: INSULIN GLARGINE (LANTUS) 100 UNIT/ML SYR SQ SCH (18:59)
[2025-05-27] MEDS: GABAPENTIN 400 MG CAP PO SCH (21:22)
[2025-05-27] MEDS: METOPROLOL SUCCINATE (ER) 50 MG TAB.ER.24H PO SCH (21:22)
--- NOTE | 2025-05-27 21:54 | P.HPIM ---
History of Present Illness H&P Date: 05/27/25 Chief Complaint: Increasing pain right foot toe Pleasant 59-year-old patient who follows with Dr. Tatianna Mason. Chronic medical conditions include COPD, diabetes, GERD, hypertension, hyperlipidemia, osteoarthritis, right breast cancer with surgery and chemoradiation ., neuropathy, DVT in the left leg, severe PAD with multiple interventions. Cardiac catheterization in December 2024 shows noncritical CAD. About 60 to 70% proximal RCA, 50% mid RCA 60% mid LAD and 40% OM1. It was decided to medical management. Patient on February 14, 2025 underwent right leg right femoral to distal popliteal below-knee bypass with CryoVein. By Dr. Joanna Asif. Patient for last 3 to 4 weeks having increasing pain in the calf down to the foot. She has noticed some discoloration of the right foot third toe. For the same. Left foot big toe is also become painful and some spot of dry gangrene. Significant pain is present. No fever no chills. Initial follow-up after the femoropopliteal bypass was okay. Has an appointment to follow-up. Review of systems: GEN.: None EYES: None HEENT: None NECK: None RESPIRATORY: None CARDIOVASCULAR: None GASTROINTESTINAL: None GENITOURINARY: None MUSCULOSKELETAL: As above] LYMPHATICS: None HEMATOLOGICAL: None PSYCHIATRY: None NEUROLOGICAL: None Social history: Patient smoked from 1980 through 2019. Alcohol rarely. Lives with her On examination: VITAL SIGNS: 98.7, 81, 18, 135 x 73 GENERAL APPEARANCE: BMI 34.9 up in bed s HEENT: Normal external appearance of nose and ear. Oral cavity normal EYES: Pupils equal. Conjunctiva normal. NECK: JVD not raised. Mass not palpable. RESPIRATORY: Respiratory effort normal. Lungs clear to auscultation. CARDIOVASCULAR: First and second sounds normal. No edema. ABDOMEN: Soft. Liver and spleen not palpable. No tenderness. No mass palpable. PSYCHIATRY: Alert and oriented x3. Mood and affect normal. Extremities: Right foot slightly dusky. Missing right foot second toe. 1 cm a lacie on the ball of right big toe blackish and also small area on the right foot third toe. INVESTIGATIONS, reviewed in the clinical context: May 27, 2025: White count 10.0 hemoglobin 13 platelets 322 potassium 5.6 BUN 20 creatinine 0.82 CRP 1.9 Assessment and plan: - Acute on chronic extensive PAD with multiple interventions right lower extremity. Patient underwent femoropopliteal bypass on February [address] Asif. For last 3 to 4-week increasing pain in the right lower calf and in the toes. Likely progression of disease in the small vessels. Continue aspirin. Increase Lipitor. Consult vascular - Doubt cellulitis right lower extremity. Patient started on vancomycin in the ER. Consult ID. -Paroxysmal atrial fibrillation, sinus rhythm Telemetry Patient not on anticoagulation. Will consider doing the same. After looking into details. -COPD, an ex-smoker Albuterol when necessary - Noncritical coronary artery disease with cardiac catheterization in December 2024. 60-70% proximal RCA, 50% mid RCA, 60% mid LAD, 40% OM1. Decision was for medical management -Diabetes mellitus type 2, chronically on insulin Lantus 20 units at night. Follow Accu-Cheks. -GERD PPI -Hyperlipidemia Lipitor to be increased to 80 mg. -Essential hypertension Norvasc -Obesity BMI 33.1 Weight loss measures Consult ID and vascular. Consider anticoagulation. Discussed with patient. Given the complexity and severity of patient's condition expect the patient to be in the hospital at least for 2 overnights Past Medical History Past Medical History: Atrial Fibrillation, Blood Disorder, Cancer, COPD, Diabetes Mellitus, Deep Vein Thrombosis (DVT), GERD/Reflux, Hyperlipidemia, Hypertension, Osteoarthritis (OA), Seizure Disorder, Skin Disorder, Vascular Disorder Additional Past Medical History / Comment(s): heart murmur, 2016 R breast cancer -had surgery & chemo & radiation 7 yrs ago, IDDM type II, clarita. ft charcot neuropathy bilateral legs/feet, 09/2022 DVT Lt. leg, one time seizure 10 or more years ago-testing done & never found anything, chronic pain mostly in feet and neck/back. 3 stents to right lower extremity on 08/23/24, paroxysmal Atrial fibrillation History of Any Multi-Drug Resistant Organisms: None Reported Past Surgical History: Breast Surgery, Orthopedic Surgery, Tubal Ligation Additional Past Surgical History / Comment(s): right breast lumpectomy & lymph nodes removed, port for chemo/since removed, peripheral angioplasties/a therectomies, and removed blood clot from L leg, stents, right 2nd toe amputation d/t diabetic ulcer, bilateral carpal tunnel releases, cervical fusion, aortogram 08/02/24 Past Anesthesia/Blood Transfusion Reactions: No Reported Reaction Additional Past Anesthesia/Blood Transfusion Reaction / Comment(s): Pt received blood transfusion r/t blood loss with surgery. no issues Past Psychological History: Anxiety, Depression Additional Psychological History / Comment(s): Pt resides with spouse. Smoking Status: Former smoker Past Alcohol Use History: None Reported Additional Past Alcohol Use History / Comment(s): Started smoking 1980 and quit in 2019. Past Drug Use History: None Reported - Past Family History Mother Family Medical History: Cancer Additional Family Medical History / Comment(s): Lung cancer, former smoker. Medications and Allergies Home Medications Medication Instructions Recorded Confirmed Type Atorvastatin [Lipitor] 40 mg PO DAILY 05/19/21 05/27/25 History INSULIN ASPART (NovoLOG) [NovoLOG See Protocol SQ AC-TID 05/19/21 05/27/25 History (formulary)] Insulin Glargine,Hum.rec.anlog 30 unit SQ AC-BRKFST 05/19/21 05/27/25 History [Basaglar Kwikpen U-100] Omeprazole [PriLOSEC] 20 mg PO DAILY 05/19/21 05/27/25 History Anastrozole 1 mg PO DAILY 10/08/22 05/27/25 History Gabapentin [Neurontin] 800 mg PO TID 08/30/24 05/27/25 History amLODIPine [Norvasc] 10 mg PO DAILY 08/30/24 05/27/25 History Aspirin 81 mg PO DAILY #30 tab 12/28/24 05/27/25 Rx Metoprolol Succinate (ER) [Toprol 50 mg PO Q12HR #60 tab 12/28/24 05/27/25 Rx XL] lisinopriL [Zestril] 40 mg PO DAILY 01/15/25 05/27/25 History Warfarin [Coumadin] 7.5 mg PO DAILY 15 Days #15 tab 02/16/25 05/27/25 Rx Insulin Glargine,Hum.rec.anlog 15 unit SQ AC-SUPPER 05/27/25 05/27/25 History [Basaglar Kwikpen U-100] metFORMIN HCL 1,000 mg PO BID 05/27/25 05/27/25 History Allergies Allergy/AdvReac Type Severity Reaction Status Date / Time protamine Allergy BP Verified 05/27/25 14:28 dropped, heart rate elevated tetracycline [Tetracycline] Allergy Rash/Hives Verified 05/27/25 14:28 Physical Exam Vitals: Vital Signs Temp Pulse Pulse Resp BP BP Pulse Ox 05/27/25 20:47 98.7 F 81 18 135/73 95 05/27/25 20:00 99.9 F H 87 19 137/58 97 05/27/25 16:29 98.1 F 82 19 116/61 93 L 05/27/25 13:44 98.0 F 75 19 126/86 95 05/27/25 09:45 98.3 F 83 20 173/75 99 Intake and Output 05/27/25 05/27/25 05/27/25 06:59 14:59 22:59 Other: Weight 107.048 kg 107.048 kg Results CBC & Chem 7: 05/27/25 10:57 05/27/25 10:57 Labs: Abnormal Lab Results - Last 24 Hours (Table) 05/27/25 05/27/25 05/27/25 Range/Units 10:57 10:57 17:48 WBC 10.07 H (4.50-10.00) 10*3/uL Sodium 135 L (137-145) mmol/L Potassium 5.6 H (3.5-5.1) mmol/L BUN 20 H (7-17) mg/dL POC Glucose (mg/dL) 145 H (70-110) mg/dL C-Reactive Protein 1.9 H (<1.0) mg/dL Thrombosis Risk Factor Assmnt - Choose All That Apply Any of the Below Risk Factors Present?: Yes Each Factor Represents 1 point: Abnormal pulmonary function (COPD), Age 41-60 years, Varicose veins Other Risk Factors: Yes Each Risk Factor Represents 3 Points: History of DVT/PE Thrombosis Risk Factor Assessment Total Risk Factor Score: 6 Thrombosis Risk Factor Assessment Level: High Risk
[2025-05-27] MEDS: VANCOMYCIN 1,750 MG in SODIUM CHLORIDE 0.9% 500 ML 500 ML IVPB SCH (23:58)
[2025-05-28] MEDS: ATORVASTATIN 80 MG TAB PO SCH ×2 (01:40→09:02)
[2025-05-28 06:11] LABS: Glucose,Whole Blood 159 mg/dL (70-110)
[2025-05-28] MEDS: PANTOPRAZOLE 40 MG TABLET PO SCH (06:30)
[2025-05-28 07:03] LABS: Basophils # (A) 0.03 10*3/uL (0.00-0.10); Basophils % (A) 0.5 %; Eosinophils # (A) 0.15 10*3/uL (0.04-0.35); Eosinophils % (A) 2.4 %; HCT 37.5 % (37.2-46.3); HGB 12.2 g/dL (12.0-15.0); Lymphocytes # (A) 1.57 10*3/uL (0.90-5.00); Lymphocytes % (A) 25.5 %; MCH 26.9 pg (27.0-32.0); MCHC 32.5 g/dL (32.0-37.0); MCV 82.6 fL (80.0-97.0); Monocytes # (A) 0.68 10*3/uL (0.20-1.00); Monocytes % (A) 11.1 %; Neutrophils # (A) 3.71 10*3/uL (1.80-7.70); Neutrophils % (A) 60.3 %; Platelet Count 274 10*3/uL (140-440); RBC 4.54 10*6/uL (4.10-5.20); RDW 16.3 % (11.5-14.5); WBC 6.15 10*3/uL (4.50-10.00)
[2025-05-28] MEDS ORDERED: INSULIN GLARGINE (LANTUS) 100 UNIT/ML SYR SQ SCH (07:30)
[2025-05-28 07:36] LABS: ALT 23 U/L (4-34); AST 23 U/L (14-36); African American GFR (CKD) >90 (>60 ml/min/1.73 sqM); Albumin 3.6 g/dL (3.5-5.0); Alkaline Phosphatase 105 U/L (38-126); Anion Gap 5 mmol/L; Blood Urea Nitrogen 13 mg/dL (7-17); Calcium 8.9 mg/dL (8.4-10.2); Carbon Dioxide 28 mmol/L (22-30); Chloride 102 mmol/L (98-107); Glucose 154 mg/dL (74-99); Non-African American GFR(CKD) >90 (>60 ml/min/1.73 sqM); Potassium 4.5 mmol/L (3.5-5.1); Sodium 135 mmol/L (137-145); Total Protein 6.2 g/dL (6.3-8.2)
[2025-05-28] MEDS ORDERED: ATORVASTATIN 40 MG TAB PO SCH (09:00)
[2025-05-28] MEDS: ASPIRIN 81 MG PO SCH (09:02)
[2025-05-28] MEDS: amLODIPine 10 MG TAB PO SCH (09:02)
[2025-05-28] MEDS: ANASTROZOLE 1 MG TAB PO SCH (09:03)
--- NOTE | 2025-05-28 09:51 | P.GSCN ---
History of Present Illness Consult date: 05/28/25 Reason for Consult: PAD, foot infection History of present illness: 60-year-old female with history of peripheral arterial disease with previous right femoral-tibial bypass on February 14, 2025 presents to the emergency department secondary to onset of worsening pain in her right lower extremity as well as increased redness. She states that the pain has been worsening over the last 3 to 4 weeks. She states that the right foot has started develop wounds, dark spots on her feet and toes. She was unable to walk yesterday due to the pain in her leg. She states that the pain has improved since she has been in the hospital. She denies any fevers, chills, chest pain or shortness of breath. She states that she has had issues with walking prior to her bypass and since then she has been ambulating but noticed that the pain started in her calf and extended down to her toes eventually. Review of Systems All systems: negative (What is mentioned in the HPI or past medical history) Past Medical History Past Medical History: Atrial Fibrillation, Blood Disorder, Cancer, COPD, Diabetes Mellitus, Deep Vein Thrombosis (DVT), GERD/Reflux, Hyperlipidemia, Hypertension, Osteoarthritis (OA), Seizure Disorder, Skin Disorder, Vascular Disorder Additional Past Medical History / Comment(s): heart murmur, 2016 R breast cancer -had surgery & chemo & radiation 7 yrs ago, IDDM type II, clarita. ft charcot neuropathy bilateral legs/feet, 09/2022 DVT Lt. leg, one time seizure 10 or more years ago-testing done & never found anything, chronic pain mostly in feet and neck/back. 3 stents to right lower extremity on 08/23/24, paroxysmal Atrial fibrillation History of Any Multi-Drug Resistant Organisms: None Reported Past Surgical History: Breast Surgery, Orthopedic Surgery, Tubal Ligation Additional Past Surgical History / Comment(s): right breast lumpectomy & lymph nodes removed, port for chemo/since removed, peripheral angioplasties/atherectomies, and removed blood clot from L leg, stents, right 2nd toe amputation d/t diabetic ulcer, bilateral carpal tunnel releases, cervical fusion, aortogram 08/02/24 Past Anesthesia/Blood Transfusion Reactions: No Reported Reaction Additional Past Anesthesia/Blood Transfusion Reaction / Comm: Pt received blood transfusion r/t blood loss with surgery. no issues Past Psychological History: Anxiety, Depression Additional Psychological History / Comment(s): Pt resides with spouse. Smoking Status: Former smoker Past Alcohol Use History: None Reported Additional Past Alcohol Use History / Comment(s): Started smoking 1980 and quit in 2019. Past Drug Use History: None Reported - Past Family History Mother Family Medical History: Cancer Additional Family Medical History / Comment(s): Lung cancer, former smoker. Medications and Allergies Home Medications Medication Instructions Recorded Confirmed Type Atorvastatin [Lipitor] 40 mg PO DAILY 05/19/21 05/27/25 History INSULIN ASPART (NovoLOG) [NovoLOG See Protocol SQ AC-TID 05/19/21 05/27/25 History (formulary)] Insulin Glargine,Hum.rec.anlog 30 unit SQ AC-BRKFST 05/19/21 05/27/25 History [Basaglar Kwikpen U-100] Omeprazole [PriLOSEC] 20 mg PO DAILY 05/19/21 05/27/25 History Anastrozole 1 mg PO DAILY 10/08/22 05/27/25 History Gabapentin [Neurontin] 800 mg PO TID 08/30/24 05/27/25 History amLODIPine [Norvasc] 10 mg PO DAILY 08/30/24 05/27/25 History Aspirin 81 mg PO DAILY #30 tab 12/28/24 05/27/25 Rx Metoprolol Succinate (ER) [Toprol 50 mg PO Q12HR #60 tab 12/28/24 05/27/25 Rx XL] lisinopriL [Zestril] 40 mg PO DAILY 01/15/25 05/27/25 History Warfarin [Coumadin] 7.5 mg PO DAILY 15 Days #15 tab 02/16/25 05/27/25 Rx Insulin Glargine,Hum.rec.anlog 15 unit SQ AC-SUPPER 05/27/25 05/27/25 History [Basaglar Kwikpen U-100] metFORMIN HCL 1,000 mg PO BID 05/27/25 05/27/25 History Allergies Allergy/AdvReac Type Severity Reaction Status Date / Time protamine Allergy BP Verified 05/27/25 14:28 dropped, heart rate elevated tetracycline [Tetracycline] Allergy Rash/Hives Verified 05/27/25 14:28 Surgical - Exam Vital Signs Temp Pulse Resp BP Pulse Ox 98.3 F 83 20 173/75 99 05/27/25 09:45 05/27/25 09:45 05/27/25 09:45 05/27/25 09:45 05/27/25 09:45 Patient Seen Date: 05/28/25 Patient Seen Time: 08:20 Nonpalpable DP or PT pulse. Erythema of the right lower extremity with brisk capillary refill Ischemic changes noted at the distal aspect of the great toe and third toe. No purulent drainage noted - General well developed, well nourished, no distress - Eyes PERRL - ENT normal pinna, normal nares - Neck no masses - Respiratory normal expansion, normal respiratory effort - Cardiovascular Rhythm: regular - Abdomen Abdomen: soft, non tender - Integumentary no growths - Psychiatric oriented to time, oriented to person, oriented to place, speech is normal Results CTA of the lower extremities reviewed by myself independently which demonstrates no contrast within the bypass. Severely calcified disease bilaterally. - Labs 05/28/25 06:36 05/28/25 06:36 Abnormal Lab Results - Last 24 Hours (Table) 05/27/25 05/27/25 05/27/25 Range/Units 10:57 10:57 17:48 WBC 10.07 H (4.50-10.00) 10*3/uL MCH (27.0-32.0) pg Sodium 135 L (137-145) mmol/L Potassium 5.6 H (3.5-5.1) mmol/L BUN 20 H (7-17) mg/dL Glucose (74-99) mg/dL POC Glucose (mg/dL) 145 H (70-110) mg/dL C-Reactive Protein 1.9 H (<1.0) mg/dL Total Protein (6.3-8.2) g/dL 05/28/25 05/28/25 05/28/25 Range/Units 06:10 06:36 06:36 WBC (4.50-10.00) 10*3/uL MCH 26.9 L (27.0-32.0) pg Sodium 135 L (137-145) mmol/L Potassium (3.5-5.1) mmol/L BUN (7-17) mg/dL Glucose 154 H (74-99) mg/dL POC Glucose (mg/dL) 159 H (70-110) mg/dL C-Reactive Protein (<1.0) mg/dL Total Protein 6.2 L (6.3-8.2) g/dL Diabetes panel 05/27/25 05/28/25 Range/Units 10:57 06:36 Sodium 135 L 135 L (137-145) mmol/L Potassium 5.6 H 4.5 (3.5-5.1) mmol/L Chloride 101 102 (98-107) mmol/L Carbon Dioxide 24 28 (22-30) mmol/L BUN 20 H 13 (7-17) mg/dL Creatinine 0.82 0.69 (0.52-1.04) mg/dL Glucose 89 154 H (74-99) mg/dL Calcium 9.5 8.9 (8.4-10.2) mg/dL AST 31 23 (14-36) U/L ALT 29 23 (4-34) U/L Alkaline Phosphatase 111 105 (38-126) U/L Total Protein 7.2 6.2 L (6.3-8.2) g/dL Albumin 4.3 3.6 (3.5-5.0) g/dL Calcium panel 05/27/25 05/28/25 Range/Units 10:57 06:36 Calcium 9.5 8.9 (8.4-10.2) mg/dL Albumin 4.3 3.6 (3.5-5.0) g/dL Pituitary panel 05/27/25 05/28/25 Range/Units 10:57 06:36 Sodium 135 L 135 L (137-145) mmol/L Potassium 5.6 H 4.5 (3.5-5.1) mmol/L Chloride 101 102 (98-107) mmol/L Carbon Dioxide 24 28 (22-30) mmol/L BUN 20 H 13 (7-17) mg/dL Creatinine 0.82 0.69 (0.52-1.04) mg/dL Glucose 89 154 H (74-99) mg/dL Calcium 9.5 8.9 (8.4-10.2) mg/dL Adrenal panel 05/27/25 05/28/25 Range/Units 10:57 06:36 Sodium 135 L 135 L (137-145) mmol/L Potassium 5.6 H 4.5 (3.5-5.1) mmol/L Chloride 101 102 (98-107) mmol/L Carbon Dioxide 24 28 (22-30) mmol/L BUN 20 H 13 (7-17) mg/dL Creatinine 0.82 0.69 (0.52-1.04) mg/dL Glucose 89 154 H (74-99) mg/dL Calcium 9.5 8.9 (8.4-10.2) mg/dL Total Bilirubin 0.7 0.6 (0.2-1.3) mg/dL AST 31 23 (14-36) U/L ALT 29 23 (4-34) U/L Alkaline Phosphatase 111 105 (38-126) U/L Total Protein 7.2 6.2 L (6.3-8.2) g/dL Albumin 4.3 3.6 (3.5-5.0) g/dL Assessment and Plan Assessment: Acute on chronic extensive peripheral arterial disease Dann classification 4 with rest pain Right lower extremity ischemia Paroxysmal atrial fibrillation COPD Coronary artery disease Diabetes type 2 Plan: Patient is having significant pain in her right lower extremity as well as skin discoloration likely due to ischemic changes versus cellulitis. Long discussion was had with the patient about options and due to the fact that this has been ongoing for the last 3 to 4 weeks it is likely that her bypass has shut down. We will obtain a lower extremity arterial Doppler to compare to previous ABIs. I did discuss with her possible need for catheter directed angiogram to better determine landing zones for possible repeat bypass. Patient may benefit from anticoagulation, heparin drip versus oral anticoagulation after repeat bypass in the future especially with her history of atrial fibrillation. Future recommendations after arterial Doppler is completed. Thank you for the consultation. Feel free to contact us for any questions.
--- NOTE | 2025-05-28 10:49 | US ---
EXAMINATION TYPE: US arterial LE single level DATE OF EXAM: 05/28/2025 10:28 AM COMPARISONS: CTa 05/27/2025 CLINICAL INDICATION: Female, 60 years old with history of arterial occlusive disease, history of bypa ss; Hx bypass TECHNIQUE: Systolic pressures were taken of the upper and lower extremity arteries with ankle-brachia l indices and toe brachial indices calculated bilaterally. History of: Smoker: Previous Hypertension: Yes Diabetic: Yes Hyperlipidemia: Yes TIA/CVA: No Previous Vascular Surgery: Yes, stent grafts in bilateral femoral/popliteal. Pressures above ankle d eferred. MD: No Vascular Ulcers: Right Claudication: Right Gangrene: None FINDINGS: Doppler Waveforms: Right: Monophasic Left: Monophasic Pulse Volume Recording: Pressure Gradients: Brachial Artery systolic pressure: Right: Deferred due to hx of breast cancer Left: 141 Posterior Tibial artery systolic pressure: Right: Inaudible Left: 113 Dorsalis Pedis artery systolic pressure: Right: 30 Left: 137 Toe artery systolic pressure: Right: Deferred Left: 75 Ankle-Brachial Indices: Right: 0.21 Left: 0.97 Toe Brachial Indices: Right: Deferred due to wound/pain Left: 0.53 (Normal > 0.6; Mild 0.35 - 0.59, Moderate 0.12 - 0.34, Severe <0.12) IMPRESSION: MICHELLE: Right: Severe Arterial Disease <0.5, Recommendation: Refer to vascular specialist Left: Normal 0.9 - 1.4, Recommendation: None [facility], , 05/28/2025 10:47 AM
[2025-05-28 11:30] LABS: Glucose,Whole Blood 324 mg/dL (70-110)
[2025-05-28 12:28] LABS: INR 3.2 (<1.2); Prothrombin Time 31.4 sec (10.0-12.5)
[2025-05-28 16:31] LABS: Glucose,Whole Blood 135 mg/dL (70-110)
[2025-05-28] MEDS: WARFARIN 3 MG TAB PO SCH (18:01)
--- NOTE | 2025-05-28 18:03 | XR ---
EXAMINATION TYPE: XR foot complete RT DATE OF EXAM: 05/28/2025 COMPARISON: CTA lower extremity bilateral 05/27/2025 HISTORY: Wound/cellulitis TECHNIQUE: Frontal, lateral and oblique images of the right foot are obtained. FINDINGS: Postamputation changes of the second digit at the MTP joint. No evidence for osseous erosio ns. No significant soft tissue swelling. No acute fracture or dislocation. IMPRESSION: 1. No acute fracture or dislocation. 2. Post amputation changes of the second digit at the MTP joint. 3. No evidence for osseous erosions to suggest osteomyelitis. [facility], , 05/28/2025 6:01 PM
--- NOTE | 2025-05-28 19:07 | P.PN ---
Progress Note - Text Progress Note Date: 05/28/25 Chief Complaint: Increasing pain right foot toe Pleasant 59-year-old patient who follows with Dr. Tatianna Mason. Chronic medical conditions include COPD, diabetes, GERD, hypertension, hyperlipidemia, osteoarthritis, right breast cancer with surgery and chemoradiation ., neuropathy, DVT in the left leg, severe PAD with multiple interventions. Cardiac catheterization in December 2024 shows noncritical CAD. About 60 to 70% proximal RCA, 50% mid RCA 60% mid LAD and 40% OM1. It was decided to medical management. Patient on February 14, 2025 underwent right leg right femoral to distal popliteal below-knee bypass with CryoVein. By Dr. Joanna Asif. Patient for last 3 to 4 weeks having increasing pain in the calf down to the foot. She has noticed some discoloration of the right foot third toe. For the same. Left foot big toe is also become painful and some spot of dry gangrene. Significant pain is present. No fever no chills. Initial follow-up after the femoropopliteal bypass was okay. Has an appointment to follow-up. May 28: Patient was seen this morning. Still having significant pain. Procalcitonin came back to less than 0.2. No fever. Patient's symptoms been present for 3 to 4 weeks is very gradually worsening. Not sure of the cellulitis. ID is on the case. With vancomycin. Will discuss with them. Patient is on Coumadin. Pharmacy is dosing the same. Discussed with the patient and the . Ultrasound arterial lower extremity showed ankle- brachial indicis right 0.21 and left 0.97. Patient seen by vascular surgery Dr. Barrett earlier today. Lipitor dose was increased to 80 mg. Active Medications Acetaminophen (Acetaminophen Tab 325 Mg Tab) 650 mg PO Q6HR PRN PRN Reason: Mild Pain or Fever > 100.5 Hydrocodone Bitart/Acetaminophen (Hydrocodone/Apap 5-325mg 1 Each Tab) 1 each PO Q4HR PRN PRN Reason: Moderate Pain (Scale 4 to 6) Amlodipine Besylate (Amlodipine 10 Mg Tab) 10 mg PO DAILY [facility] Last Admin: 05/28/25 09:02 Dose: 10 mg Anastrozole (Anastrozole 1 Mg Tab) 1 mg PO DAILY [facility] Last Admin: 05/28/25 09:03 Dose: 1 mg Aspirin (Aspirin 81 Mg) 81 mg PO DAILY [facility] Last Admin: 05/28/25 09:02 Dose: 81 mg Atorvastatin Calcium (Atorvastatin 80 Mg Tab) 80 mg PO DAILY [facility] Last Admin: 05/28/25 09:02 Dose: 80 mg Dextrose/Water (Dextrose 50% Syringe 50 Ml) 25 ml IVP PER PROTOCOL PRN; Protocol PRN Reason: Hypoglycemia Dextrose/Water (Dextrose 50% Syringe 50 Ml) 50 ml IVP PER PROTOCOL PRN; Protocol PRN Reason: Hypoglycemia Gabapentin (Gabapentin 400 Mg Cap) 800 mg PO TID [facility] Last Admin: 05/28/25 16:22 Dose: 800 mg Hydromorphone HCl (Hydromorphone 0.5 Mg/0.5 Ml Syringe) 0.5 mg IVP Q3HR PRN PRN Reason: Moderate Pain (Scale 4 to 6) Last Admin: 05/28/25 16:21 Dose: 0.5 mg Vancomycin HCl 1,750 mg/ (Sodium Chloride) 500 mls @ 167 mls/hr IVPB Q12H [facility] Last Admin: 05/28/25 11:05 Dose: 167 mls/hr Insulin Glargine (Insulin Glargine (Lantus) 100 Unit/Ml Syr) 20 unit SQ HS [facility] Insulin Human Lispro (Insulin Lispro (Humalog) 100 Unit/Ml 10 Ml Vl) 0 unit SQ AC-TID [facility]; Protocol Last Admin: 05/28/25 16:41 Dose: Not Given Lisinopril (Lisinopril 20 Mg Tab) 40 mg PO DAILY [facility] Last Admin: 05/28/25 09:02 Dose: 40 mg Metformin HCl (Metformin 500 Mg Tab) 1,000 mg PO AC-BID [facility] Last Admin: 05/28/25 16:41 Dose: 1,000 mg Metoprolol Succinate (Metoprolol Succinate (Er) 50 Mg Tab.Er.24h) 50 mg PO Q12HR [facility] Last Admin: 05/28/25 09:02 Dose: 50 mg Miscellaneous Information (Rx Info: Iv Contrast Was Given 1 Each Misc) 1 each MISCELLANE DAILY PRN PRN Reason: Per Protocol Stop: 05/29/25 10:39 Miscellaneous Information (Vancomycin Trough Due 1 Each Misc) 1 each MISCELLANE ONCE ONE Stop: 05/29/25 10:01 Miscellaneous Information (Warfarin Per Pharmacy) 0 each MISCELLANE DIRECTED PRN PRN Reason: AFIB Naloxone HCl (Naloxone 0.4 Mg/Ml 1 Ml Vial) 0.2 mg IV Q2M PRN PRN Reason: Opioid Reversal Ondansetron HCl (Ondansetron 4 Mg/2 Ml Vial) 4 mg IVP Q8HR PRN PRN Reason: Nausea And Vomiting Pantoprazole Sodium (Pantoprazole 40 Mg Tablet) 40 mg PO -BRKFST [facility] Last Admin: 05/28/25 06:30 Dose: 40 mg Warfarin Sodium (Warfarin 3 Mg Tab) 6 mg PO DAILY@1800 LINDA; Protocol Last Admin: 05/28/25 18:01 Dose: 6 mg Social history: Patient smoked from 1980 through 2019. Alcohol rarely. Lives with her On examination: VITAL SIGNS: 98.2, 68, 17, 118 x 66, 93% room air GENERAL APPEARANCE: BMI 34.9 up in bed s HEENT: Normal external appearance of nose and ear. Oral cavity normal EYES: Pupils equal. Conjunctiva normal. NECK: JVD not raised. Mass not palpable. RESPIRATORY: Respiratory effort normal. Lungs clear to auscultation. CARDIOVASCULAR: First and second sounds normal. No edema. ABDOMEN: Soft. Liver and spleen not palpable. No tenderness. No mass palpable. PSYCHIATRY: Alert and oriented x3. Mood and affect normal. Extremities: Right foot slightly dusky. Missing right foot second toe. 1 cm area on the ball of right big toe blackish and also small area on the right foot third toe. INVESTIGATIONS, reviewed in the clinical context: May 28: White count 6.1 hemoglobin 12.2 platelets 274 potassium 4.5 creatinine 0.69. INR 3.2 Lower extremity ultrasound: Right ankle brachial index: 0.21 Procalcitonin less than 0.2 May 27, 2025: White count 10.0 hemoglobin 13 platelets 322 potassium 5.6 BUN 20 creatinine 0.82 CRP 1.9 Assessment and plan: - Acute on chronic extensive PAD with multiple interventions right lower extremity. Patient underwent femoropopliteal bypass on February [address] Asif. For last 3 to 4-week increasing pain in the right lower calf and in the toes. Likely progression of disease in the small vessels. Continue aspirin. Lipitor increased to 80 mg. Also on Coumadin Vascular following - Doubt cellulitis right lower extremity. Patient started on vancomycin in the ER. Procalcitonin less than 0.2 normal white count. No fever. ID following -Paroxysmal atrial fibrillation, sinus rhythm Telemetry Patient on Coumadin continued -COPD, an ex-smoker Albuterol when necessary - Noncritical coronary artery disease with cardiac catheterization in December 2024. 60-70% proximal RCA, 50% mid RCA, 60% mid LAD, 40% OM1. Decision was for medical management -Diabetes mellitus type 2, chronically on insulin Lantus 20 units at night. Follow Accu-Cheks. -GERD PPI -Hyperlipidemia Lipitor to be increased to 80 mg. -Essential hypertension Norvasc -Obesity BMI 33.1 Weight loss measures Await further input from vascular. ID consulted. Discussed with patient and . Past Medical History Past Medical History: Atrial Fibrillation, Blood Disorder, Cancer, COPD, Diabetes Mellitus, Deep Vein Thrombosis (DVT), GERD/Reflux, Hyperlipidemia, Hypertension, Osteoarthritis (OA), Seizure Disorder, Skin Disorder, Vascular Disorder Additional Past Medical History / Comment(s): heart murmur, 2015 R breast cancer -had surgery & chemo & radiation 7 yrs ago, IDDM type II, clarita. ft charcot neuropathy bilateral legs/feet, 09/2022 DVT Lt. leg, one time seizure 10 or more years ago-testing done & never found anything, chronic pain mostly in feet and neck/back. 3 stents to right lower extremity on 08/23/24, paroxysmal Atrial fibrillation History of Any Multi-Drug Resistant Organisms: None Reported Past Surgical History: Breast Surgery, Orthopedic Surgery, Tubal Ligation Additional Past Surgical History / Comment(s): right breast lumpectomy & lymph nodes removed, port for chemo/since removed, peripheral angioplasties/atherectomies, and removed blood clot from L leg, stents, right 2nd toe amputation d/t diabetic ulcer, bilateral carpal tunnel releases, cervical fusion, aortogram 08/02/24 Past Anesthesia/Blood Transfusion Reactions: No Reported Reaction Additional Past Anesthesia/Blood Transfusion Reaction / Comment(s): Pt received blood transfusion r/t blood loss with surgery. no issues Past Psychological History: Anxiety, Depression Additional Psychological History / Comment(s): Pt resides with spouse. Smoking Status: Former smoker Past Alcohol Use History: None Reported Additional Past Alcohol Use History / Comment(s): Started smoking 1980 and quit in 2019. Past Drug Use History: None Reported
[2025-05-28 20:03] LABS: Glucose,Whole Blood 356 mg/dL (70-110)
[2025-05-28] MEDS: INSULIN GLARGINE (LANTUS) 100 UNIT/ML SYR SQ SCH ×2 (20:04→21:41)
[2025-05-28 20:55] LABS: Glucose,Whole Blood 357 mg/dL (70-110)
[2025-05-28] MEDS: INSULIN LISPRO (HumaLOG) 100 UNIT/ML 10 mL VL SQ SCH (21:02)
[2025-05-28 21:39] LABS: Glucose,Whole Blood 356 mg/dL (70-110)
[2025-05-28 22:33] LABS: Glucose,Whole Blood 301 mg/dL (70-110)
--- NOTE | 2025-05-28 22:33 | P.CONS ---
History of Present Illness - Reason for Consult Consult date: 05/28/25 Possible cellulitis Requesting physician: Bertin Baum - Chief Complaint Right foot pain swelling redness x days - History of Present Illness Patient is a 60-year-old female with a past medical history significant for Atrial Fibrillation, Blood Disorder, Cancer, COPD, Diabetes Mellitus, Deep Vein Thrombosis (DVT), GERD/Reflux, Hyperlipidemia, Hypertension, Osteoarthritis (OA), Seizure Disorder, Skin Disorder, Vascular Disorder presenting to the hospital for evaluation of pain to the right lower extremity especially to the foot area and this patient apparently did have wound on the medial aspect of the right big toe patient not very clear how it started and the patient had been treated with the Medihoney noticed to have an area of discoloration and subsequently patient noticed to having increasing pain swelling redness to the right foot dorsum area for the patient presented to the hospital patient did not recall the any high-grade fever did have some chills and did have a low-grade fever of 99.9 F last evening patient was not tachycardic hypotensive or hypoxic she did have about 10.07 creatinine 0.82 liver enzymes are normal electrolytes are normal CRP is 1.9 patient did have a lower extremity CTA we did shows occlusion of the right superficial femoral artery from the midportion to the popliteal artery right proximal stent graft superficial femoral arteries patent patient has been treated with vancomycin infectious disease was consulted for concern for possible cellulitis to the right foot area Review of Systems Positive point and negatives has been mentioned in the HPI, complete review of systems was performed and all other systems are negative Past Medical History Past Medical History: Atrial Fibrillation, Blood Disorder, Cancer, COPD, Diabetes Mellitus, Deep Vein Thrombosis (DVT), GERD/Reflux, Hyperlipidemia, Hypertension, Osteoarthritis (OA), Seizure Disorder, Skin Disorder, Vascular Disorder Additional Past Medical History / Comment(s): heart murmur, 2016 R breast cancer -had surgery & chemo & radiation 7 yrs ago, IDDM type II, clarita. ft charcot neuropathy bilateral legs/feet, 09/2022 DVT Lt. leg, one time seizure 10 or more years ago-testing done & never found anything, chronic pain mostly in feet and neck/back. 3 stents to right lower extremity on 08/23/24, paroxysmal Atrial fibrillation History of Any Multi-Drug Resistant Organisms: None Reported Past Surgical History: Breast Surgery, Orthopedic Surgery, Tubal Ligation Additional Past Surgical History / Comment(s): right breast lumpectomy & lymph nodes removed, port for chemo/since removed, peripheral angioplasties/atherectomies, and removed blood clot from L leg, stents, right 2nd toe amputation d/t diabetic ulcer, bilateral carpal tunnel releases, cervical fusion, aortogram 08/02/24 Past Anesthesia/Blood Transfusion Reactions: No Reported Reaction Additional Past Anesthesia/Blood Transfusion Reaction / Comm: Pt received blood transfusion r/t blood loss with surgery. no issues Past Psychological History: Anxiety, Depression Additional Psychological History / Comment(s): Pt resides with spouse. Smoking Status: Former smoker Past Alcohol Use History: None Reported Additional Past Alcohol Use History / Comment(s): Started smoking 1980 and quit in 2019. Past Drug Use History: None Reported - Past Family History Mother Family Medical History: Cancer Additional Family Medical History / Comment(s): Lung cancer, former smoker. Medications and Allergies Home Medications Medication Instructions Recorded Confirmed Type Atorvastatin [Lipitor] 40 mg PO DAILY 05/19/21 05/27/25 History INSULIN ASPART (NovoLOG) [NovoLOG See Protocol SQ AC-TID 05/19/21 05/27/25 History (formulary)] Insulin Glargine,Hum.rec.anlog 30 unit SQ AC-BRKFST 05/19/21 05/27/25 History [Basaglar Paulopen U-100] Omeprazole [PriLOSEC] 20 mg PO DAILY 05/19/21 05/27/25 History Anastrozole 1 mg PO DAILY 10/08/22 05/27/25 History Gabapentin [Neurontin] 800 mg PO TID 08/30/24 05/27/25 History amLODIPine [Norvasc] 10 mg PO DAILY 08/30/24 05/27/25 History Aspirin 81 mg PO DAILY #30 tab 12/28/24 05/27/25 Rx Metoprolol Succinate (ER) [Toprol 50 mg PO Q12HR #60 tab 12/28/24 05/27/25 Rx XL] lisinopriL [Zestril] 40 mg PO DAILY 01/15/25 05/27/25 History Warfarin [Coumadin] 7.5 mg PO DAILY 15 Days #15 tab 02/16/25 05/27/25 Rx Insulin Glargine,Hum.rec.anlog 15 unit SQ AC-SUPPER 05/27/25 05/27/25 History [Javier Dangelo U-100] metFORMIN HCL 1,000 mg PO BID 05/27/25 05/27/25 History Allergies Allergy/AdvReac Type Severity Reaction Status Date / Time protamine Allergy BP Verified 05/27/25 14:28 dropped, heart rate elevated tetracycline [Tetracycline] Allergy Rash/Hives Verified 05/27/25 14:28 Physical Exam Vitals: Vital Signs Temp Pulse Pulse Resp BP BP Pulse Ox 05/28/25 06:59 98.2 F 68 17 118/66 93 L 05/28/25 02:00 97.8 F 69 16 112/66 96 05/27/25 20:47 98.7 F 81 18 135/73 95 05/27/25 20:00 99.9 F H 87 19 137/58 97 05/27/25 16:29 98.1 F 82 19 116/61 93 L 05/27/25 13:44 98.0 F 75 19 126/86 95 Intake and Output 05/27/25 05/28/25 05/28/25 22:59 06:59 14:59 Other: # Voids 1 3 Weight 107.048 kg GENERAL DESCRIPTION: Middle-age female lying in bed, no distress. No tachypnea or accessory muscle of respiration use. HEENT: Shows Pallor , no scleral icterus. Oral mucous membrane is dry. NECK: Trachea central, no thyromegaly. LUNGS: Unlabored breathing. Clear to auscultation anteriorly. No wheeze or crackle. HEART: S1, S2, regular rate and rhythm. No loud murmur ABDOMEN: Soft, no tenderness , EXTREMITIES: Right big toe and medial aspect with a small wound with a necrotic base patient did have a redness to the right foot dorsum area no foul-smelling drainage SKIN: No rash, no masses palpable. NEUROLOGICAL: The patient is awake, alert, oriented x3, mood and affect normal. Results CBC & Chem 7: 05/28/25 06:36 05/28/25 06:36 Labs: Abnormal Lab Results - Last 24 Hours (Table) 05/27/25 05/28/25 05/28/25 Range/Units 17:48 06:10 06:36 MCH 26.9 L (27.0-32.0) pg PT (10.0-12.5) sec INR (<1.2) Sodium (137-145) mmol/L Glucose (74-99) mg/dL POC Glucose (mg/dL) 145 H 159 H (70-110) mg/dL Total Protein (6.3-8.2) g/dL 05/28/25 05/28/25 05/28/25 Range/Units 06:36 11:29 12:07 MCH (27.0-32.0) pg PT 31.4 H (10.0-12.5) sec INR 3.2 H (<1.2) Sodium 135 L (137-145) mmol/L Glucose 154 H (74-99) mg/dL POC Glucose (mg/dL) 324 H (70-110) mg/dL Total Protein 6.2 L (6.3-8.2) g/dL Assessment and Plan (1) Cellulitis of right foot Current Visit: Yes Status: Acute Code(s): L03.115 - CELLULITIS OF RIGHT LOWER LIMB SNOMED Code(s): 17254587240364849 Plan: 1patient presenting the hospital with increasing pain swelling and redness to the right foot area in this patient who did have wound on the medial aspect of the right big toe likely the source of entry of the cellulitis with the swelling redness extending to the dorsal aspect of the left foot concerning for ascend ing cellulitis likely from gram-positive skin sherley has the patient mention some improvement with the IV vancomycin 2-nursing staff has been advised to [place] the area of the redness 3-we will obtain x-ray of the right foot to make sure no evidence of any bony abnormality 4will treat the patient with vancomycin pharmacy to dose for the next day or 2 and if the patient shows continue improvement may be able to switch her to oral antibiotics We will follow on clinical condition and cultures to further adjust medication if needed Thank you for this consultation we will follow the patient along with you Dictation was produced using [employer] software. please excuse any grammatical, word or spelling errors. Time with Patient: Greater than 30
[2025-05-28 23:46] LABS: Glucose,Whole Blood 166 mg/dL (70-110)
[2025-05-29 01:37] LABS: Glucose,Whole Blood 75 mg/dL (70-110)
[2025-05-29] MEDS: DEXTROSE 50% SYRINGE 50 ML IVP PRN (03:54)
[2025-05-29 03:55] LABS: Glucose,Whole Blood 53 mg/dL (70-110)
[2025-05-29 04:18] LABS: Glucose,Whole Blood 110 mg/dL (70-110)
[2025-05-29 06:14] LABS: Glucose,Whole Blood 102 mg/dL (70-110)
[2025-05-29 06:51] LABS: INR 2.5 (<1.2); Prothrombin Time 24.7 sec (10.0-12.5)
[2025-05-29 09:02] LABS: Glucose,Whole Blood 143 mg/dL (70-110)
[2025-05-29 10:18] LABS: African American GFR (CKD) >90 (>60 ml/min/1.73 sqM); Non-African American GFR(CKD) >90 (>60 ml/min/1.73 sqM)
[2025-05-29] MEDS: VANCOMYCIN TROUGH DUE 1 EACH MISC MISCELLANE ONE (10:48)
[2025-05-29 10:58] LABS: Glucose,Whole Blood 303 mg/dL (70-110)
--- NOTE | 2025-05-29 12:20 | P.PN ---
Subjective Progress Note Date: 05/29/25 Patient seen and examined. Was given Coumadin last night despite plans for angiogram today. Patient feeling about the same, some pain and discomfort in the toe as previous. Nothing overtly changed. Objective - Vital Signs Vital signs: Vital Signs Temp 98.3 F 05/29/25 08:00 Pulse 72 05/29/25 08:00 Resp 12 05/29/25 08:00 BP 131/66 05/29/25 08:00 Pulse Ox 97 05/29/25 08:00 FiO2 Intake & Output 05/28/25 05/29/25 05/29/25 18:59 06:59 18:59 Intake Total 1560 Balance 1560 Intake: Oral 1560 Other: # Voids 3 - Exam General Is a pleasant cooperative female in no acute distress. Right lower extremity with erythematous changes to her great toe, may have some degree of infectious component but likely also due to occlusion of bypass graft and arterial insufficiency. Motor sensor intact - Labs CBC & Chem 7: 05/28/25 06:36 05/29/25 09:33 Labs: Abnormal Lab Results - Last 24 Hours (Table) 05/28/25 05/28/25 05/28/25 Range/Units 12:07 16:30 20:02 PT 31.4 H (10.0-12.5) sec INR 3.2 H (<1.2) POC Glucose (mg/dL) 135 H 356 H (70-110) mg/dL 05/28/25 05/28/25 05/28/25 Range/Units 20:53 21:38 22:32 PT (10.0-12.5) sec INR (<1.2) POC Glucose (mg/dL) 357 H 356 H 301 H (70-110) mg/dL 05/28/25 05/29/25 05/29/25 Range/Units 23:44 03:48 06:18 PT 24.7 H (10.0-12.5) sec INR 2.5 H (<1.2) POC Glucose (mg/dL) 166 H 53 L (70-110) mg/dL 05/29/25 05/29/25 Range/Units 09:00 10:57 PT (10.0-12.5) sec INR (<1.2) POC Glucose (mg/dL) 143 H 303 H (70-110) mg/dL Assessment and Plan Assessment: Acute on chronic right lower extremity ischemia Occluded right lower extremity bypass graft Previous occlusion of right lower extremity stents Plan: Long session was have Kendal, this point will plan for angiogram tomorrow with Dr. Crystal. Will hold Coumadin and make n.p.o. after midnight. Discussion had in regards to possible attempts at thrombolysis versus redo bypass versus need for amputation. She seemingly overall understands.
[2025-05-29 16:28] LABS: Glucose,Whole Blood 260 mg/dL (70-110)
--- NOTE | 2025-05-29 19:37 | P.PN ---
Progress Note - Text Progress Note Date: 05/29/25 Chief Complaint: Increasing pain right foot toe Pleasant 59-year-old patient who follows with Dr. Tatianna Mason. Chronic medical conditions include COPD, diabetes, GERD, hypertension, hyperlipidemia, osteoarthritis, right breast cancer with surgery and chemoradiation ., neuropathy, DVT in the left leg, severe PAD with multiple interventions. Cardiac catheterization in December 2024 shows noncritical CAD. About 60 to 70% proximal RCA, 50% mid RCA 60% mid LAD and 40% OM1. It was decided to medical management. Patient on February 14, 2025 underwent right leg right femoral to distal popliteal below-knee bypass with CryoVein. By Dr. Joanna Asif. Patient for last 3 to 4 weeks having increasing pain in the calf down to the foot. She has noticed some discoloration of the right foot third toe. For the same. Left foot big toe is also become painful and some spot of dry gangrene. Significant pain is present. No fever no chills. Initial follow-up after the femoropopliteal bypass was okay. Has an appointment to follow-up. May 28: Patient was seen this morning. Still having significant pain. Procalcitonin came back to less than 0.2. No fever. Patient's symptoms been present for 3 to 4 weeks is very gradually worsening. Not sure of the cellulitis. ID is on the case. With vancomycin. Will discuss with them. Patient is on Coumadin. Pharmacy is dosing the same. Discussed with the patient and the . Ultrasound arterial lower extremity showed ankle- brachial indicis right 0.21 and left 0.97. Patient seen by vascular surgery Dr. Barrett earlier today. Lipitor dose was increased to 80 mg. May 29: Some decreased redness of the right foot. Getting IV vancomycin. Discussed with ID yesterday. Does seem to have element of cellulitis. Patient's Coumadin has been held. Plan for angiogram tomorrow. Different options on the table at this point pending angiogram results. Will give 2.5 mg p.o. vitamin K. Active Medications Acetaminophen (Acetaminophen Tab 325 Mg Tab) 650 mg PO Q6HR PRN PRN Reason: Mild Pain or Fever > 100.5 Hydrocodone Bitart/Acetaminophen (Hydrocodone/Apap 5-325mg 1 Each Tab) 1 each PO Q4HR PRN PRN Reason: Moderate Pain (Scale 4 to 6) Amlodipine Besylate (Amlodipine 10 Mg Tab) 10 mg PO DAILY [facility] Last Admin: 05/29/25 08:43 Dose: 10 mg Anastrozole (Anastrozole 1 Mg Tab) 1 mg PO DAILY [facility] Last Admin: 05/29/25 08:43 Dose: 1 mg Aspirin (Aspirin 81 Mg) 81 mg PO DAILY [facility] Last Admin: 05/29/25 08:42 Dose: 81 mg Atorvastatin Calcium (Atorvastatin 80 Mg Tab) 80 mg PO DAILY [facility] Last Admin: 05/29/25 08:43 Dose: 80 mg Dextrose/Water (Dextrose 50% Syringe 50 Ml) 25 ml IVP PER PROTOCOL PRN; Protocol PRN Reason: Hypoglycemia Last Admin: 05/29/25 03:54 Dose: 25 ml Dextrose/Water (Dextrose 50% Syringe 50 Ml) 50 ml IVP PER PROTOCOL PRN; Protocol PRN Reason: Hypoglycemia Gabapentin (Gabapentin 400 Mg Cap) 800 mg PO TID [facility] Last Admin: 05/29/25 16:13 Dose: 800 mg Hydromorphone HCl (Hydromorphone 0.5 Mg/0.5 Ml Syringe) 0.5 mg IVP Q3HR PRN PRN Reason: Moderate Pain (Scale 4 to 6) Last Admin: 05/29/25 15:26 Dose: 0.5 mg Vancomycin HCl 1,750 mg/ (Sodium Chloride) 500 mls @ 167 mls/hr IVPB Q12H [facility] Last Admin: 05/29/25 10:34 Dose: 167 mls/hr Insulin Glargine (Insulin Glargine (Lantus) 100 Unit/Ml Syr) 30 unit SQ HS [facility] Last Admin: 05/28/25 21:41 Dose: 30 unit Insulin Human Lispro (Insulin Lispro (Humalog) 100 Unit/Ml 10 Ml Vl) 0 unit SQ ACHS [facility]; Protocol Last Admin: 05/29/25 16:52 Dose: 9 unit Lisinopril (Lisinopril 20 Mg Tab) 40 mg PO DAILY [facility] Last Admin: 05/29/25 08:42 Dose: 40 mg Metformin HCl (Metformin 500 Mg Tab) 1,000 mg PO AC-BID [facility] Last Admin: 05/29/25 16:52 Dose: 1,000 mg Metoprolol Succinate (Metoprolol Succinate (Er) 50 Mg Tab.Er.24h) 50 mg PO Q12HR [facility] Last Admin: 05/29/25 08:42 Dose: 50 mg Naloxone HCl (Naloxone 0.4 Mg/Ml 1 Ml Vial) 0.2 mg IV Q2M PRN PRN Reason: Opioid Reversal Ondansetron HCl (Ondansetron 4 Mg/2 Ml Vial) 4 mg IVP Q8HR PRN PRN Reason: Nausea And Vomiting Pantoprazole Sodium (Pantoprazole 40 Mg Tablet) 40 mg PO AC-BRKFST [facility] Last Admin: 05/29/25 06:31 Dose: 40 mg Social history: Patient smoked from 1980 through 2019. Alcohol rarely. Lives with her On examination: VITAL SIGNS: 98.1, 69, 13, 138 x 75, 95% room air GENERAL APPEARANCE: BMI 34.9 up in bed s HEENT: Normal external appearance of nose and ear. Oral cavity normal EYES: Pupils equal. Conjunctiva normal. NECK: JVD not raised. Mass not palpable. RESPIRATORY: Respiratory effort normal. Lungs clear to auscultation. CARDIOVASCULAR: First and second sounds normal. No edema. ABDOMEN: Soft. Liver and spleen not palpable. No tenderness. No mass palpable. PSYCHIATRY: Alert and oriented x3. Mood and affect normal. Extremities: Right foot slightly dusky. Missing right foot second toe. 1 cm area on the ball of right big toe blackish and also small area on the right foot third toe. Some decrease in redness of the foot. INVESTIGATIONS, reviewed in the clinical context: May 28: White count 6.1 hemoglobin 12.2 platelets 274 potassium 4.5 creatinine 0.69. INR 3.2 Lower extremity ultrasound: Right ankle brachial index: 0.21 Procalcitonin less than 0.2 May 27, 2025: White count 10.0 hemoglobin 13 platelets 322 potassium 5.6 BUN 20 creatinine 0.82 CRP 1.9 Assessment and plan: - Acute on chronic extensive PAD with multiple interventions right lower extremity. Patient underwent femoropopliteal bypass on February [address] Asif. For last 3 to 4-week increasing pain in the right lower calf and in the toes. Likely progression of disease in the small vessels. Continue aspirin. Lipitor increased to 80 mg. Also on Coumadin Vascular following - Doubt cellulitis right lower extremity. Patient started on vancomycin in the ER. Procalcitonin less than 0.2 normal whi te count. No fever. ID following - Coumadin monitoring -Paroxysmal atrial fibrillation, sinus rhythm Telemetry Patient on Coumadin continued -COPD, an ex-smoker Albuterol when necessary - Noncritical coronary artery disease with cardiac catheterization in December 2024. 60-70% proximal RCA, 50% mid RCA, 60% mid LAD, 40% OM1. Decision was for medical management -Diabetes mellitus type 2, chronically on insulin, uncontrolled with hyperglycemia likely secondary to possible infection Increase Lantus 36 units at night. Follow Accu-Cheks. -GERD PPI -Hyperlipidemia Lipitor to be increased to 80 mg. -Essential hypertension Norvasc -Obesity BMI 33.1 Weight loss measures Increase Lantus to 36. N.p.o. after midnight. For angiogram per surgery vascular and treatment following that. INR 2.5 today. Give a small dose of vitamin K 2.5 mg. Hold Coumadin tonight Past Medical History Past Medical History: Atrial Fibrillation, Blood Disorder, Cancer, COPD, Diabetes Mellitus, Deep Vein Thrombosis (DVT), GERD/Reflux, Hyperlipidemia, Hypertension, Osteoarthritis (OA), Seizure Disorder, Skin Disorder, Vascular Disorder Additional Past Medical History / Comment(s): heart murmur, 2016 R breast cancer -had surgery & chemo & radiation 7 yrs ago, IDDM type II, clarita. ft charcot neuropathy bilateral legs/feet, 09/2022 DVT Lt. leg, one time seizure 10 or more years ago-testing done & never found anything, chronic pain mostly in feet and neck/back. 3 stents to right lower extremity on 08/23/24, paroxysmal Atrial fibrillation History of Any Multi-Drug Resistant Organisms: None Reported Past Surgical History: Breast Surgery, Orthopedic Surgery, Tubal Ligation Additional Past Surgical History / Comment(s): right breast lumpectomy & lymph nodes removed, port for chemo/since removed, peripheral angioplasties/atherectomies, and removed blood clot from L leg, stents, right 2nd toe amputation d/t diabetic ulcer, bilateral carpal tunnel releases, cervical fusion, aortogram 08/02/24 Past Anesthesia/Blood Transfusion Reactions: No Reported Reaction Additional Past Anesthesia/Blood Transfusion Reaction / Comment(s): Pt received blood transfusion r/t blood loss with surgery. no issues Past Psychological History: Anxiety, Depression Additional Psychological History / Comment(s): Pt resides with spouse. Smoking Status: Former smoker Past Alcohol Use History: None Reported Additional Past Alcohol Use History / Comment(s): Started smoking 1980 and quit in 2019. Past Drug Use History: None Reported
[2025-05-29 20:07] LABS: Glucose,Whole Blood 125 mg/dL (70-110)
[2025-05-29] MEDS: INSULIN GLARGINE (LANTUS) 100 UNIT/ML SYR SQ SCH (20:16)
[2025-05-29] MEDS: PHYTONADIONE ORAL 5 MG/5 ML ORAL.SYRG PO STA (20:22)
[2025-05-30 04:29] LABS: INR 1.5 (<1.2); Prothrombin Time 15.8 sec (10.0-12.5)
[2025-05-30 04:37] LABS: African American GFR (CKD) >90 (>60 ml/min/1.73 sqM); Non-African American GFR(CKD) >90 (>60 ml/min/1.73 sqM)
[2025-05-30 05:54] LABS: Glucose,Whole Blood 258 mg/dL (70-110)
--- NOTE | 2025-05-30 07:18 | P.PN ---
Subjective Progress Note Date: 05/29/25 Principal diagnosis: Reason for follow-up is right foot cellulitis Patient is a 60-year-old female with a past medical history significant for Atrial Fibrillation, Blood Disorder, Cancer, COPD, Diabetes Mellitus, Deep Vein Thrombosis (DVT), GERD/Reflux, Hyperlipidemia, Hypertension, Osteoarthritis (OA), Seizure Disorder, Skin Disorder, Vascular Disorder presenting to the hospital for evaluation of pain to the right lower extremity especially to the foot area especially during the right foot and this patient did have a small wound on the medial aspect of the right big toe. On today's evaluation that is 05/29/2025,the patient denies any fever or any chills, patient is breathing comfortably on room air, the patient denies chest pain shortness of breath and no significant cough, patient denies abdominal pain, no nausea vomiting or diarrhea. Patient still complains of pain to right foot has slightly decreased no open wound no drainage. Patient did have a INR of 2.5 creatinine 0.61 Vanco trough is 17.3 Objective - Vital Signs Vital signs: Vital Signs Temp 98.1 F 05/29/25 12:49 Pulse 72 05/29/25 12:49 Resp 16 05/29/25 12:49 BP 119/70 05/29/25 12:49 Pulse Ox 95 05/29/25 12:49 FiO2 - Exam GENERAL DESCRIPTION: Middle-age female lying in bed in no distress RESPIRATORY SYSTEM: Unlabored breathing , decreased breath sounds at bases HEART: S1 S2 regular rate and rhythm , ABDOMEN: Soft , no tenderness EXTREMITIES: Right foot redness has not extended beyond the line slightly decreased in intensity no drainage - Labs CBC & Chem 7: 05/28/25 06:36 05/30/25 03:17 Labs: Abnormal Lab Results - Last 24 Hours (Table) 05/29/25 05/29/25 05/29/25 Range/Units 09:00 10:57 16:27 PT (10.0-12.5) sec INR (<1.2) POC Glucose (mg/dL) 143 H 303 H 260 H (70-110) mg/dL 05/29/25 05/30/25 05/30/25 Range/Units 20:05 03:17 05:53 PT 15.8 H (10.0-12.5) sec INR 1.5 H (<1.2) POC Glucose (mg/dL) 125 H 258 H (70-110) mg/dL Assessment and Plan (1) Cellulitis of right foot Current Visit: Yes Status: Acute Code(s): L03.115 - CELLULITIS OF RIGHT LOWER LIMB SNOMED Code(s): 82554695989939156 Plan: 1patient presenting the hospital with increasing pain swelling and redness to the right foot area in this patient who did have wound on the medial aspect of the right big toe likely the source of entry of the cellulitis with the swelling redness extending to the dorsal aspect of the left foot concerning for ascending cellulitis likely from gram-positive skin sherley has the patient mention some improvement with the IV vancomycin 2- x-ray of the right foot with no evidence of any bony abnormality 3patient did have some decrease in the redness to the right foot area we will continue the patient on IV vancomycin while inpatient and transition to oral antibiotic on discharge Dictation was produced using [employer] dictation software. please excuse any grammatical, word or spelling errors. Time with Patient: Less than 30
[2025-05-30 11:25] LABS: Glucose,Whole Blood 290 mg/dL (70-110)
[2025-05-30] MEDS: fentaNYL (PF) 50 MCG/1 ML VIAL IVP ONE ×2 (16:34→16:58)
[2025-05-30] MEDS: MIDAZOLAM 2 MG/2 ML VIAL IVP ONE (16:34)
[2025-05-30] MEDS: LIDOCAINE 2% (PF) 20 MG/ML 5 ML VIAL SQ ONE (16:34)
[2025-05-30] MEDS: IOPAMIDOL-370 100ML BTL INTRATHECA ONE (17:52)
[2025-05-30] MEDS: HEPARIN SODIUM,PORCINE 10,000 UNIT in SODIUM CHLORIDE 0.9% 1,000 ML IRRIGATION ONE (18:03)
[2025-05-30] MEDS: SODIUM CHLORIDE 0.9% 1,000 ML IV ONE (18:03)
[2025-05-30] MEDS: ALTEPLASE 2 MG VIAL (CATHFLO) MISCELLANE ONE (18:12)
--- NOTE | 2025-05-30 18:24 | P.OP ---
Date of Procedure: 05/30/25 Preoperative Diagnosis: Right femoral occlusion/occlusion right femoral to popliteal bypass graft with arterial insufficiency of the right lower extremity. Postoperative Diagnosis: Same plus short segment occlusion right superficial femoral artery and short segment stenosis distal right superficial femoral artery. Procedure(s) Performed: 1: Ultrasound-guided cannulation left common femoral artery. 2: Selective catheterization right femoral artery from a contralateral approach. 3: Right femoral angiogram. 4: Initiation of tPA thrombolysis and placement of tPA thrombolytic catheter. Anesthesia: local (1% Xylocaine), none (Multiple doses of Versed and fentanyl.) Surgeon: Gregorio Nelson Estimated Blood Loss (ml): 30 Urine output (ml): 0 Pathology: none sent Condition: stable Disposition: ICU (Due to initiation of tPA therapy) Indications for Procedure: Patient is a 60-year-old female with a longstanding history of bilateral lower extremity arterial occlusive disease. She had multiple stents placed in the past and eventually had a right lower extremity bypass graft. This bypass graft thrombosed and in an effort to identify surgical options the patient was offered catheter angiogram and possible percutaneous intervention. The procedure, risk and benefits were discussed. All questions were answered to patient's satisfaction. Description of Procedure: Patient brought the cardiac catheterization suite. Both groins were sterilely prepped and draped in usual manner. Patient received 50 mcg of fentanyl and 2 mg of Versed initially and additional doses were administered at various times throughout the procedure. 1% Xylocaine was utilized for local anesthesia of the tissue overlying the femoral artery which was identified with ultrasound. Through this anesthetized area a multipurpose needle was utilized to cannulate the artery. Once cannulated soft-tipped guidewire was advanced. The needle was withdrawn and eventually a 5 Kiswahili sheath was placed. Guidewire and catheter, in combination were utilized to selectively cannulate the right iliac artery. The guidewire was advanced down to the level of femoral artery. Angiography was performed which demonstrated the common femoral artery to be widely patent. There was no evidence of the origin of the bypass graft. Guidewire and catheter were manipulated into the superficial femoral artery and the guidewire was advanced down into the popliteal artery. Angiogram was performed. This demonstrated the previously placed stents to have thrombosed however there was some occlusion of approximately 2 cm just proximal to the first stent as well as a stenosis just distal to the first stent involving the SFA. It was decided to perform tPA thrombolysis to open the previously stented segment and allow for percutaneous intervention of the stenotic and occluded segments once the thrombus was completely resolved. As such a tPA thrombolytic catheter was advanced over the guidewire and positioned within the stented segment which was approximately 30 cm in length. 2 mg of tPA were instilled in a continuous drip of 1 mg tPA per hour was initiated. The sheath was secured to the skin with suture. Appropriate dressings were applied. Patient tolerated procedure well. She will be taken to the ICU per protocol. We plan to bring the patient back tomorrow for repeat imaging and further intervention.
[2025-05-30 18:38] LABS: Glucose,Whole Blood 253 mg/dL (70-110)
[2025-05-30 18:53] LABS: Basophils # (A) 0.06 10*3/uL (0.00-0.10); Basophils % (A) 0.9 %; Eosinophils # (A) 0.22 10*3/uL (0.04-0.35); Eosinophils % (A) 3.4 %; HCT 35.1 % (37.2-46.3); HGB 11.8 g/dL (12.0-15.0); Lymphocytes # (A) 1.50 10*3/uL (0.90-5.00); Lymphocytes % (A) 22.9 %; MCH 27.3 pg (27.0-32.0); MCHC 33.6 g/dL (32.0-37.0); MCV 81.1 fL (80.0-97.0); Monocytes # (A) 0.56 10*3/uL (0.20-1.00); Monocytes % (A) 8.6 %; Neutrophils # (A) 4.19 10*3/uL (1.80-7.70); Neutrophils % (A) 64.0 %; Platelet Count 265 10*3/uL (140-440); RBC 4.33 10*6/uL (4.10-5.20); RDW 15.4 % (11.5-14.5); WBC 6.54 10*3/uL (4.50-10.00)
[2025-05-30] MEDS: HEPARIN SOD,PORK IN 0.45% NACL 25,000 UNIT in 0.45% NACL 1 250ML.BAG IV SCH (18:53)
[2025-05-30] MEDS: ALTEPLASE 10 MG in SODIUM CHLORIDE 0.9% 90 ML IA ONE (18:54)
[2025-05-30] MEDS: SODIUM CHLORIDE 0.9% 1,000 ML IV SCH (18:56)
[2025-05-30 19:05] LABS: Fibrinogen 556.0 mg/dL (200-500); INR 1.1 (<1.2); Prothrombin Time 12.4 sec (10.0-12.5)
[2025-05-30 19:17] LABS: African American GFR (CKD) >90 (>60 ml/min/1.73 sqM); Blood Urea Nitrogen 12 mg/dL (7-17); Non-African American GFR(CKD) >90 (>60 ml/min/1.73 sqM)
--- NOTE | 2025-05-30 19:46 | P.PN ---
Progress Note - Text Progress Note Date: 05/30/25 Chief Complaint: Increasing pain right foot toe Pleasant 59-year-old patient who follows with Dr. Tatianna Mason. Chronic medical conditions include COPD, diabetes, GERD, hypertension, hyperlipidemia, osteoarthritis, right breast cancer with surgery and chemoradiation ., neuropathy, DVT in the left leg, severe PAD with multiple interventions. Cardiac catheterization in December 2024 shows noncritical CAD. About 60 to 70% proximal RCA, 50% mid RCA 60% mid LAD and 40% OM1. It was decided to medical management. Patient on February 14, 2025 underwent right leg right femoral to distal popliteal below-knee bypass with CryoVein. By Dr. Joanna Asif. Patient for last 3 to 4 weeks having increasing pain in the calf down to the foot. She has noticed some discoloration of the right foot third toe. For the same. Left foot big toe is also become painful and some spot of dry gangrene. Significant pain is present. No fever no chills. Initial follow-up after the femoropopliteal bypass was okay. Has an appointment to follow-up. May 28: Patient was seen this morning. Still having significant pain. Procalcitonin came back to less than 0.2. No fever. Patient's symptoms been present for 3 to 4 weeks is very gradually worsening. Not sure of the cellulitis. ID is on the case. With vancomycin. Will discuss with them. Patient is on Coumadin. Pharmacy is dosing the same. Discussed with the patient and the . Ultrasound arterial lower extremity showed ankle- brachial indicis right 0.21 and left 0.97. Patient seen by vascular surgery Dr. Barrett earlier today. Lipitor dose was increased to 80 mg. May 29: Some decreased redness of the right foot. Getting IV vancomycin. Discussed with ID yesterday. Does seem to have element of cellulitis. Patient's Coumadin has been held. Plan for angiogram tomorrow. Different options on the table at this point pending angiogram results. Will give 2.5 mg p.o. vitamin K. May 30: Patient seen by me this morning. Pending surgery. NPO. Redness of the foot has gone down. Remains on IV vancomycin. Later patient was taken down for surgery by Dr. Nelson. He carried out tPA thrombolysis and placement of tPA thrombolytic catheter. Patient was moved to the ICU following that. More details in the notes of Dr. Operative notes of Dr. Nelson. There was no evidence of origin of the bypass graft. Previously placed stents to have thrombosed some occlusion approximately 2 cm just proximal to the first stent as well as stenosis just distal to the first and involving the SFA. Hence he proceeded to do a tPA thrombolysis. Active Medications Acetaminophen (Acetaminophen Tab 325 Mg Tab) 650 mg PO Q6HR PRN PRN Reason: Mild Pain or Fever > 100.5 Hydrocodone Bitart/Acetaminophen (Hydrocodone/Apap 5-325mg 1 Each Tab) 1 each PO Q4HR PRN PRN Reason: Moderate Pain (Scale 4 to 6) Amlodipine Besylate (Amlodipine 10 Mg Tab) 10 mg PO DAILY [facility] Last Admin: 05/30/25 08:19 Dose: 10 mg Anastrozole (Anastrozole 1 Mg Tab) 1 mg PO DAILY [facility] Last Admin: 05/30/25 08:19 Dose: 1 mg Aspirin (Aspirin 81 Mg) 81 mg PO DAILY [facility] Last Admin: 05/30/25 08:18 Dose: 81 mg Atorvastatin Calcium (Atorvastatin 80 Mg Tab) 80 mg PO DAILY [facility] Last Admin: 05/30/25 08:19 Dose: 80 mg Dextrose/Water (Dextrose 50% Syringe 50 Ml) 25 ml IVP PER PROTOCOL PRN; Protocol PRN Reason: Hypoglycemia Last Admin: 05/29/25 03:54 Dose: 25 ml Dextrose/Water (Dextrose 50% Syringe 50 Ml) 50 ml IVP PER PROTOCOL PRN; Protocol PRN Reason: Hypoglycemia Gabapentin (Gabapentin 400 Mg Cap) 800 mg PO TID [facility] Last Admin: 05/30/25 18:54 Dose: 800 mg Hydromorphone HCl (Hydromorphone 0.5 Mg/0.5 Ml Syringe) 0.5 mg IVP Q3HR PRN PRN Reason: Moderate Pain (Scale 4 to 6) Last Admin: 05/30/25 14:04 Dose: 0.5 mg Vancomycin HCl 1,750 mg/ (Sodium Chloride) 500 mls @ 167 mls/hr IVPB Q12H [facility] Last Admin: 05/30/25 10:23 Dose: 167 mls/hr Alteplase, Recombinant 10 mg/ (Sodium Chloride) 100 mls @ 10 mls/hr IA .Q10H ONE; Protocol Last Admin: 05/30/25 18:54 Dose: 1 mg/hr, 10 mls/hr Heparin Sodium/Sodium Chloride (25,000 unit/ Sodium Chloride) 250 mls @ 5 mls/hr IV .Q24H [facility] Last Admin: 05/30/25 18:53 Dose: 5 mls/hr Sodium Chloride (Saline 0.9%) 1,000 mls @ 25 mls/hr IV .Q24H [facility] Last Admin: 05/30/25 18:56 Dose: 25 mls/hr Insulin Glargine (Insulin Glargine (Lantus) 100 Unit/Ml Syr) 36 unit SQ HS [facility] Last Admin: 05/29/25 20:16 Dose: Not Given Insulin Human Lispro (Insulin Lispro (Humalog) 100 Unit/Ml 10 Ml Vl) 0 unit SQ ACHS [facility]; Protocol Last Admin: 05/30/25 18:55 Dose: 9 unit Lisinopril (Lisinopril 20 Mg Tab) 40 mg PO DAILY [facility] Last Admin: 05/30/25 08:19 Dose: 40 mg Metformin HCl (Metformin 500 Mg Tab) 1,000 mg PO AC-BID [facility] Last Admin: 05/30/25 18:55 Dose: 1,000 mg Metoprolol Succinate (Metoprolol Succinate (Er) 50 Mg Tab.Er.24h) 50 mg PO Q12HR [facility] Last Admin: 05/30/25 08:19 Dose: 50 mg Morphine Sulfate (Morphine Sulfate 2 Mg/Ml Syringe) 2 mg IVP Q3HR PRN PRN Reason: Mild to Moderate Pain (1 - 6) Naloxone HCl (Naloxone 0.4 Mg/Ml 1 Ml Vial) 0.2 mg IV Q2M PRN PRN Reason: Opioid Reversal Ondansetron HCl (Ondansetron 4 Mg/2 Ml Vial) 4 mg IVP Q8HR PRN PRN Reason: Nausea And Vomiting Pantoprazole Sodium (Pantoprazole 40 Mg Tablet) 40 mg PO AC-BRKFST [facility] Last Admin: 05/30/25 06:20 Dose: Not Given Social history: Patient smoked from 1980 through 2019. Alcohol rarely. Lives with her On examination: VITAL SIGNS: 99, 69, 18, 129 x 76, GENERAL APPEARANCE: BMI 34.9 up in bed s HEENT: Normal external appearance of nose and ear. Oral cavity normal EYES: Pupils equal. Conjunctiva normal. NECK: JVD not raised. Mass not palpable. RESPIRATORY: Respiratory effort normal. Lungs clear to auscultation. CARDIOVASCULAR: First and second sounds normal. No edema. ABDOMEN: Soft. Liver and spleen not palpable. No tenderness. No mass palpable. PSYCHIATRY: Alert and oriented x3. Mood and affect normal. Extremities: Missing right foot second toe. 1 cm area on the ball of right big toe blackish and also small area on the right foot third toe. decrease in redness of the foot. INVESTIGATIONS, reviewed in the clinical context: May 30:INR at 1.5 May 28: White count 6.1 hemoglobin 12.2 platelets 274 potassium 4.5 creatinine 0.69. INR 3.2 Lower extremity ultrasound: Right ankle brachial index: 0.21 Procalcitonin less than 0.2 May 27, 2025: White count 10.0 hemoglobin 13 platelets 322 potassium 5.6 BUN 20 creatinine 0.82 CRP 1.9 Assessment and plan: - Acute on chronic extensive PAD with multiple interventions right lower extremity. Patient underwent femoropopliteal bypass on February [address] Asif. For last 3 to 4-week increasing pain in the right lower calf and in the toes. Likely progression of disease in the small vessels. Continue aspirin. Lipitor increased to 80 mg. Also on Coumadin May 30: Patient taken to the OR by Dr. Nelson. Details in his notes. Patient put on tPA thrombolysis. Moved to the ICU. -Acute cellulitis right lower extremity. Patient started on vancomycin in the ER. Procalcitonin less than 0.2 normal white count. No fever. ID following - Coumadin monitoring - IV heparin monitoring per protocol -Paroxysmal atrial fibrillation, sinus rhythm Telemetry Coumadin on hold currently for surgery -COPD, an ex-smoker Albuterol when necessary - Noncritical coronary artery disease with cardiac catheterization in December 2024. 60-70% proximal RCA, 50% mid RCA, 60% mid LAD, 40% OM1. Decision was for medical management -Diabetes mellitus type 2, chronically on insulin, uncontrolled with hyperglycemia likely secondary to possible infection Lantus 36 units at night. Follow Accu-Cheks. -GERD PPI -Hyperlipidemia Lipitor to be increased to 80 mg. -Essential hypertension Norvasc -Obesity BMI 33.1 Weight loss measures Intervention by Dr. Nelson today. Postprocedure patient brought to the ICU for tPA thrombolysis./IV heparin Past Medical History Past Medical History: Atrial Fibrillation, Blood Disorder, Cancer, COPD, Diabetes Mellitus, Deep Vein Thrombosis (DVT), GERD/Reflux, Hyperlipidemia, Hypertension, Osteoarthritis (OA), Seizure Disorder, Skin Disorder, Vascular Disorder Additional Past Medical History / Comment(s): heart murmur, 2016 R breast cancer -had surgery & chemo & radiation 7 yrs ago, IDDM type II, clarita. ft [place] neuropathy bilateral legs/feet, 09/2022 DVT Lt. leg, one time seizure 10 or more years ago-testing done & never found anything, chronic pain mostly in feet and neck/back. 3 stents to right lower extremity on 08/23/24, paroxysmal Atrial fibrillation History of Any Multi-Drug Resistant Organisms: None Reported Past Surgical History: Breast Surgery, Orthopedic Surgery, Tubal Ligation Additional Past Surgical History / Comment(s): right breast lumpectomy & lymph nodes removed, port for chemo/since removed, peripheral angioplasties/atherectomies, and removed blood clot from L leg, stents, right 2nd toe amputation d/t diabetic ulcer, bilateral carpal tunnel releases, cervical fusion, aortogram 08/02/24 Past Anesthesia/Blood Transfusion Reactions: No Reported Reaction Additional Past Anesthesia/Blood Transfusion Reaction / Comment(s): Pt received blood transfusion r/t blood loss with surgery. no issues Past Psychological History: Anxiety, Depression Additional Psychological History / Comment(s): Pt resides with spouse. Smoking Status: Former smoker Past Alcohol Use History: None Reported Additional Past Alcohol Use History / Comment(s): Started smoking 1980 and quit in 2019. Past Drug Use History: None Reported
[2025-05-30 21:03] LABS: Glucose,Whole Blood 283 mg/dL (70-110)
--- NOTE | 2025-05-30 22:42 | P.PN ---
Subjective Progress Note Date: 05/30/25 Principal diagnosis: Reason for follow-up is right foot cellulitis Patient is a 60-year-old female with a past medical history significant for Atrial Fibrillation, Blood Disorder, Cancer, COPD, Diabetes Mellitus, Deep Vein Thrombosis (DVT), GERD/Reflux, Hyperlipidemia, Hypertension, Osteoarthritis (OA), Seizure Disorder, Skin Disorder, Vascular Disorder presenting to the hospital for evaluation of pain to the right lower extremity especially to the foot area especially during the right foot and this patient did have a small wound on the medial aspect of the right big toe. On today's evaluation that is 05/30/2025,the patient remains to be afebrile, patient is on room air not requiring supplemental oxygen and denies any shortness of breath no chest pain or cough.Patient denies having any nausea or vomiting, no abdominal pain and no diarrhea pain to the right foot area slight decrease in intensity. Patient did have white count 6.54, creatinine 0.56 Objective - Vital Signs Vital signs: Vital Signs Temp 98.0 F 05/30/25 14:25 Pulse 80 05/30/25 14:25 Resp 18 05/30/25 07:00 BP 158/89 05/30/25 14:25 Pulse Ox 95 05/30/25 14:25 FiO2 Intake & Output 05/29/25 05/30/25 05/30/25 18:59 06:59 18:59 Intake Total 1080 Balance 1080 Intake: Oral 1080 Other: # Voids 3 - Exam GENERAL DESCRIPTION: Middle-age female lying in bed in no distress RESPIRATORY SYSTEM: Unlabored breathing , decreased breath sounds at bases HEART: S1 S2 regular rate and rhythm , ABDOMEN: Soft , no tenderness EXTREMITIES: Right foot redness has not extended beyond the line slightly decreased in intensity no drainage - Labs CBC & Chem 7: 05/30/25 18:43 05/30/25 18:43 Labs: Abnormal Lab Results - Last 24 Hours (Table) 05/29/25 05/29/25 05/30/25 Range/Units 16:27 20:05 03:17 PT 15.8 H (10.0-12.5) sec INR 1.5 H (<1.2) POC Glucose (mg/dL) 260 H 125 H (70-110) mg/dL 05/30/25 05/30/25 Range/Units 05:53 11:24 PT (10.0-12.5) sec INR (<1.2) POC Glucose (mg/dL) 258 H 290 H (70-110) mg/dL Assessment and Plan (1) Cellulitis of right foot Current Visit: Yes Status: Acute Code(s): L03.115 - CELLULITIS OF RIGHT LOWER LIMB SNOMED Code(s): [id number] Plan: 1patient presenting the hospital with increasing pain swelling and redness to the right foot area in this patient who did have wound on the medial aspect of the right big toe likely the source of entry of the cellulitis with the swelling redness extending to the dorsal aspect of the left foot concerning for ascending cellulitis likely from gram-positive skin sherley has the patient mention some improvement with the IV vancomycin 2- x-ray of the right foot with no evidence of any bony abnormality 3patient did have some decrease in the redness to the right foot area and some decrease in the pain 4we will continue the patient on IV vancomycin while inpatient and monitor clinical course closely Dictation was produced using [employer] dictation software. please excuse any grammatical, word or spelling errors. Time with Patient: Less than 30
[2025-05-31 03:24] LABS: Fibrinogen 519.0 mg/dL (200-500); INR 1.0 (<1.2); Prothrombin Time 11.2 sec (10.0-12.5)
[2025-05-31 03:28] LABS: Basophils # (A) 0.05 10*3/uL (0.00-0.10); Basophils % (A) 0.8 %; Eosinophils # (A) 0.22 10*3/uL (0.04-0.35); Eosinophils % (A) 3.6 %; HCT 35.5 % (37.2-46.3); HGB 11.8 g/dL (12.0-15.0); Lymphocytes # (A) 1.60 10*3/uL (0.90-5.00); Lymphocytes % (A) 25.8 %; MCH 27.1 pg (27.0-32.0); MCHC 33.2 g/dL (32.0-37.0); MCV 81.6 fL (80.0-97.0); Monocytes # (A) 0.61 10*3/uL (0.20-1.00); Monocytes % (A) 9.9 %; Neutrophils # (A) 3.70 10*3/uL (1.80-7.70); Neutrophils % (A) 59.7 %; Platelet Count 244 10*3/uL (140-440); RBC 4.35 10*6/uL (4.10-5.20); RDW 15.7 % (11.5-14.5); WBC 6.19 10*3/uL (4.50-10.00)
[2025-05-31] MEDS: ALTEPLASE 2 MG VIAL (CATHFLO) MISCELLANE STA (03:28)
[2025-05-31 04:15] LABS: African American GFR (CKD) >90 (>60 ml/min/1.73 sqM); Anion Gap 7 mmol/L; Blood Urea Nitrogen 14 mg/dL (7-17); Calcium 9.1 mg/dL (8.4-10.2); Carbon Dioxide 26 mmol/L (22-30); Chloride 99 mmol/L (98-107); Glucose 134 mg/dL (74-99); Non-African American GFR(CKD) >90 (>60 ml/min/1.73 sqM); Potassium 4.3 mmol/L (3.5-5.1); Sodium 132 mmol/L (137-145)
[2025-05-31 06:28] LABS: Glucose,Whole Blood 121 mg/dL (70-110)
[2025-05-31] MEDS: MORPHINE SULFATE 2 MG/ML SYRINGE IVP PRN (08:16)
[2025-05-31] MEDS: HYDROcodone/APAP 5-325MG 1 EACH TAB PO PRN (08:19)
[2025-05-31 10:41] LABS: Glucose,Whole Blood 175 mg/dL (70-110)
--- NOTE | 2025-05-31 11:56 | P.CNPUL ---
History of Present Illness Consult date: 05/31/25 Requesting physician: Gregorio Nelson Reason for consult: other (Critical care management) Chief complaint: Right lower extremity pain History of present illness: This is a pleasant 60-year-old female patient with a known history of chronic obstructive pulmonary disease, former smoker, coronary artery disease, diabetes mellitus, gastroesophageal reflux disease, hypertension, hyperlipidemia, breast cancer, DVT and significant peripheral vascular disease with previous femoral- popliteal occlusion and multiple stent placements. Most recently in January [address] Asif. She had been on anticoagulation in the form of warfarin. She presented here May 27, 2025 to the emergency room with right lower extremity pain, edema and redness. There is also necrotic type wounds of the right big toe and redness of the right foot dorsum area. CT angiogram of the lower extremity revealed occlusion of the right superficial femoral artery from the mid portion of the popliteal artery extending 28 cm. Right proximal stent graft and superficial femoral artery is patent. Stent graft to the left superficial femoral arteries are patent. Yesterday on 05/30/2025 the patient did undergo ultrasound-guided cannulation left common femoral artery with selective catheterization to the right femoral artery with contrast from a contralateral approach. Right femoral angiogram. Initiation of tPA thrombosis and placement of the tPA thrombolytic catheter. Following that she was admitted to the intens sharad care unit and we are seeing her today in consultation. She is currently resting fairly comfortably in bed. Awake and alert in no acute distress. She is maintaining O2 saturations in the upper 90s on 2 L/min per nasal cannula. She has been afebrile. Hemodynamically stable. She is having some discomfort of her right lower extremity. White count 6.1. Hemoglobin 11.8. Platelets 244. Sodium 132. Potassium 4.3. Bicarb 26. BUN 14. Creatinine 0.57. Glucose 134. tPA and heparin infusing through her catheters. The plan is to return to the [facility] today for an evaluation. Review of Systems REVIEW OF SYSTEMS: CONSTITUTIONAL: Denies any recent significant weight loss or weight gain. EYES: Denies change in vision. EARS, NOSE, MOUTH, THROAT: Denies headaches, denies sore throat. CARDIOVASCULAR: Denies chest pain, palpitations or syncopal episodes. RESPIRATORY: Denies shortness of breath, cough, congestion or hemoptysis. GASTROINTESTINAL: Denies change in appetite, denies abdominal pain GENITOURINARY: Denies hematuria, denies infections. MUSKULOSKELETAL: Positive for right lower extremity pain, swelling, redness. INTEGUMENTARY: Denies rash, denies eczema. NEUROLOGICAL: Denies recent memory loss, no recent seizure activity. PSYCHIATRIC: Denies anxiety, denies depression. HEMATOLOGIC/LYMPHATIC: Denies anemia, denies enlarged lymph nodes. Past Medical History Past Medical History: Atrial Fibrillation, Blood Disorder, Cancer, COPD, Diabetes Mellitus, Deep Vein Thrombosis (DVT), GERD/Reflux, Hyperlipidemia, Hypertension, Osteoarthritis (OA), Seizure Disorder, Skin Disorder, Vascular Disorder Additional Past Medical History / Comment(s): heart murmur, 2016 R breast cancer -had surgery & chemo & radiation 7 yrs ago, IDDM type II, clarita. ft charcot neuropathy bilateral legs/feet, 09/2022 DVT Lt. leg, one time seizure 10 or more years ago-testing done & never found anything, chronic pain mostly in feet and neck/back. 3 stents to right lower extremity on 08/23/24, paroxysmal Atrial fibrillation History of Any Multi-Drug Resistant Organisms: None Reported Past Surgical History: Breast Surgery, Orthopedic Surgery, Tubal Ligation Additional Past Surgical History / Comment(s): right breast lumpectomy & lymph nodes removed, port for chemo/since removed, peripheral angioplasties/atherectomies, and removed blood clot from L leg, stents, right 2nd toe amputation d/t diabetic ulcer, bilateral carpal tunnel releases, cervical fusion, aortogram 08/02/24 Past Anesthesia/Blood Transfusion Reactions: No Reported Reaction Additional Past Anesthesia/Blood Transfusion Reaction / Comment(s): Pt received blood transfusion r/t blood loss with surgery. no issues Past Psychological History: Anxiety, Depression Additional Psychological History / Comment(s): Pt resides with spouse. Smoking Status: Former smoker Past Alcohol Use History: None Reported Additional Past Alcohol Use History / Comment(s): Started smoking 1980 and quit in 2019. Past Drug Use History: None Reported - Past Family History Mother Family Medical History: Cancer Additional Family Medical History / Comment(s): Lung cancer, former smoker. Medications and Allergies Home Medications Medication Instructions Recorded Confirmed Type Atorvastatin [Lipitor] 40 mg PO DAILY 05/19/21 05/27/25 History INSULIN ASPART (NovoLOG) [NovoLOG See Protocol SQ AC-TID 05/19/21 05/27/25 History (formulary)] Insulin Glargine,Hum.rec.anlog 30 unit SQ AC-BRKFST 05/19/21 05/27/25 History [Basaglar Kwikpen U-100] Omeprazole [PriLOSEC] 20 mg PO DAILY 05/19/21 05/27/25 History Anastrozole 1 mg PO DAILY 10/08/22 05/27/25 History Gabapentin [Neurontin] 800 mg PO TID 08/30/24 05/27/25 History amLODIPine [Norvasc] 10 mg PO DAILY 08/30/24 05/27/25 History Aspirin 81 mg PO DAILY #30 tab 12/28/24 05/27/25 Rx Metoprolol Succinate (ER) [Toprol 50 mg PO Q12HR #60 tab 12/28/24 05/27/25 Rx XL] lisinopriL [Zestril] 40 mg PO DAILY 01/15/25 05/27/25 History Warfarin [Coumadin] 7.5 mg PO DAILY 15 Days #15 tab 02/16/25 05/27/25 Rx Insulin Glargine,Hum.rec.anlog 15 unit SQ AC-SUPPER 05/27/25 05/27/25 History [Basaglar Kwikpen U-100] metFORMIN HCL 1,000 mg PO BID 05/27/25 05/27/25 History Allergies Allergy/AdvReac Type Severity Reaction Status Date / Time protamine Allergy BP Verified 05/27/25 14:28 dropped, heart rate elevated tetracycline [Tetracycline] Allergy Rash/Hives Verified 05/27/25 14:28 Physical Exam Osteopathic Statement: *. No significant issues noted on an osteopathic structural exam other than those noted in the History and Physical/Consult. Vitals: Vital Signs Temp Pulse Pulse Resp BP BP Pulse Ox 05/31/25 10:00 70 10 L 138/63 91 L 05/31/25 09:00 71 13 93/80 91 L 05/31/25 08:02 68 17 138/63 93 L 05/31/25 08:00 98.3 F 72 11 L 128/60 94 L 05/31/25 07:00 69 14 115/60 90 L 05/31/25 06:00 67 15 107/54 95 05/31/25 05:00 67 13 115/66 92 L 05/31/25 04:00 98.1 F 68 13 113/62 89 L 05/31/25 03:00 68 13 129/58 93 L 05/31/25 02:00 70 12 94 L 05/31/25 01:00 73 14 132/61 95 05/31/25 00:26 71 16 92 L 05/31/25 00:00 98.2 F 73 14 137/66 96 05/30/25 23:00 76 13 118/84 92 L 05/30/25 22:00 72 16 128/66 89 L 05/30/25 21:00 74 14 138/67 86 L 05/30/25 20:00 97.9 F 84 24 153/78 93 L 05/30/25 19:00 83 21 156/67 93 L 05/30/25 18:56 83 05/30/25 18:50 81 31 H 156/67 95 05/30/25 18:41 83 05/30/25 18:40 98.4 F 75 10 L 156/67 97 05/30/25 18:26 84 05/30/25 18:11 82 05/30/25 14:25 98.0 F 80 158/89 95 05/30/25 13:20 82 05/30/25 13:10 77 05/30/25 13:00 81 05/30/25 12:50 76 05/30/25 12:40 80 05/30/25 12:30 77 05/30/25 12:27 78 05/30/25 12:00 74 05/30/25 11:50 75 05/30/25 11:40 77 FiO2 05/31/25 10:00 05/31/25 09:00 05/31/25 08:02 05/31/25 08:00 05/31/25 07:00 05/31/25 06:00 05/31/25 05:00 05/31/25 04:00 2 05/31/25 03:00 05/31/25 02:00 05/31/25 01:00 05/31/25 00:26 05/31/25 00:00 05/30/25 23:00 05/30/25 22:00 05/30/25 21:00 05/30/25 20:00 05/30/25 19:00 05/30/25 18:56 05/30/25 18:50 05/30/25 18:41 05/30/25 18:40 05/30/25 18:26 05/30/25 18:11 05/30/25 14:25 05/30/25 13:20 05/30/25 13:10 05/30/25 13:00 05/30/25 12:50 05/30/25 12:40 05/30/25 12:30 05/30/25 12:27 05/30/25 12:00 05/30/25 11:50 05/30/25 11:40 Intake and Output 05/30/25 05/31/25 05/31/25 22:59 06:59 14:59 Intake Total 125 803.667 157.333 Output Total 350 750 Balance -225 53.667 157.333 Intake: IV 50 Intake, IV Titration 75 803.667 157.333 Amount Alteplase 10 mg In Sodium 78.667 82.333 Chloride 0.9% 90 ml @ 1 MG/HR 10 mls/hr IA .Q10H [facility] Rx#:[id number] Sodium Chloride 0.9% 1, 75 225 75 000 ml @ 25 mls/hr IV . Q24H [facility] Rx#:[id number] Vancomycin 1,750 mg In 500 Sodium Chloride 0.9% 500 ml 500 ml @ 167 mls/hr IVPB Q12H [facility] Rx#: [id number] Output: Urine 350 750 Other: Weight 108 kg ABP, PAP, CO, CI - Last 8 Hours Arterial Blood Pressure 126/55 Arterial Blood Pressure 112/60 Arterial Blood Pressure 120/64 Arterial Blood Pressure 113/60 Arterial Blood Pressure 126/55 Arterial Blood Pressure 112/47 Arterial Blood Pressure 121/50 GENERAL EXAM: Alert, pleasant 60-year-old female, on 2 L nasal cannula, fairly comfortable in no apparent distress. HEAD: Normocephalic. EYES: Normal reaction of pupils, equal size. NOSE: Clear with pink turbinates. THROAT: No erythema or exudates. NECK: No masses, no JVD. CHEST: No chest wall deformity. LUNGS: Equal air entry with no crackles, wheeze, rhonchi or dullness. CVS: S1 and S2 normal with no audible murmur, regular rhythm. ABDOMEN: No hepatosplenomegaly, normal bowel sounds, no guarding or rigidity. SPINE: No scoliosis or deformity SKIN: No rashes CENTRAL NERVOUS SYSTEM: No focal deficits, tone is normal in all 4 extremities. EXTREMITIES: Left femoral catheter in place. Right lower extremity with edema. Necrotic big toe. No clubbing, no cyanosis. Peripheral pulses are intact. Results - Laboratory Findings CBC and BMP: 05/31/25 02:39 05/31/25 02:39 PT/INR, D-dimer PT 11.2 sec (10.0-12.5) 05/31/25 02:39 INR 1.0 (<1.2) 05/31/25 02:39 Abnormal lab findings: Abnormal Labs 05/27/25 05/27/25 05/27/25 10:57 10:57 17:48 WBC 10.07 H Hgb Hct MCH PT INR Fibrinogen Sodium 135 L Potassium 5.6 H BUN 20 H Glucose POC Glucose (mg/dL) 145 H C-Reactive Protein 1.9 H Total Protein 05/28/25 05/28/25 05/28/25 06:10 06:36 06:36 WBC Hgb Hct MCH 26.9 L PT INR Fibrinogen Sodium 135 L Potassium BUN Glucose 154 H POC Glucose (mg/dL) 159 H C-Reactive Protein Total Protein 6.2 L 05/28/25 05/28/25 05/28/25 11:29 12:07 16:30 WBC Hgb Hct MCH PT 31.4 H INR 3.2 H Fibrinogen Sodium Potassium BUN Glucose POC Glucose (mg/dL) 324 H 135 H C-Reactive Protein Total Protein 05/28/25 05/28/25 05/28/25 20:02 20:53 21:38 WBC Hgb Hct MCH PT INR Fibrinogen Sodium Potassium BUN Glucose POC Glucose (mg/dL) 356 H 357 H 356 H C-Reactive Protein Total Protein 05/28/25 05/28/25 05/29/25 22:32 23:44 03:48 WBC Hgb Hct MCH PT INR Fibrinogen Sodium Potassium BUN Glucose POC Glucose (mg/dL) 301 H 166 H 53 L C-Reactive Protein Total Protein 05/29/25 05/29/25 05/29/25 06:18 09:00 10:57 WBC Hgb Hct MCH PT 24.7 H INR 2.5 H Fibrinogen Sodium Potassium BUN Glucose POC Glucose (mg/dL) 143 H 303 H C-Reactive Protein Total Protein 05/29/25 05/29/25 05/30/25 16:27 20:05 03:17 WBC Hgb Hct MCH PT 15.8 H INR 1.5 H Fibrinogen Sodium Potassium BUN Glucose POC Glucose (mg/dL) 260 H 125 H C-Reactive Protein Total Protein 05/30/25 05/30/25 05/30/25 05:53 11:24 18:36 WBC Hgb Hct MCH PT INR Fibrinogen Sodium Potassium BUN Glucose POC Glucose (mg/dL) 258 H 290 H 253 H C-Reactive Protein Total Protein 05/30/25 05/30/25 05/30/25 18:43 18:43 21:02 WBC Hgb 11.8 L Hct 35.1 L MCH PT INR Fibrinogen 556 H Sodium Potassium BUN Glucose POC Glucose (mg/dL) 283 H C-Reactive Protein Total Protein 05/31/25 05/31/25 05/31/25 02:39 02:39 02:39 WBC Hgb 11.8 L Hct 35.5 L MCH PT INR Fibrinogen 519 H Sodium 132 L Potassium BUN Glucose 134 H POC Glucose (mg/dL) C-Reactive Protein Total Protein 05/31/25 05/31/25 06:26 10:40 WBC Hgb Hct MCH PT INR Fibrinogen Sodium Potassium BUN Glucose POC Glucose (mg/dL) 121 H 175 H C-Reactive Protein Total Protein Assessment and Plan Assessment: Right femoral occlusion/occlusion right femoral to popliteal bypass graft with arterial insufficiency of the right lower extremity. Status post right femoral angiogram with initiation of tPA thrombolysis May 30, 2025 Right great toe ulceration/necrosis secondary to above Previous history of significant peripheral vascular disease with previous grafting and stent placements. Maintained on warfarin Former smoker Coronary artery disease, treated medically Diabetes mellitus Gastroesophageal reflux disease Hypertension Hyperlipidemia Chronic obstructive pulmonary disease Right breast cancer with surgery and chemoradiation Plan: The patient was seen and evaluated All imaging, labs and medications reviewed Currently receiving tPA to the right lower extremity Plan is for repeat angiogram today Continued on vancomycin per ID service Home medications resumed Titrate the FiO2 as tolerated We will continue to follow and make further recommendations based on her clinical status I have personally seen and examined the patient, performed the documentation and the assessment and plan as written. Number of minutes spent on the visit: 10 Dictation was produced using [employer] dictation software. Please excuse any grammatical, word or spelling errors.
[2025-05-31] MEDS: IV FLUID CONTINUATION 1,000 ML IV ONE (12:27)
[2025-05-31] MEDS: HEPARIN SODIUM,PORCINE 10,000 UNIT in SODIUM CHLORIDE 0.9% 1,000 ML IRRIGATION ONE (12:28)
[2025-05-31] MEDS: MIDAZOLAM 2 MG/2 ML VIAL IVP ONE (12:50)
[2025-05-31] MEDS: fentaNYL (PF) 50 MCG/1 ML VIAL IVP ONE ×3 (12:50→13:05)
[2025-05-31] MEDS: LIDOCAINE 1% INJ 10MG/ML (20 ML MDV) SQ ONE (12:57)
[2025-05-31] MEDS: HEPARIN SODIUM 1,000 UN/ML (10ML VL) IVP ONE (13:22)
[2025-05-31] MEDS: IOPAMIDOL-370 100ML BTL INJ ONE (14:10)
--- NOTE | 2025-05-31 14:33 | IR ---
EXAMINATION TYPE: IR uniform force captain femoral popliteal DATE OF EXAM: 05/31/2025 2:28 PM COMPARISON: Pre Operative Images if available both CT/MRI or plain film CLINICAL INDICATION: Female, 60 years old with history of pvd, tpa recheck, 10.2min fluoro; TECHNIQUE: IR uniform force captain femoral popliteal, multiple fluoroscopic images provided for procedure. DAP: Not reported mGym2 Gycm2 uGym2 cGycm2 or equivalent. FINDINGS: IMPRESSION: 1. Report was generated for administrative purposes only. 2. Please see the operative/procedural note for further details. [facility], , 05/31/2025 2:30 PM
--- NOTE | 2025-05-31 14:52 | P.OP ---
Date of Procedure: 05/31/25 Preoperative Diagnosis: Thrombosed right superficial femoral artery, currently undergoing tPA thrombolysis. Postoperative Diagnosis: Same plus residual thrombus within the stented segment of the superficial femoral artery. Procedure(s) Performed: 1: Angiogram via existing catheter. 2: Balloon dilation of the right superficial femoral artery. 3: Suction thrombectomy utilizing penumbra CAT 6 of the right superficial femoral artery. Anesthesia: local (1% Xylocaine), other (Multiple doses of fentanyl and Versed.) Surgeon: Gregorio Nelson Estimated Blood Loss (ml): 50 Urine output (ml): 0 Pathology: none sent Condition: stable Disposition: no change Indications for Procedure: Patient is a 60-year-old female with longstanding history of diabetes mellitus as well as atherosclerotic vascular disease. She had previously multiple peripheral interventions of her right lower extremity which resulted in placement of multiple stents in the superficial femoral artery. She was doing well until recently when the superficial femoral artery thrombosed at which time patient presented with arterial insufficiency of the right lower extremity. Yesterday she did undergo angiography and initiation of tPA thrombolysis. She is brought back to the catheterization laboratory today for follow-up imaging and possible percutaneous intervention. Description of Procedure: Patient was brought to the catheterization lab. Both groins were sterilely prepped draped in usual manner. The patient did receive both Versed and fentanyl at the beginning of the case and at multiple points throughout the procedure for moderate conscious sedation purposes. Via the existing tPA thrombolysis catheter angiogram of the right femoral artery was performed. This demonstrated some improvement in the thrombus burden however significant thrombus was noted yet to remain. Additionally a stenosis of the SFA just proximal to the stented segment as well as distal to the stented segment was identified. It was decided to place a up and over catheter to assist with intervention. Through the tPA infusion catheter a glide advantage catheter was advanced and the tPA catheter was removed. The 5 [place] sheath was then exchanged for a 6 [place] and eventually a 7 [place] up and over catheter. The patient was systemically heparinized with 4000 units of heparin. Over the guidewire a 4 mm balloon was utilized to dilate the entirety of the superficial femoral artery included the stented and nonstented segments. Completion angiogram demonstrated the stented segment to occlude. It was then decided to perform a penumbra suction thrombectomy. A Penumbra CAT 6 catheter was then selected and suction thrombectomy of the thrombosed segment was performed. Completion angiogram demonstrated significant improvement although some residual thrombus was noted. Once again the CAT 6 catheter was utilized to address this issue. Completion angiogram demonstrated the superficial femoral artery to be patent throughout its entire length. There appeared to be some stenosis in the most proximal stent and this was addressed with a 5 mm balloon catheter. Once again completion angiogram demonstrated the entire superficial femoral and profundus as well as common segments to be widely patent. Additionally the popliteal, anterior tibial and peroneal segments were patent as demonstrated on diagnostic angiography performed yesterday. With the above findings noted all wires and catheters were withdrawn and the puncture wound was closed with a 6 [place] Angio-Seal device. Patient had a palpable dorsalis pedis pulse at the completion of the procedure. Total fluoroscopy time: 10.2 minutes. Total moderate conscious sedation time: 82 minutes. Total contrast volume utilized: 80 mL of Isovue-370.
[2025-05-31 16:07] LABS: Glucose,Whole Blood 213 mg/dL (70-110)
--- NOTE | 2025-05-31 16:27 | P.PN ---
Progress Note - Text Progress Note Date: 05/31/25 Chief Complaint: Increasing pain right foot toe Pleasant 59-year-old patient who follows with Dr. Tatianna Mason. Chronic medical conditions include COPD, diabetes, GERD, hypertension, hyperlipidemia, osteoarthritis, right breast cancer with surgery and chemoradiation ., neuropathy, DVT in the left leg, severe PAD with multiple interventions. Cardiac catheterization in December 2024 shows noncritical CAD. About 60 to 70% proximal RCA, 50% mid RCA 60% mid LAD and 40% OM1. It was decided to medical management. Patient on February 14, 2025 underwent right leg right femoral to distal popliteal below-knee bypass with CryoVein. By Dr. Joanna Asif. Patient for last 3 to 4 weeks having increasing pain in the calf down to the foot. She has noticed some discoloration of the right foot third toe. For the same. Left foot big toe is also become painful and some spot of dry gangrene. Significant pain is present. No fever no chills. Initial follow-up after the femoropopliteal bypass was okay. Has an appointment to follow-up. May 28: Patient was seen this morning. Still having significant pain. Procalcitonin came back to less than 0.2. No fever. Patient's symptoms been present for 3 to 4 weeks is very gradually worsening. Not sure of the cellulitis. ID is on the case. With vancomycin. Will discuss with them. Patient is on Coumadin. Pharmacy is dosing the same. Discussed with the patient and the . Ultrasound arterial lower extremity showed ankle- brachial indicis right 0.21 and left 0.97. Patient seen by vascular surgery Dr. Barrett earlier today. Lipitor dose was increased to 80 mg. May 29: Some decreased redness of the right foot. Getting IV vancomycin. Discussed with ID yesterday. Does seem to have element of cellulitis. Patient's Coumadin has been held. Plan for angiogram tomorrow. Different options on the table at this point pending angiogram results. Will give 2.5 mg p.o. vitamin K. May 30: Patient seen by me this morning. Pending surgery. NPO. Redness of the foot has gone down. Remains on IV vancomycin. Later patient was taken down for surgery by Dr. Nelson. He carried out tPA thrombolysis and placement of tPA thrombolytic catheter. Patient was moved to the ICU following that. More details in the notes of Dr. Operative notes of Dr. Nelson. There was no evidence of origin of the bypass graft. Previously placed stents to have thrombosed some occlusion approximately 2 cm just proximal to the first stent as well as stenosis just distal to the first and involving the SFA. Hence he proceeded to do a tPA thrombolysis. May 31: Patient seen in the ICU earlier today. On IV vancomycin. Dr. Nelson today took the patient back to the OR. Thrombus removal was carried out. He did call me said was rather successful. Will keep the patient on IV heparin. Coumadin will be resumed. Otherwise patient redness in the foot is much better. Spoke to Dr. Malik from ID. Patient will require Zyvox at discharge. Active Medications Amlodipine Besylate (Amlodipine 10 Mg Tab) 10 mg PO DAILY [facility] Last Admin: 05/31/25 08:41 Dose: 10 mg Anastrozole (Anastrozole 1 Mg Tab) 1 mg PO DAILY [facility] Last Admin: 05/31/25 08:41 Dose: 1 mg Aspirin (Aspirin 81 Mg) 81 mg PO DAILY [facility] Last Admin: 05/31/25 08:41 Dose: 81 mg Atorvastatin Calcium (Atorvastatin 80 Mg Tab) 80 mg PO DAILY [facility] Last Admin: 05/31/25 08:41 Dose: 80 mg Dextrose/Water (Dextrose 50% Syringe 50 Ml) 25 ml IVP PER PROTOCOL PRN; Protocol PRN Reason: Hypoglycemia Last Admin: 05/29/25 03:54 Dose: 25 ml Dextrose/Water (Dextrose 50% Syringe 50 Ml) 50 ml IVP PER PROTOCOL PRN; Protocol PRN Reason: Hypoglycemia Gabapentin (Gabapentin 400 Mg Cap) 800 mg PO TID [facility] Last Admin: 05/31/25 08:41 Dose: 800 mg Vancomycin HCl 1,750 mg/ (Sodium Chloride) 500 mls @ 167 mls/hr IVPB Q12H [facility] Last Admin: 05/31/25 14:40 Dose: 167 mls/hr Insulin Glargine (Insulin Glargine (Lantus) 100 Unit/Ml Syr) 36 unit SQ HS [facility] Last Admin: 05/30/25 21:14 Dose: 36 unit Insulin Human Lispro (Insulin Lispro (Humalog) 100 Unit/Ml 10 Ml Vl) 0 unit SQ ACHS [facility]; Protocol Last Admin: 05/31/25 10:59 Dose: 3 unit Lisinopril (Lisinopril 20 Mg Tab) 40 mg PO DAILY [facility] Last Admin: 05/31/25 08:40 Dose: 40 mg Metoprolol Succinate (Metoprolol Succinate (Er) 50 Mg Tab.Er.24h) 50 mg PO Q12HR [facility] Last Admin: 05/31/25 08:41 Dose: 50 mg Miscellaneous Information (Warfarin Per Pharmacy) 0 each MISCELLANE DIRECTED PRN PRN Reason: PER PHARMACY Pantoprazole Sodium (Pantoprazole 40 Mg Tablet) 40 mg PO AC-BRKFST [facility] Last Admin: 05/31/25 06:37 Dose: 40 mg Warfarin Sodium (Warfarin 7.5 Mg Tab) 7.5 mg PO DAILY@1800 [facility]; Protocol Stop: 05/31/25 18:01 Social history: Patient smoked from 1980 through 2019. Alcohol rarely. Lives with her On examination: VITAL SIGNS: 98.3, 75, 21, 140 x 77, 96% room GENERAL APPEARANCE: Resting in bed HEENT: Normal external appearance of nose and ear. Oral cavity normal EYES: Pupils equal. Conjunctiva normal. NECK: JVD not raised. Mass not palpable. RESPIRATORY: Respiratory effort normal. Lungs clear to auscultation. CARDIOVASCULAR: First and second sounds normal. No edema. ABDOMEN: Soft. Liver and spleen not palpable. No tenderness. No mass palpable. PSYCHIATRY: Alert and oriented x3. Mood and affect normal. Extremities: Missing right foot second toe. 1 cm area on the ball of right big toe blackish and also small area on the right foot third toe. Significant improvement in the redness of the foot. INVESTIGATIONS, reviewed in the clinical context: May 31: White count 6.1 hemoglobin 9.8 platelets 244 potassium 4.3 creatinine 0.57 May 30:INR at 1.5 May 28: White count 6.1 hemoglobin 12.2 platelets 274 potassium 4.5 creatinine 0.69. INR 3.2 Lower extremity ultrasound: Right ankle brachial index: 0.21 Procalcitonin less than 0.2 May 27, 2025: White count 10.0 hemoglobin 13 platelets 322 potassium 5.6 BUN 20 creatinine 0.82 CRP 1.9 Assessment and plan: - Acute on chronic extensive PAD with multiple interventions right lower extremity. Patient underwent femoropopliteal bypass on February [address] Asif. For last 3 to 4-week increasing pain in the right lower calf and in the toes. Likely progression of disease in the small vessels. Continue aspirin. Lipitor increased to 80 mg. Also on Coumadin May 30: Patient taken to the OR by Dr. Nelson. Details in his notes. Patient put on tPA thrombolysis. Moved to the ICU. May 31: Patient taken to the OR today with Dr. Nelson. Thrombus evacuation done. No details in his notes. Dorsalis pedis pulse reported to him to be present. Keep patient on IV heparin. -Acute cellulitis right lower extremity.: Improving IV vancomycin ID following - Coumadin monitoring - IV heparin monitoring per protocol -Paroxysmal atrial fibrillation, sinus rhythm Telemetry Coumadin to be resumed tonight -COPD, an ex-smoker Albuterol when necessary - Noncritical coronary artery disease with cardiac catheterization in December 2024. 60-70% proximal RCA, 50% mid RCA, 60% mid LAD, 40% OM1. Decision was for medical management -Diabetes mellitus type 2, chronically on insulin, uncontrolled with hyperglycemia likely secondary to possible infection Lantus 36 units at night. Follow Accu-Cheks. -GERD PPI -Hyperlipidemia Lipitor to be increased to 80 mg. -Essential hypertension Norvasc -Obesity BMI 33.1 Weight loss measures Discussed with Dr. Malik from ID. Dr. Nelson from vascular. Resume IV heparin. Coumadin being resumed today. Might need overlap. Patient removed out of the ICU. Past Medical History Past Medical History: Atrial Fibrillation, Blood Disorder, Cancer, COPD, Diabetes Mellitus, Deep Vein Thrombosis (DVT), GERD/Reflux, Hyperlipidemia, Hypertension, Osteoarthritis (OA), Seizure Disorder, Skin Disorder, Vascular Disorder Additional Past Medical History / Comment(s): heart murmur, 2016 R breast cancer -had surgery & chemo & radiation 7 yrs ago, IDDM type II, clarita. ft [place] neuropathy bilateral legs/feet, 09/2022 DVT Lt. leg, one time seizure 10 or more years ago-testing done & never found anything, chronic pain mostly in feet and neck/back. 3 stents to right lower extremity on 08/23/24, paroxysmal Atrial fibrillation History of Any Multi-Drug Resistant Organisms: None Reported Past Surgical History: Breast Surgery, Orthopedic Surgery, Tubal Ligation Additional Past Surgical History / Comment(s): right breast lumpectomy & lymph nodes removed, port for chemo/since removed, peripheral angioplasties/atherectomies, and removed blood clot from L leg, stents, right 2nd toe amputation d/t diabetic ulcer, bilateral carpal tunnel releases, cervical fusion, aortogram 08/02/24 Past Anesthesia/Blood Transfusion Reactions: No Reported Reaction Additional Past Anesthesia/Blood Transfusion Reaction / Comment(s): Pt received blood transfusion r/t blood loss with surgery. no issues Past Psychological History: Anxiety, Depression Additional Psychological History / Comment(s): Pt resides with spouse. Smoking Status: Former smoker Past Alcohol Use History: None Reported Additional Past Alcohol Use History / Comment(s): Started smoking 1980 and quit in 2019. Past Drug Use History: None Reported
[2025-05-31 17:05] LABS: Basophils # (A) 0.05 10*3/uL (0.00-0.10); Basophils % (A) 0.5 %; Eosinophils # (A) 0.29 10*3/uL (0.04-0.35); Eosinophils % (A) 2.9 %; HCT 37.5 % (37.2-46.3); HGB 12.2 g/dL (12.0-15.0); Lymphocytes # (A) 1.38 10*3/uL (0.90-5.00); Lymphocytes % (A) 13.8 %; MCH 27.2 pg (27.0-32.0); MCHC 32.5 g/dL (32.0-37.0); MCV 83.5 fL (80.0-97.0); Monocytes # (A) 0.92 10*3/uL (0.20-1.00); Monocytes % (A) 9.2 %; Neutrophils # (A) 7.33 10*3/uL (1.80-7.70); Neutrophils % (A) 73.4 %; Platelet Count 223 10*3/uL (140-440); RBC 4.49 10*6/uL (4.10-5.20); RDW 15.8 % (11.5-14.5); WBC 9.99 10*3/uL (4.50-10.00)
[2025-05-31] MEDS: HEPARIN SOD,PORK IN 0.45% NACL 25,000 UNIT in 0.45% NACL 1 250ML.BAG IV SCH (17:06)
[2025-05-31 17:16] LABS: INR 1.0 (<1.2); Partial Thromboplastin Time 24.5 sec (22.0-30.0); Prothrombin Time 11.0 sec (10.0-12.5)
[2025-05-31] MEDS: ACETAMINOPHEN TAB 500 MG TAB PO PRN (18:03)
[2025-05-31] MEDS: WARFARIN 7.5 MG TAB PO ONE (18:05)
[2025-05-31] MEDS ORDERED: RIVAROXABAN 2.5 MG TABLET PO SCH (21:00)
[2025-05-31 22:08] LABS: Glucose,Whole Blood 297 mg/dL (70-110)
[2025-06-01] MEDS: HEPARIN SODIUM 1,000 UN/ML (10ML VL) IV PRN (01:05)
[2025-06-01 04:16] LABS: Basophils # (A) 0.07 10*3/uL (0.00-0.10); Basophils % (A) 1.1 %; Eosinophils # (A) 0.25 10*3/uL (0.04-0.35); Eosinophils % (A) 3.8 %; HCT 37.3 % (37.2-46.3); HGB 12.2 g/dL (12.0-15.0); Lymphocytes # (A) 1.53 10*3/uL (0.90-5.00); Lymphocytes % (A) 23.1 %; MCH 26.9 pg (27.0-32.0); MCHC 32.7 g/dL (32.0-37.0); MCV 82.2 fL (80.0-97.0); Monocytes # (A) 0.69 10*3/uL (0.20-1.00); Monocytes % (A) 10.4 %; Neutrophils # (A) 4.04 10*3/uL (1.80-7.70); Neutrophils % (A) 61.1 %; Platelet Count 250 10*3/uL (140-440); RBC 4.54 10*6/uL (4.10-5.20); RDW 15.7 % (11.5-14.5); WBC 6.61 10*3/uL (4.50-10.00)
[2025-06-01 04:21] LABS: INR 1.0 (<1.2); Prothrombin Time 11.3 sec (10.0-12.5)
[2025-06-01 04:47] LABS: African American GFR (CKD) >90 (>60 ml/min/1.73 sqM); Anion Gap 10 mmol/L; Blood Urea Nitrogen 12 mg/dL (7-17); Calcium 9.0 mg/dL (8.4-10.2); Carbon Dioxide 22 mmol/L (22-30); Chloride 104 mmol/L (98-107); Glucose 106 mg/dL (74-99); Non-African American GFR(CKD) >90 (>60 ml/min/1.73 sqM); Potassium 4.1 mmol/L (3.5-5.1); Sodium 136 mmol/L (137-145)
[2025-06-01 05:13] VITALS: PULSE 76
[2025-06-01 08:34] VITALS: BP 145/105; RESP 23; TEMP 98.3
--- NOTE | 2025-06-01 10:04 | P.PN ---
Subjective Progress Note Date: 06/01/25 This is a pleasant 60-year-old female patient with a known history of chronic obstructive pulmonary disease, former smoker, coronary artery disease, diabetes mellitus, gastroesophageal reflux disease, hypertension, hyperlipidemia, breast cancer, DVT and significant peripheral vascular disease with previous femoral- popliteal occlusion and multiple stent placements. Most recently in January [address] Asif. She had been on anticoagulation in the form of warfarin. She presented here May 27, 2025 to the emergency room with right lower extremity pain, edema and redness. There is also necrotic type wounds of the right big toe and redness of the right foot dorsum area. CT angiogram of the lower ex tremity revealed occlusion of the right superficial femoral artery from the mid portion of the popliteal artery extending 28 cm. Right proximal stent graft and superficial femoral artery is patent. Stent graft to the left superficial femoral arteries are patent. Yesterday on 05/30/2025 the patient did undergo ultrasound-guided cannulation left common femoral artery with selective catheterization to the right femoral artery with contrast from a contralateral approach. Right femoral angiogram. Initiation of tPA thrombosis and placement of the tPA thrombolytic catheter. Following that she was admitted to the intensive care unit and we are seeing her today in consultation. She is currently resting fairly comfortably in bed. Awake and alert in no acute distress. She is maintaining O2 saturations in the upper 90s on 2 L/min per nasal cannula. She has been afebrile. Hemodynamically stable. She is having some discomfort of her right lower extremity. White count 6.1. Hemoglobin 11. 8. Platelets 244. Sodium 132. Potassium 4.3. Bicarb 26. BUN 14. Creatinine 0.57. Glucose 134. tPA and heparin infusing through her catheters. The plan is to return to the Survey [facility] today for an evaluation. The patient is seen today June 01, 2025 in follow-up in the intensive care unit. She is currently sitting up in bed. Awake and alert in no acute distress. Maintaining good O2 saturations in the 90s on room air. She did go back to the Survey Engineer yesterday for a balloon dilatation of the right superficial femoral artery. Suction thrombectomy utilizing penumbra of the right superficial femoral artery. She denies any lower extremity discomfort this morning. Doppler pulses are positive. She remains on a heparin drip. 0.9 normal saline at 10 mL/h. White count 6.6. Hemoglobin 12.2. Platelets 250. Sodium 136. Potassium 4.1. Bicarb 22. BUN 12. Creatinine 0.65. Glucose 106. Objective - Vital Signs Vital signs: Vital Signs Temp 98.3 F 06/01/25 08:33 Pulse 76 06/01/25 08:33 Resp 23 06/01/25 08:33 BP 145/105 06/01/25 08:33 Pulse Ox 94 L 06/01/25 08:33 FiO2 2 05/31/25 04:00 Intake & Output 05/31/25 06/01/25 06/01/25 18:59 06:59 18:59 Intake Total 1132.333 479.167 Output Total 775 1300 Balance 357.333 -820.833 Weight 104.1 kg Intake: IV 400 Intake, IV Titration 732.333 79.167 Amount Alteplase 10 mg In Sodium 82.333 Chloride 0.9% 90 ml @ 1 MG/HR 10 mls/hr IA .Q10H [facility] Rx#:[id number] Heparin Sod,Pork in 0.45% 79.167 NaCl 25,000 unit In 0.45 % NaCl 1 250ml.bag @ 9. 259 UNITS/KG/HR 10 mls/hr IV .Q24H [facility] Rx#: [id number] Sodium Chloride 0.9% 1, 150 000 ml @ 25 mls/hr IV . Q24H [facility] Rx#:[id number] Vancomycin 1,750 mg In 500 Sodium Chloride 0.9% 500 ml 500 ml @ 167 mls/hr IVPB Q12H [facility] Rx#: [id number] Oral 0 400 Output: Urine 775 1300 Other: Voiding Method Toilet Toilet Bedside Commode Bedside Commode ABP, PAP, CO, CI - Last Documented Arterial Blood Pressure 138/59 - Exam GENERAL EXAM: Alert, pleasant 60-year-old female, on room air oxygen, comfortable in no apparent distress. HEAD: Normocephalic. EYES: Normal reaction of pupils, equal size. NOSE: Clear with pink turbinates. THROAT: No erythema or exudates. NECK: No masses, no JVD. CHEST: No chest wall deformity. LUNGS: Equal air entry with no crackles, wheeze, rhonchi or dullness. CVS: S1 and S2 normal with no audible murmur, regular rhythm. ABDOMEN: No hepatosplenomegaly, normal bowel sounds, no guarding or rigidity. SPINE: No scoliosis or deformity SKIN: No rashes CENTRAL NERVOUS SYSTEM: No focal deficits, tone is normal in all 4 extremities. EXTREMITIES: Left femoral catheter in place. Right lower extremity with edema. Necrotic big toe. No clubbing, no cyanosis. Peripheral pulses are intact. - Labs CBC & Chem 7: 06/01/25 03:21 06/01/25 03:21 Labs: Abnormal Lab Results - Last 24 Hours (Table) 05/31/25 05/31/25 05/31/25 Range/Units 10:40 16:04 22:07 MCH (27.0-32.0) pg APTT (22.0-30.0) sec Sodium (137-145) mmol/L Glucose (74-99) mg/dL POC Glucose (mg/dL) 175 H 213 H 297 H (70-110) mg/dL 05/31/25 06/01/25 06/01/25 Range/Units 23:13 03:21 03:21 MCH 26.9 L (27.0-32.0) pg APTT 35.2 H (22.0-30.0) sec Sodium 136 L (137-145) mmol/L Glucose 106 H (74-99) mg/dL POC Glucose (mg/dL) (70-110) mg/dL 06/01/25 Range/Units 03:31 MCH (27.0-32.0) pg APTT 57.4 H (22.0-30.0) sec Sodium (137-145) mmol/L Glucose (74-99) mg/dL POC Glucose (mg/dL) (70-110) mg/dL Assessment and Plan Assessment: Right femoral occlusion/occlusion right femoral to popliteal bypass graft with arterial insufficiency of the right lower extremity. Status post right femoral angiogram with initiation of tPA thrombolysis May 30, 2025. Then balloon dilatation of the right superficial artery and suction thrombectomy utilizing penumbra of the right superficial femoral artery on May 31, 2025. Remains on a heparin drip Right great toe ulceration/necrosis secondary to above. Currently on vancomycin Previous history of significant peripheral vascular disease with previous grafting and stent placements. Maintained on warfarin Former smoker Coronary artery disease, treated medically Diabetes mellitus Gastroesophageal reflux disease Hypertension Hyperlipidemia Chronic obstructive pulmonary disease Right breast cancer with surgery and chemoradiation Plan: The patient was seen and evaluated Labs and medications reviewed Survey Engineer report reviewed Remains on a heparin drip Doppler pulses are present in the lower extremities Stable and on room air oxygen Continued on vancomycin per ID service To be transferred out of the ICU today Home once cleared by vascular surgery I have personally seen and examined the patient, performed the documentation and the assessment and plan as written. Number of minutes spent on the visit: 10 Dictation was produced using [employer] dictation software. Please excuse any grammatical, word or spelling errors.
[2025-06-01 12:51] LABS: Glucose,Whole Blood 430 mg/dL (70-110)
[2025-06-01] MEDS: ENOXAPARIN 150 MG/ML SYRINGE SQ STA (13:05)
--- NOTE | 2025-06-01 14:38 | P.PN ---
Subjective Progress Note Date: 05/31/25 Principal diagnosis: Reason for follow-up is right foot cellulitis Patient is a 60-year-old female with a past medical history significant for Atrial Fibrillation, Blood Disorder, Cancer, COPD, Diabetes Mellitus, Deep Vein Thrombosis (DVT), GERD/Reflux, Hyperlipidemia, Hypertension, Osteoarthritis (OA), Seizure Disorder, Skin Disorder, Vascular Disorder presenting to the hospital for evaluation of pain to the right lower extremity especially to the foot area especially during the right foot and this patient did have a small wound on the medial aspect of the right big toe. On today's evaluation that is Patient noted to have thrombosis of the right superficial femoral artery status post angiogram balloon dilatation suction thrombectomy of the right superficial femoral artery completed on 05/31/2025. On today's evaluation that is 05/31/2025, the patient continues to be afebrile, the patient is on room air and breathing comfortably, the Pt denies having any chest pain or cough, the patient denies having any abdominal pain no vomiting or any diarrhea or any worsening pain to the right foot area. Patient white count 6.19 creatinine 0.57 Objective - Vital Signs Vital signs: Vital Signs Temp 98.3 F 05/31/25 14:30 Pulse 75 05/31/25 14:30 Resp 21 05/31/25 14:30 BP 140/67 05/31/25 14:30 Pulse Ox 96 05/31/25 14:30 FiO2 2 05/31/25 04:00 Intake & Output 05/30/25 05/31/25 05/31/25 18:59 06:59 18:59 Intake Total 50 878.667 607.333 Output Total 1100 Balance 50 -221.333 607.333 Weight 108 kg Intake: IV 50 400 Intake, IV Titration 878.667 207.333 Amount Alteplase 10 mg In Sodium 78.667 82.333 Chloride 0.9% 90 ml @ 1 MG/HR 10 mls/hr IA .Q10H [facility] Rx#:[id number] Sodium Chloride 0.9% 1, 300 125 000 ml @ 25 mls/hr IV . Q24H [facility] Rx#:[id number] Vancomycin 1,750 mg In 500 Sodium Chloride 0.9% 500 ml 500 ml @ 167 mls/hr IVPB Q12H [facility] Rx#: [id number] Output: Urine 1100 Other: # Voids 2 ABP, PAP, CO, CI - Last Documented Arterial Blood Pressure 138/59 - Exam GENERAL DESCRIPTION: Middle-age female lying in bed in no distress RESPIRATORY SYSTEM: Unlabored breathing , decreased breath sounds at bases HEART: S1 S2 regular rate and rhythm , ABDOMEN: Soft , no tenderness EXTREMITIES: Right foot redness has not extended beyond the line slightly decreased in intensity no drainage - Labs CBC & Chem 7: 06/01/25 03:21 06/01/25 03:21 Labs: Abnormal Lab Results - Last 24 Hours (Table) 05/30/25 05/30/25 05/30/25 Range/Units 18:36 18:43 18:43 Hgb 11.8 L (12.0-15.0) g/dL Hct 35.1 L (37.2-46.3) % Fibrinogen 556 H (200-500) mg/dL Sodium (137-145) mmol/L Glucose (74-99) mg/dL POC Glucose (mg/dL) 253 H (70-110) mg/dL 05/30/25 05/31/25 05/31/25 Range/Units 21:02 02:39 02:39 Hgb 11.8 L (12.0-15.0) g/dL Hct 35.5 L (37.2-46.3) % Fibrinogen (200-500) mg/dL Sodium 132 L (137-145) mmol/L Glucose 134 H (74-99) mg/dL POC Glucose (mg/dL) 283 H (70-110) mg/dL 05/31/25 05/31/25 05/31/25 Range/Units 02:39 06:26 10:40 Hgb (12.0-15.0) g/dL Hct (37.2-46.3) % Fibrinogen 519 H (200-500) mg/dL Sodium (137-145) mmol/L Glucose (74-99) mg/dL POC Glucose (mg/dL) 121 H 175 H (70-110) mg/dL Assessment and Plan (1) Cellulitis of right foot Current Visit: Yes Status: Acute Code(s): L03.115 - CELLULITIS OF RIGHT LOWER LIMB SNOMED Code(s): 47607748054920313 Plan: 1patient presenting the hospital with increasing pain swelling and redness to the right foot area in this patient who did have wound on the medial aspect of the right big toe likely the source of entry of the cellulitis with the swelling redness extending to the dorsal aspect of the left foot concerning for ascending cellulitis likely from gram-positive skin sherley has the patient mention some improvement with the IV vancomycin 2- x-ray of the right foot with no evidence of any bony abnormality 3patient did have some decrease in the redness to the right foot area and some decrease in the pain 4patient will be treated with IV vancomycin while inpatient while monitoring kidney function closely and Plan is for oral Zyvox on discharge this was discus sed with admitting physician Dictation was produced using [employer] dictation software. please excuse any grammatical, word or spelling errors. Time with Patient: Less than 30
--- NOTE | 2025-06-01 14:40 | P.PN ---
Subjective Progress Note Date: 06/01/25 Principal diagnosis: Reason for follow-up is right foot cellulitis Patient is a 60-year-old female with a past medical history significant for Atrial Fibrillation, Blood Disorder, Cancer, COPD, Diabetes Mellitus, Deep Vein Thrombosis (DVT), GERD/Reflux, Hyperlipidemia, Hypertension, Osteoarthritis (OA), Seizure Disorder, Skin Disorder, Vascular Disorder presenting to the hospital for evaluation of pain to the right lower extremity especially to the foot area especially during the right foot and this patient did have a small wound on the medial aspect of the right big toe. On today's evaluation that is Patient noted to have thrombosis of the right superficial femoral artery status post angiogram balloon dilatation suction thrombectomy of the right superficial femoral artery completed on 05/31/2025. On today's evaluation that is 06/01/2024, patient did have a temperature of 98.3 F this morning and denies having any chills, patient is on room air and breathi ng comfortably no chest pain or cough, the patient did not have any nausea vomiting abdominal pain or any diarrhea pain to the right foot has decreased in intensity feeling better. Patient white count 6.61, creatinine 0.65 Objective - Vital Signs Vital signs: Vital Signs Temp 98.3 F 06/01/25 08:33 Pulse 76 06/01/25 08:33 Resp 23 06/01/25 08:33 BP 145/105 06/01/25 08:33 Pulse Ox 94 L 06/01/25 08:33 FiO2 2 05/31/25 04:00 Intake & Output 05/31/25 06/01/25 06/01/25 18:59 06:59 18:59 Intake Total 1132.333 479.167 Output Total 775 1300 Balance 357.333 -820.833 Weight 104.1 kg Intake: IV 400 Intake, IV Titration 732.333 79.167 Amount Alteplase 10 mg In Sodium 82.333 Chloride 0.9% 90 ml @ 1 MG/HR 10 mls/hr IA .Q10H [facility] Rx#:[id number] Heparin Sod,Pork in 0.45% 79.167 NaCl 25,000 unit In 0.45 % NaCl 1 250ml.bag @ 9. 259 UNITS/KG/HR 10 mls/hr IV .Q24H [facility] Rx#: [id number] Sodium Chloride 0.9% 1, 150 000 ml @ 25 mls/hr IV . Q24H [facility] Rx#:[id number] Vancomycin 1,750 mg In 500 Sodium Chloride 0.9% 500 ml 500 ml @ 167 mls/hr IVPB Q12H [facility] Rx#: [id number] Oral 0 400 Output: Urine 775 1300 Other: Voiding Method Toilet Toilet Bedside Commode Bedside Commode ABP, PAP, CO, CI - Last Documented Arterial Blood Pressure 138/59 - Exam GENERAL DESCRIPTION: Middle-age female lying in bed in no distress RESPIRATORY SYSTEM: Unlabored breathing , decreased breath sounds at bases HEART: S1 S2 regular rate and rhythm , ABDOMEN: Soft , no tenderness EXTREMITIES: Right foot redness has not extended beyond the line slightly decreased in intensity no drainage - Labs CBC & Chem 7: 06/01/25 03:21 06/01/25 03:21 Labs: Abnormal Lab Results - Last 24 Hours (Table) 05/31/25 05/31/25 05/31/25 Range/Units 16:04 22:07 23:13 MCH (27.0-32.0) pg APTT 35.2 H (22.0-30.0) sec Sodium (137-145) mmol/L Glucose (74-99) mg/dL POC Glucose (mg/dL) 213 H 297 H (70-110) mg/dL 06/01/25 06/01/25 06/01/25 Range/Units 03:21 03:21 03:31 MCH 26.9 L (27.0-32.0) pg APTT 57.4 H (22.0-30.0) sec Sodium 136 L (137-145) mmol/L Glucose 106 H (74-99) mg/dL POC Glucose (mg/dL) (70-110) mg/dL 06/01/25 06/01/25 Range/Units 09:32 12:37 MCH (27.0-32.0) pg APTT 49.7 H (22.0-30.0) sec Sodium (137-145) mmol/L Glucose (74-99) mg/dL POC Glucose (mg/dL) 430 H (70-110) mg/dL Assessment and Plan (1) Cellulitis of right foot Current Visit: Yes Status: Acute Code(s): L03.115 - CELLULITIS OF RIGHT LOWER LIMB SNOMED Code(s): 94525090846833418 Plan: 1patient presenting the hospital with increasing pain swelling and redness to the right foot area in this patient who did have wound on the medial aspect of the right big toe likely the source of entry of the cellulitis with the swelling redness extending to the dorsal aspect of the left foot concerning for ascending cellulitis likely from gram-positive skin sherley has the patient mention some improvement with the IV vancomycin 2- x-ray of the right foot with no evidence of any bony abnormality 3patient did have improvement of the right foot cellulitis with vancomycin prescription for oral Zyvox has been sent to finish her course of therapy and close outpatient follow-up Dictation was produced using [employer] dictation software. please excuse any grammatical, word or spelling errors. Time with Patient: Less than 30
[2025-06-01 15:07] LABS: Glucose,Whole Blood 229 mg/dL (70-110)
--- NOTE | 2025-06-01 16:21 | P.DS ---
Providers Date of admission: 05/27/25 13:09 Expected date of discharge: 06/01/25 Attending physician: Bertin Baum Consults: 05/27/25 13:16 Consult Physician Routine Consulting Provider: Gregorio Nelson Consult Reason/Comments: PAD of RLE, pain Do you want consulting provider notified?: Yes, Notify in am 05/27/25 21:46 Consult Physician Routine Consulting Provider: Alexandria Brown Consult Reason/Comments: Questionable cellulitis Do you want consulting provider notified?: Yes 05/30/25 17:58 Consult Physician Routine Consulting Provider: Osorio Cannon Consult Reason/Comments: icu management Do you want consulting provider notified?: Already Contacted 05/30/25 18:15 Consult Physician Routine Consulting Provider: Osorio Cannon Consult Reason/Comments: ICU medical management Do you want consulting provider notified?: Already Contacted Primary care physician: Tatianna Mason [place] [facility] Course: Chief Complaint: Increasing pain right foot toe Pleasant 59-year-old patient who follows with Dr. Tatianna Mason. Chronic medical conditions include COPD, diabetes, GERD, hypertension, hyperlipidemia, osteoarthritis, right breast cancer with surgery and chemoradiation ., neuropathy, DVT in the left leg, severe PAD with multiple interventions. Cardiac catheterization in December 2024 shows noncritical CAD. About 60 to 70% proximal RCA, 50% mid RCA 60% mid LAD and 40% OM1. It was decided to medical management. Patient on February 14, 2025 underwent right leg right femoral to distal popliteal below-knee bypass with CryoVein. By Dr. Joanna Asif. Patient for last 3 to 4 weeks having increasing pain in the calf down to the foot. She has noticed some discoloration of the right foot third toe. For the same. Left foot big toe is also become painful and some spot of dry gangrene. Significant pain is present. No fever no chills. Initial follow-up after the femoropopliteal bypass was okay. Has an appointment to follow-up. May 28: Patient was seen this morning. Still having significant pain. Procalcitonin came back to less than 0.2. No fever. Patient's symptoms been present for 3 to 4 weeks is very gradually worsening. Not sure of the cellulitis. ID is on the case. With vancomycin. Will discuss with them. Patient is on Coumadin. Pharmacy is dosing the same. Discussed with the patient and the . Ultrasound arterial lower extremity showed ankle- brachial indicis right 0.21 and left 0.97. Patient seen by vascular surgery Dr. Barrett earlier today. Lipitor dose was increased to 80 mg. May 29: Some decreased redness of the right foot. Getting IV vancomycin. Discussed with ID yesterday. Does seem to have element of cellulitis. Patient's Coumadin has been held. Plan for angiogram tomorrow. Different options on the table at this point pending angiogram results. Will give 2.5 mg p.o. vitamin K. May 30: Patient seen by me this morning. Pending surgery. NPO. Redness of the foot has gone down. Remains on IV vancomycin. Later patient was taken down for surgery by Dr. Nelson. He carried out tPA thrombolysis and placement of tPA thrombolytic catheter. Patient was moved to the ICU following that. More details in the notes of Dr. Operative notes of Dr. Nelson. There was no evidence of origin of the bypass graft. Previously placed stents to have thrombosed some occlusion approximately 2 cm just proximal to the first stent as well as stenosis just distal to the first and involving the SFA. Hence he proceeded to do a tPA thrombolysis. May 31: Patient seen in the ICU earlier today. On IV vancomycin. Dr. Nelson today took the patient back to the OR. Thrombus removal was carried out. He did call me said was rather successful. Will keep the patient on IV heparin. Coumadin will be resumed. Otherwise patient redness in the foot is much better. Spoke to Dr. Malik from ID. Patient will require Zyvox at discharge. June 01: Foot is better. Cleared by vascular for discharge. Per ID will complete a course of Zyvox. INR subtherapeutic. Will give a dose of Lovenox 150 mg x 1 today. Will be sent home with 5 more doses. Coumadin to continue. Follow-up with INR. Discussed with patient. Accu-Cheks for high insulin given. Social history: Patient smoked from 1980 through 2019. Alcohol rarely. Lives with her On examination: VITAL SIGNS: 98.3, 76, 23, 145/105, 94% room air GENERAL APPEARANCE: Up at the edge of the bed HEENT: Normal external appearance of nose and ear. Oral cavity normal EYES: Pupils equal. Conjunctiva normal. NECK: JVD not raised. Mass not palpable. RESPIRATORY: Respiratory effort normal. Lungs clear to auscultation. CARDIOVASCULAR: First and second sounds normal. No edema. ABDOMEN: Soft. Liver and spleen not palpable. No tenderness. No mass palpable. PSYCHIATRY: Alert and oriented x3. Mood and affect normal. Extremities: Missing right foot second toe. 1 cm area on the ball of right big toe blackish and also small area on the right foot third toe. Significant improvement in the redness of the foot. INVESTIGATIONS, reviewed in the clinical context: June 01: White count 6.6 hemoglobin 12.2 platelets 250 potassium 4.1 creatinine 0.65 May 31: White count 6.1 hemoglobin 9.8 platelets 244 potassium 4.3 creatinine 0.57 May 30:INR at 1.5 May 28: White count 6.1 hemoglobin 12.2 platelets 274 potassium 4.5 creatinine 0.69. INR 3.2 Lower extremity ultrasound: Right ankle brachial index: 0.21 Procalcitonin less than 0.2 May 27, 2025: White count 10.0 hemoglobin 13 platelets 322 potassium 5.6 BUN 20 creatinine 0.82 CRP 1.9 Assessment and plan: - Acute on chronic extensive PAD with multiple interventions right lower extremity. Patient underwent femoropopliteal bypass on February [address] Asif. For last 3 to 4-week increasing pain in the right lower calf and in the toes. Likely progression of disease in the small vessels. Continue aspirin. Lipitor increased to 80 mg. Also on Coumadin May 30: Patient taken to the OR by Dr. Nelson. Details in his notes. Patient put on tPA thrombolysis. Moved to the ICU. May 31: Patient taken to the OR today with Dr. Nelson. Thrombus evacuation done. No details in his notes. Dorsalis pedis pulse reported to him to be present. Keep patient on IV heparin. -Acute cellulitis right lower extremity.: Improving IV vancomycin ID following Discharged on Zyvox. - Coumadin monitoring Being sent home with overlap with Lovenox for 5 more days. Received Lovenox today. - IV heparin monitoring per protocol -Paroxysmal atrial fibrillation, sinus rhythm Telemetry Coumadin resumed -COPD, an ex-smoker Albuterol when necessary - Noncritical coronary artery disease with cardiac catheterization in December 2024. 60-70% proximal RCA, 50% mid RCA, 60% mid LAD, 40% OM1. Decision was for medical management -Diabetes mellitus type 2, chronically on insulin, uncontrolled with hyperglycemia likely secondary to possible infection Lantus increased to 40 units follow Accu-Cheks. -GERD PPI -Hyperlipidemia Lipitor-80 mg. -Essential hypertension Norvasc -Obesity BMI 33.1 Weight loss measures Disposition: Home Past Medical History Past Medical History: Atrial Fibrillation, Blood Disorder, Cancer, COPD, Diabetes Mellitus, Deep Vein Thrombosis (DVT), GERD/Reflux, Hyperlipidemia, Hypertension, Osteoarthritis (OA), Seizure Disorder, Skin Disorder, Vascular Disorder Additional Past Medical History / Comment(s): heart murmur, 2016 R breast cancer -had surgery & chemo & radiation 7 yrs ago, IDDM type II, clarita. ft [place] neuropathy bilateral legs/feet, 09/2022 DVT Lt. leg, one time seizure 10 or more years ago-testing done & never found anything, chronic pain mostly in feet and neck/back. 3 stents to right lower extremity on 08/23/24, paroxysmal Atrial fibrillation History of Any Multi-Drug Resistant Organisms: None Reported Past Surgical History: Breast Surgery, Orthopedic Surgery, Tubal Ligation Additional Past Surgical History / Comment(s): right breast lumpectomy & lymph nodes removed, port for chemo/since removed, peripheral angioplasties/atherectomies, and removed blood clot from L leg, stents, right 2nd toe amputation d/t diabetic ulcer, bilateral carpal tunnel releases, cervi naomi fusion, aortogram 08/02/24 Past Anesthesia/Blood Transfusion Reactions: No Reported Reaction Additional Past Anesthesia/Blood Transfusion Reaction / Comment(s): Pt received blood transfusion r/t blood loss with surgery. no issues Past Psychological History: Anxiety, Depression Additional Psychological History / Comment(s): Pt resides with spouse. Smoking Status: Former smoker Past Alcohol Use History: None Reported Additional Past Alcohol Use History / Comment(s): Started smoking 1980 and quit in 2019. Past Drug Use History: None Reported Patient Condition at Discharge: Stable Plan - Discharge Summary Discharge Rx Participant: Yes New Discharge Prescriptions: New Linezolid [Zyvox] 600 mg PO Q12H #14 tab Atorvastatin [Lipitor] 80 mg PO DAILY #30 tab Enoxaparin [Lovenox] 150 mg SQ DAILY #5 each Continue Omeprazole [PriLOSEC] 20 mg PO DAILY Anastrozole 1 mg PO DAILY amLODIPine [Norvasc] 10 mg PO DAILY Aspirin 81 mg PO DAILY #30 tab lisinopriL [Zestril] 40 mg PO DAILY INSULIN ASPART (NovoLOG) [NovoLOG (formulary)] See Protocol SQ AC-TID Gabapentin [Neurontin] 800 mg PO TID Metoprolol Succinate (ER) [Toprol XL] 50 mg PO Q12HR #60 tab Warfarin [Coumadin] 7.5 mg PO DAILY 15 Days #15 tab metFORMIN HCL 1,000 mg PO BID Changed Insulin Glargine,Hum.rec.anlog [Basaglar Kwikpen U-100] 40 unit SQ AC-BRKFST #0 Discontinued Atorvastatin [Lipitor] 40 mg PO DAILY Insulin Glargine,Hum.rec.anlog [Basaglar Kwikpen U-100] 15 unit SQ AC-SUPPER Discharge Medication List INSULIN ASPART (NovoLOG) [NovoLOG (formulary)] See Protocol SQ AC-TID 05/19/21 [History] Omeprazole [PriLOSEC] 20 mg PO DAILY 05/19/21 [History] Anastrozole 1 mg PO DAILY 10/08/22 [History] Gabapentin [Neurontin] 800 mg PO TID 08/30/24 [History] amLODIPine [Norvasc] 10 mg PO DAILY 08/30/24 [History] Aspirin 81 mg PO DAILY #30 tab 12/28/24 [Rx] Metoprolol Succinate (ER) [Toprol XL] 50 mg PO Q12HR #60 tab 12/28/24 [Rx] lisinopriL [Zestril] 40 mg PO DAILY 01/15/25 [History] Warfarin [Coumadin] 7.5 mg PO DAILY 15 Days #15 tab 02/16/25 [Rx] metFORMIN HCL 1,000 mg PO BID 05/27/25 [History] Linezolid [Zyvox] 600 mg PO Q12H #14 tab 05/31/25 [Rx] Atorvastatin [Lipitor] 80 mg PO DAILY #30 tab 06/01/25 [Rx] Enoxaparin [Lovenox] 150 mg SQ DAILY #5 each 06/01/25 [Rx] Insulin Glargine,Hum.rec.anlog [Basaglar Kwikpen U-100] 40 unit SQ AC-BRKFST #0 06/01/25 [Rx] Follow up Appointment(s)/Referral(s): Gregorio Nelson DO [Doctor of Osteopathic Medicine] - 10 Days Tatianna Mason MD [Primary Care Provider] - 1-2 days Discharge Disposition: HOME SELF-CARE
[2025-06-01] MEDS ORDERED: WARFARIN 7.5 MG TAB PO ONE (18:00)
[2025-06-02] MEDS ORDERED: VANCOMYCIN TROUGH DUE 1 EACH MISC MISCELLANE ONE (10:00)
--- NOTE | 2025-06-06 11:23 | IR ---
EXAMINATION TYPE: IR angio lower extremity RT DATE OF EXAM: 06/04/2025 FLUOROSCOPY Right SFA Thrombus, 4.6min fluoro, [id number] 129 images are submitted. [facility], , 06/04/2025 3:12 PM
== END 2025-06-01 15:59 | disposition home or self-care (01) | DRG 271 ==
LOC: EC 09:43 → 4SSUR 13:09 → 1SOBS 18:57 → 3SCARD 05-30 16:27 → 2SICU 05-30 17:55 → 5NMEDONC 06-01 09:15
PROVIDERS: ADMIT Hospitalist; ATTEND Hospitalist
PROC: 3E05317 Introduction of Other Thrombolytic into Peripheral Artery, Percutaneous Approach (ICD-10-PCS; 2025-05-30 14:00)
PROC: 04FK3Z0 Fragmentation of Right Femoral Artery, Percutaneous Approach, Ultrasonic (ICD-10-PCS; 2025-05-30 14:00)
PROC: 047K3ZZ Dilation of Right Femoral Artery, Percutaneous Approach (ICD-10-PCS; principal; 2025-05-31 14:30)
PROC: 04CK3ZZ Extirpation of Matter from Right Femoral Artery, Percutaneous Approach (ICD-10-PCS; principal; 2025-05-31 14:30)
DX: E11.52 Type 2 diabetes mellitus with diabetic peripheral angiopathy with gangrene (principal); I70.261 Atherosclerosis of native arteries of extremities with gangrene, right leg; C50.911 Malignant neoplasm of unspecified site of right female breast; L03.115 Cellulitis of right lower limb; E11.40 Type 2 diabetes mellitus with diabetic neuropathy, unspecified; G40.909 Epilepsy, unspecified, not intractable, without status epilepticus; I48.0 Paroxysmal atrial fibrillation; J44.9 Chronic obstructive pulmonary disease, unspecified; E66.9 Obesity, unspecified; F32.A Depression, unspecified; I10 Essential (primary) hypertension; E11.621 Type 2 diabetes mellitus with foot ulcer; E11.65 Type 2 diabetes mellitus with hyperglycemia; L97.519 Non-pressure chronic ulcer of other part of right foot with unspecified severity; E11.610 Type 2 diabetes mellitus with diabetic neuropathic arthropathy; Z79.4 Long term (current) use of insulin; K21.9 Gastro-esophageal reflux disease without esophagitis; M19.90 Unspecified osteoarthritis, unspecified site; E78.5 Hyperlipidemia, unspecified; E87.5 Hyperkalemia; I25.10 Atherosclerotic heart disease of native coronary artery without angina pectoris; F41.9 Anxiety disorder, unspecified; Z68.33 Body mass index [BMI] 33.0-33.9, adult; Z86.718 Personal history of other venous thrombosis and embolism; Z79.01 Long term (current) use of anticoagulants; Z79.811 Long term (current) use of aromatase inhibitors; Z79.82 Long term (current) use of aspirin; Z79.84 Long term (current) use of oral hypoglycemic drugs; Z79.899 Other long term (current) drug therapy; Z87.891 Personal history of nicotine dependence; Z92.21 Personal history of antineoplastic chemotherapy; Z92.3 Personal history of irradiation
CPT/HCPCS: 36415; 37184; 37211; 37214; 37224; 75710; 76937; 80048; 80053; 80202; 82565; 83605; 84145; 84520; 85025; 85384; 85610; 85730; 86140; 86850; 86900; 86901; 93922; 96365; 96366; 99285